=== PATIENT | male | born 1940 | race Two or more races ===

== ENCOUNTER 2022-03-26 18:58 | Inpatient (IN) | payer MEDICARE, MEDICAID, SELFPAY ==
--- NOTE | 2022-03-26 | ECG_ITS ---
Test Reason : chest pain Blood Pressure : / mmHG Vent. Rate : 063 BPM Atrial Rate : 063 BPM P-R Int : 210 ms QRS Dur : 074 ms QT Int : 408 ms P-R-T Axes : 057 -07 082 degrees QTc Int : 417 ms Sinus rhythm with 1st degree A-V block Low voltage QRS Cannot rule out Anterior infarct , age undetermined Abnormal ECG When compared with ECG of 02-NOV-2018 06:51, Minimal criteria for Anterior infarct are now Present Nonspecific T wave abnormality, worse in Lateral leads Referred By: Generic ED Physician Electronically Signed By:JOSEPH KILGORE MD
--- NOTE | ~2022-03-26 | XR_ITS ---
EXAMINATION: PORTABLE CHEST 1 VIEW CLINICAL INFORMATION: acute chest pain . COMPARISON: 11/01/2018. TECHNIQUE: Portable frontal view of the chest was obtained. FINDINGS: The lungs are hypoexpanded with basilar markings more likely due to atelectasis. Early infiltrate, especially at the left base would be difficult to exclude. Mild central vascular prominence may be related to the degree of hypoexpansion. No overt edema or pneumothorax. Cardiac and mediastinal silhouettes are within normal limits for technique. No acute bony abnormality seen. Cervical spine hardware partially visualized. Degenerative changes in the visualized right shoulder XR/XR chest 1V IMPRESSION: Hypoexpanded with basilar markings more likely due to atelectasis in this setting. Early infiltrate, especially at the left base would be difficult to exclude.
--- NOTE | ~2022-03-26 | CT_ITS ---
EXAMINATION: CT CHEST WITHOUT CONTRAST CLINICAL INFORMATION: Shortness of breath. COMPARISON: None TECHNIQUE: Multidetector volumetric CT imaging of the chest was done. Axial MIP volume rendering provided. Sagittal and coronal reformatted images were obtained. This CT examination was performed using dose optimization techniques as appropriate, variously including the following: *Automated exposure control *Adjustment of mA and/or kV according to patient size (this includes techniques or standardized protocols for targeted exams where dose is matched to indication/reason for exam; i.e. extremities or head) *Use of iterative reconstruction technique DLP: 322 mGy-cm FINDINGS: LUNGS: There is bronchial wall thickening the perihilar lung without significant bronchiectasis. Mild diffuse subpleural reticular changes, greater in the right and left lungs. All lobes involved. No focal consolidation. No acute airspace disease. MEDIASTINUM: No mediastinal mass or significant lymphadenopathy. Heart size normal. No aneurysm of the thoracic aorta. Small volume of calcifications of thoracic aorta. CORONARY ARTERY CALCIFICATION: Vascular stenting coronary artery. PLEURA: Trace dependent right pleural effusion. AXILLA: No lymphadenopathy. UPPER ABDOMEN: Bilateral renal cysts. No follow-up imaging is recommended for simple renal cyst.. Diverticulosis of the transverse colon. No evidence of acute change of bowel. The visualized liver, spleen and adrenal glands are normal. Pancreas partially visualized is atrophic. OSSEOUS STRUCTURES: Multilevel degenerative spondylosis of the spine. CT/CT chest wo IV con IMPRESSION: 1. Diffuse bronchial wall thickening. This may be inflammatory or infectious in etiology. Mild diffuse subpleural reticular changes of lungs. No acute focal airspace disease. 2. Trace dependent right pleural effusion. Fleischner guidelines were followed.
[2022-03-26 19:09] VITALS: BP 152/88; PULSE 61; O2SAT 97; BMI 27.3
[2022-03-26 19:58] LABS: Basophils Percent Auto 0.3 % (0-2); Eosinophils Absolute Auto 0.2 X10*3/uL (0.0-0.4); Eosinophils Percent Auto 2.7 % (0-4); Hematocrit 40.8 % (42.0-52.0); Hemoglobin 13.2 g/dl (14.0-18.0); Imm Gran Abs Auto 0.01 X10*3/uL (0.00-0.03); Imm Gran Pct Auto 0.2 % (0.0-0.4); Lymphocytes Absolute Auto 1.9 X10*3/uL (1.2-4.9); Lymphocytes Percent Auto 28.7 % (20-40); MANUAL DIFF FLAG NO; Mean Corpuscular HGB Conc 32.4 g/dl (31.0-36.0); Mean Corpuscular Hemoglobin 29.3 pg (27.0-33.0); Mean Corpuscular Volume 90.5 fL (80.0-98.0); Monocytes Absolute Auto 0.4 X10*3/uL (0.1-1.2); Monocytes Percent Auto 5.6 % (2-11); Neutrophils Absolute Auto 4.2 x10*3/uL (2.0-8.3); Neutrophils Percent Auto 62.5 % (45-73); Platelet Count 143 X10*3/uL (160-400); Red Blood Count 4.51 X10*6/uL (4.60-5.80); Red Cell Distribution Width 13.5 % (11.0-16.0); White Blood Count 6.7 X10*3/uL (4.8-10.8)
[2022-03-26 20:13] LABS: COVID-19 Test Negative (Negative); IDNOW Serial# 16C4AD1C
[2022-03-26 20:15] VITALS: BP 117/60; PULSE 57; RESP 17; TEMP 36.9; O2SAT 99
[2022-03-26 20:17] LABS: Alanine Aminotransferase 32 U/L (0-40); Albumin Level 3.6 g/dL (3.5-5.0); Alkaline Phosphatase 91 U/L (39-117); Anion Gap 11 (12-20); Aspartate Amino Transferase 24 U/L (5-37); Bilirubin Total 0.8 mg/dL (0.0-1.0); Blood Urea Nitrogen 26 mg/dL (9-16); Calcium 8.3 mg/dL (8.4-10.2); Carbon Dioxide 24 mmol/L (22-29); Chloride 111 mmol/L (96-108); Creatinine Clr Calc Pharmacy 29.8; Estimated Glomerular Filt Rate 33; Glucose Random 187 mg/dL (60-115); Potassium 4.6 mmol/L (3.3-5.1); Sodium 141 mmol/L (135-145)
[2022-03-26 20:24] LABS: Troponin-I High Sensitivity 48.6 ng/L (<3.5-35.0)
[2022-03-26 21:17] VITALS: PULSE 59
--- NOTE | 2022-03-26 21:22 | PC.NURSE ---
Patient arrived to be evaluated for left chest, left arm, and mid back pain. Patient describes pain as sharp, lasted 15 min and resolved. EKG performed, Labs drawn. 20 g IV line established in R AC. Dr. Fried at bedside to evaluate pt.
--- NOTE | 2022-03-26 21:25 | ED.CHESTPAIN ---
HPI - Chest Pain General Chief Complaint: Chest Pain Stated Complaint: sob, chest pain Time Seen by Provider: 03/26/22 21:10 Source: patient Mode of arrival: EMS Limitations: no limitations History of Present Illness HPI narrative: 81-year-old male presents with chest pain. He has a history of coronary artery disease with stent placed 2 years ago, diabetes. Chest pain started today prior to arrival. It was left-sided radiating to the left arm and left neck. Patient does have some chronic right neck pain but this pain was different. Describes the pain as sharp. The pain was moderate to severe. It was not associated with exertion. He did have nausea and shortness of breath. The pain lasted approximately 15 minutes and has dissipated since then. Patient is compliant with his medications. He is currently on Brilinta and aspirin on a regular basis. EMS was contacted. On route, patient had 324 mg aspirin. No additional treatment was noted. Related Data Allergies Allergy/AdvReac Type Severity Reaction Status Date / Time No Known Allergies Allergy Unverified 11/01/19 16:04 [No Known Allergies*] Review of Systems Review of Systems: CONSTITUTIONAL: Denies weight loss, fever and chills. HEENT: Denies changes in vision and hearing. RESPIRATORY: Positive SOB no cough. CV: Denies palpitations positive CP. GI: Denies abdominal pain, positive nausea, no vomiting and diarrhea. : Denies dysuria and urinary frequency. MSK: Denies myalgia and joint pain. SKIN: Denies rash and pruritus. NEUROLOGICAL: Denies headache and syncope. PSYCHIATRIC: Denies recent changes in mood. Denies anxiety and depression. All other ROS are negative unless in HPI PMFSH Social History Social History Alcohol intake: former Smoked in Last 30 Days: No Use of substances other than those prescribed or required for medical reasons: No Advance Directives: No Advance Directives Information Provided: No Physical Exam Vital Signs: Vital Signs: Last Vital Signs Temp 98.4 F 03/26/22 20:15 Pulse 57 03/26/22 20:15 Resp 17 03/26/22 20:15 BP 117/60 03/26/22 20:15 Pulse Ox 99 03/26/22 20:15 O2 Del Method 03/26/22 20:15 BMI result Body Mass Index 27.3 GEN: Well developed, no acute distress, alert, oriented HEENT: Normocephalic, atraumatic, normal external ears, nose appears normal, no oropharyngeal edema or exudates Eyes: Normal to appearance Neck: Supple, no lymphadenopathy Respiratory: Talks in complete sentences, no respiratory distress, clear to auscultation bilaterally Cardiovascular: Regular rate and rhythm, no murmurs rubs or gallops Abdomen: Soft, nontender, nondistended, no guarding, no rebound Back: No CVA tenderness Extremities: No clubbing cyanosis or edema Neurologic: No focal neurologic deficits, cranial nerves 2-12 intact, strength is 5/5 bilaterally, gait normal Skin: No rash Course Course Course Narrative: 81-year-old male with coronary artery disease and diabetes presents with chest pain. Chest pain has resolved. Has a very good story including left-sided chest pain radiating to left arm and neck cyst with nausea and shortness of breath. Patient is currently pain-free. Patient will have full workup including cardiac enzymes, chest x-ray, EKG. Given patient's history, he will likely need admission. Reevaluation(s) Reevaluation #1: The workup is complete. Patient will be admitted to the hospital for chest pain given his history of coronary artery disease. Discussed the plan with the patient. Time: 21:28 Consultations Consultation #1: Hospitalist for admission Time: 21:34 Medical Decision Making Medical Decision Making [facility] Narrative: 81-year-old male with coronary artery disease and diabetes presents chest pain. The story is very good. He does have a stent placed and is compliant with his medications. Prior treatment included aspirin 324 mg for is also on Brilinta. Examination was unremarkable. Multiple differential diagnoses were considered however the highest on the LEs is cardiac chest pain. Differential Diagnosis Differential Diagnoses: The differential diagnosis associated with the presentation includes (Atypical chest pain, musculoskeletal chest pain, chest wall pain, myocardial infarction, pericarditis, myocarditis, anxiety, stress, reflux, pneumonia, pulmonary embolus, dissection) Acute chest pain, coronary artery disease, chronic kidney disease Admission/Observation Consideration of admission/observation: Escalation of care including admission/observation considered Consult Healthcare Provider Management of the patient was discussed with: Hospitalist Lab Data [facility] Lab Attestation statement: I reviewed the patient's lab results. 03/26/22 19:53 03/26/22 19:53 Labs: Lab Results 03/26/22 03/26/22 03/26/22 Range/Units 19:52 19:53 19:53 WBC 6.7 (4.8-10.8) X10*3/uL RBC 4.51 L (4.60-5.80) X10*6/uL Hgb 13.2 L (14.0-18.0) g/dl Hct 40.8 L (42.0-52.0) % MCV 90.5 (80.0-98.0) fL MCH 29.3 (27.0-33.0) pg MCHC 32.4 (31.0-36.0) g/dl RDW 13.5 (11.0-16.0) % Plt Count 143 L (160-400) X10*3/uL MPV 10.0 (9.4-12.4) fL Immature Gran % (Auto) 0.2 (0.0-0.4) % Neut % (Auto) 62.5 (45-73) % Lymph % (Auto) 28.7 (20-40) % [place] % (Auto) 5.6 (2-11) % Eos % (Auto) 2.7 (0-4) % Baso % (Auto) 0.3 (0-2) % Lymph # (Auto) 1.9 (1.2-4.9) X10*3/uL [place] # (Auto) 0.4 (0.1-1.2) X10*3/uL Eos # (Auto) 0.2 (0.0-0.4) X10*3/uL Baso # (Auto) 0.0 (0.0-0.2) X10*3/uL Abs Immat Gran (auto) 0.01 (0.00-0.03) X10*3/uL Absolute Neuts (auto) 4.2 (2.0-8.3) x10*3/uL Absolute Nucleated RBC 0.000 (0.0-0.012) X10*3/uL Nucleated RBC % (auto) 0.0 (0.0-0.2) /100WBC Sodium 141 (135-145) mmol/L Potassium 4.6 (3.3-5.1) mmol/L Chloride 111 H (96-108) mmol/L Carbon Dioxide 24 (22-29) mmol/L Anion Gap 11 L (12-20) BUN 26 H (9-16) mg/dL Creatinine 1.93 H (0.5-1.4) mg/dL Estim Creat Clear Calc 29.8 Estimated GFR 33 Random Glucose 187 H (60-115) mg/dL Calcium 8.3 L (8.4-10.2) mg/dL Total Bilirubin 0.8 (0.0-1.0) mg/dL AST 24 (5-37) U/L ALT 32 (0-40) U/L Alkaline Phosphatase 91 (39-117) U/L Troponin I High Sens (<3.5-35.0) ng/L Total Protein 6.0 L (6.5-8.0) g/dL Albumin 3.6 (3.5-5.0) g/dL COVID-19 ([facility]) Negative (Negative) COVID-19 Clin Com See Note 03/26/22 Range/Units 19:53 WBC (4.8-10.8) X10*3/uL RBC (4.60-5.80) X10*6/uL Hgb (14.0-18.0) g/dl Hct (42.0-52.0) % MCV (80.0-98.0) fL MCH (27.0-33.0) pg MCHC (31.0-36.0) g/dl RDW (11.0-16.0) % Plt Count (160-400) X10*3/uL MPV (9.4-12.4) fL Immature Gran % (Auto) (0.0-0.4) % Neut % (Auto) (45-73) % Lymph % (Auto) (20-40) % [place] % (Auto) (2-11) % Eos % (Auto) (0-4) % Baso % (Auto) (0-2) % Lymph # (Auto) (1.2-4.9) X10*3/uL [place] # (Auto) (0.1-1.2) X10*3/uL Eos # (Auto) (0.0-0.4) X10*3/uL Baso # (Auto) (0.0-0.2) X10*3/uL Abs Immat Gran (auto) (0.00-0.03) X10*3/uL Absolute Neuts (auto) (2.0-8.3) x10*3/uL Absolute Nucleated RBC (0.0-0.012) X10*3/uL Nucleated RBC % (auto) (0.0-0.2) /100WBC Sodium (135-145) mmol/L Potassium (3.3-5.1) mmol/L Chloride (96-108) mmol/L Carbon Dioxide (22-29) mmol/L Anion Gap (12-20) BUN (9-16) mg/dL Creatinine (0.5-1.4) mg/dL Estim Creat Clear Calc Estimated GFR Random Glucose (60-115) mg/dL Calcium (8.4-10.2) mg/dL Total Bilirubin (0.0-1.0) mg/dL AST (5-37) U/L ALT (0-40) U/L Alkaline Phosphatase (39-117) U/L Troponin I High Sens 48.6 H (<3.5-35.0) ng/L Total Protein (6.5-8.0) g/dL Albumin (3.5-5.0) g/dL COVID-19 ([facility]) (Negative) COVID-19 Clin Com Independent Interpretation I performed an independent interpretation of an: EKG (Normal size heart rate 63, first-degree AV block, diffuse nonspecific T-wave flattening, no acute ST elevations or depressions) and Plain X-Ray (No acute cardiopulmonary disease) External Record Review No outside records available Tests considered The following testing was considered but not selected: CT chest Prescription Management I considered prescription management with: Pain Medication and Other (Anticoagulation) Chronic Conditions Patient?s care impacted by: Diabetes and Hypertension Discharge Plan Discharge Clinical Impression: Chest pain, Coronary artery disease, CKD (chronic kidney disease) Patient Disposition: Admitted As Inpatient
--- NOTE | 2022-03-26 21:38 | ED_ITS ---
HPI - Chest Pain General Chief Complaint: Chest Pain Stated Complaint: sob, chest pain Time Seen by Provider: 03/26/22 21:10 Source: patient Mode of arrival: EMS Limitations: no limitations Related Data Allergies Allergy/AdvReac Type Severity Reaction Status Date / Time No Known Allergies Allergy Unverified 11/01/19 16:04 [No Known Allergies*] PENDING SALE TO [facility] Social History Social History Alcohol intake: former Smoked in Last 30 Days: No Use of substances other than those prescribed or required for medical reasons: No Advance Directives: No Advance Directives Information Provided: No Physical Exam Vital Signs: Vital Signs: Last Vital Signs Temp 98.4 F 03/26/22 20:15 Pulse 57 03/26/22 20:15 Resp 17 03/26/22 20:15 BP 117/60 03/26/22 20:15 Pulse Ox 99 03/26/22 20:15 O2 Del Method 03/26/22 20:15 BMI result Body Mass Index 27.3 Medical Decision Making Lab Data 03/26/22 19:53 03/26/22 19:53 Labs: Lab Results 03/26/22 03/26/22 03/26/22 Range/Units 19:52 19:53 19:53 WBC 6.7 (4.8-10.8) X10*3/uL RBC 4.51 L (4.60-5.80) X10*6/uL Hgb 13.2 L (14.0-18.0) g/dl Hct 40.8 L (42.0-52.0) % MCV 90.5 (80.0-98.0) fL MCH 29.3 (27.0-33.0) pg MCHC 32.4 (31.0-36.0) g/dl RDW 13.5 (11.0-16.0) % Plt Count 143 L (160-400) X10*3/uL MPV 10.0 (9.4-12.4) fL Immature Gran % (Auto) 0.2 (0.0-0.4) % Neut % (Auto) 62.5 (45-73) % Lymph % (Auto) 28.7 (20-40) % [place] % (Auto) 5.6 (2-11) % Eos % (Auto) 2.7 (0-4) % Baso % (Auto) 0.3 (0-2) % Lymph # (Auto) 1.9 (1.2-4.9) X10*3/uL [place] # (Auto) 0.4 (0.1-1.2) X10*3/uL Eos # (Auto) 0.2 (0.0-0.4) X10*3/uL Baso # (Auto) 0.0 (0.0-0.2) X10*3/uL Abs Immat Gran (auto) 0.01 (0.00-0.03) X10*3/uL Absolute Neuts (auto) 4.2 (2.0-8.3) x10*3/uL Absolute Nucleated RBC 0.000 (0.0-0.012) X10*3/uL Nucleated RBC % (auto) 0.0 (0.0-0.2) /100WBC Sodium 141 (135-145) mmol/L Potassium 4.6 (3.3-5.1) mmol/L Chloride 111 H (96-108) mmol/L Carbon Dioxide 24 (22-29) mmol/L Anion Gap 11 L (12-20) BUN 26 H (9-16) mg/dL Creatinine 1.93 H (0.5-1.4) mg/dL Estim Creat Clear Calc 29.8 Estimated GFR 33 Random Glucose 187 H (60-115) mg/dL Calcium 8.3 L (8.4-10.2) mg/dL Total Bilirubin 0.8 (0.0-1.0) mg/dL AST 24 (5-37) U/L ALT 32 (0-40) U/L Alkaline Phosphatase 91 (39-117) U/L Troponin I High Sens (<3.5-35.0) ng/L Total Protein 6.0 L (6.5-8.0) g/dL Albumin 3.6 (3.5-5.0) g/dL COVID-19 ([facility]) Negative (Negative) COVID-19 Clin Com See Note 03/26/22 Range/Units 19:53 WBC (4.8-10.8) X10*3/uL RBC (4.60-5.80) X10*6/uL Hgb (14.0-18.0) g/dl Hct (42.0-52.0) % MCV (80.0-98.0) fL MCH (27.0-33.0) pg MCHC (31.0-36.0) g/dl RDW (11.0-16.0) % Plt Count (160-400) X10*3/uL MPV (9.4-12.4) fL Immature Gran % (Auto) (0.0-0.4) % Neut % (Auto) (45-73) % Lymph % (Auto) (20-40) % [place] % (Auto) (2-11) % Eos % (Auto) (0-4) % Baso % (Auto) (0-2) % Lymph # (Auto) (1.2-4.9) X10*3/uL [place] # (Auto) (0.1-1.2) X10*3/uL Eos # (Auto) (0.0-0.4) X10*3/uL Baso # (Auto) (0.0-0.2) X10*3/uL Abs Immat Gran (auto) (0.00-0.03) X10*3/uL Absolute Neuts (auto) (2.0-8.3) x10*3/uL Absolute Nucleated RBC (0.0-0.012) X10*3/uL Nucleated RBC % (auto) (0.0-0.2) /100WBC Sodium (135-145) mmol/L Potassium (3.3-5.1) mmol/L Chloride (96-108) mmol/L Carbon Dioxide (22-29) mmol/L Anion Gap (12-20) BUN (9-16) mg/dL Creatinine (0.5-1.4) mg/dL Estim Creat Clear Calc Estimated GFR Random Glucose (60-115) mg/dL Calcium (8.4-10.2) mg/dL Total Bilirubin (0.0-1.0) mg/dL AST (5-37) U/L ALT (0-40) U/L Alkaline Phosphatase (39-117) U/L Troponin I High Sens 48.6 H (<3.5-35.0) ng/L Total Protein (6.5-8.0) g/dL Albumin (3.5-5.0) g/dL COVID-19 ([facility]) (Negative) COVID-19 Clin Com Discharge Plan Discharge Clinical Impression: Chest pain, Coronary artery disease, CKD (chronic kidney disease) Patient Disposition: Admitted As Inpatient
--- NOTE | 2022-03-26 22:10 | PHA.MEDREC ---
Pharmacy Consult ? Medication Reconciliation Pharmacy has completed the medication reconciliation.
[2022-03-26] MEDS: Insulin Glargine,Hum.rec.anlog 100 UNIT/ML 10 ML VIAL 10 UNIT SUBCUT (22:13)
[2022-03-26 23:00] LABS: B Type Natriuretic Peptide 569 pg/mL (<100)
--- NOTE | 2022-03-26 23:32 | PM.IMHP ---
History of Present Illness Date of Service: 03/26/22 Chief Complaint: chest pain 81 yo M with hx of CAD, CKD, diabetes, CHF, hyperlipidemia, BPH, presents the hospital with complaints of left-sided chest pain patient reports the pain is sharp stabbing, radiating to his left arm, started early in the day, no relieving or exacerbating factors. Pain is intermittent, worse with exertion. Patient is also complaining of shortness of breath, that started 3 days ago, lower extremity edema. Orthopnea and PND. Reports compliance with his torsemide. Denies any fever no chills, no cough, no palpitations, no urinary symptoms and numbness tingling or weakness. On arrival to the ED hemodynamically stable no significant abnormal vitals Labs are significant for WBC count of 6.7, hemoglobin of 13.2, hematocrit 40.8, creatinine of 9 3 which is around his baseline, troponin of 48 increased to 55.3 BNP of 569 Urine negative, COVID-[address] shows diffuse bronchial wall thickening, this could be inflammatory or infectious. Trace dependent right pleural effusion. EKG shows sinus rhythm with first-degree AV block with no significant ST T-wave changes suggestive of ACS Review of Systems Review of Systems: Yes all other systems are reviewed and are negative [facility] Medical History CHF (congestive heart failure) Diabetes History of CAD (coronary artery disease) Surgical History No pertinent past surgical history Social History Household Members: Family Housing: Apartment Do you presently have visiting nurse or other home services: Yes Alcohol intake: former Patient Tobacco Use Status: Former Tobacco user Smoked in Last 30 Days: No Use of substances other than those prescribed or required for medical reasons: No Have you been hit, kicked, punched, or otherwise hurt by someone within the past year? If so, by whom?: No Do you feel safe in your current relationship?: No Current Relationship Is there a partner from a previous relationship who is making you feel unsafe now?: No Are you made to feel afraid or neglected: No Advance Directives: No Advance Directives Information Provided: No Do you have thoughts of harming others: None Do you have a plan to hurt others: No Plan Nutrition Risks: Difficulty swallowing Meds Allergies Allergy/AdvReac Type Severity Reaction Status Date / Time No Known Allergies Allergy Unverified 11/01/19 16:04 [No Known Allergies*] Active Medications: Current Medications Pharmacy Consult (Consult Rx Perform Med Rec) 1 each MISCELLANE ONCE PRN PRN Reason: Consult order Home Medications Medication Instructions Recorded Confirmed Last Taken Type acetaminophen 650 mg 650 mg PO BID PRN Pain 03/26/22 03/26/22 Unknown History tablet,extended release aspirin 81 mg tablet,delayed 81 mg PO DAILY 03/26/22 03/26/22 03/26/22 History release atorvastatin 80 mg tablet 1 tab PO BEDTIME 03/26/22 03/26/22 03/25/22 History fluticasone propionate 50 1 spray intranasal BID 03/26/22 03/26/22 03/26/22 History mcg/actuation nasal spray,suspension gabapentin 100 mg capsule 1 cap PO BID 03/26/22 03/26/22 03/26/22 History insulin glargine 100 unit/mL (3 16 unit subcut BEDTIME 03/26/22 03/26/22 03/25/22 History mL) subcutaneous pen (Lantus Solostar U-100 Insulin) loratadine 10 mg tablet 10 mg PO DAILY 03/26/22 03/26/22 03/26/22 History metoprolol tartrate 25 mg tablet 0.5 tab PO BID 03/26/22 03/26/22 03/26/22 History omeprazole 20 mg capsule,delayed 1 cap PO DAILY 03/26/22 03/26/22 03/26/22 History release sacubitril 24 mg-valsartan 26 mg 1 tab PO BID 03/26/22 03/26/22 03/26/22 History tablet (Entresto) tamsulosin 0.4 mg capsule 1 cap PO DAILY 03/26/22 03/26/22 03/26/22 History ticagrelor 60 mg tablet (Brilinta) 1 tab PO BID 03/26/22 03/26/22 03/26/22 History torsemide 10 mg tablet 1 tab PO DAILY 03/26/22 03/26/22 03/26/22 History Physical Exam Vital Signs and Narrative: Vital Signs: Last Vital Signs Temp 98.4 F 03/26/22 20:15 Pulse 57 03/26/22 20:15 Resp 17 03/26/22 20:15 BP 117/60 03/26/22 20:15 Pulse Ox 99 03/26/22 20:15 O2 Del Method 03/26/22 20:15 BMI result Body Mass Index 27.3 Const: General: cooperative and no acute distress Orientation/consciousness: patient oriented x3 Eyes: General: appearance normal, both eyes and all related structures Resp: Effort & Inspection: normal respiratory effort Auscultation: clear to auscultation bilaterally Cardio: Rate: regular rate Rhythm: regular rhythm GI: Palpation (GI): Soft to palpation Auscultation: normal bowel sounds Skin: General skin exam: no rashes or lesions noted Neuro: General: patient oriented x3 Cognition (Neuro): normal cognition Extrem: Other: Trace pedal edema General: Yes normal to inspection Results Labs 03/26/22 19:53 03/26/22 19:53 Labs: Laboratory Results - last 24 hr 03/26/22 03/26/22 03/26/22 19:52 19:53 19:53 MCV 90.5 MCH 29.3 MCHC 32.4 RDW 13.5 Plt Count 143 L MPV 10.0 Immature Gran % (Auto) 0.2 Neut % (Auto) 62.5 Lymph % (Auto) 28.7 [place] % (Auto) 5.6 Eos % (Auto) 2.7 Baso % (Auto) 0.3 Lymph # (Auto) 1.9 [place] # (Auto) 0.4 Eos # (Auto) 0.2 Baso # (Auto) 0.0 Abs Immat Gran (auto) 0.01 Absolute Neuts (auto) 4.2 Absolute Nucleated RBC 0.000 Nucleated RBC % (auto) 0.0 Anion Gap 11 L Estim Creat Clear Calc 29.8 Estimated GFR 33 Random Glucose 187 H Calcium 8.3 L Total Bilirubin 0.8 AST 24 ALT 32 Alkaline Phosphatase 91 Troponin I High Sens B-Natriuretic Peptide Total Protein 6.0 L Albumin 3.6 COVID-19 ([facility]) Negative COVID-19 Clin Com See Note 03/26/22 03/26/22 19:53 22:23 MCV MCH MCHC RDW Plt Count MPV Immature Gran % (Auto) Neut % (Auto) Lymph % (Auto) [place] % (Auto) Eos % (Auto) Baso % (Auto) Lymph # (Auto) [place] # (Auto) Eos # (Auto) Baso # (Auto) Abs Immat Gran (auto) Absolute Neuts (auto) Absolute Nucleated RBC Nucleated RBC % (auto) Anion Gap Estim Creat Clear Calc Estimated GFR Random Glucose Calcium Total Bilirubin AST ALT Alkaline Phosphatase Troponin I High Sens 48.6 H B-Natriuretic Peptide 569 H Total Protein Albumin COVID-19 ([facility]) COVID-19 Clin Com Imaging Radiologist's Impressions: Impressions Chest X-Ray 03/26/22 21:21 IMPRESSION: Hypoexpanded with basilar markings more likely due to atelectasis in this setting. Early infiltrate, especially at the left base would be difficult to exclude. Assessment and Plan (1) Chest pain: Status: Acute (2) Acute exacerbation of CHF (congestive heart failure): Status: Acute Plan 81-year-old male with past medical history of CAD, CHF with reduced ejection fraction as well as diabetes presents to the hospital with complaints of chest pain # chest pain - although typical, given his history of CAD patient will be admitted for telemetry - slightly elevated troponin with no delta - EKG reviewed shows nonspecific ST T wave changes not suggestive of ACS - will consult Cardiology - echocardiogram ordered # acute CHF exacerbation - has trace pleural effusion on chest x-ray, elevated BNP, as well as acute complaints of dyspnea, orthopnea and PND - patient's blood pressure is soft - he has no acute respiratory distress - will order Lasix pending cardiology evaluation, if BP permits - echo - low-sodium diet, strict I&O, daily weight - was given 1 dose of midodrine to help with blood pressure - will hold Entresto in the setting of low BP # diabetes - continue home insulin - will add low-dose sliding scale insulin - diabetic diet # history of CAD - continue Brilinta, aspirin statin, metoprolol DVT prophylaxis: Lovenox Given patient's history of coronary artery disease as well as complex cardiac history and need for further evaluation by Cardiology for the above-mentioned reasons the patient required minimum 2 nights inpatient hospital stay for further management and monitoring Time Spent With Patient Time: Total time managing care of this patient today ____ minutes. Quality Stroke Does the patient have a stroke diagnosis?: No VTE Prior VTE?: No VTE Risk Level:: Medical - moderate - high VTE Device Contraindication: Treatment Not Indicated VTE Drug Contraindication: N/A - Med Ordered
[2022-03-26] MEDS: Enoxaparin Sodium 40 MG/0.4 ML SYRINGE SUBCUT (23:40)
[2022-03-26] MEDS: 0.9 % Sodium Chloride Flush 3 ML SYRINGE IVFLUSH (23:40)
[2022-03-27] VITALS (7 sets, daily range): BP systolic 91–124; BP diastolic 48–63; PULSE 53–58; RESP 16–23; TEMP 36.1–36.8; O2SAT 96–100; BMI 32.3; BMI 31.3
[2022-03-27 00:14] LABS: Troponin-I High Sensitivity 55.3 ng/L (<3.5-35.0)
--- NOTE | 2022-03-27 00:29 | PC.NURSE ---
BP 95/48, P 53, RR 15, O2 Sat 97% RA. Dr. Sanchez notified of patient running soft BP, no new orders at this time.
[2022-03-27 00:32] LABS: Appearance Urine Clear; Color Urine Yellow; Glucose Urine UA 500 mg/dL (Negative); Leukocyte Esterase Urine Negative (Negative); Nitrite Urine Negative (Negative); PH 5.5 (5.0-9.0); UMIC TRIGGER UACC YES; Urine Blood Negative (Negative); Urine Ketones Negative (Negative); Urine Protein 30 (1+) mg/dL (Neg-Trace)
[2022-03-27 00:41] LABS: Bacteria Urine None Seen (None Seen); RBC Urine 0-2 /HPF (0-2); Squamous Epithelial Cell Urine 0-2 /HPF (0-2); WBC Urine 0-5 /HPF (0-5)
--- NOTE | 2022-03-27 01:01 | ECG_ITS ---
Test Reason : REPEAT Blood Pressure : / mmHG Vent. Rate : 052 BPM Atrial Rate : 052 BPM P-R Int : 198 ms QRS Dur : 066 ms QT Int : 436 ms P-R-T Axes : 051 -15 -12 degrees QTc Int : 405 ms Sinus bradycardia Low voltage QRS Septal infarct (cited on or before 26-MAR-2022) Abnormal ECG When compared with ECG of 26-MAR-2022 19:13, No significant change was found Referred By: Leandra Sanchez Electronically Signed By:JOSEPH KILGORE MD
--- NOTE | 2022-03-27 01:10 | PC.NURSE ---
Patient reports pressure like pain in left chest pain rating 6/10 on 0-10 pain scale. Patient denies SOB, non-diaphoretic. EKG obtained and sent to Dr. Sanchez via [employer] message.
[2022-03-27] MEDS: Midodrine HCl 5 MG TABLET PO (01:35)
[2022-03-27 01:57] LABS: Troponin-I High Sensitivity 43.4 ng/L (<3.5-35.0)
--- NOTE | 2022-03-27 03:19 | PC.NURSE ---
Nurse to nurse report given to Gene [facility] [place], patient to be transported to [facility] room 467 by e d tech.
[2022-03-27 07:11] LABS: Alanine Aminotransferase 23 U/L (0-40); Albumin Level 3.2 g/dL (3.5-5.0); Alkaline Phosphatase 75 U/L (39-117); Anion Gap 11 (12-20); Aspartate Amino Transferase 18 U/L (5-37); Bilirubin Total 0.7 mg/dL (0.0-1.0); Blood Urea Nitrogen 27 mg/dL (9-16); Calcium 8.3 mg/dL (8.4-10.2); Carbon Dioxide 23 mmol/L (22-29); Chloride 112 mmol/L (96-108); Creatinine Clr Calc Pharmacy 31.2; Estimated Glomerular Filt Rate 35; Glucose Random 117 mg/dL (60-115); Potassium 4.7 mmol/L (3.3-5.1); Sodium 141 mmol/L (135-145); Total Protein 5.2 g/dL (6.5-8.0)
[2022-03-27] MEDS: Metoprolol Tartrate 12.5 MG HALFTAB PO (07:38)
[2022-03-27] MEDS: Loratadine 10 MG TABLET PO (07:38)
[2022-03-27] MEDS: Gabapentin 100 MG CAPSULE PO ×2 (07:38→22:08)
[2022-03-27] MEDS: Omeprazole 20 MG CAPSULE.DR PO (07:38)
[2022-03-27] MEDS: Furosemide 40 MG/4 ML VIAL IVPUSH (07:38)
[2022-03-27] MEDS: 0.9 % Sodium Chloride Flush 3 ML SYRINGE IVFLUSH ×3 (07:38→22:09)
[2022-03-27] MEDS: Aspirin Enteric Coated 81 MG TABLET.DR PO (07:38)
[2022-03-27 07:47] LABS: Glucose, Whole Blood 110 mg/dL (60-115)
[2022-03-27] MEDS: Acetaminophen 325 MG TABLET 650 MG PO (07:47)
[2022-03-27] MEDS: Fluticasone Propionate Nasal 16 GM SPRAY 1 SPRAY NOSTRIL-B (08:35)
[2022-03-27 12:12] LABS: Glucose, Whole Blood 142 mg/dL (60-115)
--- NOTE | 2022-03-27 14:03 | HO.PM.IMPN ---
Subjective Subjective Date of Service: 03/28/22 Interval History: possible chf execerbation Review of Systems dry cough chest tightness seems improved says his dry weight is around 192 lbs Physical Exam Vital Signs: Vital Signs: Last Vital Signs Temp 98.2 F 03/27/22 12:00 Pulse 55 03/27/22 12:00 Resp 20 03/27/22 12:00 BP 102/58 L 03/27/22 12:00 Pulse Ox 97 03/27/22 12:00 O2 Del Method 03/27/22 12:00 BMI result Body Mass Index 31.3 Appearance: Alert.? Oriented X3.? not in distress.? cvs: rrr, [id number] . res: clear to auscultation ,no rhonchii or wheezing abd: no rebound or guarding ,nt, bs present. ext pulses present , no cyanosis ,no edema . neuro: axo3 , nonfocal. Objective Data Active Medications Acetaminophen (Acetaminophen 325 Mg Tablet) 650 mg PO Q6H PRN PRN Reason: Pain, Mild (Pain Scale 1-3) Last Admin: 03/27/22 07:47 Dose: 650 mg Documented By: ANY Aspirin (Aspirin Enteric Coated 81 Mg Tablet.Dr) 81 mg PO DAILY [facility] Last Admin: 03/27/22 07:38 Dose: 81 mg Documented By: ANY Atorvastatin Calcium (Atorvastatin Calcium 80 Mg Tablet) 80 mg PO BEDTIME [facility] Dextrose (Dextrose 50 % 25 Gm/50 Ml Syringe) 25 gm IVPUSH Q15M PRN; Protocol PRN Reason: per Hypoglycemia Standing Ord. Docusate Sodium (Docusate Sodium 100 Mg Capsule) 100 mg PO DAILY PRN PRN Reason: Constipation Enoxaparin Sodium (Enoxaparin Sodium 40 Mg/0.4 Ml Syringe) 40 mg SUBCUT Q24H [facility] Last Admin: 03/26/22 23:40 Dose: 40 mg Documented By: AUGUSTO Fluticasone Propionate (Fluticasone Propionate Nasal 16 Gm Banks) 1 spray NOSTRIL-B BID [facility] Last Admin: 03/27/22 08:35 Dose: 1 spray Documented By: ANY Furosemide (Furosemide 40 Mg/4 Ml Vial) 40 mg IVPUSH DAILY [facility]; Protocol Last Admin: 03/27/22 07:38 Dose: 40 mg Documented By: ANY Gabapentin (Gabapentin 100 Mg Capsule) 100 mg PO BID [facility] Last Admin: 03/27/22 07:38 Dose: 100 mg Documented By: ANY Glucose (Glucose Gel 15 Gm Gel..Gram.) 15 gm PO Q15M PRN; Protocol PRN Reason: per Hypoglycemia Standing Ord. Insulin Glargine (Insulin Glargine,Hum.Rec.Anlog 100 Unit/Ml 10 Ml Vial) 16 unit SUBCUT BEDTIME [facility] Insulin Human Lispro (Insulin Lispro 100 Unit/Ml 3 Ml Vial) 0 unit SUBCUT QIDACHS [facility]; Protocol Last Admin: 03/27/22 12:20 Dose: Not Given Documented By: RAHAT Non-Admin Reason: No Insulin Coverage Loratadine (Loratadine 10 Mg Tablet) 10 mg PO DAILY [facility] Last Admin: 03/27/22 07:38 Dose: 10 mg Documented By: ANY Metoprolol Tartrate (Metoprolol Tartrate 12.5 Mg Halftab) 12.5 mg PO BID [facility]; Protocol Last Admin: 03/27/22 07:38 Dose: 12.5 mg Documented By: ANY Non-Formulary Medication (Ticagrelor [Brilinta]) 1 tab PO BID [facility] Omeprazole (Omeprazole 20 Mg Misael.) 20 mg PO DAILY@0630 [facility] Last Admin: 03/27/22 07:38 Dose: 20 mg Documented By: ANY Ondansetron HCl (Ondansetron Hcl 4 Mg/2 Ml Vial) 4 mg IVPUSH Q8H PRN PRN Reason: Nausea and Vomiting Pharmacy Consult (Consult Rx Perform Med Rec) 1 each MISCELLANE ONCE PRN PRN Reason: Consult order Sodium Chloride (0.9 % Sodium Chloride Flush 3 Ml Syringe) 3 ml IVFLUSH QSHIFT [facility] Last Admin: 03/27/22 07:38 Dose: 3 ml Documented By: ANY Labs 03/26/22 19:53 03/27/22 05:59 Labs: Laboratory Results - last 24 hr 03/26/22 03/26/22 03/26/22 19:52 19:53 19:53 MCV 90.5 MCH 29.3 MCHC 32.4 RDW 13.5 Plt Count 143 L MPV 10.0 Immature Gran % (Auto) 0.2 Neut % (Auto) 62.5 Lymph % (Auto) 28.7 [place] % (Auto) 5.6 Eos % (Auto) 2.7 Baso % (Auto) 0.3 Lymph # (Auto) 1.9 [place] # (Auto) 0.4 Eos # (Auto) 0.2 Baso # (Auto) 0.0 Abs Immat Gran (auto) 0.01 Absolute Neuts (auto) 4.2 Absolute Nucleated RBC 0.000 Nucleated RBC % (auto) 0.0 Anion Gap 11 L Estim Creat Clear Calc 29.8 Estimated GFR 33 POC Glucose Random Glucose 187 H Calcium 8.3 L Total Bilirubin 0.8 AST 24 ALT 32 Alkaline Phosphatase 91 Troponin I High Sens B-Natriuretic Peptide Total Protein 6.0 L Albumin 3.6 Urine Color Urine Appearance Urine pH Ur Specific [place] Urine Protein Urine Glucose (UA) Urine Ketones Urine Blood Urine Nitrite Ur Leukocyte Esterase Urine RBC Urine WBC Ur Squamous Epith Cells Urine Bacteria Hyaline Casts COVID-19 ([facility]) Negative COVID-[place] See Note 03/26/22 03/26/22 03/26/22 19:53 22:23 22:23 MCV MCH MCHC RDW Plt Count MPV Immature Gran % (Auto) Neut % (Auto) Lymph % (Auto) [place] % (Auto) Eos % (Auto) Baso % (Auto) Lymph # (Auto) [place] # (Auto) Eos # (Auto) Baso # (Auto) Abs Immat Gran (auto) Absolute Neuts (auto) Absolute Nucleated RBC Nucleated RBC % (auto) Anion Gap Estim Creat Clear Calc Estimated GFR POC Glucose Random Glucose Calcium Total Bilirubin AST ALT Alkaline Phosphatase Troponin I High Sens 48.6 H 55.3 H B-Natriuretic Peptide 569 H Total Protein Albumin Urine Color Urine Appearance Urine pH Ur Specific [place] Urine Protein Urine Glucose (UA) Urine Ketones Urine Blood Urine Nitrite Ur Leukocyte Esterase Urine RBC Urine WBC Ur Squamous Epith Cells Urine Bacteria Hyaline Casts COVID-19 ([facility]) COVID-[place] 03/27/22 03/27/22 03/27/22 00:24 01:31 05:59 MCV MCH MCHC RDW Plt Count MPV Immature Gran % (Auto) Neut % (Auto) Lymph % (Auto) [place] % (Auto) Eos % (Auto) Baso % (Auto) Lymph # (Auto) [place] # (Auto) Eos # (Auto) Baso # (Auto) Abs Immat Gran (auto) Absolute Neuts (auto) Absolute Nucleated RBC Nucleated RBC % (auto) Anion Gap 11 L Estim Creat Clear Calc 31.2 Estimated GFR 35 POC Glucose Random Glucose 117 H Calcium 8.3 L Total Bilirubin 0.7 AST 18 ALT 23 Alkaline Phosphatase 75 Troponin I High Sens 43.4 H B-Natriuretic Peptide Total Protein 5.2 L Albumin 3.2 L Urine Color Yellow Urine Appearance Clear Urine pH 5.5 Ur Specific [place] 1.020 Urine Protein 30 (1+) H Urine Glucose (UA) 500 H Urine Ketones Negative Urine Blood Negative Urine Nitrite Negative Ur Leukocyte Esterase Negative Urine RBC 0-2 Urine WBC 0-5 Ur Squamous Epith Cells 0-2 Urine Bacteria None Seen Hyaline Casts 3-5 COVID-19 ([facility]) COVID-19 Clin Com 03/27/22 03/27/22 07:31 11:57 MCV MCH MCHC RDW Plt Count MPV Immature Gran % (Auto) Neut % (Auto) Lymph % (Auto) [place] % (Auto) Eos % (Auto) Baso % (Auto) Lymph # (Auto) [place] # (Auto) Eos # (Auto) Baso # (Auto) Abs Immat Gran (auto) Absolute Neuts (auto) Absolute Nucleated RBC Nucleated RBC % (auto) Anion Gap Estim Creat Clear Calc Estimated GFR POC Glucose 110 142 H Random Glucose Calcium Total Bilirubin AST ALT Alkaline Phosphatase Troponin I High Sens B-Natriuretic Peptide Total Protein Albumin Urine Color Urine Appearance Urine pH Ur Specific [place] Urine Protein Urine Glucose (UA) Urine Ketones Urine Blood Urine Nitrite Ur Leukocyte Esterase Urine RBC Urine WBC Ur Squamous Epith Cells Urine Bacteria Hyaline Casts COVID-19 ([facility]) COVID-19 Clin Com Assessment and Plan (1) Acute exacerbation of CHF (congestive heart failure): Status: Acute (2) Chest pain: Status: Acute (3) Coronary artery disease: Status: Acute (4) CKD (chronic kidney disease): Status: Acute (5) Overweight: Status: Acute Plan Hospital day-1 81-year-old male with past medical history of CAD, CHF with reduced ejection fraction as well as diabetes presents to the hospital with complaints of chest pain 1.chest pain in setting of chf. has history of CAD slightly elevated troponin with no delta, EKG reviewed shows nonspecific ST T wave changes not suggestive of ACS added echocardiogram for evaluation of LV function Continue aspirin, ticagrelor, statin, metoprolol. cardio eval noted -chest pain resolved ,Could be ischemic heart failure related to myocardial ischemia-we will evaluate with echo as above, continue current management. 2.acute CHF exacerbation -etiology unclear ,needs Echo. has trace pleural effusion on chest x-ray, elevated BNP, as well as acute complaints of dyspnea, orthopnea and PND added procalcitonin 0.03 has sob with exersion ? unclear dry weight ( last weight in system since 2019 -that time it was 192 lbs) current weight is also seems same 192 lbs [strict I&O] -so far not available , daily weight, bnp monitering( BNP this admission was 569-no previous values available) Plan: bmp and bnp low-sodium diet, dialy weights ,continue iv Lasix ,hold Entresto in the setting of boderline flactauting Blood pressure. 3. diabetes: flactauting hold lantus adjusted low-dose sliding scale insulin -avoid coverage below fs 200mg/dl - diabetic diet 4. history of CAD - continue Brilinta, aspirin statin, metoprolol 5.ckd3: stable. moniter renal function. 6.overweight: advised to loose weight. DVT prophylaxis:? Lovenox inpatient need : chf on iv lasix -i/o moniter renal function and electrolytes, also needs cardiac evaluation and workup. Time Spent With Patient Time: Total time managing care of this patient today ____ minutes. Quality Stroke Does the patient have a stroke diagnosis?: No VTE Prior VTE?: No VTE Risk Level:: Medical - moderate - high VTE Device Contraindication: Treatment Not Indicated VTE Drug Contraindication: N/A - Med Ordered
[2022-03-27 14:53] LABS: Procalcitonin 0.03 ng/mL
--- NOTE | 2022-03-27 15:21 | PM.CNCAR ---
History of Present Illness History of Present Illness Date of Service: 03/27/22 Requesting physician: Betsy Alejandre Consult reason: chest pain and congestive heart failure Chief complaint: CHF exacerbation Narrative: I was consulted to see Jorge in cardiology consultation today for progressive symptoms of shortness of breath and findings consistent with congestive heart failure. Despite able to speak in which patient is a poor historian. Patient has prior history of CAD says he had stent put in at [facility] 2 years ago, records not available, hypertension, CKD, diabetes, hyperlipidemia. Patient said he came to the hospital because of progressively increasing shortness of breath of recent onset with increasing leg swelling. He also complains of not able to breathe when he lays down. He has been taking all his medication. Also complains of intermittent chest pressure or tightness not clear whether this is exertional in nature. He is not able to define if weather denies any symptoms of fever or chills or cough productive of phlegm. No diffuse body aches. Denies any symptoms of palpitations, lightheadedness, syncope. On presentation was noted to have elevated BNP in the 560 range with flat troponins. EKG did not show any significant abnormality. He has been admitted for management of his CHF. Since yesterday said he feels slightly better. Intake and output chart suggest positive balance. Review of Systems Constitutional: Constitutional: Reports no additional constitutional complaints Cardiovascular: Cardiovascular: Denies Abdominal Distension, Reports chest pain, Denies rapid heart rate, Reports leg edema, Denies lightheadedness, Denies Loss of Consciousness, Denies palpitations, Reports dyspnea on exertion and Reports orthopnea Respiratory: Respiratory: Reports no additional respiratory complaints and Reports dyspnea on exertion Gastrointestinal: Gastrointestinal: Reports no additional gastrointestinal complaints Genitourinary: Genitourinary: Reports no additional male genitourinary complaints Musculoskeletal: Musculoskeletal: Reports no additional musculoskeletal complaints Integumentary/Breasts: Skin/Breast: Reports system reviewed and no additional complaints, except as docu Endocrine: Endocrine: Denies palpitations Hematologic/Lymphatic: Hematologic/Lymphatic: Reports no additional hematologic/lymphatic complaints Allergic/Immunologic: Allergic/Immunologic: Reports no additional allergic/immunologic complaints [facility] Past Medical History Medical History CHF (congestive heart failure) Diabetes History of CAD (coronary artery disease) Surgical History Surgical History No pertinent past surgical history Social History Social History Household Members: Family Housing: Apartment Do you presently have visiting nurse or other home services: Yes Alcohol intake: former Patient Tobacco Use Status: Former Tobacco user Smoked in Last 30 Days: No Use of substances other than those prescribed or required for medical reasons: No Currently Displaying Signs/Symptoms of Drug Intoxication Withdrawal: No Have you been hit, kicked, punched, or otherwise hurt by someone within the past year? If so, by whom?: No Do you feel safe in your current relationship?: No Current Relationship Is there a partner from a previous relationship who is making you feel unsafe now?: No Are you made to feel afraid or neglected: No Advance Directives: No Advance Directives Information Provided: No Do you have thoughts of harming others: None Do you have a plan to hurt others: No Plan Nutrition Risks: Difficulty swallowing Meds Allergies Allergy/AdvReac Type Severity Reaction Status Date / Time No Known Allergies Allergy Unverified 11/01/19 16:04 [No Known Allergies*] Active Medications: Current Medications Acetaminophen (Acetaminophen 325 Mg Tablet) 650 mg PO Q6H PRN PRN Reason: Pain, Mild (Pain Scale 1-3) Last Admin: 03/27/22 07:47 Dose: 650 mg Aspirin (Aspirin Enteric Coated 81 Mg Tablet.) 81 mg PO DAILY [facility] Last Admin: 03/27/22 07:38 Dose: 81 mg Atorvastatin Calcium (Atorvastatin Calcium 80 Mg Tablet) 80 mg PO BEDTIME [facility] Dextrose (Dextrose 50 % 25 Gm/50 Ml Syringe) 25 gm IVPUSH Q15M PRN; Protocol PRN Reason: per Hypoglycemia Standing Ord. Docusate Sodium (Docusate Sodium 100 Mg Capsule) 100 mg PO DAILY PRN PRN Reason: Constipation Enoxaparin Sodium (Enoxaparin Sodium 40 Mg/0.4 Ml Syringe) 40 mg SUBCUT Q24H [facility] Last Admin: 03/26/22 23:40 Dose: 40 mg Fluticasone Propionate (Fluticasone Propionate Nasal 16 Gm [place]) 1 spray NOSTRIL-B BID [facility] Last Admin: 03/27/22 08:35 Dose: 1 spray Furosemide (Furosemide 40 Mg/4 Ml Vial) 40 mg IVPUSH DAILY [facility]; Protocol Last Admin: 03/27/22 07:38 Dose: 40 mg Gabapentin (Gabapentin 100 Mg Capsule) 100 mg PO BID [facility] Last Admin: 03/27/22 07:38 Dose: 100 mg Glucose (Glucose Gel 15 Gm Gel..Gram.) 15 gm PO Q15M PRN; Protocol PRN Reason: per Hypoglycemia Standing Ord. Insulin Glargine (Insulin Glargine,Hum.Rec.Anlog 100 Unit/Ml 10 Ml Vial) 16 unit SUBCUT BEDTIME [facility] Insulin Human Lispro (Insulin Lispro 100 Unit/Ml 3 Ml Vial) 0 unit SUBCUT QIDACHS [facility]; Protocol Last Admin: 03/27/22 12:20 Dose: Not Given Loratadine (Loratadine 10 Mg Tablet) 10 mg PO DAILY [facility] Last Admin: 03/27/22 07:38 Dose: 10 mg Metoprolol Tartrate (Metoprolol Tartrate 12.5 Mg Halftab) 12.5 mg PO BID [facility]; Protocol Last Admin: 03/27/22 07:38 Dose: 12.5 mg Pt Own (Ticagrelor [ Brilinta] 60 Mg Tablet) 1 tab PO BID [facility] Omeprazole (Omeprazole 20 Mg Capsule.Dr) 20 mg PO DAILY@0630 [facility] Last Admin: 03/27/22 07:38 Dose: 20 mg Ondansetron HCl (Ondansetron Hcl 4 Mg/2 Ml Vial) 4 mg IVPUSH Q8H PRN PRN Reason: Nausea and Vomiting Pharmacy Consult (Consult Rx Perform Med Rec) 1 each MISCELLANE ONCE PRN PRN Reason: Consult order Sodium Chloride (0.9 % Sodium Chloride Flush 3 Ml Syringe) 3 ml IVFLUSH QSHIFT [facility] Last Admin: 03/27/22 07:38 Dose: 3 ml Home Medications Medication Instructions Recorded Confirmed Last Taken Type acetaminophen 650 mg 650 mg PO BID PRN Pain 03/26/22 03/26/22 Unknown History tablet,extended release aspirin 81 mg tablet,delayed 81 mg PO DAILY 03/26/22 03/26/22 03/26/22 History release atorvastatin 80 mg tablet 1 tab PO BEDTIME 03/26/22 03/26/22 03/25/22 History fluticasone propionate 50 1 spray intranasal BID 03/26/22 03/26/22 03/26/22 History mcg/actuation nasal spray,suspension gabapentin 100 mg capsule 1 cap PO BID 03/26/22 03/26/22 03/26/22 History insulin glargine 100 unit/mL (3 16 unit subcut BEDTIME 03/26/22 03/26/22 03/25/22 History mL) subcutaneous pen (Lantus Solostar U-100 Insulin) loratadine 10 mg tablet 10 mg PO DAILY 03/26/22 03/26/22 03/26/22 History metoprolol tartrate 25 mg tablet 0.5 tab PO BID 03/26/22 03/26/22 03/26/22 History omeprazole 20 mg capsule,delayed 1 cap PO DAILY 03/26/22 03/26/22 03/26/22 History release sacubitril 24 mg-valsartan 26 mg 1 tab PO BID 03/26/22 03/26/22 03/26/22 History tablet (Entresto) tamsulosin 0.4 mg capsule 1 cap PO DAILY 03/26/22 03/26/22 03/26/22 History ticagrelor 60 mg tablet (Brilinta) 1 tab PO BID 03/26/22 03/26/22 03/26/22 History torsemide 10 mg tablet 1 tab PO DAILY 03/26/22 03/26/22 03/26/22 History Physical Exam Vital Signs: Vital Signs: Last Vital Signs Temp 98.2 F 03/27/22 12:00 Pulse 55 03/27/22 12:00 Resp 20 03/27/22 12:00 BP 102/58 L 03/27/22 12:00 Pulse Ox 97 03/27/22 12:00 O2 Del Method 03/27/22 12:00 BMI result Body Mass Index 31.3 Const: General: cooperative, comfortable, no acute distress, alert and awake Nutritional Appearance: obese Orientation/consciousness: patient oriented x3 HEENT: Head: Yes normocephalic and Yes atraumatic Neck: Neck: Yes trachea midline, Yes supple and Yes no JVD Chest: Chest palpation & inspection: normal inspection of the chest Resp: Effort & Inspection: normal respiratory effort Auscultation: clear to auscultation bilaterally and diminished lung sounds Cardio: Jugular venous distension: no JVD Palpation: normal PMI Rate: regular rate Rhythm: regular rhythm Heart sounds: S1 normal heart sound present, S2 normal heart sound present, no click, no gallops, no murmurs and no rubs GI: Auscultation: normal bowel sounds Skin: General skin exam: no rashes or lesions noted Neuro: General: patient oriented x3 and no focal motor deficits Extrem: General: No clubbing, No cyanosis and Yes edema Objective Labs and Meds 03/26/22 19:53 03/27/22 05:59 Lab results: Laboratory Results - last 24 hr 03/26/22 03/26/22 03/26/22 19:52 19:53 19:53 WBC 6.7 RBC 4.51 L Hgb 13.2 L Hct 40.8 L MCV 90.5 MCH 29.3 MCHC 32.4 RDW 13.5 Plt Count 143 L MPV 10.0 Immature Gran % (Auto) 0.2 Neut % (Auto) 62.5 Lymph % (Auto) 28.7 [place] % (Auto) 5.6 Eos % (Auto) 2.7 Baso % (Auto) 0.3 Lymph # (Auto) 1.9 [place] # (Auto) 0.4 Eos # (Auto) 0.2 Baso # (Auto) 0.0 Abs Immat Gran (auto) 0.01 Absolute Neuts (auto) 4.2 Absolute Nucleated RBC 0.000 Nucleated RBC % (auto) 0.0 Sodium 141 Potassium 4.6 Chloride 111 H Carbon Dioxide 24 Anion Gap 11 L BUN 26 H Creatinine 1.93 H Estim Creat Clear Calc 29.8 Estimated GFR 33 POC Glucose Random Glucose 187 H Calcium 8.3 L Total Bilirubin 0.8 AST 24 ALT 32 Alkaline Phosphatase 91 Troponin I High Sens B-Natriuretic Peptide Total Protein 6.0 L Albumin 3.6 Procalcitonin Urine Color Urine Appearance Urine pH Ur Specific [place] Urine Protein Urine Glucose (UA) Urine Ketones Urine Blood Urine Nitrite Ur Leukocyte Esterase Urine RBC Urine WBC Ur Squamous Epith Cells Urine Bacteria Hyaline Casts COVID-19 ([facility]) Negative COVID-19 Clin Com See Note 03/26/22 03/26/22 03/26/22 19:53 22:23 22:23 WBC RBC Hgb Hct MCV MCH MCHC RDW Plt Count MPV Immature Gran % (Auto) Neut % (Auto) Lymph % (Auto) [place] % (Auto) Eos % (Auto) Baso % (Auto) Lymph # (Auto) [place] # (Auto) Eos # (Auto) Baso # (Auto) Abs Immat Gran (auto) Absolute Neuts (auto) Absolute Nucleated RBC Nucleated RBC % (auto) Sodium Potassium Chloride Carbon Dioxide Anion Gap BUN Creatinine Estim Creat Clear Calc Estimated GFR POC Glucose Random Glucose Calcium Total Bilirubin AST ALT Alkaline Phosphatase Troponin I High Sens 48.6 H 55.3 H B-Natriuretic Peptide 569 H Total Protein Albumin Procalcitonin Urine Color Urine Appearance Urine pH Ur Specific [place] Urine Protein Urine Glucose (UA) Urine Ketones Urine Blood Urine Nitrite Ur Leukocyte Esterase Urine RBC Urine WBC Ur Squamous Epith Cells Urine Bacteria Hyaline Casts COVID-19 ([facility]) COVID-19 PowerPot 03/27/22 03/27/22 03/27/22 00:24 01:31 05:59 WBC RBC Hgb Hct MCV MCH MCHC RDW Plt Count MPV Immature Gran % (Auto) Neut % (Auto) Lymph % (Auto) [place] % (Auto) Eos % (Auto) Baso % (Auto) Lymph # (Auto) [place] # (Auto) Eos # (Auto) Baso # (Auto) Abs Immat Gran (auto) Absolute Neuts (auto) Absolute Nucleated RBC Nucleated RBC % (auto) Sodium 141 Potassium 4.7 Chloride 112 H Carbon Dioxide 23 Anion Gap 11 L BUN 27 H Creatinine 1.84 H Estim Creat Clear Calc 31.2 Estimated GFR 35 POC Glucose Random Glucose 117 H Calcium 8.3 L Total Bilirubin 0.7 AST 18 ALT 23 Alkaline Phosphatase 75 Troponin I High Sens 43.4 H B-Natriuretic Peptide Total Protein 5.2 L Albumin 3.2 L Procalcitonin 0.03 Urine Color Yellow Urine Appearance Clear Urine pH 5.5 Ur Specific [place] 1.020 Urine Protein 30 (1+) H Urine Glucose (UA) 500 H Urine Ketones Negative Urine Blood Negative Urine Nitrite Negative Ur Leukocyte Esterase Negative Urine RBC 0-2 Urine WBC 0-5 Ur Squamous Epith Cells 0-2 Urine Bacteria None Seen Hyaline Casts 3-5 COVID-19 ([facility]) COVID-19 PowerPot 03/27/22 03/27/22 07:31 11:57 WBC RBC Hgb Hct MCV MCH MCHC RDW Plt Count MPV Immature Gran % (Auto) Neut % (Auto) Lymph % (Auto) [place] % (Auto) Eos % (Auto) Baso % (Auto) Lymph # (Auto) [place] # (Auto) Eos # (Auto) Baso # (Auto) Abs Immat Gran (auto) Absolute Neuts (auto) Absolute Nucleated RBC Nucleated RBC % (auto) Sodium Potassium Chloride Carbon Dioxide Anion Gap BUN Creatinine Estim Creat Clear Calc Estimated GFR POC Glucose 110 142 H Random Glucose Calcium Total Bilirubin AST ALT Alkaline Phosphatase Troponin I High Sens B-Natriuretic Peptide Total Protein Albumin Procalcitonin Urine Color Urine Appearance Urine pH Ur Specific [place] Urine Protein Urine Glucose (UA) Urine Ketones Urine Blood Urine Nitrite Ur Leukocyte Esterase Urine RBC Urine WBC Ur Squamous Epith Cells Urine Bacteria Hyaline Casts COVID-19 ([facility]) COVID-19 Clin Com EKG shows sinus bradycardia, low-voltage QRS with septal QS pattern with nonspecific ST T wave changes Imaging Radiologist's impression: Impressions Chest X-Ray 03/26/22 21:21 IMPRESSION: Hypoexpanded with basilar markings more likely due to atelectasis in this setting. Early infiltrate, especially at the left base would be difficult to exclude. Chest CT 03/27/22 00:03 IMPRESSION: 1. Diffuse bronchial wall thickening. This may be inflammatory or infectious in etiology. Mild diffuse subpleural reticular changes of lungs. No acute focal airspace disease. 2. Trace dependent right pleural effusion. Fleischner guidelines were followed. Assessment and Plan (1) Acute exacerbation of CHF (congestive heart failure): Status: Acute Patient present with symptoms suggestive of heart failure. Clinically does appear to be significantly fluid overloaded. Will continue IV diuresis with Lasix 40 mg IV push. Strict intake and output chart needs to be pursued. Continue to monitor renal function as well as BNP. Could be ischemic heart failure related to myocardial ischemia. Will obtain echocardiogram on Tuesday to assess LV systolic and diastolic function to assess for regional wall motion abnormality of significantly abnormal may require cardiac catheterization. If not will require further inpatient myocardial perfusion study to evaluate for myocardial ischemia. For now continue dual antiplatelet therapy. Will need to obtain his old cardiac cath report on Tuesday. If he is stent is greater than 2 years and he has no significant requirement for coronary intervention will probably switch him to low-dose aspirin therapy. Continue metoprolol therapy for anti ischemic therapy. Would hold off on any other therapy due to lower blood pressure. Continue high-intensity statin therapy. No need for IV anticoagulation at this point time. Will continue to follow with you Time Spent With Patient Time: Total time managing care of this patient today ____ minutes. Procedures Date of Service Date of Service: 03/27/22
[2022-03-27 16:03] LABS: Glucose, Whole Blood 110 mg/dL (60-115)
[2022-03-27 21:33] LABS: Glucose, Whole Blood 128 mg/dL (60-115)
[2022-03-27] MEDS: Enoxaparin Sodium 40 MG/0.4 ML SYRINGE SUBCUT (22:07)
[2022-03-27] MEDS: Insulin Glargine,Hum.rec.anlog 100 UNIT/ML 10 ML VIAL 16 UNIT SUBCUT (22:08)
[2022-03-27] MEDS: Atorvastatin Calcium 80 MG TABLET PO (22:08)
[2022-03-28] VITALS (8 sets, daily range): BP systolic 93–134; BP diastolic 51–72; PULSE 57–66; RESP 16–20; TEMP 36.2–37.2; O2SAT 94–99
[2022-03-28] MEDS: Omeprazole 20 MG CAPSULE.DR PO (05:37)
[2022-03-28 07:49] LABS: Glucose, Whole Blood 80 mg/dL (60-115)
[2022-03-28] MEDS: Aspirin Enteric Coated 81 MG TABLET.DR PO (08:10)
[2022-03-28] MEDS: Metoprolol Tartrate 12.5 MG HALFTAB PO (08:10)
[2022-03-28] MEDS: Gabapentin 100 MG CAPSULE PO ×2 (08:10→22:07)
[2022-03-28] MEDS: Furosemide 40 MG/4 ML VIAL IVPUSH (08:11)
[2022-03-28] MEDS: 0.9 % Sodium Chloride Flush 3 ML SYRINGE IVFLUSH ×2 (08:11→22:16)
[2022-03-28] MEDS: Loratadine 10 MG TABLET PO (08:11)
--- NOTE | 2022-03-28 10:40 | HO.PM.IMPN ---
Subjective Subjective Date of Service: 03/28/22 Interval History: possible chf? execerbation Review of Systems dry cough chest tightness seems improved Physical Exam Vital Signs: Vital Signs: Last Vital Signs Temp 97.3 F 03/28/22 07:16 Pulse 65 03/28/22 07:16 Resp 20 03/28/22 07:16 BP 120/56 L 03/28/22 07:16 Pulse Ox 96 03/28/22 07:16 O2 Del Method 03/28/22 07:16 BMI result Body Mass Index 30.0 Appearance: Alert.? Oriented X3.? not in distress.? cvs: rrr, [id number] . res: clear to auscultation ,no rhonchii or wheezing abd: no rebound or guarding ,nt, bs present. ext pulses present , no cyanosis ,no edema . neuro: axo3 , nonfocal. Objective Data Active Medications Acetaminophen (Acetaminophen 325 Mg Tablet) 650 mg PO Q6H PRN PRN Reason: Pain, Mild (Pain Scale 1-3) Last Admin: 03/27/22 07:47 Dose: 650 mg Documented By: ANY Aspirin (Aspirin Enteric Coated 81 Mg Tablet.) 81 mg PO DAILY [facility] Last Admin: 03/28/22 08:10 Dose: 81 mg Documented By: RAHAT Atorvastatin Calcium (Atorvastatin Calcium 80 Mg Tablet) 80 mg PO BEDTIME [facility] Last Admin: 03/27/22 22:08 Dose: 80 mg Documented By: REAL Dextrose (Dextrose 50 % 25 Gm/50 Ml Syringe) 25 gm IVPUSH Q15M PRN; Protocol PRN Reason: per Hypoglycemia Standing Ord. Docusate Sodium (Docusate Sodium 100 Mg Capsule) 100 mg PO DAILY PRN PRN Reason: Constipation Enoxaparin Sodium (Enoxaparin Sodium 40 Mg/0.4 Ml Syringe) 40 mg SUBCUT Q24H [facility] Last Admin: 03/27/22 22:07 Dose: 40 mg Documented By: REAL Fluticasone Propionate (Fluticasone Propionate Nasal 16 Gm [place]) 1 spray NOSTRIL-B BID [facility] Last Admin: 03/27/22 22:13 Dose: Not Given Documented By: REAL Non-Admin Reason: Patient Refused Furosemide (Furosemide 40 Mg/4 Ml Vial) 40 mg IVPUSH DAILY [facility]; Protocol Last Admin: 03/28/22 08:11 Dose: 40 mg Documented By: RAHAT Gabapentin (Gabapentin 100 Mg Capsule) 100 mg PO BID [facility] Last Admin: 03/28/22 08:10 Dose: 100 mg Documented By: RAHAT Glucose (Glucose Gel 15 Gm Gel..Gram.) 15 gm PO Q15M PRN; Protocol PRN Reason: per Hypoglycemia Standing Ord. Insulin Glargine (Insulin Glargine,Hum.Rec.Anlog 100 Unit/Ml 10 Ml Vial) 8 unit SUBCUT BEDTIME [facility] Insulin Human Lispro (Insulin Lispro 100 Unit/Ml 3 Ml Vial) 0 unit SUBCUT QIDACHS [facility]; Protocol Last Admin: 03/28/22 08:04 Dose: Not Given Documented By: RAHAT Non-Admin Reason: No Insulin Coverage Loratadine (Loratadine 10 Mg Tablet) 10 mg PO DAILY [facility] Last Admin: 03/28/22 08:11 Dose: 10 mg Documented By: RAHAT Metoprolol Tartrate (Metoprolol Tartrate 12.5 Mg Halftab) 12.5 mg PO BID [facility]; Protocol Last Admin: 03/28/22 08:10 Dose: 12.5 mg Documented By: RAHAT Pt Own (Ticagrelor [ Brilinta] 60 Mg Tablet) 1 tab PO BID [facility] Last Admin: 03/27/22 22:07 Dose: 1 tab Documented By: REAL Omeprazole (Omeprazole 20 Mg Capsule.) 20 mg PO DAILY@0630 [facility] Last Admin: 03/28/22 05:37 Dose: 20 mg Documented By: REAL Ondansetron HCl (Ondansetron Hcl 4 Mg/2 Ml Vial) 4 mg IVPUSH Q8H PRN PRN Reason: Nausea and Vomiting Pharmacy Consult (Consult Rx Perform Med Rec) 1 each MISCELLANE ONCE PRN PRN Reason: Consult order Sodium Chloride (0.9 % Sodium Chloride Flush 3 Ml Syringe) 3 ml IVFLUSH QSHIFT [facility] Last Admin: 03/28/22 08:11 Dose: 3 ml Documented By: RAHAT Labs 03/26/22 19:53 03/27/22 05:59 Labs: Laboratory Results - last 24 hr 03/27/22 03/27/22 03/27/22 05:59 11:57 15:58 POC Glucose 142 H 110 Procalcitonin 0.03 03/27/22 03/28/22 21:28 07:31 POC Glucose 128 H 80 Procalcitonin Assessment and Plan (1) Overweight: Status: Acute (2) Acute exacerbation of CHF (congestive heart failure): Status: Acute (3) Chest pain: Status: Acute (4) Coronary artery disease: Status: Acute (5) CKD (chronic kidney disease): Status: Acute Plan Hospital day-1 81-year-old male with past medical history of CAD, CHF with reduced ejection fraction as well as diabetes presents to the hospital with complaints of chest pain ?1.chest pain in setting of chf. ?has? history of CAD ?slightly elevated troponin with no delta, EKG reviewed shows nonspecific ST T wave changes not suggestive of ACS ?added? echocardiogram for evaluation of LV function Continue aspirin, ticagrelor, statin, metoprolol. ?cardio eval noted -chest pain resolved ,Could be ischemic heart failure related to myocardial ischemia-we will evaluate with echo as above, continue current management. 2.acute CHF exacerbation -etiology unclear ,needs Echo. ?has trace pleural effusion on chest x-ray, elevated BNP, as well as acute complaints of dyspnea, orthopnea and PND added procalcitonin 0.03 has sob with exersion ? unclear dry weight ( last weight in system since 2019 -that time it was 192 lbs) current weight is also seems same 192 lbs [strict I&O] -so far balanace is +385 ml( unclear if true because patient claims to urinating a lot) , daily weight, bnp monitering( BNP this admission was 569-no previous values available) Plan: bmp and bnp low-sodium diet, dialy weights ,continue iv Lasix ,hold Entresto in the setting of boderline flactauting Blood pressure. d/w staff to moniter strict i/o. 3. diabetes: flactauting hold lantus adjusted? low-dose sliding scale insulin -avoid coverage below fs 200mg/dl - diabetic diet 4. history of CAD - continue Brilinta, aspirin statin, metoprolol 5.ckd3: stable. moniter renal function. 6.overweight: advised to loose weight. DVT prophylaxis:? Lovenox inpatient? need : chf? on iv lasix -i/o moniter renal function and electrolytes, also needs cardiac evaluation and workup. Time Spent With Patient Time: Total time managing care of this patient today ____ minutes. Quality Stroke Does the patient have a stroke diagnosis?: No VTE Prior VTE?: No VTE Risk Level:: Medical - moderate - high VTE Device Contraindication: Treatment Not Indicated VTE Drug Contraindication: N/A - Med Ordered
[2022-03-28 11:14] LABS: Anion Gap 14 (12-20); Blood Urea Nitrogen 29 mg/dL (9-16); Calcium 8.7 mg/dL (8.4-10.2); Carbon Dioxide 22 mmol/L (22-29); Chloride 108 mmol/L (96-108); Creatinine Clr Calc Pharmacy 29.9; Estimated Glomerular Filt Rate 32; Glucose Random 177 mg/dL (60-115); Potassium 4.4 mmol/L (3.3-5.1); Sodium 140 mmol/L (135-145)
[2022-03-28 11:16] LABS: Glucose, Whole Blood 167 mg/dL (60-115)
[2022-03-28 11:23] LABS: B Type Natriuretic Peptide 447 pg/mL (<100)
[2022-03-28] MEDS: Fluticasone Propionate Nasal 16 GM SPRAY 1 SPRAY NOSTRIL-B (11:31)
--- NOTE | 2022-03-28 13:06 | P.PNCA_ITS ---
Subjective Subjective Date of Service: 03/28/22 Principal diagnosis: CHF, chest discomfort Interval history: patient says he still short of breath but better but also complained shortness of breath when he is laying down. No recurrent chest tightness. Overall urine output is tepid, not sure if this is being completely well monitored Review of Systems Constitutional: Reports no additional constitutional complaints Cardiovascular: Reports chest pain at rest, Reports dyspnea and Reports orthopnea Respiratory: Reports no additional respiratory complaints and Reports dyspnea Genitourinary: Reports no additional male genitourinary complaints Musculoskeletal: Reports no additional musculoskeletal complaints Reports system reviewed and no additional complaints, except as documented Psychiatric: Reports no additional psychiatric complaints Physical Exam Vital Signs: Last Vital Signs Temp 98.2 F 03/28/22 12:00 Pulse 59 03/28/22 12:00 Resp 20 03/28/22 12:00 BP 116/65 03/28/22 12:00 Pulse Ox 99 03/28/22 12:00 O2 Del Method 03/28/22 12:00 BMI result Body Mass Index 30.0 Const General: cooperative, comfortable, no acute distress, alert and awake Nutritional Appearance: obese Orientation/consciousness: patient oriented x3 Neck Neck: Yes trachea midline, Yes supple and Yes no JVD Chest Chest palpation & inspection: normal inspection of the chest Resp Effort & Inspection: normal respiratory effort Auscultation: clear to auscultation bilaterally Cardio Jugular venous distension: no JVD Palpation: normal PMI Rate: regular rate Rhythm: regular rhythm Heart sounds: S1 normal heart sound present, S2 normal heart sound present, no click, no gallops, no murmurs and no rubs GI Auscultation: normal bowel sounds Skin General skin exam: no rashes or lesions noted Neuro General: patient oriented x3 and no focal motor deficits Extrem General: No clubbing, No cyanosis and Yes edema Objective Labs and Meds 03/26/22 19:53 03/28/22 10:40 Lab results: Laboratory Results - last 24 hr 03/27/22 03/27/22 03/27/22 05:59 15:58 21:28 Sodium Potassium Chloride Carbon Dioxide Anion Gap BUN Creatinine Estim Creat Clear Calc Estimated GFR POC Glucose 110 128 H Random Glucose Calcium B-Natriuretic Peptide Procalcitonin 0.03 03/28/22 03/28/22 03/28/22 07:31 10:40 10:40 Sodium 140 Potassium 4.4 Chloride 108 Carbon Dioxide 22 Anion Gap 14 BUN 29 H Creatinine 2.00 H Estim Creat Clear Calc 29.9 Estimated GFR 32 POC Glucose 80 Random Glucose 177 H Calcium 8.7 B-Natriuretic Peptide 447 H Procalcitonin 03/28/22 11:02 Sodium Potassium Chloride Carbon Dioxide Anion Gap BUN Creatinine Estim Creat Clear Calc Estimated GFR POC Glucose 167 H Random Glucose Calcium B-Natriuretic Peptide Procalcitonin Progress Note: A&P Assessment and plan (1) Acute exacerbation of CHF (congestive heart failure): Status: Acute Assessment and Plan: patient admitted with worsening shortness of breath and some chest tightness with borderline troponins, still continues to be short of breath but clinically does not appear to be in significant heart failure at this point time. Will continue diuresis. Start vasodilators therapy with nitrates to help with coronary vaso dilatation as well as preload reduction. Continue other therapy. Will need an echocardiogram. Echocardiogram shows significant LV systolic dysfunction and or significant regional wall motion abnormality will need cardiac catheterization. If not will pursue ischemic workup as an inpatient as there is still high likelihood of ischemic heart failure. (2) Coronary artery disease: Status: Acute Assessment and Plan: CAD with prior stenting. Needs prior cardiac catheterization from [facility]. Continue dual antiplatelet therapy for now. Nitrate therapy as above. Continue high-intensity statin therapy and metoprolol therapy for now. As mentioned above will may need ischemic workup either by cardiac catheterization would like to hold of due to his renal insufficiency unless he has high risk features. Will continue to follow with you Time Spent With Patient Time: Total time managing care of this patient today ____ minutes. Progress Note: Quality Stroke Does the patient have a stroke diagnosis?: No Procedures Date of Service Date of Service: 03/28/22
[2022-03-28 16:00] LABS: Glucose, Whole Blood 104 mg/dL (60-115)
--- NOTE | 2022-03-28 16:41 | MHC.CM.PN ---
PT REPORTS HE LIVES WITH HIS DAUGHTER BECAUSE HE CANNOT BE ALONE HE REPORTS DEPENDING ON HOW HE IS FEELING, HE SOMETIMES NEEDS HELP WITH [facility] PT USES A CPAP AND CANE (PRN) PT HAS NO HOME SERVICES HE IS WORKING ON GETTING A PCP SO HE CAN GET A [employer] PT REPORTS HE IS COVID RADHAX SAYS HIS GRAND DAUGHTER IS HIS HCP, COPY REQ IMM DELIVERED CURRENT DC PLAN IS HOME FAMILY TO TRANSPORT
[2022-03-28 21:29] LABS: Glucose, Whole Blood 124 mg/dL (60-115)
[2022-03-28] MEDS: Insulin Glargine,Hum.rec.anlog 100 UNIT/ML 10 ML VIAL 8 UNIT SUBCUT (22:07)
[2022-03-28] MEDS: Atorvastatin Calcium 80 MG TABLET PO (22:07)
[2022-03-28] MEDS: Enoxaparin Sodium 40 MG/0.4 ML SYRINGE SUBCUT (22:08)
--- NOTE | 2022-03-29 | ECG_ITS ---
Test Reason : cp Blood Pressure : / mmHG Vent. Rate : 061 BPM Atrial Rate : 061 BPM P-R Int : 214 ms QRS Dur : 082 ms QT Int : 430 ms P-R-T Axes : 039 -02 -25 degrees QTc Int : 432 ms Sinus rhythm with 1st degree A-V block Nonspecific T wave abnormality Abnormal ECG When compared with ECG of 27-MAR-2022 01:06, Criteria for Septal infarct are no longer Present Nonspecific T wave abnormality, improved in Lateral leads Referred By: Betsy Alejandre Electronically Signed By:Edgar Mccarthy
[2022-03-29 03:59] VITALS: BP 109/60; PULSE 60; RESP 16; TEMP 36.4; O2SAT 97
[2022-03-29] MEDS: Omeprazole 20 MG CAPSULE.DR PO (05:46)
--- NOTE | 2022-03-29 07:00 | CA_ITS ---
Transthoracic Echocardiogram Patient (Last, First, Middle): Jorge Winston, Gender: Male Date of : 1940 Age: 81 Procedure Date: 03/29/2022 Procedure Type: Transthoracic Echocardiogram Location: [facility] [place] Height: 170.18 cm Weight: 86.64 kg BSA: 1.98 m2 Heart Rate: 61 bpm BP: 108 / 60 mmHg Dado Operator: SB Referring MD: Leandra Sanchez MD Student Outreach Coordinator: Surinder Moody MD Symptoms: CHF, elevated trop Study Quality: Adequate w contast ECG Rhythm: Sinus Conclusions: - 1. Moderately reduced LV systolic function with regional wall motion abnormality consistent with ischemic cardiomyopathy a with LVEF of 35-40% with wall motion abnormality in LAD territory with grade 3 diastolic dysfunction 2. Normal cardiac valvular Doppler 3. No gross pericardial effusion 4. RV systolic pressure could not be calculated on this study Findings Procedure Information Contrast agent, definity, is being given per protocol without apparent complications. Left Ventricle Normal left ventricular cavity size. There is normal left ventricular wall thickness. The left ventricular systolic function is moderately decreased. The visually estimated ejection fraction is between 35-40%. Spectral Doppler is indicative of a restrictive filling pattern. E/E prime ratio is >15, consistent with elevated filling pressures. Evidence suggests grade III (severe) diastolic dysfunction. Wall Motion Rest Echo Findings The mid anterior segment is hypokinetic. The anteroseptal wall, the apex, and apical anterior segments are akinetic. All other scored wall segments showed normal motion. Right Ventricle Normal right ventricular cavity size and systolic function. Atria The left atrium is normal in size. There is no evidence of interatrial shunt. The right atrium is normal in size. Aortic Valve There is mild thickening of the aortic valve. There is no aortic valve stenosis. There is no aortic valve regurgitation. Mitral Valve There is mild anterior and posterior mitral leaflet thickening. There is trace mitral valve regurgitation. There is no mitral valve stenosis. Pulmonic Valve The pulmonic valve was not well visualized. Tricuspid Valve The tricuspid valve was not well visualized. Tricuspid regurgitation envelope is inadequate for calculation of right ventricular systolic pressure. Great Vessels All visible segments of the aorta are normal in size. The pulmonary artery was not well visualized. Venous The inferior vena cava was not well visualized. Pericardium/Pleural There is no evidence of pericardial effusion. Prior Study Comparison No prior study available for comparison. Measurements 2D Linear Measurements IVSd: 0.92 0.6-0.9/0.6-1.0 cm LVIDd: 5.05 3.9-5.3/4.2-5.9 cm LVIDd Index: 2.55 2.4-3.2/2.2-3.1 cm/m2 LVIDs: 4.10 2.0-3.6 cm LVPWd: 1.06 0.7-1.1 cm LA Diam: 3.80 2.7-3.8/3.0-4.0 cm LAIDs Index: 1.92 1.5-2.3 cm/m2 LV Mass: 227.39 67-162/88-224 g LV Mass Index: 114.84 43-95/49-115 g/m2 LVOT Diam: 2.30 3.0+(-)1.3 cm 2D Systolic Function EF 4C: 48.00 >55% EF 2C: 32.20 >55% Mitral Valve MV Pk E: 0.92 MV PK A: 0.61 MV Decel Time: 122.00 E/A: 1.50 E'Lateral: 3.57 E'Medial: 3.99 E/E' Med: 23.10 E/E' Lat: 25.80 PHT: 36.00 MVA PHT: 6.11 Decel [place]: 7.54 Aortic Valve AoV Pk Oscar: 0.86 AoV Pk Grad: 3.00 LVOT LVOT Pk Ocsar: 0.77 LVOT Mn Oscar: 0.49 LVOT VTI: 0.15 LVOT Pk Grad: 2.00 LVOT Mn Grad: 1.00 LVOT Diam: 2.30 LVOT Area: 4.15 Diastolic Function MV Pk E: 0.92 MV Pk A: 0.61 E/A: 1.50 E'Medial: 3.99 E/E' Med: 23.10 E' Laterial: 3.57 E/E' Lat: 25.80 Right Ventricle TVS' Oscar: 7.70 Great Vessels Aorta Sinus of Valsalva: 4.00 2.0-3.5 cm Ao Asc: 3.40 2.1-3.4 cm Pulmonary Valve PV Pk Oscar: 0.62 Peak PV Grad: 2.00 Updated in Other Vendor System with Status of Final Surinder Moody MD electronically signed on 03/30/2022 1:45:18 PM with status of Final
[2022-03-29 08:00] VITALS: BP 127/77; PULSE 61; RESP 20; TEMP 36.6; O2SAT 98
[2022-03-29 08:02] LABS: Glucose, Whole Blood 107 mg/dL (60-115)
--- NOTE | 2022-03-29 08:31 | MHC.CM.PN ---
CM met with Patient at bedside and addressed IMM with him, providing him with the original and placing a copy on the chart. Per Patient, he came to the hospital from [facility] but will not be returning there at time of dc. Patient's new address will be [facility] in [place], a 2 family home, where he hopes to live with his Granddaughter, who is trying to become his [employer] TURBOGENERATOR OPERATOR. Home/with new TURBOGENERATOR OPERATOR is Patient's goal and CM has initiated and will follow for dc planning. Patient has an appointment on June 11 with his new PCP(he cannot recall the name of his new MD). Patient uses a walker to assist with mobility and he has received Covid vax x4.
[2022-03-29] MEDS: Loratadine 10 MG TABLET PO (09:26)
[2022-03-29] MEDS: Metoprolol Tartrate 12.5 MG HALFTAB PO (09:26)
[2022-03-29] MEDS: Gabapentin 100 MG CAPSULE PO ×2 (09:26→20:49)
[2022-03-29] MEDS: Nitroglycerin 2 % Oint 1 GM Packet 0.5 INCH TRANSDERMA ×2 (09:26→20:49)
[2022-03-29] MEDS: Furosemide 40 MG/4 ML VIAL IVPUSH (09:26)
[2022-03-29] MEDS: Aspirin Enteric Coated 81 MG TABLET.DR PO (09:26)
[2022-03-29] MEDS: Fluticasone Propionate Nasal 16 GM SPRAY 1 SPRAY NOSTRIL-B ×2 (09:29→20:51)
--- NOTE | 2022-03-29 10:51 | MHC.CM.PN ---
Per vROUNDS discussion, Patient is on IV Lasix and not yet medically cleared for dc. Home with new BAKER [employer]READ is the goal and CM will continue to follow.
[2022-03-29 11:19] LABS: Glucose, Whole Blood 134 mg/dL (60-115)
--- NOTE | 2022-03-29 11:29 | P.PNCA_ITS ---
Subjective Subjective Date of Service: 03/29/22 Principal diagnosis: CHF, chest discomfort Interval history: Seen and examined at bedside. He has atypical chest pain. Previously had cardiac catheterization in 2019 when he presented with anterior wall AK and had LAD PCI with a 4 mm x 15 mm Xience drug-eluting stent. He had moderate left circumflex artery stenosis which was 40 50% at that time. He said he did not have chest discomfort at that time and chest pains happening now are new. Physical Exam Vital Signs: Last Vital Signs Temp 97.9 F 03/29/22 08:00 Pulse 61 03/29/22 08:00 Resp 20 03/29/22 08:00 BP 127/77 03/29/22 08:00 Pulse Ox 98 03/29/22 08:00 O2 Del Method 03/29/22 08:00 BMI result Body Mass Index 30.0 GENERAL APPEARANCE: in no acute distress, pleasant. NECK: no carotid bruit, no jugular venous distention. Positive hepatic jugular reflux. SKIN: no suspicious lesions, warm and dry. HEART: no murmurs, regular rate and rhythm. LUNGS: clear to auscultation bilaterally. Left-sided chest wall tenderness. ABDOMEN: soft, nontender. EXTREMITIES: no edema. PERIPHERAL PULSES: equal. NEUROLOGIC: No gross deficits, AAO X 3 Objective Labs and Meds 03/26/22 19:53 03/28/22 10:40 Lab results: Laboratory Results - last 24 hr 03/28/22 03/28/22 03/29/22 15:52 21:24 07:39 POC Glucose 104 124 H 107 03/29/22 11:12 POC Glucose 134 H Progress Note: A&P Assessment and plan (1) Acute exacerbation of CHF (congestive heart failure): Status: Acute (2) Chest pain: Status: Acute Plan 81-year-old gentleman with history of diastolic heart failure and previous coronary disease with anterior wall AK in 2019 and LAD PCI presenting with shortness of breath and atypical chest pains. Clinically felt to be in congestive heart failure. He is on IV diuretics currently. I think he can stay on IV diuretics today and potentially can be changed to home dose of torsemide tomorrow. In terms of his atypical chest pains, he previously did not have chest discom fort when he presented with acute coronary syndrome. He is complaining of atypical chest pain, left-sided neck pain and arm pain. His high sensitivity troponin levels of 48, 55 and 43. He does not have any dynamic EKG changes. We will do echocardiogram to assess for any wall motion abnormalities. If echo is normal then I think we should pursue stress testing as next step. He has chronic kidney disease and is creatinine is 2 and I think ischemia guided strategy should be undertaken. Thank you for allowing me to participate in the care of your patient. Please feel free to contact me if you have any questions. Time Spent With Patient Time: Total time managing care of this patient today ____ minutes. Progress Note: Quality Stroke Does the patient have a stroke diagnosis?: No Procedures Date of Service Date of Service: 03/29/22
[2022-03-29 11:57] VITALS: BP 102/63; PULSE 67; RESP 16; TEMP 36.5; O2SAT 97
--- NOTE | 2022-03-29 12:34 | P.PNIM_ITS ---
Subjective Subjective Date of Service: 03/29/22 Interval History: possible chf? execerbation Review of Systems dry cough chest tightness seems improved Physical Exam Vital Signs: Vital Signs: Last Vital Signs Temp 97.7 F 03/29/22 11:57 Pulse 67 03/29/22 11:57 Resp 16 03/29/22 11:57 BP 102/63 03/29/22 11:57 Pulse Ox 97 03/29/22 11:57 O2 Del Method 03/29/22 11:57 BMI result Body Mass Index 30.0 Appearance: Alert.? Oriented X3.? not in distress.? cvs: rrr, [id number] . res: clear to auscultation ,no rhonchii or wheezing abd: no rebound or guarding ,nt, bs present. ext pulses present , no cyanosis ,no edema . neuro: axo3 , nonfocal. Objective Data Active Medications Acetaminophen (Acetaminophen 325 Mg Tablet) 650 mg PO Q6H PRN PRN Reason: Pain, Mild (Pain Scale 1-3) Last Admin: 03/27/22 07:47 Dose: 650 mg Documented By: ANY Aspirin (Aspirin Enteric Coated 81 Mg Tablet.) 81 mg PO DAILY [facility] Last Admin: 03/29/22 09:26 Dose: 81 mg Documented By: FRANCISCA Atorvastatin Calcium (Atorvastatin Calcium 80 Mg Tablet) 80 mg PO BEDTIME [facility] Last Admin: 03/28/22 22:07 Dose: 80 mg Documented By: REAL Dextrose (Dextrose 50 % 25 Gm/50 Ml Syringe) 25 gm IVPUSH Q15M PRN; Protocol PRN Reason: per Hypoglycemia Standing Ord. Docusate Sodium (Docusate Sodium 100 Mg Capsule) 100 mg PO DAILY PRN PRN Reason: Constipation Enoxaparin Sodium (Enoxaparin Sodium 40 Mg/0.4 Ml Syringe) 40 mg SUBCUT Q24H [facility] Last Admin: 03/28/22 22:08 Dose: 40 mg Documented By: REAL Fluticasone Propionate (Fluticasone Propionate Nasal 16 Gm Lambert) 1 spray NOSTRIL-B BID [facility] Last Admin: 03/29/22 09:29 Dose: 1 spray Documented By: FRANCISCA Furosemide (Furosemide 40 Mg/4 Ml Vial) 40 mg IVPUSH DAILY [facility]; Protocol Last Admin: 03/29/22 09:26 Dose: 40 mg Documented By: FRANCISCA Gabapentin (Gabapentin 100 Mg Capsule) 100 mg PO BID [facility] Last Admin: 03/29/22 09:26 Dose: 100 mg Documented By: FRANCISCA Glucose (Glucose Gel 15 Gm Gel..Gram.) 15 gm PO Q15M PRN; Protocol PRN Reason: per Hypoglycemia Standing Ord. Insulin Glargine (Insulin Glargine,Hum.Rec.Anlog 100 Unit/Ml 10 Ml Vial) 8 unit SUBCUT BEDTIME [facility] Last Admin: 03/28/22 22:07 Dose: 8 unit Documented By: REAL Insulin Human Lispro (Insulin Lispro 100 Unit/Ml 3 Ml Vial) 0 unit SUBCUT QIDACHS [facility]; Protocol Last Admin: 03/29/22 11:20 Dose: Not Given Documented By: FRANCISCA Non-Admin Reason: poc oor Loratadine (Loratadine 10 Mg Tablet) 10 mg PO DAILY [facility] Last Admin: 03/29/22 09:26 Dose: 10 mg Documented By: FRANCISCA Metoprolol Tartrate (Metoprolol Tartrate 12.5 Mg Halftab) 12.5 mg PO BID [facility]; Protocol Last Admin: 03/29/22 09:26 Dose: 12.5 mg Documented By: FRANCISCA Nitroglycerin (Nitroglycerin 2 % Oint 1 Gm Packet) 0.5 inch TRANSDERMA RQ6H WHILE AWAKE [facility] Last Admin: 03/29/22 09:26 Dose: 0.5 inch Documented By: FRNACISCA Pt Own (Ticagrelor [ Brilinta] 60 Mg Tablet) 1 tab PO BID [facility] Last Admin: 03/29/22 09:28 Dose: 1 tab Documented By: FRANCISCA Omeprazole (Omeprazole 20 Mg Capsule.) 20 mg PO DAILY@0630 [facility] Last Admin: 03/29/22 05:46 Dose: 20 mg Documented By: REAL Ondansetron HCl (Ondansetron Hcl 4 Mg/2 Ml Vial) 4 mg IVPUSH Q8H PRN PRN Reason: Nausea and Vomiting Pharmacy Consult (Consult Rx Perform Med Rec) 1 each MISCELLANE ONCE PRN PRN Reason: Consult order Sodium Chloride (0.9 % Sodium Chloride Flush 3 Ml Syringe) 3 ml IVFLUSH QSHIFT [facility] Last Admin: 03/29/22 07:32 Dose: Not Given Documented By: FRANCISCA Non-Admin Reason: See Note Labs 03/26/22 19:53 03/28/22 10:40 Labs: Laboratory Results - last 24 hr 03/28/22 03/28/22 03/29/22 15:52 21:24 07:39 POC Glucose 104 124 H 107 03/29/22 11:12 POC Glucose 134 H Assessment and Plan (1) Overweight: Status: Acute (2) Acute exacerbation of CHF (congestive heart failure): Status: Acute (3) Chest pain: Status: Acute (4) Coronary artery disease: Status: Acute (5) CKD (chronic kidney disease): Status: Acute Plan Hospital day-1 81-year-old male with past medical history of CAD, CHF with reduced ejection fraction as well as diabetes presents to the hospital with complaints of chest pain ?1.chest pain in setting of chf. ?has? history of CAD ?slightly elevated troponin with no delta, EKG reviewed shows nonspecific ST T wave changes not suggestive of ACS ?added? echocardiogram for evaluation of LV function Continue aspirin, ticagrelor, statin, metoprolol. ?cardio eval noted -chest pain resolved ,Could be ischemic heart failure related to myocardial ischemia-we will evaluate with echo as above, continue current management. 2.acute CHF exacerbation -etiology unclear ,needs Echo. ?has trace pleural effusion on chest x-ray, elevated BNP, as well as acute complaints of dyspnea, orthopnea and PND added procalcitonin 0.03 has sob with exersion ? unclear dry weight ( last weight in system since 2019 -that time it was 192 lbs) current weight is also seems same 192 lbs [strict I&O] -sofar neg balanace 1 liter , daily weight, bnp monitering( BNP this admission was 569-no previous values available) Plan: bmp and bnp: cr around 2 , bnp treding down (569-to 447) low-sodium diet, dialy weights ,continue iv Lasix ,hold Entresto in the setting of boderline flactauting Blood pressure. d/w staff to moniter strict i/o. 3. diabetes: [id number] hold lantus adjusted? low-dose sliding scale insulin -avoid coverage below fs 200mg/dl - diabetic diet 4. history of CAD - continue Brilinta, aspirin statin, metoprolol 5.ckd3: stable. moniter renal function. 6.overweight: advised to loose weight. DVT prophylaxis:? Lovenox inpatient? need : chf? on iv lasix -i/o moniter renal function and electrolytes, also needs cardiac evaluation and workup. Time Spent With Patient Time: Total time managing care of this patient today ____ minutes. Quality Stroke Does the patient have a stroke diagnosis?: No VTE Prior VTE?: No VTE Risk Level:: Medical - moderate - high VTE Device Contraindication: Treatment Not Indicated VTE Drug Contraindication: N/A - Med Ordered
[2022-03-29 14:34] VITALS: BP 120/57; PULSE 61; RESP 17; TEMP 36.8; O2SAT 94
[2022-03-29 15:35] LABS: Glucose, Whole Blood 214 mg/dL (60-115)
[2022-03-29] MEDS: Insulin Lispro 100 UNIT/ML 3 ML VIAL SUBCUT (16:19)
[2022-03-29] MEDS: Acetaminophen 325 MG TABLET 650 MG PO (16:22)
[2022-03-29 17:33] LABS: Troponin-I High Sensitivity 43.4 ng/L (<3.5-35.0)
[2022-03-29 19:10] VITALS: BP 105/63; PULSE 58; RESP 16; TEMP 36.6; O2SAT 99
[2022-03-29 20:29] LABS: Glucose, Whole Blood 143 mg/dL (60-115)
[2022-03-29] MEDS: Atorvastatin Calcium 80 MG TABLET PO (20:49)
[2022-03-29] MEDS: 0.9 % Sodium Chloride Flush 3 ML SYRINGE IVFLUSH (20:51)
[2022-03-29] MEDS: Insulin Glargine,Hum.rec.anlog 100 UNIT/ML 10 ML VIAL 8 UNIT SUBCUT (20:51)
[2022-03-29] MEDS: Enoxaparin Sodium 40 MG/0.4 ML SYRINGE SUBCUT (23:23)
[2022-03-30] VITALS (7 sets, daily range): BP systolic 107–127; BP diastolic 60–72; PULSE 54–69; RESP 14–20; TEMP 36–36.8; O2SAT 94–99; BMI 29.7
[2022-03-30] MEDS: Omeprazole 20 MG CAPSULE.DR PO (05:14)
[2022-03-30 07:33] LABS: Glucose, Whole Blood 113 mg/dL (60-115)
--- NOTE | 2022-03-30 08:10 | HO.PM.IMPN ---
Subjective Subjective Date of Service: 03/30/22 Interval History: chf Review of Systems still has sob with excersion chest pain atypical improving than yesterday Physical Exam Vital Signs: Vital Signs: Last Vital Signs Temp 98.3 F 03/30/22 07:49 Pulse 58 03/30/22 07:49 Resp 14 03/30/22 07:49 BP 127/70 03/30/22 07:49 Pulse Ox 94 03/30/22 07:49 O2 Del Method 03/30/22 07:49 BMI result Body Mass Index 29.7 Appearance: Alert.? Oriented X3.? not in distress.? cvs: rrr, [id number] . res: clear to auscultation ,no rhonchii or wheezing abd: no rebound or guarding ,nt, bs present. ext pulses present , no cyanosis ,no edema . neuro: axo3 , nonfocal. Objective Data Active Medications Acetaminophen (Acetaminophen 325 Mg Tablet) 650 mg PO Q6H PRN PRN Reason: Pain, Mild (Pain Scale 1-3) Last Admin: 03/29/22 16:22 Dose: 650 mg Documented By: FRANCISCA Aspirin (Aspirin Enteric Coated 81 Mg Tablet.) 81 mg PO DAILY [facility] Last Admin: 03/29/22 09:26 Dose: 81 mg Documented By: FRANCISCA Atorvastatin Calcium (Atorvastatin Calcium 80 Mg Tablet) 80 mg PO BEDTIME [facility] Last Admin: 03/29/22 20:49 Dose: 80 mg Documented By: LIA Dextrose (Dextrose 50 % 25 Gm/50 Ml Syringe) 25 gm IVPUSH Q15M PRN; Protocol PRN Reason: per Hypoglycemia Standing Ord. Docusate Sodium (Docusate Sodium 100 Mg Capsule) 100 mg PO DAILY PRN PRN Reason: Constipation Enoxaparin Sodium (Enoxaparin Sodium 40 Mg/0.4 Ml Syringe) 40 mg SUBCUT Q24H [facility] Last Admin: 03/29/22 23:23 Dose: 40 mg Documented By: ISABEL Fluticasone Propionate (Fluticasone Propionate Nasal 16 Gm [place]) 1 spray NOSTRIL-B BID [facility] Last Admin: 03/29/22 20:51 Dose: 1 spray Documented By: LIA Furosemide (Furosemide 40 Mg/4 Ml Vial) 40 mg IVPUSH DAILY [facility]; Protocol Last Admin: 03/29/22 09:26 Dose: 40 mg Documented By: FRANCISCA Gabapentin (Gabapentin 100 Mg Capsule) 100 mg PO BID [facility] Last Admin: 03/29/22 20:49 Dose: 100 mg Documented By: LIA Glucose (Glucose Gel 15 Gm Gel..Gram.) 15 gm PO Q15M PRN; Protocol PRN Reason: per Hypoglycemia Standing Ord. Insulin Glargine (Insulin Glargine,Hum.Rec.Anlog 100 Unit/Ml 10 Ml Vial) 8 unit SUBCUT BEDTIME [facility] Last Admin: 03/29/22 20:51 Dose: 8 unit Documented By: LIA Insulin Human Lispro (Insulin Lispro 100 Unit/Ml 3 Ml Vial) 0 unit SUBCUT QIDACHS [facility]; Protocol Last Admin: 03/30/22 07:35 Dose: Not Given Documented By: ZAK Non-Admin Reason: No Insulin Coverage Loratadine (Loratadine 10 Mg Tablet) 10 mg PO DAILY [facility] Last Admin: 03/29/22 09:26 Dose: 10 mg Documented By: FRANCISCA Metoprolol Tartrate (Metoprolol Tartrate 12.5 Mg Halftab) 12.5 mg PO BID [facility]; Protocol Last Admin: 03/29/22 20:41 Dose: Not Given Documented By: LIA Non-Admin Reason: Decreased Heart Rate Nitroglycerin (Nitroglycerin 2 % Oint 1 Gm Packet) 0.5 inch TRANSDERMA RQ6H WHILE AWAKE [facility] Last Admin: 03/29/22 20:49 Dose: 0.5 inch Documented By: LIA Pt Own (Ticagrelor [ Brilinta] 60 Mg Tablet) 1 tab PO BID [facility] Last Admin: 03/29/22 20:50 Dose: 1 tab Documented By: LIA Omeprazole (Omeprazole 20 Mg Capsule.) 20 mg PO DAILY@0630 [facility] Last Admin: 03/30/22 05:14 Dose: 20 mg Documented By: ISABEL Ondansetron HCl (Ondansetron Hcl 4 Mg/2 Ml Vial) 4 mg IVPUSH Q8H PRN PRN Reason: Nausea and Vomiting Pharmacy Consult (Consult Rx Perform Med Rec) 1 each MISCELLANE ONCE PRN PRN Reason: Consult order Sodium Chloride (0.9 % Sodium Chloride Flush 3 Ml Syringe) 3 ml IVFLUSH QSHIFT [facility] Last Admin: 03/29/22 20:51 Dose: 3 ml Documented By: LIA Labs 03/26/22 19:53 03/28/22 10:40 Labs: Laboratory Results - last 24 hr 03/29/22 03/29/22 03/29/22 11:12 15:26 16:45 POC Glucose 134 H 214 H Troponin I High Sens 43.4 H 03/29/22 03/30/22 20:25 07:16 POC Glucose 143 H 113 Troponin I High Sens Assessment and Plan (1) Overweight: Status: Acute (2) Acute exacerbation of CHF (congestive heart failure): Status: Acute (3) Chest pain: Status: Acute (4) Coronary artery disease: Status: Acute (5) CKD (chronic kidney disease): Status: Acute Plan Hospital day-3 81-year-old male with past medical history of CAD, CHF with reduced ejection fraction as well as diabetes presents to the hospital with complaints of chest pain ?1.chest pain in setting of chf. ?has? history of CAD ?slightly elevated troponin with no delta, EKG reviewed shows nonspecific ST T wave changes not suggestive of ACS ?added? echocardiogram for evaluation of LV function Continue aspirin, ticagrelor, statin, metoprolol. ?cardio eval noted -chest pain resolved ,Could be ischemic heart failure related to myocardial ischemia-we will evaluate with echo as above, continue current management. 2.acute CHF exacerbation -etiology unclear ,needs Echo. ?has trace pleural effusion on chest x-ray, elevated BNP, as well as acute complaints of dyspnea, orthopnea and PND added procalcitonin 0.03 has sob with exersion ? unclear dry weight ( last weight in system since 2019 -that time it was 192 lbs) current weight is also seems same 192 lbs [strict I&O] -shagufta sommer 2liter , daily weight, bnp monitering( BNP this admission was 569-no previous values available) Plan: bmp and bnp: cr around 2 , bnp treding down ([phone]) low-sodium diet, dialy weights ,continue iv Lasix ,hold for today Entresto in the setting of boderline flactauting Blood pressure,try to add back if blood pressure allow and renal function allows. d/w staff to moniter strict i/o. we may consider switching po diurtics 3. diabetes: [id number] hold lantus adjusted? low-dose sliding scale insulin -avoid coverage below fs 200mg/dl - diabetic diet 4. history of CAD - continue Brilinta, aspirin statin, metoprolol 5.ckd3: stable. moniter renal function. 6.overweight: advised to loose weight. DVT prophylaxis:? Lovenox inpatient? need : chf? on iv lasix -i/o moniter renal function and electrolytes, also needs cardiac evaluation and workup. Time Spent With Patient Time: Total time managing care of this patient today ____ minutes. Quality Stroke Does the patient have a stroke diagnosis?: No VTE Prior VTE?: No VTE Risk Level:: Medical - moderate - high VTE Device Contraindication: Treatment Not Indicated VTE Drug Contraindication: N/A - Med Ordered
[2022-03-30 08:59] LABS: Anion Gap 14 (12-20); Blood Urea Nitrogen 35 mg/dL (9-16); Calcium 8.8 mg/dL (8.4-10.2); Carbon Dioxide 22 mmol/L (22-29); Chloride 105 mmol/L (96-108); Creatinine Clr Calc Pharmacy 28.9; Estimated Glomerular Filt Rate 31; Glucose Random 174 mg/dL (60-115); Potassium 4.3 mmol/L (3.3-5.1); Sodium 137 mmol/L (135-145)
[2022-03-30 09:01] LABS: B Type Natriuretic Peptide 207 pg/mL (<100)
[2022-03-30] MEDS: 0.9 % Sodium Chloride Flush 3 ML SYRINGE IVFLUSH ×2 (09:12→17:01)
[2022-03-30] MEDS: Nitroglycerin 2 % Oint 1 GM Packet 0.5 INCH TRANSDERMA ×3 (09:13→22:40)
[2022-03-30] MEDS: Gabapentin 100 MG CAPSULE PO ×2 (09:17→22:43)
[2022-03-30] MEDS: Loratadine 10 MG TABLET PO (09:17)
[2022-03-30] MEDS: Aspirin Enteric Coated 81 MG TABLET.DR PO (09:17)
[2022-03-30] MEDS: Fluticasone Propionate Nasal 16 GM SPRAY 1 SPRAY NOSTRIL-B ×2 (09:19→22:43)
[2022-03-30] MEDS: Furosemide 40 MG/4 ML VIAL IVPUSH (09:19)
--- NOTE | 2022-03-30 11:37 | PM.PNCARD ---
Subjective Subjective Date of Service: 03/30/22 Principal diagnosis: CHF, chest discomfort Interval history: Seen at 1015. Today he reports that left chest, shoulder and arm are still sore. He has definite reproducilbe discomfort to palpation of the chest and shoulder. Facial grimaces with raising left arm up. No other types of chest pains reported. Breathing unlabored. He does report fatigue when getting up to the bathroom. No palpitatons, dizziness or unsteadiness. No leg edema. Tele showing SR, 60-70s. Review of Systems Review of Systems as above Yes all other systems are reviewed and are negative Physical Exam Vital Signs: Last Vital Signs Temp 98.3 F 03/30/22 07:49 Pulse 58 03/30/22 07:49 Resp 14 03/30/22 07:49 BP 127/70 03/30/22 07:49 Pulse Ox 94 03/30/22 07:49 O2 Del Method 03/30/22 07:49 BMI result Body Mass Index 29.7 Const General: cooperative, healthy appearing, comfortable and no acute distress Orientation/consciousness: patient oriented x3 Neck Neck: Yes normal visual inspection Carotids: normal carotid upstroke Chest Chest palpation & inspection: normal inspection of the chest Resp Effort & Inspection: normal respiratory effort Auscultation: clear to auscultation bilaterally, no rales, no rhonchi and no wheezes Cardio Jugular venous distension: no JVD Rate: regular rate Rhythm: regular rhythm Heart sounds: S1 normal heart sound present, S2 normal heart sound present, no gallops, no murmurs and no rubs GI Inspection: Yes normal to inspection Neuro General: patient oriented x3 Extrem General: Yes normal to inspection and No no pedal edema Psych Appearance: grossly normal Mental Status: mental status grossly normal Speech and movement: Normal speech and movement present Objective Labs and Meds 03/26/22 19:53 03/30/22 08:30 Lab results: Laboratory Results - last 24 hr 03/29/22 03/29/22 03/29/22 15:26 16:45 20:25 Sodium Potassium Chloride Carbon Dioxide Anion Gap BUN Creatinine Estim Creat Clear Calc Estimated GFR POC Glucose 214 H 143 H Random Glucose Calcium Troponin I High Sens 43.4 H B-Natriuretic Peptide 03/30/22 03/30/22 03/30/22 07:16 08:30 08:30 Sodium 137 Potassium 4.3 Chloride 105 Carbon Dioxide 22 Anion Gap 14 BUN 35 H Creatinine 2.06 H Estim Creat Clear Calc 28.9 Estimated GFR 31 POC Glucose 113 Random Glucose 174 H Calcium 8.8 Troponin I High Sens B-Natriuretic Peptide 207 H Progress Note: A&P Assessment and plan (1) Acute exacerbation of CHF (congestive heart failure): Status: Acute Assessment and Plan: Admit with sob. Treated for CHF exacerbation. Echo completed, result pending. Diuresed with IV Lasix. Fluid balance neg 1.8 liters. BNP initially 569 and down to 207 today. He reports fatigue with activity. Breathing comfortable and leg edema resolved. Cr 2.06, which is near his baseline. Can transition back to po Torsemide. Plan restart of home Entresto. Continue Metoprolol. Awaiting Echo reading. (2) Chest pain: Status: Acute Assessment and Plan: Reports of continual left chest, shoulder and arm discomfort. His symptom is worse with palpitation of chest and around shoulder and with raising left arm. This is atypical CP and not likely to be cardiac related. Most likely musculoskeletal. Troponins mildly elevated but flat. EKGs not ischemic. Echo pending - will assess for any new WMA. Further tx plan to be determined based on result. (3) Coronary artery disease: Status: Acute Assessment and Plan: Known hx of CAD with anterior OR 2018 and ALICIA placed in LAD. Has multiple cardiac risk factors including HTN, HLD, DM, CKD. Continue aspirin, brilinta, Metoprolol, Atorvastatin. (4) CKD (chronic kidney disease): Status: Acute Time Spent With Patient Time: Total time managing care of this patient today __22__ minutes. Progress Note: Quality Stroke Does the patient have a stroke diagnosis?: No Procedures Date of Service Date of Service: 03/30/22
[2022-03-30 11:40] LABS: Glucose, Whole Blood 157 mg/dL (60-115)
[2022-03-30] MEDS: Acetaminophen 325 MG TABLET 650 MG PO (15:43)
[2022-03-30 16:40] LABS: Glucose, Whole Blood 275 mg/dL (60-115)
[2022-03-30] MEDS: Insulin Lispro 100 UNIT/ML 3 ML VIAL SUBCUT (17:01)
[2022-03-30 20:45] LABS: Glucose, Whole Blood 104 mg/dL (60-115)
[2022-03-30] MEDS: Enoxaparin Sodium 40 MG/0.4 ML SYRINGE SUBCUT (22:41)
[2022-03-30] MEDS: Atorvastatin Calcium 80 MG TABLET PO (22:42)
[2022-03-30] MEDS: Metoprolol Tartrate 12.5 MG HALFTAB PO (22:42)
[2022-03-30] MEDS: Insulin Glargine,Hum.rec.anlog 100 UNIT/ML 10 ML VIAL 8 UNIT SUBCUT (22:43)
[2022-03-31] VITALS: BP 137/80; PULSE 64; RESP 16; TEMP 36.7; O2SAT 97
[2022-03-31] MEDS: 0.9 % Sodium Chloride Flush 3 ML SYRINGE IVFLUSH ×2 (00:48→08:16)
[2022-03-31 04:00] VITALS: BP 92/53; PULSE 61; RESP 15; TEMP 36.7; O2SAT 98
[2022-03-31 06:00] VITALS: BMI 30.2
[2022-03-31] MEDS: Acetaminophen 325 MG TABLET 650 MG PO (06:45)
[2022-03-31] MEDS: Omeprazole 20 MG CAPSULE.DR PO (06:48)
[2022-03-31 08:00] VITALS: BP 112/64; PULSE 65; RESP 14; TEMP 36.6; O2SAT 96
[2022-03-31 08:11] LABS: Anion Gap 14 (12-20); Blood Urea Nitrogen 42 mg/dL (9-16); Calcium 8.7 mg/dL (8.4-10.2); Carbon Dioxide 23 mmol/L (22-29); Chloride 105 mmol/L (96-108); Creatinine Clr Calc Pharmacy 27.4; Estimated Glomerular Filt Rate 29; Glucose Random 169 mg/dL (60-115); Potassium 4.4 mmol/L (3.3-5.1); Sodium 138 mmol/L (135-145)
[2022-03-31] MEDS: Nitroglycerin 2 % Oint 1 GM Packet 0.5 INCH TRANSDERMA (08:16)
[2022-03-31] MEDS: Gabapentin 100 MG CAPSULE PO (08:17)
[2022-03-31] MEDS: Aspirin Enteric Coated 81 MG TABLET.DR PO (08:17)
[2022-03-31] MEDS: Tamsulosin HCL 0.4 MG CAPSULE PO (08:17)
[2022-03-31] MEDS: Metoprolol Tartrate 12.5 MG HALFTAB PO (08:17)
[2022-03-31] MEDS: Loratadine 10 MG TABLET PO (08:17)
[2022-03-31] MEDS: Fluticasone Propionate Nasal 16 GM SPRAY 1 SPRAY NOSTRIL-B (08:18)
[2022-03-31] MEDS: Torsemide 20 MG TABLET 10 MG PO (08:18)
--- NOTE | 2022-03-31 10:18 | P.DS_ITS ---
DS: Providers Provider Date of Service: 03/31/22 Date of admission: 03/26/22 23:25 Date of discharge: 03/31/22 Primary care physician: None Physician Consults: 03/27/22 06:19 Consult to Cardiology Routine Consulting Provider: Surinder Moody Reason for consultation: CP w hx of ACS, CHF? Has provider been notified: No Attending physician on discharge: Betsy Alejandre DS: Diagnosis Discharge Diagnosis (1) Overweight: Status: Acute (2) Acute exacerbation of CHF (congestive heart failure): Status: Acute (3) Chest pain: Status: Acute (4) Coronary artery disease: Status: Acute (5) CKD (chronic kidney disease): Status: Acute DS: Summary Hospital Course Hospital Course: 81 yo M with hx of CAD, CKD, diabetes, CHF, hyperlipidemia, BPH, presents the hospital with complaints of left-sided chest pain patient reports the pain is sharp stabbing, radiating to his left arm, started early in the day, no relieving or exacerbating factors.? Pain is intermittent, worse with exertion.? Patient is also complaining of shortness of breath, that started 3 days ago, lower extremity edema.? Orthopnea and PND.? Reports compliance with his torsemide. Denies any fever no chills, no cough, no palpitations, no urinary symptoms and numbness tingling or weakness.? On arrival to the ED hemodynamically stable no significant abnormal vitals Labs are significant for WBC count of 6.7, hemoglobin of 13.2, hematocrit 40.8, creatinine of 9 3 which is around his baseline, troponin of 48 increased to 55.3 BNP of 569 Urine negative, COVID-[address] shows diffuse bronchial wall thickening, this could be inflammatory or infectious.? Trace dependent right pleural effusion. EKG shows sinus rhythm with first-degree AV block with no significant ST T-wave changes suggestive of ACS. hospital course: Patient was admitted for chest pain and chf excerebation : Patient was treated with IV Lasix, diuresed well shortness of breath seems to be improving significantly, i/o 2 liter neg , bnp trending down , sob improved . Patient has atypical chest tightness: Troponin flat, echo was done seems abnormal please see imaging section thought to be ch cardiomyopathy. Seen by Cardiology: Recommended to continue patient is already on aspirin, ticagrelor, statin, beta-francisco. Cardiology may arrange their own appointment outpatient. Ckd 3: cr slightly up from baseline , switched to his of a home torsemide dose. Monitor BMP closely. Consider outpatient nephrology evaluation as per PCP. dm fs are flactutaing : adjusted home lantus. plan: Continue torsemide, monitor BMP and bnp outpatient. CHF education given, monitor weight at home-if weight can 2lb or more-consider calling PCP. CKD3:moniter renal function and electerolytes outpatient dm: adjusted lantus to 8units , monitor fingersticks and further management outpatient as per PCP Above management discussed with the patient detail and he understand the plan, time spent 50 minutes Time Spent with Patient Time attestation: Total time managing care of this patient today ____ minutes. Discharge coordination time: Greater than 30 minutes Quality: Safe Use of Opioids Does Pt have an Active Cancer Diagnosis on the Problem List?: No Quality: Stroke Does the patient have a stroke diagnosis?: No Physical Exam Vital Signs: Vital Signs: Last Vital Signs Temp 97.9 F 03/31/22 08:00 Pulse 65 03/31/22 08:00 Resp 14 03/31/22 08:00 BP 112/64 03/31/22 08:00 Pulse Ox 96 03/31/22 08:00 O2 Del Method 03/31/22 08:00 BMI result Body Mass Index 30.2 Appearance: Alert.? Oriented X3.? not in distress.? cvs: rrr, [id number] . res: clear to auscultation ,no rhonchii or wheezing abd: no rebound or guarding ,nt, bs present. ext pulses present , no cyanosis ,no edema . neuro: axo3 , nonfocal. DS: Data Data Completed and Pending Labs on day of discharge: Laboratory Results - last 24 hr 03/30/22 03/30/22 03/30/22 11:18 16:35 20:42 Sodium Potassium Chloride Carbon Dioxide Anion Gap BUN Creatinine Estim Creat Clear Calc Estimated GFR POC Glucose 157 H 275 H 104 Random Glucose Calcium 03/31/22 06:53 Sodium 138 Potassium 4.4 Chloride 105 Carbon Dioxide 23 Anion Gap 14 BUN 42 H Creatinine 2.17 H Estim Creat Clear Calc 27.4 Estimated GFR 29 POC Glucose Random Glucose 169 H Calcium 8.7 Imaging Chest x-ray: Radiologist's impression: ITS Impressions Chest X-Ray 03/26/22 21:21 IMPRESSION: Hypoexpanded with basilar markings more likely due to atelectasis in this setting. Early infiltrate, especially at the left base would be difficult to exclude. Chest CT 03/27/22 00:03 IMPRESSION: 1. Diffuse bronchial wall thickening. This may be inflammatory or infectious in etiology. Mild diffuse subpleural reticular changes of lungs. No acute focal airspace disease. 2. Trace dependent right pleural effusion. Fleischner guidelines were followed. ECho: Conclusions: - 1. Moderately reduced LV systolic function with regional wall? motion abnormality consistent with ischemic cardiomyopathy a with LVEF of 35-40% with wall motion abnormality in LAD territory with grade 3 diastolic dysfunction? 2. Normal cardiac valvular Doppler ? 3. No gross pericardial effusion ? 4. RV systolic pressure could not be calculated on this study? ? Findings Procedure Information Contrast agent, definity, is being given per protocol without apparent complications. Left Ventricle Normal left ventricular cavity size.? There is normal left ventricular wall thickness.? The left ventricular systolic function is moderately decreased. The visually estimated ejection fraction is between 35-40%.? Spectral Doppler is indicative of a restrictive filling pattern.? E/E prime ratio is >15, consistent with elevated filling pressures.? Evidence suggests grade III (severe) diastolic dysfunction. Wall Motion Rest Echo Findings The mid anterior segment is hypokinetic. The anteroseptal wall, the apex, and apical anterior segments are akinetic. All other scored wall segments showed normal motion. Right Ventricle Normal right ventricular cavity size and systolic function. Atria The left atrium is normal in size.? There is no evidence of interatrial shunt.? The right atrium is normal in size. Aortic Valve There is mild thickening of the aortic valve.? There is no aortic valve stenosis.? There is no aortic valve regurgitation. Mitral Valve There is mild anterior and posterior mitral leaflet thickening. There is trace mitral valve regurgitation.? There is no mitral valve stenosis. Pulmonic Valve The pulmonic valve was not well visualized. Tricuspid Valve The tricuspid valve was not well visualized.? Tricuspid regurgitation envelope is inadequate for calculation of right ventricular systolic pressure. Great Vessels All visible segments of the aorta are normal in size.? The pulmonary artery was not well visualized. Venous The inferior vena cava was not well visualized. Pericardium/Pleural There is no evidence of pericardial effusion. Prior Study Comparison No prior study available for comparison. ?? Discharge Plan Discharge Anticipated Discharge Date/Time: 03/31/22 10:15 Patient Disposition: Home, Self-Care Discharge Diagnosis: chest pain ,chf excerebation and cardiomyopathy Referrals: Physician,None [Primary Care Provider] - 1 Week Discharge Medications: New metoprolol succinate 25 mg Tablet Extended Release 24 Hr 25 mg PO DAILY Qty: 30 0RF Protocol: Hold for SBP/HR < HOLD for SBP < : 90 HOLD for HR < : 60 Continued atorvastatin 80 mg tablet 1 tab PO BEDTIME torsemide 10 mg tablet 1 tab PO DAILY aspirin 81 mg Tablet,Delayed Release (Dr/Ec) 81 mg PO DAILY acetaminophen 650 mg tablet extended release 650 mg PO BID PRN (Reason: Pain) tamsulosin 0.4 mg capsule 1 cap PO DAILY omeprazole 20 mg capsule,delayed release(DR/EC) 1 cap PO DAILY gabapentin 100 mg capsule 1 cap PO BID fluticasone propionate 50 mcg/actuation spray,suspension 1 spray intranasal BID loratadine 10 mg Tablet 10 mg PO DAILY Entresto 24-26 mg tablet 1 tab PO BID Brilinta 60 mg tablet 1 tab PO BID Changed insulin glargine [Lantus Solostar U-100 Insulin] 100 unit/mL (3 mL) insulin pen 8 unit subcut BEDTIME Qty: 15 0RF Discontinued metoprolol tartrate 25 mg tablet 0.5 tab PO BID Discharge Orders: Discharge Order (Routine); Ordered 03/31/22 Ordered By: Betsy Alejandre Diet: Advance to usual diet Activity on Discharge: As tolerated Stand Alone Forms: Patient Portal Discharge page Care Plan Goals: Patient was admitted for atypical chest pain and heart failure: Patient was treated with IV Lasix, diuresed well shortness of breath seems to be improving significantly. Patient still has intermittent chest tightness: Troponin flat, echo was done seems abnormal please see imaging section which thought to ch chnages .chf education given. Cardiology may arrange their own appointment. Continue current heart medication including torsemide, monitor BMP and bnp outpatient. CHF education given, monitor weight at home-if weight can 2lb or more-consider calling PCP. CKD3:moniter renal function and electerolytes outpatient dm: adjusted lantus to 8units , monitor fingersticks and further management o utpatient as per PCP Health Concerns: As above. Plan of Treatment: As above. Assessment: As above.
--- NOTE | 2022-03-31 10:26 | MHC.CM.PN ---
Patient has been medically cleared for dc to home today, self care. Last IMM was addressed on 03/29/2022.
[2022-03-31 11:18] LABS: Glucose, Whole Blood 187 mg/dL (60-115)
[2022-03-31 12:05] LABS: Glucose, Whole Blood 199 mg/dL (60-115)
--- NOTE | 2022-03-31 12:15 | PM.PNCARD ---
Subjective Subjective Date of Service: 03/31/22 Principal diagnosis: CHF, chest discomfort Interval history: Seen and examined at bedside. Echo has shown EF 35-40%. Old echo received from [facility] which showed similar EF one year ago. it appears his EF did not improve quickly after the anterior wall SD. Physical Exam Vital Signs: Last Vital Signs Temp 97.9 F 03/31/22 08:00 Pulse 65 03/31/22 08:00 Resp 14 03/31/22 08:00 BP 112/64 03/31/22 08:00 Pulse Ox 96 03/31/22 08:00 O2 Del Method 03/31/22 08:00 BMI result Body Mass Index 30.2 GENERAL APPEARANCE: in no acute distress, pleasant. NECK: no carotid bruit, no jugular venous distention. SKIN: no suspicious lesions, warm and dry. HEART: no murmurs, regular rate and rhythm. LUNGS: clear to auscultation bilaterally. Left-sided chest wall tenderness. ABDOMEN: soft, nontender. EXTREMITIES: no edema. PERIPHERAL PULSES: equal. NEUROLOGIC: No gross deficits, AAO X 3 Objective Labs and Meds 03/26/22 19:53 03/31/22 06:53 Lab results: Laboratory Results - last 24 hr 03/30/22 03/30/22 03/31/22 16:35 20:42 06:53 Sodium 138 Potassium 4.4 Chloride 105 Carbon Dioxide 23 Anion Gap 14 BUN 42 H Creatinine 2.17 H Estim Creat Clear Calc 27.4 Estimated GFR 29 POC Glucose 275 H 104 Random Glucose 169 H Calcium 8.7 03/31/22 03/31/22 08:04 11:43 Sodium Potassium Chloride Carbon Dioxide Anion Gap BUN Creatinine Estim Creat Clear Calc Estimated GFR POC Glucose 187 H 199 H Random Glucose Calcium Progress Note: A&P Assessment and plan (1) Acute exacerbation of CHF (congestive heart failure): Status: Acute (2) Chest pain: Status: Acute Plan Pleasant 81-year-old gentleman with ischemic cardiomyopathy with ejection fraction 35-40% with previous anterior wall SD in 2019 when he had prox LAD PCI with drug-eluting stent. His echocardiogram from 2019 to showed very similar ejection fraction. It appears he did not have good recovery after PCI. He has been on Entresto and metoprolol as outpatient. His creatinine has been elevated compared to baseline. I think metoprolol tartrate should be changed to Toprol-XL 25 mg once a day. If his creatinine stays stable then Entresto should be resumed. Alternatively he can have repeat blood workup done through his primary care physician and can be restarted on Entresto as outpatient. He should resume his home dose of Brilinta. His presentation mostly for congestive heart failure. 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 Thank you for allowing me to participate in the care of your patient. Please feel free to contact me if you have any questions. Time Spent With Patient Time: Total time managing care of this patient today ____ minutes. Progress Note: Quality Stroke Does the patient have a stroke diagnosis?: No Procedures Date of Service Date of Service: 03/31/22
[2022-03-31] MEDS: Metoprolol Succinate ER 25 MG TAB.ER.24H PO (12:27)
== END 2022-03-31 13:37 | disposition home or self-care (01) | DRG 291 ==
LOC: HO.ED 21:33 → HO.EDOVER 23:47 → HO.IMC 03-27 02:52
PROVIDERS: Admitting Provider Internal Medicine; Emergency Provider Emergency Medicine; Visit Provider Internal Medicine
DX: I13.0 Hypertensive heart and chronic kidney disease with heart failure and stage 1 through stage 4 chronic kidney disease, or unspecified chronic kidney disease (principal); I50.21 Acute systolic (congestive) heart failure; N18.30 Chronic kidney disease, stage 3 unspecified; E11.22 Type 2 diabetes mellitus with diabetic chronic kidney disease; E78.5 Hyperlipidemia, unspecified; E66.3 Overweight; I42.9 Cardiomyopathy, unspecified; N40.0 Benign prostatic hyperplasia without lower urinary tract symptoms; I25.10 Atherosclerotic heart disease of native coronary artery without angina pectoris; Z95.5 Presence of coronary angioplasty implant and graft; I25.2 Old myocardial infarction; Z71.3 Dietary counseling and surveillance; Z68.30 Body mass index [BMI] 30.0-30.9, adult; Z20.822 Contact with and (suspected) exposure to COVID-19; Z79.4 Long term (current) use of insulin; Z79.899 Other long term (current) drug therapy
CPT/HCPCS: 36415; 71045; 71250; 80048; 80053; 81001; 82947; 83880; 84145; 84484; 85025; 87635; 93005; 93306; 94660; 99285; J1650; J1940; Q9957

== ENCOUNTER 2022-04-09 08:47 | Outpatient (REF) | payer MEDICARE, MEDICAID, SELFPAY ==
[2022-04-09 10:48] LABS: B Type Natriuretic Peptide < 10 pg/mL (<100)
[2022-04-09 10:57] LABS: Anion Gap 14 (12-20); Blood Urea Nitrogen 38 mg/dL (9-16); Calcium 9.3 mg/dL (8.4-10.2); Carbon Dioxide 25 mmol/L (22-29); Chloride 105 mmol/L (96-108); Estimated Glomerular Filt Rate 27; Glucose Random 272 mg/dL (60-115); Potassium 4.4 mmol/L (3.3-5.1); Sodium 140 mmol/L (135-145)
== END 2022-04-09 08:48 | disposition home or self-care (01) ==
LOC: HO.LAB 08:47
PROVIDERS: PCP Internal Medicine; Visit Provider Internal Medicine Cardiovascular Disease
DX: I50.20 Unspecified systolic (congestive) heart failure (principal); I25.10 Atherosclerotic heart disease of native coronary artery without angina pectoris; Z79.899 Other long term (current) drug therapy
CPT/HCPCS: 36415; 80048; 83880; 99212

== ENCOUNTER → 2022-04-23 08:20 | Outpatient (REF) | payer MEDICARE, MEDICAID, SELFPAY ==
--- NOTE | ~2022-04-23 | NM_ITS ---
Myocardial perfusion study Indication: Heart failure to evaluate for myocardial ischemia Technique: The patient was brought in for a Lexiscan perfusion study on 04/23/2022. Patient performed low-level exercise and was injected 0.4 mg of Lexiscan intravenously. Within a minute of injection, 30 mCi of sestamibi was given intravenously. Images were obtained using the SPECT gamma camera interlaced with the gating device. Images were obtained in supine position. Resting perfusion study was performed on 04/26/2022. Patient was administered 30 mCi of sestamibi intravenously at rest. Images were then obtained in supine position. Images obtained with and without CT attenuation. Total DLP 101 mGy-cm. Images were processed with the software and compared side to side in short axis, horizontal long axis and vertical long axis views. Findings: The stress perfusion study showed non attenuated images show moderately large area of absent uptake in the distal anterior, apex as well as moderate to severely reduced uptake in the basal and mid anterior as well as the septal wall of the LV is also absent uptake in the inferoapical wall of the LV myocardium. Attenuated corrected images show similar finding.. The gated study shows reduced LV systolic function with calculated LVEF of 41%. LV cavity is mildly to moderately size. The gated study shows reduced absent wall thickening and contraction of anterior, septal and apical segments. Resting study shows mild improvement in the chest and area of mid anterolateral wall of the LV myocardium. Gating at rest reveals anterior and apical wall motion with ejection fraction at 26%. The findings are consistent with mostly transmural infarct of large segment of apical segment. Moderate to large area of nontransmural infarct of the anterior septum wall of the LAD territory with minimal milly-infarct ischemia of the anterolateral portion. NM/NM helder perf SPECT rest & str Impression: 1. Myocardial perfusion imaging study shows LAD territory infarct with milly-infarct ischemia in inferolateral wall 2. Gated LVEF is 41% with stress and 26% with rest 3. Transient ischemic dilatation not present but LV cavity is dilated EKG is nondiagnostic for ischemia
--- NOTE | 2022-04-23 08:22 | CA_ITS ---
Acquisition Time: 2022-04-23 08:56:06 Total Exercise Time: 00:02:00 Test Indications: HF, CAD Medications: SEE H Protocol: LEXISCAN Max HR: 086 BPM 62% of Pred: 138 BPM Max BP: 124/058 mmHG Max Work Load: 1.0 METS Pharmacological stress test with Lexiscan injection, while sitting and kicking his legs, without anginal symptoms, without arrythmia, with normotensive response to injection, with nondiagnostic EKG for ischemia. In recovery he was treated with Aminophylline 75mg IVP to reverse Lexiscan. Nuclear images pending. Test reviewed with Dr Torres. Referred By: Surinder Moody Overread By: SKYLAR SINGH
== END ==
LOC: HO.CARD 08:20
PROVIDERS: PCP Internal Medicine; Visit Provider Internal Medicine Cardiovascular Disease
DX: I50.20 Unspecified systolic (congestive) heart failure (principal)
CPT/HCPCS: 78452; 93017; A9500; J0280; J2785

== ENCOUNTER → 2022-04-29 12:57 | Outpatient (BNVA) | payer OTHER, MEDICAID, SELFPAY | PROVIDERS: PCP Internal Medicine; Visit Provider Internal Medicine Cardiovascular Disease | DX: I25.10 Atherosclerotic heart disease of native coronary artery without angina pectoris (principal); I50.20 Unspecified systolic (congestive) heart failure; Z79.82 Long term (current) use of aspirin; Z79.899 Other long term (current) drug therapy | CPT/HCPCS: 99212 ==

== ENCOUNTER 2022-05-02 01:18 | Emergency (ER) | payer OTHER, MEDICAID, SELFPAY ==
--- NOTE | ~2022-05-02 | CT_ITS ---
EXAMINATION: CT ABDOMEN AND PELVIS WITHOUT CONTRAST CLINICAL INFORMATION: Upper abdominal pain. History of pancreatitis. COMPARISON: None available. TECHNIQUE: Multidetector volumetric imaging was performed from the superior aspect of the liver through the pubic symphysis. Sagittal and coronal reformatted images were obtained on the technologist's workstation. This CT examination was performed using dose optimization techniques as appropriate, variously including the following: *Automated exposure control *Adjustment of mA and/or kV according to patient size (this includes techniques or standardized protocols for targeted exams where dose is matched to indication/reason for exam; i.e. extremities or head) *Use of iterative reconstruction technique DLP: 592 mGy-cm FINDINGS: LUNG BASES: No consolidation. Subpleural reticulation with bronchiectasis. Coronary artery calcification. LIVER, GALLBLADDER, AND BILIARY TREE: The liver is normal in size, shape, and attenuation. No focal hepatic lesion or biliary ductal dilatation is present. The gallbladder is not seen. PANCREAS: Diffuse atrophy with no focal abnormality. SPLEEN: Unremarkable. ADRENAL GLANDS: Unremarkable. KIDNEYS AND URETERS: The kidneys are normal in size, shape, and attenuation. No hydronephrosis, hydroureter, or calculi seen. No perinephric stranding. Simple bilateral renal cysts. No specific follow-up recommended. BLADDER: Unremarkable. GASTROINTESTINAL TRACT: Distended stomach without wall thickening. Mildly prominent small bowel in the left abdomen. No wall thickening. No adjacent inflammation. The distal small bowel is decompressed. Diverticulosis throughout the colon. No diverticulitis. Normal appendix. No free air or free fluid. ABDOMINAL WALL: No significant hernia is appreciated. LYMPH NODES: Normal. VASCULAR: Normal caliber aorta with moderate atherosclerotic calcification. PELVIC VISCERA: The prostate and seminal vesicles are unremarkable. OSSEOUS STRUCTURES: No acute or suspicious osseous abnormality. Moderate degenerative change throughout the spine. Moderate degenerative changes of the hips. CT/CT abdomen pelvis wo IV con IMPRESSION: 1. No acute findings in the abdomen or pelvis. No inflammatory changes. 2. Mildly prominent small bowel in the left abdomen with decompressed distal small bowel. This could be associated with enteritis. Partial obstruction also possible. 3. Atrophic pancreas. No peripancreatic inflammatory change. Fleischner guidelines were followed.
[2022-05-02 01:24] VITALS: BP 128/71; BP 130/68; PULSE 73; PULSE 79; RESP 12; TEMP 36.6; O2SAT 98; O2SAT 99; BMI 28.5
--- NOTE | 2022-05-02 01:28 | ED.ABDPAIN ---
HPI - Abdominal Pain General Chief Complaint: Abdominal Pain Stated Complaint: Epigastric Pain Time Seen by Provider: 05/02/22 01:27 Source: patient Mode of arrival: EMS Limitations: no limitations History of Present Illness HPI narrative: Patients have CKD, CAD, CHF, pancreatitis status post cholecystectomy comes here for epigastric pain since afternoon today after eating sardine earlier. Patient feels pain is in upper abdomen radiating to the back feels abdominal bloated with nausea with dry heaves no diarrhea no fever no chills no chest pain no shortness of breath no melena Related Data Home Medications Medication Instructions Recorded Confirmed acetaminophen 650 mg 650 mg PO BID PRN Pain 03/26/22 04/29/22 tablet,extended release aspirin 81 mg tablet,delayed 81 mg PO DAILY 03/26/22 04/29/22 release fluticasone propionate 50 1 spray intranasal BID 03/26/22 04/29/22 mcg/actuation nasal spray,suspension loratadine 10 mg tablet 10 mg PO DAILY 03/26/22 04/29/22 omeprazole 20 mg capsule,delayed 1 cap PO DAILY 03/26/22 04/29/22 release tamsulosin 0.4 mg capsule 1 cap PO DAILY 03/26/22 04/29/22 atorvastatin 80 mg tablet 80 mg PO BEDTIME 04/09/22 04/29/22 gabapentin 100 mg capsule 100 mg PO BID 04/09/22 04/29/22 glucose 4 gram chewable tablet 4 g PO ONCE PRN 04/09/22 04/29/22 (Dex4 Glucose) torsemide 10 mg tablet 10 mg PO DAILY 04/09/22 04/29/22 Previous Rx's Medication Instructions Recorded insulin glargine 100 unit/mL (3 8 unit (0.08 mL) subcut BEDTIME 03/31/22 mL) subcutaneous pen (Lantus #15 mL Solostar U-100 Insulin) metoprolol succinate 50 mg 50 mg PO DAILY #30 tabs 04/29/22 tablet,extended release 24 hr (Toprol XL) sacubitril 49 mg-valsartan 51 mg 1 tab PO BID #60 tabs 04/29/22 tablet (Entresto) dicyclomine 20 mg tablet 20 mg PO QID PRN abdominal pain 05/02/22 #20 tabs ondansetron 4 mg disintegrating 4 mg PO Q6-8H PRN nausea and 05/02/22 tablet vomiting #7 tabs Allergies Allergy/AdvReac Type Severity Reaction Status Date / Time No Known Allergies Allergy Verified 04/09/22 08:55 [No Known Allergies*] Review of Systems Review of Systems Constitutional : No Weight loss, No Fever, No Chills ENT/Mouth : No sore throat, No Rhinorrhea Eyes: No Eye Pain, No Swelling Cardiovascular : No Chest Pain, no palpitations Respiratory : No Cough, No Sputum, no shortness of breath Gastrointestinal : ++ Nausea, No Vomiting, No Diarrhea,++ abdominal Pain, no black stools Genitourinary : No Dysuria, No Urinary Frequency Musculoskeletal : No joint pain, No Myalgias, No Joint Swelling Skin : No Skin Lesions, No rash Neuro : No Weakness, No Numbness, No Dizziness, No Headache Psych : No Anxiety/Panic, No Depression Heme/Lymph: No Bruising, No Lymphadenopathy Endocrine : No Polyuria, No Polydipsia All other systems reviewed and are negative Yes all other systems are reviewed and are negative [facility] Past Medical History Medical History Acute exacerbation of CHF (congestive heart failure) CHF (congestive heart failure) Diabetes History of CAD (coronary artery disease) Surgical History No pertinent past surgical history Social History Social History Household Members: Family Housing: Apartment Do you presently have visiting nurse or other home services: Yes Alcohol intake: former Patient Tobacco Use Status: Former Tobacco user Advance Directives: No service: No Current occupational status: retired Physical Exam ED Vital Signs: Vital Signs - 24 hr 05/02/22 01:24 05/02/22 03:17 Temperature 97.9 F 97.9 F Pulse Rate 73 78 Respiratory Rate 12 12 Blood Pressure 128/71 110/60 Pulse Oximetry 98 97 Oxygen Delivery Method Room Air Room Air BMI result Body Mass Index 28.5 Const Other: Appearance: Alert. Oriented X3. No acute distress. Eyes: PERRLA, No Nystagmus ENT: Pharynx normal. Oral Mucosa moist Neck: Normal inspection. Neck supple. CVS: Normal heart rate and rhythm. Pulses normal. Respiratory: No respiratory distress. Equal air entry bilateral, no wheezing/rales/rhonchi Abdomen: Soft, tenderness in epigastric area with slight guarding no rebound tenderness Bowel sounds are present, no mass palpable, no CVA tenderness Skin: Skin warm and dry. Normal skin color. Normal skin turgor. Extremities: No lower extremity edema. No calf tenderness Neuro: Oriented X 3. No motor deficit. Medical Decision Making Medical Decision Making [facility] Narrative: Patient with upper abdominal pain with nausea and dry heaves normal CT scan abdomen no WBC count likely gastroenteritis/food poisoning patient feeling much better at time of discharge discharge patient Differential Diagnosis Pancreatitis/gastroenteritis/gastritis Lab Data [facility] Lab Attestation statement: I reviewed the patient's lab results. 05/02/22 02:00 05/02/22 02:00 Labs: Lab Results 05/02/22 05/02/22 05/02/22 Range/Units 02:00 02:00 02:00 WBC 9.1 (4.8-10.8) X10*3/uL RBC 4.91 (4.60-5.80) X10*6/uL Hgb 14.4 (14.0-18.0) g/dl Hct 42.7 (42.0-52.0) % MCV 87.0 (80.0-98.0) fL MCH 29.3 (27.0-33.0) pg MCHC 33.7 (31.0-36.0) g/dl RDW 12.9 (11.0-16.0) % Plt Count 180 D (160-400) X10*3/uL MPV 9.8 (9.4-12.4) fL Immature Gran % (Auto) 0.3 (0.0-0.4) % Neut % (Auto) 71.6 (45-73) % Lymph % (Auto) 21.9 (20-40) % Bryan % (Auto) 4.8 (2-11) % Eos % (Auto) 1.1 (0-4) % Baso % (Auto) 0.3 (0-2) % Lymph # (Auto) 2.0 (1.2-4.9) X10*3/uL Bryan # (Auto) 0.4 (0.1-1.2) X10*3/uL Eos # (Auto) 0.1 (0.0-0.4) X10*3/uL Baso # (Auto) 0.0 (0.0-0.2) X10*3/uL Abs Immat Gran (auto) 0.03 (0.00-0.03) X10*3/uL Absolute Neuts (auto) 6.5 (2.0-8.3) x10*3/uL Absolute Nucleated RBC 0.000 (0.0-0.012) X10*3/uL Nucleated RBC % (auto) 0.0 (0.0-0.2) /100WBC Sodium 139 (135-145) mmol/L Potassium 5.4 H D (3.3-5.1) mmol/L Chloride 105 (96-108) mmol/L Carbon Dioxide 22 (22-29) mmol/L Anion Gap 17 (12-20) BUN 26 H (9-16) mg/dL Creatinine 2.53 H (0.5-1.4) mg/dL Estim Creat Clear Calc 23.9 Estimated GFR 25 Random Glucose 214 H (60-115) mg/dL Calcium 9.6 (8.4-10.2) mg/dL Total Bilirubin 1.2 H (0.0-1.0) mg/dL AST 21 (5-37) U/L ALT 20 (0-40) U/L Alkaline Phosphatase 120 H (39-117) U/L Troponin I High Sens 51.2 H (<3.5-35.0) ng/L Total Protein 6.7 (6.5-8.0) g/dL Albumin 3.9 (3.5-5.0) g/dL Lipase 6 L (8-78) U/L COVID-19 ([facility]) (Negative) COVID-19 Clin Com 05/02/22 Range/Units 02:00 WBC (4.8-10.8) X10*3/uL RBC (4.60-5.80) X10*6/uL Hgb (14.0-18.0) g/dl Hct (42.0-52.0) % MCV (80.0-98.0) fL MCH (27.0-33.0) pg MCHC (31.0-36.0) g/dl RDW (11.0-16.0) % Plt Count (160-400) X10*3/uL MPV (9.4-12.4) fL Immature Gran % (Auto) (0.0-0.4) % Neut % (Auto) (45-73) % Lymph % (Auto) (20-40) % Bryan % (Auto) (2-11) % Eos % (Auto) (0-4) % Baso % (Auto) (0-2) % Lymph # (Auto) (1.2-4.9) X10*3/uL Bryan # (Auto) (0.1-1.2) X10*3/uL Eos # (Auto) (0.0-0.4) X10*3/uL Baso # (Auto) (0.0-0.2) X10*3/uL Abs Immat Gran (auto) (0.00-0.03) X10*3/uL Absolute Neuts (auto) (2.0-8.3) x10*3/uL Absolute Nucleated RBC (0.0-0.012) X10*3/uL Nucleated RBC % (auto) (0.0-0.2) /100WBC Sodium (135-145) mmol/L Potassium (3.3-5.1) mmol/L Chloride (96-108) mmol/L Carbon Dioxide (22-29) mmol/L Anion Gap (12-20) BUN (9-16) mg/dL Creatinine (0.5-1.4) mg/dL Estim Creat Clear Calc Estimated GFR Random Glucose (60-115) mg/dL Calcium (8.4-10.2) mg/dL Total Bilirubin (0.0-1.0) mg/dL AST (5-37) U/L ALT (0-40) U/L Alkaline Phosphatase (39-117) U/L Troponin I High Sens (<3.5-35.0) ng/L Total Protein (6.5-8.0) g/dL Albumin (3.5-5.0) g/dL Lipase (8-78) U/L COVID-19 ([facility]) Negative (Negative) COVID-19 Clin Com See Note Medications Administered Discontinued Medications Generic Name Dose Route Start Last Admin Trade Name Freq PRN Reason Stop Dose Admin Famotidine 20 mg 05/02/22 02:40 05/02/22 02:52 Famotidine/Pf 20 Mg/2 Ml Vial IVPUSH 05/02/22 02:41 20 mg ONCE ONE Administration Sodium Chloride 1,000 mls @ 999 mls/hr 05/02/22 01:46 05/02/22 03:45 Ns IV 05/02/22 02:46 Infused .Q1H1M ONE Infusion Morphine Sulfate 4 mg 05/02/22 02:44 05/02/22 02:51 Morphine Sulfate 4 Mg/Ml Cartridge IVPUSH 05/02/22 02:45 4 mg ONCE ONE Administration Protocol Ondansetron HCl 4 mg 05/02/22 02:44 05/02/22 02:51 Ondansetron Hcl 4 Mg/2 Ml Vial IVPUSH 05/02/22 02:45 4 mg ONCE ONE Administration Discharge Plan Discharge Clinical Impression: Gastroenteritis Patient Disposition: Home, Self-Care Instructions: Gastroenteritis (ED) Additional Instructions: Drink plenty of fluids Medicine for nausea as prescribed Follow with PCP as needed Prescriptions: New dicyclomine 20 mg tablet 20 mg PO QID PRN (Reason: abdominal pain) Qty: 20 0RF ondansetron 4 mg tablet,disintegrating 4 mg PO Q6-8H PRN (Reason: nausea and vomiting) Qty: 7 0RF No Action aspirin 81 mg Tablet,Delayed Release (Dr/Ec) 81 mg PO DAILY acetaminophen 650 mg tablet extended release 650 mg PO BID PRN (Reason: Pain) tamsulosin 0.4 mg capsule 1 cap PO DAILY omeprazole 20 mg capsule,delayed release(DR/EC) 1 cap PO DAILY fluticasone propionate 50 mcg/actuation spray,suspension 1 spray intranasal BID loratadine 10 mg Tablet 10 mg PO DAILY insulin glargine [Lantus Solostar U-100 Insulin] 100 unit/mL (3 mL) insulin pen 8 unit subcut BEDTIME Qty: 15 0RF atorvastatin 80 mg tablet 80 mg PO BEDTIME gabapentin 100 mg capsule 100 mg PO BID glucose [Dex4 Glucose] 4 gram tablet,chewable 4 g PO ONCE PRN Rx Instructions: until symptoms of low blood sugar are controlled torsemide 10 mg tablet 10 mg PO DAILY metoprolol succinate [Toprol XL] 50 mg tablet extended release 24 hr 50 mg PO DAILY Qty: 30 5RF Entresto 49-51 mg tablet 1 tab PO BID Qty: 60 3RF Interventions: ED Discharge Assessment Last Done: 05/02/22 03:46 Discharge Date/Time: 05/02/22 03:46
--- NOTE | 2022-05-02 01:30 | ECG_ITS ---
Test Reason : CHEST PAIN Blood Pressure : / mmHG Vent. Rate : 074 BPM Atrial Rate : 074 BPM P-R Int : 170 ms QRS Dur : 070 ms QT Int : 390 ms P-R-T Axes : 033 -21 047 degrees QTc Int : 432 ms Normal sinus rhythm Low voltage QRS Borderline ECG When compared with ECG of 29-MAR-2022 16:39, CT interval has decreased Nonspecific T wave abnormality, improved in Inferior leads Nonspecific T wave abnormality, worse in Lateral leads Referred By: Kemal Ortez Electronically Signed By:Edgar Mccarthy
[2022-05-02 02:04] LABS: MANUAL DIFF FLAG NO
[2022-05-02 02:06] LABS: Basophils Percent Auto 0.3 % (0-2); Eosinophils Absolute Auto 0.1 X10*3/uL (0.0-0.4); Eosinophils Percent Auto 1.1 % (0-4); Hematocrit 42.7 % (42.0-52.0); Hemoglobin 14.4 g/dl (14.0-18.0); Imm Gran Abs Auto 0.03 X10*3/uL (0.00-0.03); Imm Gran Pct Auto 0.3 % (0.0-0.4); Lymphocytes Percent Auto 21.9 % (20-40); Mean Corpuscular HGB Conc 33.7 g/dl (31.0-36.0); Mean Corpuscular Hemoglobin 29.3 pg (27.0-33.0); Mean Platelet Volume 9.8 fL (9.4-12.4); Monocytes Absolute Auto 0.4 X10*3/uL (0.1-1.2); Monocytes Percent Auto 4.8 % (2-11); Neutrophils Absolute Auto 6.5 x10*3/uL (2.0-8.3); Neutrophils Percent Auto 71.6 % (45-73); Platelet Count 180 X10*3/uL (160-400); Red Blood Count 4.91 X10*6/uL (4.60-5.80); Red Cell Distribution Width 12.9 % (11.0-16.0); White Blood Count 9.1 X10*3/uL (4.8-10.8)
[2022-05-02 02:17] LABS: COVID-19 Test Negative (Negative); IDNOW Serial# BCCEAD1C
[2022-05-02 02:27] LABS: Troponin-I High Sensitivity 51.2 ng/L (<3.5-35.0)
[2022-05-02 02:31] LABS: Alanine Aminotransferase 20 U/L (0-40); Albumin Level 3.9 g/dL (3.5-5.0); Alkaline Phosphatase 120 U/L (39-117); Anion Gap 17 (12-20); Aspartate Amino Transferase 21 U/L (5-37); Bilirubin Total 1.2 mg/dL (0.0-1.0); Blood Urea Nitrogen 26 mg/dL (9-16); Calcium 9.6 mg/dL (8.4-10.2); Carbon Dioxide 22 mmol/L (22-29); Chloride 105 mmol/L (96-108); Creatinine Clr Calc Pharmacy 23.9; Estimated Glomerular Filt Rate 25; Glucose Random 214 mg/dL (60-115); Lipase 6 U/L (8-78); Potassium 5.4 mmol/L (3.3-5.1); Sodium 139 mmol/L (135-145); Total Protein 6.7 g/dL (6.5-8.0)
[2022-05-02] MEDS: 0.9 % Sodium Chloride 1,000 ML 999 ML IV (02:42)
[2022-05-02] MEDS: Morphine Sulfate 4 MG/ML CARTRIDGE IVPUSH (02:51)
[2022-05-02] MEDS: ondansetron HCL 4 MG/2 ML VIAL IVPUSH (02:51)
[2022-05-02] MEDS: Famotidine/PF 20 MG/2 ML VIAL IVPUSH (02:52)
[2022-05-02 03:17] VITALS: BP 110/60; PULSE 78; RESP 12; TEMP 36.6; O2SAT 97
--- NOTE | 2022-05-02 03:45 | PC.NURSE ---
IV line removed with no complications. Pt tolerated well. Discharge instructions reviewed with pt. Pt verbalizes understanding.
== END 2022-05-02 03:46 | disposition home or self-care (01) ==
PROVIDERS: Emergency Provider Internal Medicine
DX: K52.9 Noninfective gastroenteritis and colitis, unspecified (principal); R07.89 Other chest pain; I25.10 Atherosclerotic heart disease of native coronary artery without angina pectoris; R10.13 Epigastric pain; Z20.822 Contact with and (suspected) exposure to COVID-19; Z20.828 Contact with and (suspected) exposure to other viral communicable diseases; Z79.899 Other long term (current) drug therapy
CPT/HCPCS: 74176; 80053; 83690; 84484; 85025; 87635; 93005; 96361; 96374; 96375; 99284; J2270; J2405

== ENCOUNTER 2022-05-20 11:48 | Outpatient (REF) | payer OTHER, SELFPAY ==
[2022-05-20 12:08] LABS: MANUAL DIFF FLAG NO
[2022-05-20 12:23] LABS: Basophils Percent Auto 0.2 % (0-2); Eosinophils Absolute Auto 0.2 X10*3/uL (0.0-0.4); Eosinophils Percent Auto 2.2 % (0-4); Hematocrit 39.7 % (42.0-52.0); Hemoglobin 12.7 g/dl (14.0-18.0); Imm Gran Abs Auto 0.02 X10*3/uL (0.00-0.03); Imm Gran Pct Auto 0.2 % (0.0-0.4); Lymphocytes Absolute Auto 2.4 X10*3/uL (1.2-4.9); Lymphocytes Percent Auto 29.6 % (20-40); Mean Corpuscular Hemoglobin 29.1 pg (27.0-33.0); Mean Corpuscular Volume 91.1 fL (80.0-98.0); Mean Platelet Volume 10.2 fL (9.4-12.4); Monocytes Absolute Auto 0.5 X10*3/uL (0.1-1.2); Monocytes Percent Auto 6.4 % (2-11); Neutrophils Percent Auto 61.4 % (45-73); Platelet Count 185 X10*3/uL (160-400); Red Blood Count 4.36 X10*6/uL (4.60-5.80); Red Cell Distribution Width 13.9 % (11.0-16.0); White Blood Count 8.1 X10*3/uL (4.8-10.8)
[2022-05-20 12:58] LABS: Alanine Aminotransferase 15 U/L (0-40); Albumin Level 3.8 g/dL (3.5-5.0); Alkaline Phosphatase 98 U/L (39-117); Anion Gap 13 (12-20); Aspartate Amino Transferase 20 U/L (5-37); Bilirubin Total 0.5 mg/dL (0.0-1.0); Blood Urea Nitrogen 46 mg/dL (9-16); Carbon Dioxide 22 mmol/L (22-29); Chloride 111 mmol/L (96-108); Cholesterol 147 mg/dL; Estimated Glomerular Filt Rate 30; Glucose Random 99 mg/dL (60-115); HDL Cholesterol 40 mg/dL; LDL Cholesterol Calculated 91 mg/dl; Potassium 5.2 mmol/L (3.3-5.1); Sodium 141 mmol/L (135-145); Total Protein 6.5 g/dL (6.5-8.0); Triglycerides 84 mg/dL
[2022-05-20 13:09] LABS: Estimated Average Glucose 203 mg/dL; Hemoglobin A1c % 8.7 %
[2022-05-20 13:16] LABS: Prostate Specific Antigen Scr 0.43 ng/mL (<0.05-4.0); Thyroid Stimulating Hormone 2.38 uIU/mL (0.32-4.0)
[2022-05-20 13:56] LABS: Creatinine Urine 29.61 mg/dL; Microalbum/Creatinine Ratio Ur 37.1 ug/mg cr
== END 2022-05-20 11:49 | disposition home or self-care (01) ==
LOC: HO.LAB 11:48
PROVIDERS: PCP Internal Medicine; Visit Provider Internal Medicine
DX: E11.22 Type 2 diabetes mellitus with diabetic chronic kidney disease (principal); N18.9 Chronic kidney disease, unspecified; E78.00 Pure hypercholesterolemia, unspecified; I50.42 Chronic combined systolic (congestive) and diastolic (congestive) heart failure; N40.0 Benign prostatic hyperplasia without lower urinary tract symptoms; Z12.5 Encounter for screening for malignant neoplasm of prostate
CPT/HCPCS: 36415; 80053; 80061; 82043; 83036; 84153; 84443; 85025

== ENCOUNTER → 2022-07-13 13:44 | Outpatient (BNVA) | payer OTHER, SELFPAY | PROVIDERS: PCP Internal Medicine; Referring Provider Internal Medicine; Visit Provider Internal Medicine Cardiovascular Disease | DX: I50.20 Unspecified systolic (congestive) heart failure (principal); I25.10 Atherosclerotic heart disease of native coronary artery without angina pectoris; Z79.82 Long term (current) use of aspirin; Z79.899 Other long term (current) drug therapy | CPT/HCPCS: 99212 ==

== ENCOUNTER 2022-08-20 10:26 | Outpatient (REF) | payer OTHER, SELFPAY | END 2022-08-20 10:27 | disposition home or self-care (01) | LOC: HO.LAB 10:26 | PROVIDERS: PCP Internal Medicine; Visit Provider Internal Medicine | DX: E11.65 Type 2 diabetes mellitus with hyperglycemia (principal); E78.00 Pure hypercholesterolemia, unspecified; I50.42 Chronic combined systolic (congestive) and diastolic (congestive) heart failure; M54.50 Low back pain, unspecified; E11.22 Type 2 diabetes mellitus with diabetic chronic kidney disease; N18.9 Chronic kidney disease, unspecified; T82.855D Stenosis of coronary artery stent, subsequent encounter; X58.XXXD Exposure to other specified factors, subsequent encounter | CPT/HCPCS: 36415; 83036; 85025 ==

== ENCOUNTER 2022-10-12 13:06 | Outpatient (AMB) | payer OTHER, SELFPAY ==
[2022-10-12 13:08] VITALS: BP 120/74; PULSE 68; BMI 29.0
--- NOTE | 2022-10-12 13:08 | A.OFFVIS_ITS ---
Intake Vital Signs 10/12/22 13:08 Height 5 ft 7 in Weight 185 lb 3.013 oz BMI 29.0 BP 120/74 Blood Pressure Location Lt brachial Position Sitting Pulse 68 Intake Visit Reasons: 3 mth f/up Intake Note: 3 month follow-up hearts feeling good missed [place] [facility] [place] [place] Required: No Allergies No Known Allergies [No Known Allergies*] Allergy (Verified 04/09/22 08:55) Medication List - Last Reconciled 10/12/22 by Surinder Moody MD acetaminophen ER 650 mg PO BID PRN aspirin 81 mg PO DAILY atorvastatin 80 mg PO BEDTIME dicyclomine 20 mg PO QID PRN fluticasone propionate 50 mcg/actuation 1 spray intranasal BID gabapentin 100 mg PO BID glucose (Dex4 Glucose) 4 grams PO ONCE PRN insulin glargine (Lantus Solostar U-100 Insulin) 8 units (0.08 mL) subcut BEDTIME loratadine 10 mg PO DAILY metoprolol succinate ER (Toprol XL) 50 mg PO DAILY omeprazole 20 mg PO DAILY ondansetron 4 mg PO Q6-8H PRN sacubitril-valsartan 49-51 mg (Entresto) 1 tab PO BID tamsulosin 1 cap PO DAILY torsemide 10 mg PO DAILY HPI HPI Comments History of Present Illness Details Jorge comes for follow-up. He denies any new cardiac symptoms. Currently taking all his medications. Denies any worsening heart failure symptoms. Denies any orthopnea, PND, leg edema, abdominal distension, weight gain. Weight has remained stable. Denies any palpitations, lightheadedness, syncope. Patient denies any exertional chest pain. [facility] Medical History Acute exacerbation of CHF (congestive heart failure) CHF (congestive heart failure) Diabetes History of CAD (coronary artery disease) Surgical History No pertinent past surgical history Social History Household Members: Family Housing: Apartment Do you presently have visiting nurse or other home services: Yes Alcohol intake: former Patient Tobacco Use Status: Former Tobacco user service: No Current occupational status: retired Review of Systems Const Denies chills, Denies fatigue, Denies fever(s), Denies frequent falls, Denies weakness, Denies weight gain and Denies weight loss ENT Denies dizziness Card Denies chest pain, Denies leg edema, Denies lightheadedness, Denies palpitations, Denies dyspnea, Denies dyspnea on exertion, Denies orthopnea and Denies other (loss of consciousness) Resp Denies cough, Denies dyspnea and Denies dyspnea on exertion GI Denies hematochezia and Denies change in stool character Musc Denies abnormal gait, Denies muscle weakness, Denies numbness, Denies radiating pain into limb and Denies tingling Neuro Denies abnormal gait, Denies dizziness, Denies frequent falls, Denies numbness, Denies tingling and Denies weakness Endo Denies fatigue and Denies palpitations Physical Exam Vital Signs: Last Vital Signs Pulse 68 10/12/22 13:08 BP 120/74 10/12/22 13:08 BMI result Body Mass Index 29.0 Const General: cooperative, comfortable, alert and awake Nutritional Appearance: well nourished and overweight Orientation/consciousness: patient oriented x3 Limitations: ambulation with walker Neck Neck: Yes trachea midline, Yes supple and Yes no JVD Resp Effort & Inspection: normal respiratory effort Auscultation: clear to auscultation bilaterally Cardio Jugular venous distension: no JVD Rate: regular rate Rhythm: regular rhythm Heart sounds: S1 normal heart sound present, S2 normal heart sound present, no click, no gallops, no murmurs and no rubs GI Auscultation: normal bowel sounds Skin General skin exam: no rashes or lesions noted Neuro General: patient oriented x3 and no focal motor deficits Extrem General: Yes no clubbing, cyanosis or edema Assessment & Plan Assessment & Plan (1) Heart failure with reduced ejection fraction: Code(s): I50.20 - Unspecified systolic (congestive) heart failure Plan: Heart failure with reduced ejection fraction this elderly gentleman with prior history of near-syncope with severe LV systolic dysfunction. Clinically euvolemic and well compensated. Continue current neurohormonal modulation with Entresto as well as metoprolol therapy. Continue low-dose torsemide therapy. Daily weight monitoring avoidance salt loading was discussed. Will refer him to EPS for single-chamber ICD placement for primary prevention. (2) Coronary artery disease: Code(s): I25.10 - Atherosclerotic heart disease of platinum coronary artery without angina pectoris Plan: CAD status post anterior infarct with prior stenting. No recent symptoms of angina. Continue aggressive medical therapy. Lifelong aspirin therapy is advised. Continue high-intensity statin therapy with target goal LDL closer to 60 mg/dL. Blood pressure is currently well optimized. Aggressive diabetes management goal hemoglobin A1c less than 7%. Will follow up in the clinic in 6 months time, sooner p.r.n.. Thank you for allowing me to partake in his care Coding Level of Care Code Est Pt Level 4 (30057) Diagnoses Heart failure with reduced ejection fraction I50.20 Coronary artery disease I25.10
== END 2022-10-12 13:28 | disposition home or self-care (01) ==
PROVIDERS: PCP Internal Medicine; Referring Provider Internal Medicine; Visit Provider Internal Medicine Cardiovascular Disease
DX: I50.20 Unspecified systolic (congestive) heart failure (principal); I25.10 Atherosclerotic heart disease of native coronary artery without angina pectoris
CPT/HCPCS: 99214

== ENCOUNTER → 2022-10-12 13:06 | Outpatient (BNVA) | payer OTHER, SELFPAY | PROVIDERS: PCP Internal Medicine; Referring Provider Internal Medicine; Visit Provider Internal Medicine Cardiovascular Disease | DX: I50.20 Unspecified systolic (congestive) heart failure (principal); I25.10 Atherosclerotic heart disease of native coronary artery without angina pectoris; Z79.82 Long term (current) use of aspirin; Z79.899 Other long term (current) drug therapy | CPT/HCPCS: 99212 ==

== ENCOUNTER 2022-11-15 11:01 | Outpatient (REF) | payer OTHER, SELFPAY ==
[2022-11-15 11:31] LABS: MANUAL DIFF FLAG NO
[2022-11-15 12:03] LABS: Basophils Percent Auto 0.2 % (0-2); Eosinophils Absolute Auto 0.1 X10*3/uL (0.0-0.4); Eosinophils Percent Auto 1.4 % (0-4); Hematocrit 45.6 % (42.0-52.0); Hemoglobin 14.9 g/dl (14.0-18.0); Imm Gran Abs Auto 0.02 X10*3/uL (0.00-0.03); Imm Gran Pct Auto 0.2 % (0.0-0.4); Lymphocytes Percent Auto 33.2 % (20-40); Mean Corpuscular HGB Conc 32.7 g/dl (31.0-36.0); Mean Corpuscular Hemoglobin 28.6 pg (27.0-33.0); Mean Corpuscular Volume 87.5 fL (80.0-98.0); Mean Platelet Volume 10.7 fL (9.4-12.4); Monocytes Absolute Auto 0.4 X10*3/uL (0.1-1.2); Monocytes Percent Auto 4.3 % (2-11); Neutrophils Absolute Auto 5.5 x10*3/uL (2.0-8.3); Neutrophils Percent Auto 60.7 % (45-73); Platelet Count 172 X10*3/uL (160-400); Red Blood Count 5.21 X10*6/uL (4.60-5.80); Red Cell Distribution Width 14.2 % (11.0-16.0)
[2022-11-15 12:07] LABS: INTERNATIONAL NORM RATIO 0.9 (0.9-1.1); Prothrombin Time 11.2 SEC (11.1-13.3)
[2022-11-15 12:51] LABS: Anion Gap 18 (12-20); Blood Urea Nitrogen 63 mg/dL (9-16); Calcium 9.6 mg/dL (8.4-10.2); Carbon Dioxide 19 mmol/L (22-29); Chloride 104 mmol/L (96-108); Estimated Glomerular Filt Rate 21; Glucose Random 337 mg/dL (60-115); Potassium 4.6 mmol/L (3.3-5.1); Sodium 136 mmol/L (135-145)
== END 2022-11-15 11:02 | disposition home or self-care (01) ==
LOC: HO.LAB 11:01
PROVIDERS: PCP Internal Medicine; Visit Provider Internal Medicine Cardiovascular Disease
DX: I50.9 Heart failure, unspecified (principal)
CPT/HCPCS: 36415; 80048; 85025; 85610

== ENCOUNTER 2022-12-01 09:10 | Day surgery (SDC) | payer OTHER, SELFPAY ==
[2022-11-29 14:55] VITALS: BMI 29.0
--- NOTE | 2022-11-30 09:48 | HO.ANESPROP2 ---
Documented by User: Morena De Jesus NP 11/30/22 09:55 HPI - Anesthesia Eval Consult details Narrative: 82yo M for ICD Insertion PMFSH Active Problems Active Problems: All Active Problems (Updated 05/03/22 @ 00:00 by Lusi Frederick) Heart failure with reduced ejection fraction (Acute) Overweight (Acute) Chest pain (Acute) Coronary artery disease (Acute) CKD (chronic kidney disease) (Acute) Past Medical History Medical History Diabetes History of CAD (coronary artery disease) CHF (congestive heart failure) Acute exacerbation of CHF (congestive heart failure) CKD (chronic kidney disease) Surgical History Surgical History (Updated 12/01/22 @ 10:37 by Danuta Ward RN) History of heart artery stent Social History Social History Household Members: Family Housing: Apartment Do you presently have visiting nurse or other home services: Yes Alcohol intake: former Patient Tobacco Use Status: Former Tobacco user Smoked in Last 30 Days: No Use of substances other than those prescribed or required for medical reasons: No Are you DNR?: No Advance Directives: No Advance Directives Information Provided: Yes service: No Current occupational status: retired Meds Allergies Allergy/AdvReac Type Severity Reaction Status Date / Time No Known Allergies Allergy Verified 12/01/22 10:36 [No Known Allergies*] Home Medications Medication Instructions Recorded Confirmed Last Taken Type acetaminophen 650 mg 650 mg PO BID PRN Pain 03/26/22 12/01/22 11/30/22 History tablet,extended release aspirin 81 mg tablet,delayed 81 mg PO DAILY 03/26/22 12/01/22 11/30/22 07:30 History release fluticasone propionate 50 1 spray intranasal BID 03/26/22 12/01/22 11/30/22 History mcg/actuation nasal spray,suspension loratadine 10 mg tablet 10 mg PO DAILY 03/26/22 12/01/22 11/30/22 07:30 History tamsulosin 0.4 mg capsule 1 cap PO DAILY 03/26/22 12/01/22 11/30/22 07:30 History atorvastatin 80 mg tablet 80 mg PO BEDTIME 04/09/22 12/01/22 11/30/22 07:30 History gabapentin 100 mg capsule 100 mg PO BID 04/09/22 12/01/22 11/30/22 07:30 History glucose 4 gram chewable tablet 4 g PO ONCE PRN 04/09/22 10/12/22 Unknown History (Dex4 Glucose) torsemide 10 mg tablet 10 mg PO DAILY 04/09/22 12/01/22 11/30/22 07:30 History omeprazole 20 mg capsule,delayed 20 mg PO DAILY 07/13/22 12/01/22 11/30/22 07:30 History release Exam Exam Date and Time: November 30, 2022 0948 Height,Weight and Vital Signs: Height 5 ft 7 in Weight 83.915 kg Narrative Narrative: EKG 2022 Vent. Rate : 074 BPM Atrial Rate : 074 BPM P-R Int : 170 ms QRS Dur : 070 ms QT Int : 390 ms P-R-T Axes : 033 -21 047 degrees QTc Int : 432 ms Normal sinus rhythm Low voltage QRS Borderline ECG When compared with ECG of 29-MAR-2022 16:39, NC interval has decreased Nonspecific T wave abnormality, improved in Inferior leads Nonspecific T wave abnormality, worse in Lateral leads NM helder perf SPECT rest & str 2022 Impression: 1. Myocardial perfusion imaging study shows LAD territory infarct with milly-infarct ischemia in inferolateral wall 2. Gated LVEF is 41% with stress and 26% with rest 3. Transient ischemic dilatation not present but LV cavity is dilated EKG is nondiagnostic for ischemia ECHO 2022 Conclusions: - 1. Moderately reduced LV systolic function with regional wall motion abnormality consistent with ischemic cardiomyopathy a with LVEF of 35-40% with wall motion abnormality in LAD territory with grade 3 diastolic dysfunction 2. Normal cardiac valvular Doppler 3. No gross pericardial effusion 4. RV systolic pressure could not be calculated on this study Assessment and Plan Assessment Anesthesia Assessment: Chart Reviewed Documented by User: Samra Grijalva MD 12/01/22 10:58 COUNT INCLUDES THE [facility] Past Medical History Medical History Diabetes History of CAD (coronary artery disease) CHF (congestive heart failure) Acute exacerbation of CHF (congestive heart failure) CKD (chronic kidney disease) Family History Family history of problems with anesthesia: No Surgical History Surgical History (Updated 12/01/22 @ 10:37 by Danuta Ward RN) History of heart artery stent History of Problems with Anesthesia: No Social History Social History Household Members: Family Housing: Apartment Do you presently have visiting nurse or other home services: Yes Alcohol intake: former Patient Tobacco Use Status: Former Tobacco user Smoked in Last 30 Days: No Use of substances other than those prescribed or required for medical reasons: No Are you DNR?: No Advance Directives: No Advance Directives Information Provided: Yes service: No Current occupational status: retired [employer] Allergies Allergy/AdvReac Type Severity Reaction Status Date / Time No Known Allergies Allergy Verified 12/01/22 10:36 [No Known Allergies*] Home Medications Medication Instructions Recorded Confirmed Last Taken Type acetaminophen 650 mg 650 mg PO BID PRN Pain 03/26/22 12/01/22 11/30/22 History tablet,extended release aspirin 81 mg tablet,delayed 81 mg PO DAILY 03/26/22 12/01/22 11/30/22 07:30 History release fluticasone propionate 50 1 spray intranasal BID 03/26/22 12/01/22 11/30/22 History mcg/actuation nasal spray,suspension loratadine 10 mg tablet 10 mg PO DAILY 03/26/22 12/01/22 11/30/22 07:30 History tamsulosin 0.4 mg capsule 1 cap PO DAILY 03/26/22 12/01/22 11/30/22 07:30 History atorvastatin 80 mg tablet 80 mg PO BEDTIME 04/09/22 12/01/22 11/30/22 07:30 History gabapentin 100 mg capsule 100 mg PO BID 04/09/22 12/01/22 11/30/22 07:30 History glucose 4 gram chewable tablet 4 g PO ONCE PRN 04/09/22 10/12/22 Unknown History (Dex4 Glucose) torsemide 10 mg tablet 10 mg PO DAILY 04/09/22 12/01/22 11/30/22 07:30 History omeprazole 20 mg capsule,delayed 20 mg PO DAILY 07/13/22 12/01/22 11/30/22 07:30 History release Exam Airway Mallampati Class: III TM Dist: >3cm Neck ROM: Limited Heart: rrr Lungs: cta Assessment and Plan Assessment Anesthesia Assessment: Anesthesia Plan Discussed Final Anesthetic Review Family History of Problems with Anesthesia: No History of Problems with Anesthesia: No NPO: Yes ASA Class: III Final Preanesthetic Review: No Changes in Pt Med Stat, Meds/Allgs Chart Reviewed, Consent Obtained/Reviewed and Anes Risks/Benef Reviewed Patient Risk: Intermediate Procedure Risk: Intermediate Anesthetic Plan Anesthetic Plan: MAC: Disposition: Standard PACU
[2022-12-01] VITALS (12 sets, daily range): BP systolic 101–132; BP diastolic 54–85; PULSE 52–67; RESP 16–20; TEMP 35.8–36.1; O2SAT 98–99; BMI 28.8
--- NOTE | ~2022-12-01 | FL_ITS ---
EXAMINATION: XR FLUOROSCOPY WITH IMAGES CLINICAL INFORMATION: ICD insertion. COMPARISON: None available. TECHNIQUE: Fluoroscopy Supervised By: Dr. Herminio Reed. Fluoroscopy Time: 286.0 seconds. Cumulative Dose: 109.25 mGy. DAP: Not available. Images: 3. FINDINGS: Fluoroscopy guidance for ICD placement. Images demonstrate left subclavian insertion of an ICD with tip projecting over the ventricular apex. FL/FL guidance in OR IMPRESSION: Fluoroscopy guidance for ICD placement.
[2022-12-01] MEDS: Lactated Ringers 1,000 ML 50 ML IVCONT (09:45)
[2022-12-01 10:03] LABS: Glucose, Whole Blood 194 mg/dL (60-115)
--- NOTE | 2022-12-01 13:12 | ECG_ITS ---
Test Reason : pre op Blood Pressure : / mmHG Vent. Rate : 052 BPM Atrial Rate : 052 BPM P-R Int : 216 ms QRS Dur : 076 ms QT Int : 458 ms P-R-T Axes : 044 -21 025 degrees QTc Int : 425 ms Sinus bradycardia with 1st degree A-V block Low voltage QRS Borderline ECG When compared with ECG of 02-MAY-2022 01:36, VT interval has increased Nonspecific T wave abnormality no longer evident in Lateral leads Referred By: Herminio Reed Electronically Signed By:CEASAR CONDON MD
--- NOTE | 2022-12-01 13:21 | P.OP_ITS ---
Operative Note Operative Note Date of Service: 12/01/22 Narrative: NAME OF PROCEDURE: ? 1.???Single chamber ICD 2.???Left upper extremity venogram INDICATION FOR PROCEDURE:??Systolic heart failure on GDMT. NYHA II ? SEDATION:??Monitored Anaesthesia Control Description of Procedure:?Patient was identified brought to the electrophysiology laboratory in a postabsorptive state.??The left pectoral region was prepped and draped in usual sterile fashion. Incision was made over the left pectoral region and pectoral subcutaneous pocket was made. Left upper extremity venogram was performed ? Afterwards left axillary venous access was obtained using needle and fluoroscopic guidance, a 9-Thai sheath was placed.??Right ventricular lead was advanced and placed in right ventricular septum just above apex with good sensing and pacing thresholds.??The sheath was split and the lead was then anchored to the pectoral fascia with silk suture.?? ? The subcutaneous pocket was made and the wound was irrigated with antibiotic solution.??The??leads were then connected to a generator and placed in the pocket.??The wound was closed with 3 layers of absorbable sutures.?? Patient tolerated procedure well.??There were no complications. ? IMPLANTED HARDWARE:?? 1.? ??Pulse generator:??Psychology Assistant [employer] , model name is [employer] VR MRI DF4, model number is [id number], serial number is [id number]. 2.? ??Right ventricular lead:??Psychology Assistant Medtronic model name is 6935M, 62 cm, serial number is [id number]? Programmed Parameters:? VVI 40 bpm? ? IMPRESSION:?? Successful implantation of single chamber ICD ? PLAN: ? 1.?Routine postprocedure monitoring. 2.?CXR today? 3.?Post operative Abx? 4. ???EKG today? 5. ???Interrogation of device
[2022-12-01] MEDS: Acetaminophen 325 MG TABLET 650 MG PO (14:20)
[2022-12-01] MEDS: ceFAZolin Sodium/Dextrose,Iso 2 GM/50 ML PIGGYBACK IV (15:22)
== END 2022-12-01 16:04 | disposition home or self-care (01) ==
PROVIDERS: PCP Internal Medicine; Visit Provider Internal Medicine Cardiovascular Disease
PROC: (CPT 33249; principal; 2022-12-01 11:00)
DX: I50.23 Acute on chronic systolic (congestive) heart failure (principal); I25.10 Atherosclerotic heart disease of native coronary artery without angina pectoris; Z95.5 Presence of coronary angioplasty implant and graft; E11.22 Type 2 diabetes mellitus with diabetic chronic kidney disease; N18.9 Chronic kidney disease, unspecified; I25.2 Old myocardial infarction; Z79.4 Long term (current) use of insulin; Z79.51 Long term (current) use of inhaled steroids; Z79.82 Long term (current) use of aspirin; Z79.899 Other long term (current) drug therapy
CPT/HCPCS: 33249; 82947; 93005; C1777; C1882; C1892; J0690; J3010; J3370; Q9967

== ENCOUNTER 2022-12-20 13:33 | Outpatient (REF) | payer OTHER, SELFPAY ==
[2022-12-20 15:03] LABS: Estimated Average Glucose 194 mg/dL; Hemoglobin A1c % 8.4 % (<6.0)
[2022-12-20 15:26] LABS: Alanine Aminotransferase 27 U/L (0-40); Albumin Level 4.2 g/dL (3.5-5.0); Alkaline Phosphatase 92 U/L (39-117); Anion Gap 15 (12-20); Aspartate Amino Transferase 26 U/L (5-37); Bilirubin Total 0.6 mg/dL (0.0-1.0); Blood Urea Nitrogen 52 mg/dL (9-16); Calcium 9.8 mg/dL (8.4-10.2); Carbon Dioxide 26 mmol/L (22-29); Chloride 102 mmol/L (96-108); Estimated Glomerular Filt Rate 21; Glucose Random 250 mg/dL (60-115); Potassium 4.3 mmol/L (3.3-5.1); Sodium 139 mmol/L (135-145); Total Protein 7.6 g/dL (6.5-8.0)
== END 2022-12-20 13:34 | disposition home or self-care (01) ==
LOC: HO.LAB 13:33
PROVIDERS: PCP Internal Medicine; Visit Provider Internal Medicine
DX: E11.65 Type 2 diabetes mellitus with hyperglycemia (principal)
CPT/HCPCS: 36415; 80053; 83036

== ENCOUNTER → 2023-01-03 23:59 | Outpatient (BNV) | payer OTHER, SELFPAY ==
--- NOTE | 2023-01-03 13:39 | A.OFFVIS_ITS ---
Intake Intake Visit Reasons: Remote ICD Check- Medtronic Allergies No Known Allergies [No Known Allergies*] Allergy (Verified 12/01/22 10:36) [facility] Medical History (Updated 01/03/23 @ 13:40 by Surinder Moody MD) Diabetes History of CAD (coronary artery disease) CHF (congestive heart failure) Acute exacerbation of CHF (congestive heart failure) CKD (chronic kidney disease) Surgical History (Updated 12/01/22 @ 10:37 by Danuta Ward RN) History of heart artery stent Social History Household Members: Family Housing: Apartment Do you presently have visiting nurse or other home services: Yes Alcohol intake: former Patient Tobacco Use Status: Former Tobacco user service: No Current occupational status: retired Office Procedures Cardiac Device Check Cardiac Device Check Details: Remote ICD report generated 01/11/2023. ICD function is adequate [id number] Cardiac Interrogation, implant defibrillator w/interim Procedure code (CPT) selection complete Assessment & Plan Assessment & Plan (1) ICD (implantable cardioverter-defibrillator) in place: Code(s): Z95.810 - Presence of automatic (implantable) cardiac defibrillator Plan No change in plan Coding Level of Care Code Procedure Only Diagnoses ICD (implantable cardioverter-defibrillator) in place Z95.810 CPT Codes Cardiac Device Check - Cardiac Device 13: [id number] Cardiac Interrogation, implant defibrillator w/interim ([id number])
== END ==
PROVIDERS: PCP Internal Medicine; Visit Provider Internal Medicine Cardiovascular Disease
DX: I50.20 Unspecified systolic (congestive) heart failure (principal); Z95.810 Presence of automatic (implantable) cardiac defibrillator
CPT/HCPCS: 93295

== ENCOUNTER → 2023-01-03 23:59 | Outpatient (BNV) | payer OTHER, SELFPAY ==
--- NOTE | 2023-01-03 13:41 | MHC.OFFVIS ---
Intake Intake Visit Reasons: Remote HF Monitoring- Medtronic Allergies No Known Allergies [No Known Allergies*] Allergy (Verified 12/01/22 10:36) [facility] Medical History (Updated 01/03/23 @ 13:40 by Surinder Moody MD) Diabetes History of CAD (coronary artery disease) CHF (congestive heart failure) Acute exacerbation of CHF (congestive heart failure) CKD (chronic kidney disease) Surgical History (Updated 12/01/22 @ 10:37 by Danuta Ward RN) History of heart artery stent Social History Household Members: Family Housing: Apartment Do you presently have visiting nurse or other home services: Yes Alcohol intake: former Patient Tobacco Use Status: Former Tobacco user service: No Current occupational status: retired Office Procedures Cardiac Device Check Cardiac Device Check Details: Remote heart failure report generated 01/11/2023. Heart failure parameters are stable [id number] Cardiac Interrogation, subcut cardiac rhythm monitor Procedure code (CPT) selection complete Assessment & Plan Assessment & Plan (1) Heart failure with reduced ejection fraction: Code(s): I50.20 - Unspecified systolic (congestive) heart failure Plan: No change in treatment Coding Level of Care Code Procedure Only Diagnoses Heart failure with reduced ejection fraction I50.20 CPT Codes Cardiac Device Check - Cardiac Device 16: [id number] Cardiac Interrogation, subcut cardiac rhythm monitor ([id number])
== END ==
PROVIDERS: PCP Internal Medicine; Visit Provider Internal Medicine Cardiovascular Disease
DX: I50.20 Unspecified systolic (congestive) heart failure (principal); Z95.810 Presence of automatic (implantable) cardiac defibrillator
CPT/HCPCS: 93297

== ENCOUNTER 2023-01-13 14:10 | Outpatient (AMB) | payer OTHER, SELFPAY ==
--- NOTE | 2023-01-13 14:20 | MHC.OFFVIS ---
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 Allergies No Known Allergies [No Known Allergies*] Allergy (Verified 01/13/23 15:00) Medication List - Last Reconciled 01/13/23 by Surinder Moody MD acetaminophen ER 650 mg PO BID PRN aspirin 81 mg PO DAILY atorvastatin 80 mg PO BEDTIME dicyclomine 20 mg PO QID PRN fluticasone propionate 50 mcg/actuation 1 spray intranasal BID gabapentin 100 mg PO BID glucose (Dex4 Glucose) 4 grams PO ONCE PRN insulin glargine (Lantus Solostar U-100 Insulin) 8 units (0.08 mL) subcut BEDTIME loratadine 10 mg PO DAILY metoprolol succinate ER (Toprol XL) 50 mg PO DAILY omeprazole 20 mg PO DAILY ondansetron 4 mg PO Q6-8H PRN sacubitril-valsartan 49-51 mg (Entresto) 1 tab PO BID tamsulosin 1 cap PO DAILY ticagrelor (Brilinta) 60 mg PO BID torsemide 10 mg PO DAILY HPI HPI Comments History of Present Illness Details Jorge comes for regular office visit after single-chamber Medtronic ICD placement about 6 weeks ago. Patient says since the placement ICD is been feeling worse. He has been having worsening symptoms of shortness of breath especially at nighttime when he is laying flat has not able to use CPAP as he cannot breathe. He has to wake up and he has been sleeping poorly only about 3-4 hours a day. Noted bilateral leg swelling and also swelling of his hands. He also complains of abdominal distension. He is having bandlike discomfort in the upper abdomen. No exertional chest pain. No lightheadedness, syncope. He still taking dual antiplatelet therapy for unclear reasons. He has been taking all his medications. He said his weight is been going up but he has not taken extra torsemide. Noted the patient's creatinine has been gradually rising. [facility] Medical History Diabetes History of CAD (coronary artery disease) CHF (congestive heart failure) Acute exacerbation of CHF (congestive heart failure) CKD (chronic kidney disease) Surgical History History of heart artery stent Social History Household Members: Family Housing: Apartment Do you presently have visiting nurse or other home services: Yes Alcohol intake: former Patient Tobacco Use Status: Former Tobacco user service: No Current occupational status: retired Review of Systems Const Denies chills, Denies fatigue, Denies fever(s), Denies frequent falls, Denies weakness, Denies weight gain and Denies weight loss ENT Denies dizziness Card Denies chest pain, Denies leg edema, Denies lightheadedness, Denies palpitations, Denies dyspnea, Denies dyspnea on exertion, Denies orthopnea and Denies other (loss of consciousness) Resp Denies cough, Denies dyspnea and Denies dyspnea on exertion GI Denies hematochezia and Denies change in stool character Musc Denies abnormal gait, Denies muscle weakness, Denies numbness, Denies radiating pain into limb and Denies tingling Neuro Denies abnormal gait, Denies dizziness, Denies frequent falls, Denies numbness, Denies tingling and Denies weakness Endo Denies fatigue and Denies palpitations Physical Exam Vital Signs: Last Vital Signs Pulse 63 01/13/23 14:24 BP 120/80 01/13/23 14:24 BMI result Body Mass Index 29.7 Const General: cooperative, comfortable, alert, awake and in distress mild and respiratory Nutritional Appearance: overweight Orientation/consciousness: patient oriented x3 Neck Neck: Yes trachea midline, Yes supple and Yes JVD Resp Effort & Inspection: normal respiratory effort Auscultation: no rales, no wheezes and diminished lung sounds Cardio Jugular venous distension: JVD Rate: regular rate Rhythm: regular rhythm Heart sounds: S1 normal heart sound present, S2 normal heart sound present, no click, no gallops, no murmurs and Other heart sounds present (S4 present) GI Inspection: Yes distended Auscultation: normal bowel sounds Skin General skin exam: no rashes or lesions noted Neuro General: patient oriented x3 and no focal motor deficits Extrem General: No clubbing, No cyanosis and Yes edema Office Procedures Cardiac Device Check Cardiac Device Check Details: Single-chamber Medtronic ICD in place. Programmed in VVI at 40 beats per minute. Pacing and shock lead impedance is stable. Battery life is excellent. No arrhythmias detected. Ventricular sensing is adequate [id number] Cardiac Device Check, single lead implantable defibrillator Procedure code (CPT) selection complete Assessment & Plan Assessment & Plan (1) Decompensated heart failure: Code(s): I50.9 - Heart failure, unspecified Plan Patient seems to be in decompensated congestive heart failure with signs of fluid overload at this point time. Rising creatinine most likely due to poor stroke volume as well as renal venous congestion. Discussed with ED physician and will refer him to ED for further evaluation treatment and will require IV diuresis hospitalization for the same. Discussed with patient about management of heart failure again and education regarding taking additional diuretics as need be. Currently is not having any ischemic symptoms. Continue Entresto and metoprolol therapy for now. Avoid Jardiance and Aldactone therapy given his renal dysfunction. Will consult once patient is admitted. Will follow-up after discharge in few weeks time Coding Level of Care Code Est Pt Level 4 (24285) Diagnoses Decompensated heart failure I50.9 CPT Codes Cardiac Device Check - Cardiac Device 4: [id number] Cardiac Device Check, single lead implantable defibrillator ([id number])
[2023-01-13 14:24] VITALS: BP 120/80; PULSE 63; BMI 29.7
== END 2023-01-13 14:52 | disposition home or self-care (01) ==
PROVIDERS: PCP Internal Medicine; Visit Provider Internal Medicine Cardiovascular Disease
DX: R94.31 Abnormal electrocardiogram [ECG] [EKG] (principal)
CPT/HCPCS: 93010; 93282; 99214

== ENCOUNTER → 2023-01-13 14:10 | Outpatient (BNVA) | payer OTHER, SELFPAY | PROVIDERS: PCP Internal Medicine; Visit Provider Internal Medicine Cardiovascular Disease | DX: Z45.02 Encounter for adjustment and management of automatic implantable cardiac defibrillator (principal); I50.9 Heart failure, unspecified | CPT/HCPCS: 99212 ==

== ENCOUNTER 2023-01-13 14:59 | Inpatient (IN) | payer OTHER, SELFPAY ==
--- NOTE | ~2023-01-13 | XR_ITS ---
EXAMINATION: XR CHEST CLINICAL INFORMATION: Dyspnea. Recent ICD placement COMPARISON: None available. TECHNIQUE: 2 views of the chest were obtained. FINDINGS: The lungs are well-expanded and clear. Heart size is borderline enlarged. The pulmonary vascularity is normal. There is a new pacer electrode with its tip in the right ventricle. No gross bony abnormality seen. XR/XR chest 2V IMPRESSION: 1. New pacer electrode with its tip in the right ventricle. 2. Borderline cardiomegaly.
--- NOTE | ~2023-01-13 | XR_ITS ---
EXAMINATION: XR SHOULDER, LEFT CLINICAL INFORMATION: Pain COMPARISON: None available. TECHNIQUE: Two portable views of the left shoulder. FINDINGS: Somewhat nonstandard projections. No definite acute fracture or subluxation. There are proliferative changes associated with the AC joint. There is a power generator with cardiac leads partially included. There is evidence of cervical instrumentation. There is a somewhat linear density projecting in the soft tissues of the neck on the left XR/XR shoulder LT min 2V IMPRESSION: Somewhat limited exam. No definite acute fracture or subluxation
--- NOTE | ~2023-01-13 | CT_ITS ---
EXAMINATION: CT SOFT TISSUE NECK WITHOUT CONTRAST CLINICAL INFORMATION: Left shoulder pain. History of cervical instrumentation. COMPARISON: None available. TECHNIQUE: Helical imaging was performed in the axial plane with generation of coronal and sagittal reformatted images. This CT examination was performed using dose optimization techniques as appropriate, variously including the following: *Automated exposure control *Adjustment of mA and/or kV according to patient size (this includes techniques or standardized protocols for targeted exams where dose is matched to indication/reason for exam; i.e. extremities or head) *Use of iterative reconstruction technique DLP: 697 mGy-cm FINDINGS: Visualized intraparenchymal brain parenchyma is normal. There is normal symmetrical optic globes, optic nerve and bony orbits. The paranasal sinuses are well-aerated and clear. The mastoid sinuses are clear. Bilateral parotid, submandibular glands and thyroid lobes are symmetric and normal. Nasopharyngeal, nasal cavity and oropharyngeal airway is patent. There is mild narrowing of pharyngeal airway but no obstructive etiology seen. 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 In the oropharynx. No mass effect is soft tissue density seen in the oral cavity. There are dental amalgam related artifact in the oral cavity limiting evaluation. The parapharyngeal space is normal. There are disc prosthesis C3-C4, C4-C5, C5-C6 and C6-C7 disc levels with ventral plate and screws for stabilization. The prevertebral soft tissues are normal. There is no airway compromise. The craniovertebral junction and the C1-C2 alignment is normal. No gross bony abnormality seen. Minimal scarring seen in right lung apex.. Solitary pacer electrode is seen traversing the left jugular vein with the hardware overlying the left upper chest. Mild degenerative arthritic spurring with loss of joint space seen in left glenohumeral and AC joint CT/CT soft tissue neck wo IV con IMPRESSION: 1. Mild narrowing of pharyngeal airway but no obstructive etiology seen. 2. 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 3. Disc prosthesis at C3-C4 through C6-C7 disc level for fusion with ventral plates and screws for stabilization. 4. Mild degenerative changes left shoulder
--- NOTE | 2023-01-13 15:01 | ED_ITS ---
HPI - General Adult General Chief complaint: Dyspnea Stated complaint: sob, on pacemaker Time Seen by Provider: 01/13/23 15:27 History of Present Illness HPI narrative: 82 yo male with PMH of CAD, CHF, CKD, DM, Medtronic ICD placed 6 wks ago ED 35% who is on 10mg torsemide daily reports compliance with medications but notes since placement increased weight gain though doesn't know how much, LO, orthopnea and cannot tolerate his CPAP at night. He is only sleeping 4 hours a night. He was referred to the ED by Dr. Moody please see his note from today. He was sent for volume overload and diuresis. He has a trend up in Cr likely cardiorenal. He is swollen up to his abdomen he states. Was 83.4 kg on 12/01 today he is 91.8kg = 18.4 lbs complaint: volume overload Onset (ago): month(s) (1) Location: abdomen, genitals and lower extremity Radiation: non-radiation Severity: moderate Quality: aching Relieving factors: rest Exacerbating factors: movement and other (laying flat) Associated symptoms: loss of appetite, shortness of breath and other (orthopnea, OL) Treatments prior to arrival: none Related Data Home Medications Medication Instructions Recorded Confirmed acetaminophen 650 mg 650 mg PO BID PRN Pain 03/26/22 01/13/23 tablet,extended release aspirin 81 mg tablet,delayed 81 mg PO DAILY 03/26/22 01/13/23 release fluticasone propionate 50 1 spray intranasal BID 03/26/22 01/13/23 mcg/actuation nasal spray,suspension loratadine 10 mg tablet 10 mg PO DAILY 03/26/22 01/13/23 tamsulosin 0.4 mg capsule 1 cap PO DAILY 03/26/22 01/13/23 atorvastatin 80 mg tablet 80 mg PO BEDTIME 04/09/22 01/13/23 gabapentin 100 mg capsule 100 mg PO TID 04/09/22 01/13/23 glucose 4 gram chewable tablet 4 g PO ONCE PRN LOW GLUCOSE 04/09/22 01/13/23 (Dex4 Glucose) torsemide 10 mg tablet 10 mg PO DAILY 04/09/22 01/13/23 omeprazole 20 mg capsule,delayed 20 mg PO DAILY 07/13/22 01/13/23 release insulin aspart U-100 100 unit/mL 0 sliding scale dose subcut TID 01/13/23 01/13/23 (3 mL) subcutaneous pen (Novolog FlexPen U-100 Insulin aspart) insulin glargine 100 unit/mL (3 20 unit subcut BEDTIME 01/13/23 01/13/23 mL) subcutaneous pen (Lantus Solostar U-100 Insulin) ticagrelor 60 mg tablet (Brilinta) 60 mg PO BID 01/13/23 01/13/23 Previous Rx's Medication Instructions Recorded metoprolol succinate 50 mg 50 mg PO DAILY #30 tabs 04/29/22 tablet,extended release 24 hr (Toprol XL) sacubitril 49 mg-valsartan 51 mg 1 tab PO BID #60 tabs 08/05/22 tablet (Entresto) Allergies Allergy/AdvReac Type Severity Reaction Status Date / Time No Known Allergies Allergy Verified 01/13/23 15:00 [No Known Allergies*] Review of Systems 2 Review of Systems: Constitutional : No Fever, No Chills ENT/Mouth : No sore throat, No Rhinorrhea, No Swallowing Difficulty Eyes: No Eye Pain, No Swelling, No Redness Cardiovascular : No Chest Pain, positive SOB, pos Orthopnea, positive Edema Respiratory : No Cough, No Sputum, No Wheezing, positive dyspnea Gastrointestinal : No Nausea, No Vomiting, No Diarrhea, No abdominal Pain, No Hematochezia, No Melena Genitourinary : No Dysuria, No Urinary Frequency, No Hematuria Musculoskeletal : No joint pain, No Myalgias Skin : No Skin Lesions, No rash Neuro : No Weakness, No Numbness, No Dizziness, No Headache Psych : No Anxiety/Panic, No Depression Heme/Lymph: No Bruising, No Lymphadenopathy Endocrine : No Polyuria, No Polydipsia All other systems reviewed and are negative [facility] Past Medical History Attestation statement: The following information was validated with the patient. Source: old records reviewed Medical History Diabetes History of CAD (coronary artery disease) CHF (congestive heart failure) Acute exacerbation of CHF (congestive heart failure) CKD (chronic kidney disease) Surgical History History of heart artery stent Social History Social History Household Members: Family Housing: Apartment Do you presently have visiting nurse or other home services: Yes Alcohol intake: former Patient Tobacco Use Status: Former Tobacco user Smoked in Last 30 Days: No Use of substances other than those prescribed or required for medical reasons: No Advance Directives: No Advance Directives Information Provided: No service: No Current occupational status: retired Physical Exam ED Vital Signs: Vital Signs - 24 hr 01/13/23 15:03 01/13/23 16:20 01/13/23 16:21 Temperature 97.9 F 98.2 F Pulse Rate 68 60 Respiratory Rate 18 16 16 Blood Pressure 136/63 115/63 Pulse Oximetry 97 97 Oxygen Delivery Method Room Air Room Air BMI result Body Mass Index 30.8 Appearance: Alert. Oriented X3. No acute distress. Eyes: Pupils equal, round and reactive to light. ENT: Pharynx normal. Neck: Normal inspection. Neck supple. CVS: Normal heart rate and rhythm. Pulses normal. Respiratory: No respiratory distress. Breath sounds rales at bases. Abdomen: Soft and no ttp but he feels bloated Skin: Skin warm and dry. Normal skin color. Normal skin turgor. Extremities: 2-3+ pitting lower extremity edema up to thighs and abdomen. No calf ttp Neuro: Oriented X 3. No motor deficit. No sensory deficit. Course Course Course Narrative: This is a rapid medical exam: Additional HPI, ROS, PE not included below will be deferred to primary provider. Patient is an 82-year-old male with history of CAD, CHF, CKD, DM, ICD placed 6 wks ago presenting to the emergency department from Dr. Moody's office for shortness of breath. States has been feeling worse since ICD was implanted. Reports orthopnea, unable to use CPAP due to this. Bilateral leg swelling and cramping to upper abdomen. Plan: EKG, CXR, labs Reevaluation(s) Reevaluation #1: good response to IV lasix bolus will start on gtt and admit Medications Administered Generic Name Dose Route Start Last Admin Trade Name Freq PRN Reason Stop Dose Admin Furosemide 200 mg/ Sodium 100 mls @ 2.5 mls/hr 01/13/23 17:00 01/13/23 18:14 Chloride IVCONT 5 mg/hr .Q24H ZAHEER 2.5 mls/hr Administration 5 MG/HR Discontinued Medications Generic Name Dose Route Start Last Admin Trade Name Salvatore PRN Reason Stop Dose Admin Furosemide 40 mg 01/13/23 15:47 01/13/23 16:15 Furosemide 40 Mg/4 Ml Vial IVPUSH 01/13/23 15:48 40 mg STAT STA Administration Protocol Medical Decision Making Medical Decision Making [facility] Narrative: 82 yo male with PMH of CAD, CHF, CKD, DM, Medtronic ICD placed 6 wks ago ED 35% here with c/o volume overload worsening x 1 month with almost 20lb weight gain at this time he has volume overload and JVD - was referred and sent in by Dr. Moody will start on IV lasix and likely drip. Admit obtain labs, CXR and EKG Differential Diagnosis Differential Diagnoses: The differential diagnosis associated with the presentation includes CHF Admission/Observation Consideration of admission/observation: Escalation of care including admission/observation considered admit for diuresis Consult Healthcare Provider Management of the patient was discussed with: Hospitalist (will admit) Lab Data [facility] Lab Attestation statement: I reviewed the patient's lab results. 01/13/23 16:13 01/13/23 16:13 Labs: Lab Results 01/13/23 Range/Units 16:13 WBC 6.8 (4.8-10.8) X10*3/uL RBC 4.51 L (4.60-5.80) X10*6/uL Hgb 12.9 L (14.0-18.0) g/dl Hct 40.9 L (42.0-52.0) % MCV 90.7 (80.0-98.0) fL MCH 28.6 (27.0-33.0) pg MCHC 31.5 (31.0-36.0) g/dl RDW 15.3 (11.0-16.0) % Plt Count 163 (160-400) X10*3/uL MPV 10.2 (9.4-12.4) fL Immature Gran % (Auto) 0.3 (0.0-0.4) % Neut % (Auto) 67.2 (45-73) % Lymph % (Auto) 23.6 (20-40) % [place] % (Auto) 7.0 (2-11) % Eos % (Auto) 1.8 (0-4) % Baso % (Auto) 0.1 (0-2) % Lymph # (Auto) 1.6 (1.2-4.9) X10*3/uL [place] # (Auto) 0.5 (0.1-1.2) X10*3/uL Eos # (Auto) 0.1 (0.0-0.4) X10*3/uL Baso # (Auto) 0.0 (0.0-0.2) X10*3/uL Abs Immat Gran (auto) 0.02 (0.00-0.03) X10*3/uL Absolute Neuts (auto) 4.6 (2.0-8.3) x10*3/uL Absolute Nucleated RBC 0.000 (0.0-0.012) X10*3/uL Nucleated RBC % (auto) 0.0 (0.0-0.2) /100WBC PT 12.4 (11.1-13.3) SEC INR 1.0 (0.9-1.1) Sodium 142 (135-145) mmol/L Potassium 5.2 H D (3.3-5.1) mmol/L Chloride 113 H (96-108) mmol/L Carbon Dioxide 23 (22-29) mmol/L Anion Gap 11 L (12-20) BUN 31 H (9-16) mg/dL Creatinine 1.87 H (0.5-1.4) mg/dL Estim Creat Clear Calc 32.9 Estimated GFR 35 Random Glucose 74 (60-115) mg/dL Calcium 9.2 D (8.4-10.2) mg/dL Total Bilirubin 0.5 (0.0-1.0) mg/dL AST 21 (5-37) U/L ALT 16 (0-40) U/L Alkaline Phosphatase 88 (39-117) U/L Troponin I High Sens 62.2 H (<3.5-35.0) ng/L B-Natriuretic Peptide 974 H (<100) pg/mL Total Protein 7.0 (6.5-8.0) g/dL Albumin 3.7 (3.5-5.0) g/dL Independent Interpretation I performed an independent interpretation of an: EKG and Plain X-Ray (edema noted) Interpretation: Rate: 68 Rhythm: NSR Mcdonald: left Normal P waves. Normal KYLE. decreased voltage QRS complex. ST T wave : flat diffuse t waves, no CLYDE qTC: normal prior studies: no sig change from priors The study has been interpreted contemporaneously by me. . Radiology Impression Discussion of test interpretation with radiology: I have reviewed the radiologist's reading. Independent Historian Clinical information obtained from an independent historian. History obtained from or confirmed by: Other (spoke to Dr. Moody) External Record Review External record reviewed: Office record Discharge Plan Discharge Clinical Impression: Acute on chronic clinical systolic heart failure Patient Disposition: Admitted As Inpatient
[2023-01-13 15:03] VITALS: BP 136/63; PULSE 68; RESP 18; TEMP 36.6; O2SAT 97; BMI 30.8
--- NOTE | 2023-01-13 15:05 | ECG_ITS ---
Test Reason : WEAKNESS Blood Pressure : / mmHG Vent. Rate : 068 BPM Atrial Rate : 068 BPM P-R Int : 184 ms QRS Dur : 072 ms QT Int : 398 ms P-R-T Axes : 036 -11 079 degrees QTc Int : 423 ms Normal sinus rhythm Septal infarct , age undetermined Abnormal ECG When compared with ECG of 01-DEC-2022 14:07, FL interval has decreased Referred By: Rhiannon Miranda Electronically Signed By:JOSEPH KILGORE MD
[2023-01-13] MEDS: Furosemide 40 MG/4 ML VIAL IVPUSH (16:15)
[2023-01-13 16:16] LABS: MANUAL DIFF FLAG NO
[2023-01-13 16:20] VITALS: BP 115/63; PULSE 60; RESP 16; TEMP 36.8; O2SAT 97
[2023-01-13 16:21] VITALS: RESP 16
[2023-01-13 16:21] LABS: Basophils Percent Auto 0.1 % (0-2); Eosinophils Absolute Auto 0.1 X10*3/uL (0.0-0.4); Eosinophils Percent Auto 1.8 % (0-4); Hematocrit 40.9 % (42.0-52.0); Hemoglobin 12.9 g/dl (14.0-18.0); Imm Gran Abs Auto 0.02 X10*3/uL (0.00-0.03); Imm Gran Pct Auto 0.3 % (0.0-0.4); Lymphocytes Absolute Auto 1.6 X10*3/uL (1.2-4.9); Lymphocytes Percent Auto 23.6 % (20-40); Mean Corpuscular HGB Conc 31.5 g/dl (31.0-36.0); Mean Corpuscular Hemoglobin 28.6 pg (27.0-33.0); Mean Corpuscular Volume 90.7 fL (80.0-98.0); Mean Platelet Volume 10.2 fL (9.4-12.4); Monocytes Absolute Auto 0.5 X10*3/uL (0.1-1.2); Neutrophils Absolute Auto 4.6 x10*3/uL (2.0-8.3); Neutrophils Percent Auto 67.2 % (45-73); Platelet Count 163 X10*3/uL (160-400); Red Blood Count 4.51 X10*6/uL (4.60-5.80); Red Cell Distribution Width 15.3 % (11.0-16.0); White Blood Count 6.8 X10*3/uL (4.8-10.8)
--- NOTE | 2023-01-13 16:23 | PC.NURSE ---
patient a&ox3, iv inserted, labs drawn, ekg previously performed, property assessment monitor applied, vss, pt lungs diminished throughout, 3+ LE pitting edema, pt medicated per order, call soliman within reach, will continue to monitor
[2023-01-13 16:25] LABS: Prothrombin Time 12.4 SEC (11.1-13.3)
[2023-01-13 16:37] LABS: Alanine Aminotransferase 16 U/L (0-40); Albumin Level 3.7 g/dL (3.5-5.0); Alkaline Phosphatase 88 U/L (39-117); Anion Gap 11 (12-20); Aspartate Amino Transferase 21 U/L (5-37); Bilirubin Total 0.5 mg/dL (0.0-1.0); Blood Urea Nitrogen 31 mg/dL (9-16); Calcium 9.2 mg/dL (8.4-10.2); Carbon Dioxide 23 mmol/L (22-29); Chloride 113 mmol/L (96-108); Creatinine Clr Calc Pharmacy 32.9; Estimated Glomerular Filt Rate 35; Glucose Random 74 mg/dL (60-115); Potassium 5.2 mmol/L (3.3-5.1); Sodium 142 mmol/L (135-145)
[2023-01-13 16:41] LABS: B Type Natriuretic Peptide 974 pg/mL (<100)
[2023-01-13 16:44] LABS: Troponin-I High Sensitivity 62.2 ng/L (<3.5-35.0)
--- NOTE | 2023-01-13 17:16 | PC.NURSE ---
pharmacy called for lasix drip
[2023-01-13 17:56] LABS: Appearance Urine Clear; Color Urine Yellow; Glucose Urine UA 250 mg/dL (Negative); Leukocyte Esterase Urine Negative (Negative); Nitrite Urine Negative (Negative); PH 6.5 (5.0-9.0); Specific Gravity - Urine <= 1.005 (1.005-1.025); Urine Blood Negative (Negative); Urine Ketones Negative (Negative); Urine Protein Negative (Neg-Trace)
--- NOTE | 2023-01-13 18:06 | PHA.MEDREC ---
Pharmacy Consult ? Medication Reconciliation Pharmacy has completed the medication reconciliation. uSED PHARMACY CLAIMS
[2023-01-13] MEDS: Furosemide 200 MG in 0.9 % Sodium Chloride 80 ML IVCONT (18:14)
[2023-01-13 18:17] VITALS: BP 130/78; PULSE 64; RESP 20; TEMP 36.7; O2SAT 98
--- NOTE | 2023-01-13 18:19 | PC.NURSE ---
patient a&ox3, cardiac rehabilitation program director intact nsr 60s, IV lasix started per order, vss, hospitalist at bedside, will continue to monitor
--- NOTE | 2023-01-13 18:46 | PM.IMHP ---
History of Present Illness Date of Service: 01/13/23 Attending physician on admission: Betsy Alejandre Chief Complaint: sob and leg edema 81 yo M with hx of CAD, CKD, diabetes, CHF, hyperlipidemia, BPH, presents the hospital with ongoing progressive shortness of breath from few weeks months-he went to his cardiology appointment and was sent for admission because of CHF exacerbation: As per the patient patient is having difficulty breathing with walking up to the bathroom, hasOrthopnea and PND. Patient says she is compliant with his medications, noting significant salt or fried food. He knows he gained weight but he does not know how much. From chart review it seems like at least gained 4-5 kg weight. He complain of complaining of shortness of breath, progressive for few weeks, lower extremity edema. Reports compliance with his torsemide. Denies any fever no chills, no cough, no palpitations, no urinary symptoms and numbness tingling or weakness. Denies any new complaint of chest pain or abdominal pain or fever or chills or nausea or vomiting Denies any weakness or numbness. Lab imaging EKG reviewed: EKG seems similar to before, troponin x1 seems similar to before also. Mild hyperkalemia, C creatinine is around 1.87 XR/XR chest 2V IMPRESSION: 1. New pacer electrode with its tip in the right ventricle. 2. Borderline cardiomegaly. Review of Systems Review of Systems: As above. See [facility] Medical History Diabetes History of CAD (coronary artery disease) CHF (congestive heart failure) Acute exacerbation of CHF (congestive heart failure) CKD (chronic kidney disease) Surgical History History of heart artery stent Social History Household Members: Family Housing: Apartment Do you presently have visiting nurse or other home services: Yes Alcohol intake: former Patient Tobacco Use Status: Former Tobacco user Smoked in Last 30 Days: No Use of substances other than those prescribed or required for medical reasons: No Currently Displaying Signs/Symptoms of Drug Intoxication Withdrawal: No Have you been hit, kicked, punched, or otherwise hurt by someone within the past year? If so, by whom?: No Do you feel safe in your current relationship?: No Current Relationship Is there a partner from a previous relationship who is making you feel unsafe now?: No Are you made to feel afraid or neglected: No Advance Directives: No Advance Directives Information Provided: No Do you have thoughts of harming others: None Do you have a plan to hurt others: No Plan Recently lost weight without trying: Unsure How much weight loss: Unsure Eating poorly because of decreased appetite: No Nutrition screen score: 4 Nutrition Risks: No Nutritional Risk service: No Current occupational status: retired [employer] Allergies Allergy/AdvReac Type Severity Reaction Status Date / Time No Known Allergies Allergy Verified 01/13/23 15:00 [No Known Allergies*] Active Medications: Current Medications Dextrose (Dextrose 50 % 25 Gm/50 Ml Syringe) 25 gm IVPUSH Q15M PRN; Protocol PRN Reason: per Hypoglycemia Standing Ord. Glucose (Glucose Gel 15 Gm Gel..Gram.) 15 gm PO Q15M PRN; Protocol PRN Reason: per Hypoglycemia Standing Ord. Furosemide 200 mg/ Sodium (Chloride) 100 mls @ 2.5 mls/hr IVCONT .Q24H [facility] Last Admin: 01/13/23 18:14 Dose: 5 mg/hr, 2.5 mls/hr Insulin Human Lispro (Insulin Lispro 100 Unit/Ml 3 Ml Vial) [facility]; Protocol Sodium Chloride (0.9 % Sodium Chloride Flush 3 Ml Syringe) 3 [facility] Home Medications Medication Instructions Recorded Confirmed Last Taken Type acetaminophen 650 mg 650 mg PO BID PRN Pain 03/26/22 01/13/23 11/30/22 History tablet,extended release aspirin 81 mg tablet,delayed 81 mg PO DAILY 03/26/22 01/13/23 11/30/22 07:30 History release fluticasone propionate 50 1 spray intranasal BID 03/26/22 01/13/23 11/30/22 History mcg/actuation nasal spray,suspension loratadine 10 mg tablet 10 mg PO DAILY 03/26/22 01/13/23 11/30/22 07:30 History tamsulosin 0.4 mg capsule 1 cap PO DAILY 03/26/22 01/13/23 11/30/22 07:30 History atorvastatin 80 mg tablet 80 mg PO BEDTIME 04/09/22 01/13/23 11/30/22 07:30 History gabapentin 100 mg capsule 100 mg PO TID 04/09/22 01/13/23 11/30/22 07:30 History glucose 4 gram chewable tablet 4 g PO ONCE PRN LOW GLUCOSE 04/09/22 01/13/23 Unknown History (Dex4 Glucose) torsemide 10 mg tablet 10 mg PO DAILY 04/09/22 01/13/23 11/30/22 07:30 History omeprazole 20 mg capsule,delayed 20 mg PO DAILY 07/13/22 01/13/23 11/30/22 07:30 History release insulin aspart U-100 100 unit/mL 0 sliding scale dose subcut TID 01/13/23 01/13/23 Unknown History (3 mL) subcutaneous pen (Novolog FlexPen U-100 Insulin aspart) insulin glargine 100 unit/mL (3 20 unit subcut BEDTIME 01/13/23 01/13/23 Unknown History mL) subcutaneous pen (Lantus Solostar U-100 Insulin) ticagrelor 60 mg tablet (Brilinta) 60 mg PO BID 01/13/23 01/13/23 Unknown History Physical Exam Vital Signs and Narrative: Vital Signs: Last Vital Signs Temp 98.1 F 01/13/23 18:17 Pulse 64 01/13/23 18:17 Resp 20 01/13/23 18:17 BP 130/78 01/13/23 18:17 Pulse Ox 98 01/13/23 18:17 O2 Del Method Room Air 01/13/23 18:17 BMI result Body Mass Index 30.8 Appearance: Alert.? Oriented X3.?sob Eyes: Pupils equal, round and reactive to light.? Sclera nonicteric.? ENT: Pharynx normal.? Moist mucous membranes. cvs: rrr, [id number] , no murmur res: faisal entry fair ,has few rales abd: no rebound or guarding ,nt, bs present. ext pulses present , no cyanosis , 3+ edema . neuro: axo3 , nonfocal. Results Labs 01/13/23 16:13 01/14/23 06:25 Labs: Laboratory Results - last 24 hr 01/13/23 01/13/23 16:13 17:44 MCV 90.7 MCH 28.6 MCHC 31.5 RDW 15.3 Plt Count 163 MPV 10.2 Immature Gran % (Auto) 0.3 Neut % (Auto) 67.2 Lymph % (Auto) 23.6 [place] % (Auto) 7.0 Eos % (Auto) 1.8 Baso % (Auto) 0.1 Lymph # (Auto) 1.6 [place] # (Auto) 0.5 Eos # (Auto) 0.1 Baso # (Auto) 0.0 Abs Immat Gran (auto) 0.02 Absolute Neuts (auto) 4.6 Absolute Nucleated RBC 0.000 Nucleated RBC % (auto) 0.0 PT 12.4 INR 1.0 Anion Gap 11 L Estim Creat Clear Calc 32.9 Estimated GFR 35 Random Glucose 74 Calcium 9.2 D Total Bilirubin 0.5 AST 21 ALT 16 Alkaline Phosphatase 88 B-Natriuretic Peptide 974 H Total Protein 7.0 Albumin 3.7 Urine Color Yellow Urine Appearance Clear Urine pH 6.5 Ur Specific [place] <= 1.005 Urine Protein Negative Urine Glucose (UA) 250 H Urine Ketones Negative Urine Blood Negative Urine Nitrite Negative Ur Leukocyte Esterase Negative Imaging Radiologist's Impressions: Impressions Chest X-Ray 01/13/23 15:42 IMPRESSION: 1. New pacer electrode with its tip in the right ventricle. 2. Borderline cardiomegaly. Assessment and Plan (1) Acute on chronic clinical systolic heart failure: Status: Acute Plan acute CHF exacerbation -etiology unclear-likely systolic CHF. ? elevated BNP, as well as acute complaints of dyspnea, orthopnea and PND Troponin seems chronically elevated, troponin 1st troponin is 62-68 adcxr seems fine has sob with exersion strict I&O,daily weight Has low EF and ICd. D Plan: Patient started on Lasix drip, continue Entresto and metoprolol once medical reconciliation done. Cardiology evaluation. diabetes: fs with low-dose sliding scale insulin -avoid coverage below fs 200mg/dl hold lantus - diabetic diet history of CAD continue Brilinta, aspirin statin, metoprolol ckd3: stable. moniter renal function. overweight: advised to loose weight. DVT prophylaxis:? Lovenox inpatient? need for next 48-72 hours for: CHF exacerbation? on iv lasix -i/o moniter renal function and electrolytes, also needs cardiac evaluation and workup Quality Stroke Does the patient have a stroke diagnosis?: No VTE Prior VTE?: No VTE Risk Level:: Medical - moderate - high VTE Device Contraindication: N/A - Device Ordered VTE Drug Contraindication: N/A - Med Ordered
[2023-01-13 20:05] LABS: Troponin-I High Sensitivity 68.9 ng/L (<3.5-35.0)
[2023-01-13 20:14] VITALS: BMI 30.2
[2023-01-13 20:25] VITALS: BP 134/70; PULSE 64; RESP 18; TEMP 36.2; O2SAT 97
[2023-01-13 20:59] LABS: Glucose, Whole Blood 145 mg/dL (60-115)
[2023-01-13] MEDS: Enoxaparin Sodium 40 MG/0.4 ML SYRINGE SUBCUT (21:34)
[2023-01-13] MEDS: Sacubitril/Valsartan 49/51 1 TAB TABLET PO (21:34)
[2023-01-13] MEDS: Ticagrelor 90 MG TABLET PO (21:34)
[2023-01-13] MEDS: Atorvastatin Calcium 80 MG TABLET PO (21:34)
[2023-01-13 23:31] VITALS: BP 107/67; PULSE 60; RESP 18; TEMP 37; O2SAT 96
[2023-01-14] MEDS: 0.9 % Sodium Chloride Flush 3 ML SYRINGE IVFLUSH ×2 (00:38→09:48)
[2023-01-14 03:59] VITALS: BP 126/75; PULSE 61; RESP 18; TEMP 36.4; O2SAT 97
[2023-01-14 07:29] LABS: Anion Gap 14 (12-20); Blood Urea Nitrogen 33 mg/dL (9-16); Calcium 9.3 mg/dL (8.4-10.2); Carbon Dioxide 24 mmol/L (22-29); Chloride 110 mmol/L (96-108); Creatinine Clr Calc Pharmacy 34.8; Estimated Glomerular Filt Rate 37; Glucose Random 69 mg/dL (60-115); Sodium 144 mmol/L (135-145)
[2023-01-14 07:35] VITALS: BP 120/69; PULSE 64; RESP 18; TEMP 36.6; O2SAT 98
[2023-01-14 08:01] LABS: Glucose, Whole Blood 74 mg/dL (60-115)
[2023-01-14] MEDS: Metoprolol Succinate ER 50 MG TAB.ER.24H PO (09:48)
[2023-01-14] MEDS: Tamsulosin HCL 0.4 MG CAPSULE PO (09:48)
[2023-01-14] MEDS: Aspirin Enteric Coated 81 MG TABLET.DR PO (09:48)
[2023-01-14] MEDS: Ticagrelor 90 MG TABLET PO ×2 (09:48→20:48)
[2023-01-14] MEDS: Sacubitril/Valsartan 49/51 1 TAB TABLET PO ×2 (09:48→20:48)
[2023-01-14] MEDS: Loratadine 10 MG TABLET PO (09:48)
[2023-01-14 10:00] LABS: Glucose, Whole Blood 170 mg/dL (60-115)
--- NOTE | 2023-01-14 10:56 | PM.CNCAR ---
History of Present Illness History of Present Illness Date of Service: 01/14/23 Requesting physician: Betsy Alejandre Consult reason: congestive heart failure Chief complaint: CHF EXECERBATION Narrative: I was consulted to see Jorge in cardiology consultation today for decompensated congestive heart failure. Patient was seen by me in the office yesterday and had progressive symptoms of heart failure was referred to emergency room. Since then he has been started on IV Lasix drip and has diuresed about 3.5 L overnight and says he feels better with improved swelling in his hands and leg swelling, but continues to be short of breath and has some belly distension. Creatinine is improved. Patient denies any chest pain. No palpitations. Blood pressure is stable. Review of Systems Constitutional: Constitutional: Reports no additional constitutional complaints Cardiovascular: Cardiovascular: Reports Abdominal Distension, Denies chest pain, Reports leg edema, Denies lightheadedness, Denies Loss of Consciousness, Denies palpitations, Reports dyspnea and Reports orthopnea Respiratory: Respiratory: Reports no additional respiratory complaints and Reports dyspnea Genitourinary: Genitourinary: Reports no additional male genitourinary complaints Neurologic: Reports system reviewed and no additional complaints, except as documented Psychiatric: Psychiatric: Reports no additional psychiatric complaints Endocrine: Endocrine: Reports no additional endocrine complaints and Denies palpitations PMFSH Past Medical History Medical History Diabetes History of CAD (coronary artery disease) CHF (congestive heart failure) Acute exacerbation of CHF (congestive heart failure) CKD (chronic kidney disease) Surgical History Surgical History History of heart artery stent Social History Social History Household Members: Family Housing: Apartment Do you presently have visiting nurse or other home services: Yes Alcohol intake: former Patient Tobacco Use Status: Former Tobacco user Smoked in Last 30 Days: No Use of substances other than those prescribed or required for medical reasons: No Currently Displaying Signs/Symptoms of Drug Intoxication Withdrawal: No Have you been hit, kicked, punched, or otherwise hurt by someone within the past year? If so, by whom?: No Do you feel safe in your current relationship?: No Current Relationship Is there a partner from a previous relationship who is making you feel unsafe now?: No Are you made to feel afraid or neglected: No Advance Directives: No Advance Directives Information Provided: No Do you have thoughts of harming others: None Do you have a plan to hurt others: No Plan Recently lost weight without trying: Unsure How much weight loss: Unsure Eating poorly because of decreased appetite: No Nutrition screen score: 4 Nutrition Risks: No Nutritional Risk service: No Current occupational status: retired Meds Allergies Allergy/AdvReac Type Severity Reaction Status Date / Time No Known Allergies Allergy Verified 01/13/23 15:00 [No Known Allergies*] Active Medications: Current Medications Acetaminophen (Acetaminophen 325 Mg Tablet) 650 mg PO BID PRN PRN Reason: Pain Aspirin (Aspirin Enteric Coated 81 Mg Tablet.Dr) 81 mg PO DAILY [facility] Last Admin: 01/14/23 09:48 Dose: 81 mg Atorvastatin Calcium (Atorvastatin Calcium 80 Mg Tablet) 80 mg PO BEDTIME [facility] Last Admin: 01/13/23 21:34 Dose: 80 mg Dextrose (Dextrose 50 % 25 Gm/50 Ml Syringe) 25 gm IVPUSH Q15M PRN; Protocol PRN Reason: per Hypoglycemia Standing Ord. Enoxaparin Sodium (Enoxaparin Sodium 40 Mg/0.4 Ml Syringe) 40 mg SUBCUT Q24H [facility] Last Admin: 01/13/23 21:34 Dose: 40 mg Fluticasone Propionate (Fluticasone Propionate Nasal 16 Gm [place]) 1 spray NOSTRIL-B BID [facility] Last Admin: 01/14/23 10:31 Dose: Not Given Glucose (Glucose Gel 15 Gm Gel..Gram.) 15 gm PO Q15M PRN; Protocol PRN Reason: per Hypoglycemia Standing Ord. Furosemide 200 mg/ Sodium (Chloride) 100 mls @ 2.5 mls/hr IVCONT .Q24H [facility] Last Admin: 01/13/23 18:14 Dose: 5 mg/hr, 2.5 mls/hr Insulin Human Lispro (Insulin Lispro 100 Unit/Ml 3 Ml Vial) 0 unit SUBCUT QIDACHS [facility]; Protocol Last Admin: 01/14/23 08:26 Dose: Not Given Loratadine (Loratadine 10 Mg Tablet) 10 mg PO DAILY [facility] Last Admin: 01/14/23 09:48 Dose: 10 mg Metoprolol Succinate (Metoprolol Succinate Er 50 Mg Tab.Er.24h) 50 mg PO DAILY [facility]; Protocol Last Admin: 01/14/23 09:48 Dose: 50 mg Sacubitril/Valsartan (Sacubitril/Valsartan 49/51 1 Tab Tablet) 1 tab PO BID [facility]; Protocol Last Admin: 01/14/23 09:48 Dose: 1 tab Sodium Chloride (0.9 % Sodium Chloride Flush 3 Ml Syringe) 3 ml IVFLUSH QSHIFT [facility] Last Admin: 01/14/23 09:48 Dose: 3 ml Tamsulosin HCl (Tamsulosin Hcl 0.4 Mg Capsule) 0.4 mg PO DAILY [facility] Last Admin: 01/14/23 09:48 Dose: 0.4 mg Ticagrelor (Ticagrelor 90 Mg Tablet) 90 mg PO BID [facility] Last Admin: 01/14/23 09:48 Dose: 90 mg Home Medications Medication Instructions Recorded Confirmed Last Taken Type acetaminophen 650 mg 650 mg PO BID PRN Pain 03/26/22 01/13/23 11/30/22 History tablet,extended release aspirin 81 mg tablet,delayed 81 mg PO DAILY 03/26/22 01/13/23 11/30/22 07:30 History release fluticasone propionate 50 1 spray intranasal BID 03/26/22 01/13/23 11/30/22 History mcg/actuation nasal spray,suspension loratadine 10 mg tablet 10 mg PO DAILY 03/26/22 01/13/23 11/30/22 07:30 History tamsulosin 0.4 mg capsule 1 cap PO DAILY 03/26/22 01/13/23 11/30/22 07:30 History atorvastatin 80 mg tablet 80 mg PO BEDTIME 04/09/22 01/13/23 11/30/22 07:30 History gabapentin 100 mg capsule 100 mg PO TID 04/09/22 01/13/23 11/30/22 07:30 History glucose 4 gram chewable tablet 4 g PO ONCE PRN LOW GLUCOSE 04/09/22 01/13/23 Unknown History (Dex4 Glucose) torsemide 10 mg tablet 10 mg PO DAILY 04/09/22 01/13/23 11/30/22 07:30 History omeprazole 20 mg capsule,delayed 20 mg PO DAILY 07/13/22 01/13/23 11/30/22 07:30 History release insulin aspart U-100 100 unit/mL 0 sliding scale dose subcut TID 01/13/23 01/13/23 Unknown History (3 mL) subcutaneous pen (Novolog FlexPen U-100 Insulin aspart) insulin glargine 100 unit/mL (3 20 unit subcut BEDTIME 01/13/23 01/13/23 Unknown History mL) subcutaneous pen (Lantus Solostar U-100 Insulin) ticagrelor 60 mg tablet (Brilinta) 60 mg PO BID 01/13/23 01/13/23 Unknown History Physical Exam Vital Signs: Vital Signs: Last Vital Signs Temp 97.9 F 01/14/23 07:35 Pulse 64 01/14/23 07:35 Resp 18 01/14/23 07:35 BP 120/69 01/14/23 07:35 Pulse Ox 98 01/14/23 07:35 O2 Del Method Nasal Cannula 01/14/23 07:35 O2 Flow Rate 1 01/14/23 03:59 BMI result Body Mass Index 30.2 Const: General: cooperative, comfortable, no acute distress, alert and awake Nutritional Appearance: overweight Orientation/consciousness: patient oriented x3 Limitations: no limitations HEENT: Head: Yes normocephalic and Yes atraumatic Neck: Neck: Yes trachea midline, Yes supple and Yes JVD Resp: Effort & Inspection: normal respiratory effort Auscultation: no rales and diminished lung sounds Cardio: Jugular venous distension: JVD Palpation: abnormal PMI displaced PMI Rate: regular rate Rhythm: regular rhythm Heart sounds: S1 normal heart sound present, S2 normal heart sound present, no click, no gallops and no murmurs GI: Inspection: Yes distended Auscultation: normal bowel sounds Skin: General skin exam: no rashes or lesions noted Neuro: General: patient oriented x3 and no focal motor deficits Extrem: General: No clubbing, No cyanosis and Yes edema Objective Labs and Meds 01/13/23 16:13 01/14/23 06:25 Lab results: Laboratory Results - last 24 hr 01/13/23 01/13/23 01/13/23 16:13 17:44 19:38 WBC 6.8 RBC 4.51 L Hgb 12.9 L Hct 40.9 L MCV 90.7 MCH 28.6 MCHC 31.5 RDW 15.3 Plt Count 163 MPV 10.2 Immature Gran % (Auto) 0.3 Neut % (Auto) 67.2 Lymph % (Auto) 23.6 [place] % (Auto) 7.0 Eos % (Auto) 1.8 Baso % (Auto) 0.1 Lymph # (Auto) 1.6 [place] # (Auto) 0.5 Eos # (Auto) 0.1 Baso # (Auto) 0.0 Abs Immat Gran (auto) 0.02 Absolute Neuts (auto) 4.6 Absolute Nucleated RBC 0.000 Nucleated RBC % (auto) 0.0 PT 12.4 INR 1.0 Sodium 142 Potassium 5.2 H D Chloride 113 H Carbon Dioxide 23 Anion Gap 11 L BUN 31 H Creatinine 1.87 H Estim Creat Clear Calc 32.9 Estimated GFR 35 POC Glucose Random Glucose 74 Calcium 9.2 D Total Bilirubin 0.5 AST 21 ALT 16 Alkaline Phosphatase 88 Troponin I High Sens 62.2 H 68.9 H B-Natriuretic Peptide 974 H Total Protein 7.0 Albumin 3.7 Urine Color Yellow Urine Appearance Clear Urine pH 6.5 Ur Specific [place] <= 1.005 Urine Protein Negative Urine Glucose (UA) 250 H Urine Ketones Negative Urine Blood Negative Urine Nitrite Negative Ur Leukocyte Esterase Negative 01/13/23 01/14/23 01/14/23 20:53 06:25 07:57 WBC RBC Hgb Hct MCV MCH MCHC RDW Plt Count MPV Immature Gran % (Auto) Neut % (Auto) Lymph % (Auto) [place] % (Auto) Eos % (Auto) Baso % (Auto) Lymph # (Auto) [place] # (Auto) Eos # (Auto) Baso # (Auto) Abs Immat Gran (auto) Absolute Neuts (auto) Absolute Nucleated RBC Nucleated RBC % (auto) PT INR Sodium 144 Potassium 4.0 D Chloride 110 H Carbon Dioxide 24 Anion Gap 14 BUN 33 H Creatinine 1.75 H Estim Creat Clear Calc 34.8 Estimated GFR 37 POC Glucose 145 H 74 Random Glucose 69 Calcium 9.3 Total Bilirubin AST ALT Alkaline Phosphatase Troponin I High Sens B-Natriuretic Peptide Total Protein Albumin Urine Color Urine Appearance Urine pH Ur Specific [place] Urine Protein Urine Glucose (UA) Urine Ketones Urine Blood Urine Nitrite Ur Leukocyte Esterase 01/14/23 09:57 WBC RBC Hgb Hct MCV MCH MCHC RDW Plt Count MPV Immature Gran % (Auto) Neut % (Auto) Lymph % (Auto) [place] % (Auto) Eos % (Auto) Baso % (Auto) Lymph # (Auto) [place] # (Auto) Eos # (Auto) Baso # (Auto) Abs Immat Gran (auto) Absolute Neuts (auto) Absolute Nucleated RBC Nucleated RBC % (auto) PT INR Sodium Potassium Chloride Carbon Dioxide Anion Gap BUN Creatinine Estim Creat Clear Calc Estimated GFR POC Glucose 170 H Random Glucose Calcium Total Bilirubin AST ALT Alkaline Phosphatase Troponin I High Sens B-Natriuretic Peptide Total Protein Albumin Urine Color Urine Appearance Urine pH Ur Specific [place] Urine Protein Urine Glucose (UA) Urine Ketones Urine Blood Urine Nitrite Ur Leukocyte Esterase Imaging Radiologist's impression: Impressions Chest X-Ray 01/13/23 15:42 IMPRESSION: 1. New pacer electrode with its tip in the right ventricle. 2. Borderline cardiomegaly. Assessment and Plan (1) Acute on chronic clinical systolic heart failure: Status: Acute Acute decompensated congestive heart failure due to lack of understanding of his heart failure management. He has done well with diuresis with improving renal parameters and function as well. Continue IV diuresis with Lasix drip. Continue metoprolol and Entresto therapy. Strict intake and output chart needs to be pursued. There is no evidence of active myocardial ischemia and his Brilinta can be discontinued. Continue aspirin high-intensity statin therapy. Repeat blood work tomorrow. Anticipated discharge in 24-48 hours. Should consider outpatient [facility] placement for management of his heart failure syndrome and to reduce hospitalization. Will follow with you Procedures Date of Service Date of Service: 01/14/23
[2023-01-14 11:26] VITALS: BP 134/67; PULSE 83; RESP 18; TEMP 37; O2SAT 97
--- NOTE | 2023-01-14 12:05 | MHC.CLN ---
NUTRITION ADDED 2 GRAM SODIUM TO DIET ORDER DUE TO DX CHF. DIET=DIABETIC 1800 KCAL, 2 GRAM SODIUM.
[2023-01-14 12:18] LABS: Glucose, Whole Blood 162 mg/dL (60-115)
--- NOTE | 2023-01-14 12:56 | MHC.CM.PN ---
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 PT VERIFIES PCP ON FILE CORRECT AND REPORTS HE IS FULLY VACCINATED FOR COVID 19. CM CONTACTED [facility] AT NUMBER ON FILE AT 12:52PM AND [facility] HAS EMAILED CM A COPY OF POA AND HCP, COPY [facility]PLOADED TO [facility] AND PLACED IN CHART.
[2023-01-14 15:28] VITALS: BP 106/61; PULSE 69; RESP 18; TEMP 36.2; O2SAT 96
[2023-01-14 16:42] LABS: Glucose, Whole Blood 156 mg/dL (60-115)
[2023-01-14 18:15] LABS: B Type Natriuretic Peptide 700 pg/mL (<100)
[2023-01-14] MEDS: Enoxaparin Sodium 40 MG/0.4 ML SYRINGE SUBCUT (18:26)
[2023-01-14] MEDS: Furosemide 200 MG in 0.9 % Sodium Chloride 80 ML IVCONT (18:26)
[2023-01-14 20:00] VITALS: BP 120/74; PULSE 65; RESP 18; TEMP 36.7; O2SAT 93
[2023-01-14] MEDS: Atorvastatin Calcium 80 MG TABLET PO (20:48)
[2023-01-14] MEDS: Insulin Lispro 100 UNIT/ML 3 ML VIAL SUBCUT (20:48)
[2023-01-14 21:42] LABS: Glucose, Whole Blood 202 mg/dL (60-115)
[2023-01-14 23:46] VITALS: BP 106/59; PULSE 63; RESP 18; TEMP 36.6; O2SAT 95
[2023-01-15 03:20] VITALS: BP 102/53; PULSE 69; RESP 18; TEMP 36.3; O2SAT 94
[2023-01-15 07:42] LABS: Glucose, Whole Blood 115 mg/dL (60-115)
[2023-01-15 07:49] VITALS: BP 114/61; PULSE 75; RESP 16; TEMP 36.3; O2SAT 96
[2023-01-15 09:03] LABS: Anion Gap 17 (12-20); Blood Urea Nitrogen 41 mg/dL (9-16); Calcium 9.9 mg/dL (8.4-10.2); Carbon Dioxide 27 mmol/L (22-29); Chloride 101 mmol/L (96-108); Creatinine Clr Calc Pharmacy 24.6; Estimated Glomerular Filt Rate 25; Glucose Random 156 mg/dL (60-115); Sodium 141 mmol/L (135-145)
[2023-01-15 09:09] LABS: B Type Natriuretic Peptide 310 pg/mL (<100)
[2023-01-15] MEDS: Loratadine 10 MG TABLET PO (09:27)
[2023-01-15] MEDS: Sacubitril/Valsartan 49/51 1 TAB TABLET PO ×2 (09:28→21:06)
[2023-01-15] MEDS: Tamsulosin HCL 0.4 MG CAPSULE PO (09:28)
[2023-01-15] MEDS: Ticagrelor 90 MG TABLET PO ×2 (09:28→21:06)
[2023-01-15] MEDS: Aspirin Enteric Coated 81 MG TABLET.DR PO (09:28)
[2023-01-15] MEDS: 0.9 % Sodium Chloride Flush 3 ML SYRINGE IVFLUSH ×3 (09:28→21:06)
[2023-01-15] MEDS: Metoprolol Succinate ER 50 MG TAB.ER.24H PO (09:28)
--- NOTE | 2023-01-15 10:08 | P.PNIM_ITS ---
Subjective Subjective Date of Service: 01/14/23 Interval History: sob Review of Systems leg edema improving had some sob last night i/o 3 liter neg Physical Exam 2 Vital Signs: Vital Signs: Last Vital Signs vitals from 01/14/23 reviewed. BMI result Body Mass Index 30.2 Appearance: Alert.? Oriented X3.? cvs: rrr, [id number] , no murmur res: faisal entry fair ,no rales abd: no rebound or guarding ,nt, bs present. ext pulses present , no cyanosis , minimum edema . neuro: axo3 , nonfocal. Objective Data Active Medications Acetaminophen (Acetaminophen 325 Mg Tablet) 650 mg PO BID PRN PRN Reason: Pain Aspirin (Aspirin Enteric Coated 81 Mg Tablet.) 81 mg PO DAILY [facility] Last Admin: 01/15/23 09:28 Dose: 81 mg Documented By: DAHLIA Atorvastatin Calcium (Atorvastatin Calcium 80 Mg Tablet) 80 mg PO BEDTIME [facility] Last Admin: 01/14/23 20:48 Dose: 80 mg Documented By: ARIAN Dextrose (Dextrose 50 % 25 Gm/50 Ml Syringe) 25 gm IVPUSH Q15M PRN; Protocol PRN Reason: per Hypoglycemia Standing Ord. Enoxaparin Sodium (Enoxaparin Sodium 40 Mg/0.4 Ml Syringe) 40 mg SUBCUT Q24H [facility] Last Admin: 01/14/23 18:26 Dose: 40 mg Documented By: DAHLIA Fluticasone Propionate (Fluticasone Propionate Nasal 16 Gm [place]) 1 spray NOSTRIL-B BID [facility] Last Admin: 01/15/23 09:32 Dose: Not Given Documented By: DAHLIA Non-Admin Reason: Med Not Available Glucose (Glucose Gel 15 Gm Gel..Gram.) 15 gm PO Q15M PRN; Protocol PRN Reason: per Hypoglycemia Standing Ord. Insulin Human Lispro (Insulin Lispro 100 Unit/Ml 3 Ml Vial) 0 unit SUBCUT QIDACHS [facility]; Protocol Last Admin: 01/15/23 08:06 Dose: Not Given Documented By: DAHLIA Non-Admin Reason: No Insulin Coverage Loratadine (Loratadine 10 Mg Tablet) 10 mg PO DAILY [facility] Last Admin: 01/15/23 09:27 Dose: 10 mg Documented By: DAHLIA Metoprolol Succinate (Metoprolol Succinate Er 50 Mg Tab.Er.24h) 50 mg PO DAILY [facility]; Protocol Last Admin: 01/15/23 09:28 Dose: 50 mg Documented By: DAHLIA Sacubitril/Valsartan (Sacubitril/Valsartan 49/51 1 Tab Tablet) 1 tab PO BID [facility]; Protocol Last Admin: 01/15/23 09:28 Dose: 1 tab Documented By: DAHLIA Sodium Chloride (0.9 % Sodium Chloride Flush 3 Ml Syringe) 3 ml IVFLUSH QSHIFT [facility] Last Admin: 01/15/23 09:28 Dose: 3 ml Documented By: DAHLIA Tamsulosin HCl (Tamsulosin Hcl 0.4 Mg Capsule) 0.4 mg PO DAILY [facility] Last Admin: 01/15/23 09:28 Dose: 0.4 mg Documented By: DAHLIA Ticagrelor (Ticagrelor 90 Mg Tablet) 90 mg PO BID [facility] Last Admin: 01/15/23 09:28 Dose: 90 mg Documented By: DAHLIA Labs 01/13/23 16:13 01/15/23 08:33 Labs: Laboratory Results - last 24 hr 01/14/23 01/14/23 01/14/23 12:14 16:36 16:58 Anion Gap Estim Creat Clear Calc Estimated GFR POC Glucose 162 H 156 H Random Glucose Calcium B-Natriuretic Peptide 700 H 01/14/23 01/15/23 01/15/23 20:24 07:35 08:33 Anion Gap 17 Estim Creat Clear Calc 24.6 Estimated GFR 25 POC Glucose 202 H 115 Random Glucose 156 H Calcium 9.9 D B-Natriuretic Peptide 310 H Assessment and Plan (1) Acute on chronic clinical systolic heart failure: Status: Acute (2) Decompensated heart failure: Status: Acute Plan acute CHF exacerbation -etiology unclear-likely systolic CHF. ? elevated BNP, as well as acute complaints of dyspnea, orthopnea and PND Troponin seems chronically elevated, troponin 1st troponin is 62-68 adcxr seems fine has sob with exersion strict I&O around 3 liter neg,daily weight Has low EF and ICd. D Plan: on Lasix drip, continue Entresto and metoprolol once medical reconciliation done. Cardiology evaluation. diabetes: fs with low-dose sliding scale insulin -avoid coverage below fs 200mg/dl hold lantus,diabetic diet history of CAD continue Brilinta, aspirin statin, metoprolol ckd3: stable. moniter renal function. overweight: advised to loose weight. DVT prophylaxis:? Lovenox inpatient? need for next 48-72 hours for: CHF exacerbation? on iv lasix -i/o moniter renal function and electrolytes, also needs cardiac evaluation and workup Quality Stroke Does the patient have a stroke diagnosis?: No VTE Prior VTE?: No VTE Risk Level:: Medical - moderate - high VTE Device Contraindication: N/A - Device Ordered VTE Drug Contraindication: N/A - Med Ordered
--- NOTE | 2023-01-15 10:15 | P.PNIM_ITS ---
Subjective Subjective Date of Service: 01/16/23 Interval History: chf excerebation Review of Systems sob seems improving has some sob last night edema improving Physical Exam 2 Vital Signs: Vital Signs: Last Vital Signs Temp 97.3 F 01/15/23 07:49 Pulse 75 01/15/23 07:49 Resp 16 01/15/23 07:49 BP 114/61 01/15/23 07:49 Pulse Ox 96 01/15/23 07:49 O2 Del Method Room Air 01/15/23 07:49 O2 Flow Rate 1 01/14/23 03:59 BMI result Body Mass Index 30.2 Appearance: Alert.? Oriented X3.? cvs: rrr, [id number] , no murmur res: faisal entry fair ,no rales abd: no rebound or guarding ,nt, bs present. ext pulses present , no cyanosis , trace edema . neuro: axo3 , nonfocal. Objective Data Active Medications Acetaminophen (Acetaminophen 325 Mg Tablet) 650 mg PO BID PRN PRN Reason: Pain Aspirin (Aspirin Enteric Coated 81 Mg Tablet.) 81 mg PO DAILY [facility] Last Admin: 01/15/23 09:28 Dose: 81 mg Documented By: DAHLIA Atorvastatin Calcium (Atorvastatin Calcium 80 Mg Tablet) 80 mg PO BEDTIME [facility] Last Admin: 01/14/23 20:48 Dose: 80 mg Documented By: ARIAN Dextrose (Dextrose 50 % 25 Gm/50 Ml Syringe) 25 gm IVPUSH Q15M PRN; Protocol PRN Reason: per Hypoglycemia Standing Ord. Enoxaparin Sodium (Enoxaparin Sodium 40 Mg/0.4 Ml Syringe) 40 mg SUBCUT Q24H [facility] Last Admin: 01/14/23 18:26 Dose: 40 mg Documented By: DAHLIA Fluticasone Propionate (Fluticasone Propionate Nasal 16 Gm [place]) 1 spray NOSTRIL-B BID [facility] Last Admin: 01/15/23 09:32 Dose: Not Given Documented By: DAHLIA Non-Admin Reason: Med Not Available Glucose (Glucose Gel 15 Gm Gel..Gram.) 15 gm PO Q15M PRN; Protocol PRN Reason: per Hypoglycemia Standing Ord. Insulin Human Lispro (Insulin Lispro 100 Unit/Ml 3 Ml Vial) 0 unit SUBCUT QIDACHS [facility]; Protocol Last Admin: 01/15/23 08:06 Dose: Not Given Documented By: DAHLIA Non-Admin Reason: No Insulin Coverage Loratadine (Loratadine 10 Mg Tablet) 10 mg PO DAILY [facility] Last Admin: 01/15/23 09:27 Dose: 10 mg Documented By: DAHLIA Metoprolol Succinate (Metoprolol Succinate Er 50 Mg Tab.Er.24h) 50 mg PO DAILY [facility]; Protocol Last Admin: 01/15/23 09:28 Dose: 50 mg Documented By: DAHLIA Sacubitril/Valsartan (Sacubitril/Valsartan 49/51 1 Tab Tablet) 1 tab PO BID [facility]; Protocol Last Admin: 01/15/23 09:28 Dose: 1 tab Documented By: DAHLIA Sodium Chloride (0.9 % Sodium Chloride Flush 3 Ml Syringe) 3 ml IVFLUSH QSHIFT [facility] Last Admin: 01/15/23 09:28 Dose: 3 ml Documented By: DAHLIA Tamsulosin HCl (Tamsulosin Hcl 0.4 Mg Capsule) 0.4 mg PO DAILY [facility] Last Admin: 01/15/23 09:28 Dose: 0.4 mg Documented By: DAHLIA Ticagrelor (Ticagrelor 90 Mg Tablet) 90 mg PO BID [facility] Last Admin: 01/15/23 09:28 Dose: 90 mg Documented By: DAHLIA Labs 01/13/23 16:13 01/16/23 08:10 Labs: Laboratory Results - last 24 hr 01/14/23 01/14/23 01/14/23 12:14 16:36 16:58 Anion Gap Estim Creat Clear Calc Estimated GFR POC Glucose 162 H 156 H Random Glucose Calcium B-Natriuretic Peptide 700 H 01/14/23 01/15/23 01/15/23 20:24 07:35 08:33 Anion Gap 17 Estim Creat Clear Calc 24.6 Estimated GFR 25 POC Glucose 202 H 115 Random Glucose 156 H Calcium 9.9 D B-Natriuretic Peptide 310 H Assessment and Plan (1) Acute on chronic clinical systolic heart failure: Status: Acute (2) Decompensated heart failure: Status: Acute Plan acute CHF exacerbation -etiology unclear-likely systolic CHF. ? elevated BNP, as well as acute complaints of dyspnea, orthopnea and PND Troponin seems chronically elevated, troponin 1st troponin is 62-68 adcxr seems fine has sob with exersion strict I&O around 7 liter neg,daily weight Has low EF and ICd. D Plan: stop Lasix drip -patient 7 liter neg ,moniter off diuretics today, continue Entresto and metoprolol once medical reconciliation done.added po torcemide 10 mg po bid. Cardiology evaluation. diabetes: fs with low-dose sliding scale insulin -avoid coverage below fs 200mg/dl hold lantus,diabetic diet history of CAD continue Brilinta, aspirin statin, metoprolol ckd3:cr somewhatup from baseline due to overdiuresis hold lasixdrip moniter renal function. overweight: advised to loose weight. DVT prophylaxis:? Lovenox inpatient? need for next 48-72 hours for: CHF exacerbation? on iv lasix -i/o moniter renal function and electrolytes, also needs cardiac evaluation and workup Quality Stroke Does the patient have a stroke diagnosis?: No VTE Prior VTE?: No VTE Risk Level:: Medical - moderate - high VTE Device Contraindication: N/A - Device Ordered VTE Drug Contraindication: N/A - Med Ordered
--- NOTE | 2023-01-15 11:28 | ECG_ITS ---
Test Reason : chest pain Blood Pressure : / mmHG Vent. Rate : 067 BPM Atrial Rate : 080 BPM P-R Int : 180 ms QRS Dur : 074 ms QT Int : 388 ms P-R-T Axes : 040 -19 132 degrees QTc Int : 409 ms Sinus rhythm with occasional Premature ventricular complexes Septal infarct (cited on or before 13-JAN-2023) Abnormal ECG When compared with ECG of 13-JAN-2023 15:16, Premature ventricular complexes are now Present Referred By: Betsy Alejandre Electronically Signed By:JOSEPH KILGORE MD
--- NOTE | 2023-01-15 11:49 | PM.PNCARD ---
Subjective Subjective Date of Service: 01/15/23 Principal diagnosis: CHF Interval history: Patient says last night he still had trouble breathing when he was laying down. He did not have his CPAP. However is overall diuresed about 8 L. Leg edema is improved. BNP is down trended to 300. His creatinine is going up. Review of Systems Constitutional: Reports no additional constitutional complaints Cardiovascular: Denies chest pain, Denies leg edema and Reports orthopnea Respiratory: Reports no additional respiratory complaints Genitourinary: Reports no additional male genitourinary complaints Physical Exam Vital Signs: Last Vital Signs Temp 97.3 F 01/15/23 07:49 Pulse 75 01/15/23 07:49 Resp 16 01/15/23 07:49 BP 114/61 01/15/23 07:49 Pulse Ox 96 01/15/23 07:49 O2 Del Method Room Air 01/15/23 07:49 O2 Flow Rate 1 01/14/23 03:59 BMI result Body Mass Index 30.2 Const General: cooperative, comfortable, no acute distress, alert and awake Nutritional Appearance: overweight Orientation/consciousness: patient oriented x3 Neck Neck: Yes trachea midline, Yes supple and Yes no JVD Resp Effort & Inspection: normal respiratory effort Auscultation: clear to auscultation bilaterally Cardio Jugular venous distension: no JVD Rate: regular rate Rhythm: regular rhythm Heart sounds: S1 normal heart sound present, S2 normal heart sound present, no click, no gallops and no murmurs Skin General skin exam: no rashes or lesions noted Neuro General: patient oriented x3 Extrem General: Yes no clubbing, cyanosis or edema Objective Labs and Meds 01/13/23 16:13 01/15/23 08:33 Lab results: Laboratory Results - last 24 hr 01/14/23 01/14/23 01/14/23 12:14 16:36 16:58 Sodium Potassium Chloride Carbon Dioxide Anion Gap BUN Creatinine Estim Creat Clear Calc Estimated GFR POC Glucose 162 H 156 H Random Glucose Calcium B-Natriuretic Peptide 700 H 01/14/23 01/15/23 01/15/23 20:24 07:35 08:33 Sodium 141 Potassium 4.0 Chloride 101 Carbon Dioxide 27 Anion Gap 17 BUN 41 H Creatinine 2.48 H Estim Creat Clear Calc 24.6 Estimated GFR 25 POC Glucose 202 H 115 Random Glucose 156 H Calcium 9.9 D B-Natriuretic Peptide 310 H Progress Note: A&P Assessment and plan (1) Acute on chronic clinical systolic heart failure: Status: Acute Assessment and Plan: Acute systolic heart failure which seems to not improved and his fluid status looks extremely well with no JVD and no leg edema. Although continues to have symptoms of orthopnea. This is surprising. His BNP is down trended. Creatinine is going up. At this point time I think he may be slightly over diuresed. Would stop his Lasix drip and switched to torsemide 10 mg b.i.d.. Continue other neurohormonal modulation. Keep him in hospital 1 more day. Ambulate. Give him CPAP therapy at nighttime which she usually uses at home. Check lab work tomorrow. If stable possibly discharge home. He definitely will benefit from CardioMEMS device. Will follow up as outpatient Time Spent With Patient Time: Total time managing care of this patient today ____ minutes. Progress Note: Quality Stroke Does the patient have a stroke diagnosis?: No Procedures Date of Service Date of Service: 01/15/23
[2023-01-15 12:00] VITALS: BP 100/60; PULSE 84; RESP 16; TEMP 36.7; O2SAT 97
[2023-01-15 12:00] LABS: Glucose, Whole Blood 221 mg/dL (60-115)
[2023-01-15] MEDS: Torsemide 20 MG TABLET 10 MG PO ×2 (12:48→21:06)
[2023-01-15] MEDS: Insulin Lispro 100 UNIT/ML 3 ML VIAL SUBCUT (12:49)
[2023-01-15 15:37] VITALS: BP 94/59; PULSE 75; RESP 18; TEMP 36.3; O2SAT 93
[2023-01-15 16:15] LABS: Glucose, Whole Blood 147 mg/dL (60-115)
[2023-01-15] MEDS: ondansetron HCL 4 MG/2 ML VIAL IVPUSH (16:19)
[2023-01-15 19:39] VITALS: BP 105/56; PULSE 65; RESP 18; TEMP 36.9; O2SAT 93
[2023-01-15 20:57] LABS: Glucose, Whole Blood 200 mg/dL (60-115)
[2023-01-15] MEDS: Fluticasone Propionate Nasal 16 GM SPRAY 1 SPRAY NOSTRIL-B (21:06)
[2023-01-15] MEDS: Atorvastatin Calcium 80 MG TABLET PO (21:06)
[2023-01-16] VITALS (8 sets, daily range): BP systolic 94–116; BP diastolic 50–63; PULSE 66–88; RESP 18–20; TEMP 36.2–37.3; O2SAT 92–96; BMI 27.4
--- NOTE | 2023-01-16 | ECG_ITS ---
Test Reason : Chest pain Blood Pressure : / mmHG Vent. Rate : 061 BPM Atrial Rate : 061 BPM P-R Int : 194 ms QRS Dur : 072 ms QT Int : 404 ms P-R-T Axes : 040 -14 083 degrees QTc Int : 406 ms Normal sinus rhythm Premature ventricular complexes Septal infarct (cited on or before 13-JAN-2023) Abnormal ECG When compared with ECG of 15-JAN-2023 11:24, No significant changes seen Referred By: Betsy Alejandre Electronically Signed By:IFRAH GONZALES
--- NOTE | 2023-01-16 | ECG_ITS ---
Test Reason : cp Blood Pressure : / mmHG Vent. Rate : 075 BPM Atrial Rate : 075 BPM P-R Int : 194 ms QRS Dur : 074 ms QT Int : 400 ms P-R-T Axes : 030 -22 097 degrees QTc Int : 446 ms Normal sinus rhythm Septal infarct , age undetermined Abnormal ECG When compared with ECG of 16-JAN-2023 08:51, Premature ventricular complexes not seen Referred By: Betsy Alejandre Electronically Signed By:IFRAH GONZALES
--- NOTE | 2023-01-16 | ECG_ITS ---
Test Reason : chest pain Blood Pressure : / mmHG Vent. Rate : 064 BPM Atrial Rate : 083 BPM P-R Int : 180 ms QRS Dur : 076 ms QT Int : 400 ms P-R-T Axes : 039 -14 117 degrees QTc Int : 412 ms Normal sinus rhythm Premature ventricular complexes cannot exclude septal infarct Nonspecific T wave abnormality Abnormal ECG No significant changes when compared with the previous EKG of 15 jan 2023 Referred By: Betsy Alejandre Electronically Signed By:IFRAH GONZALES
[2023-01-16] MEDS: Acetaminophen 325 MG TABLET 650 MG PO (05:11)
[2023-01-16 07:34] LABS: Glucose, Whole Blood 169 mg/dL (60-115)
[2023-01-16 08:38] LABS: Anion Gap 16 (12-20); Blood Urea Nitrogen 49 mg/dL (9-16); Calcium 9.7 mg/dL (8.4-10.2); Carbon Dioxide 26 mmol/L (22-29); Chloride 101 mmol/L (96-108); Creatinine Clr Calc Pharmacy 20.6; Estimated Glomerular Filt Rate 20; Glucose Random 159 mg/dL (60-115); Potassium 4.1 mmol/L (3.3-5.1); Sodium 139 mmol/L (135-145)
[2023-01-16 08:44] LABS: B Type Natriuretic Peptide 192 pg/mL (<100)
[2023-01-16] MEDS: Sacubitril/Valsartan 49/51 1 TAB TABLET PO (09:27)
[2023-01-16] MEDS: Fluticasone Propionate Nasal 16 GM SPRAY 1 SPRAY NOSTRIL-B ×2 (09:27→19:53)
[2023-01-16] MEDS: Metoprolol Succinate ER 50 MG TAB.ER.24H PO (09:28)
[2023-01-16] MEDS: Aspirin Enteric Coated 81 MG TABLET.DR PO (09:28)
[2023-01-16] MEDS: Ticagrelor 90 MG TABLET PO ×2 (09:28→19:53)
[2023-01-16] MEDS: Tamsulosin HCL 0.4 MG CAPSULE PO (09:28)
[2023-01-16] MEDS: Torsemide 20 MG TABLET 10 MG PO (09:28)
[2023-01-16] MEDS: Loratadine 10 MG TABLET PO (09:29)
[2023-01-16] MEDS: 0.9 % Sodium Chloride Flush 3 ML SYRINGE IVFLUSH ×2 (09:29→19:53)
[2023-01-16] MEDS: Enoxaparin Sodium 30 MG/0.3 ML SYRINGE SUBCUT (09:29)
[2023-01-16 09:38] LABS: Troponin-I High Sensitivity 109.1 ng/L (<3.5-35.0)
[2023-01-16 10:18] LABS: INTERNATIONAL NORM RATIO 1.1 (0.9-1.1)
[2023-01-16 10:21] LABS: PTT Heparin Drip 30.9 SEC (53-77.9)
[2023-01-16] MEDS: Nitroglycerin 0.4 MG TAB.SUBL SUBLINGUAL (10:55)
[2023-01-16] MEDS: Morphine Sulfate 2 MG/ML CARTRIDGE 0.5 MG IVPUSH (10:56)
[2023-01-16] MEDS: Heparin Sodium,Porcine/1/2NS 25,000 UNIT/250 ML IV.SOLN 9.82 UNIT IVCONT (10:58)
[2023-01-16] MEDS: 0.9 % Sodium Chloride 1,000 ML 250 ML IVCONT (11:05)
--- NOTE | 2023-01-16 11:11 | PM.PNCARD ---
Subjective Subjective Date of Service: 01/16/23 Principal diagnosis: CHF, ACS Interval history: Patient developed acute chest discomfort this morning radiating left arm. 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 He did receive sublingual nitroglycerin and his chest pressure is improved although he still has left arm discomfort. His troponin is elevated up to 100. EKG did not show any acute changes. Patient does not have any significant shortness of breath. His creatinine is further rising. Review of Systems Cardiovascular: Reports chest pain at rest, Denies leg edema, Denies lightheadedness, Denies Loss of Consciousness and Denies dyspnea Respiratory: Reports no additional respiratory complaints and Denies dyspnea Musculoskeletal: Reports no additional musculoskeletal complaints Reports system reviewed and no additional complaints, except as documented Psychiatric: Reports no additional psychiatric complaints Endocrine: Reports no additional endocrine complaints Physical Exam Vital Signs: Last Vital Signs Temp 97.1 F 01/16/23 08:00 Pulse 70 01/16/23 08:00 Resp 18 01/16/23 08:00 BP 112/60 01/16/23 10:55 Pulse Ox 96 01/16/23 08:00 O2 Del Method Room Air 01/16/23 08:00 O2 Flow Rate 1 01/14/23 03:59 BMI result Body Mass Index 27.4 Const General: cooperative, comfortable, no acute distress, alert and awake Nutritional Appearance: overweight Orientation/consciousness: patient oriented x3 Neck Neck: Yes trachea midline, Yes supple and Yes no JVD Resp Effort & Inspection: normal respiratory effort Auscultation: clear to auscultation bilaterally Cardio Palpation: abnormal PMI displaced PMI Rate: regular rate Rhythm: regular rhythm Heart sounds: S1 normal heart sound present, S2 normal heart sound present, no click and no gallops GI Auscultation: normal bowel sounds Neuro General: patient oriented x3 and no focal motor deficits Extrem General: Yes no clubbing, cyanosis or edema Objective Labs and Meds 01/13/23 16:13 01/16/23 08:10 Lab results: Laboratory Results - last 24 hr 01/15/23 01/15/23 01/15/23 11:44 16:09 20:53 PT INR aPTT Heparin Protocol Sodium Potassium Chloride Carbon Dioxide Anion Gap BUN Creatinine Estim Creat Clear Calc Estimated GFR POC Glucose 221 H 147 H 200 H Random Glucose Calcium Troponin I High Sens B-Natriuretic Peptide 01/16/23 01/16/23 01/16/23 07:30 08:10 10:06 PT 13.0 INR 1.1 aPTT Heparin Protocol 30.9 L Sodium 139 Potassium 4.1 Chloride 101 Carbon Dioxide 26 Anion Gap 16 BUN 49 H Creatinine 2.95 H Estim Creat Clear Calc 20.6 Estimated GFR 20 POC Glucose 169 H Random Glucose 159 H Calcium 9.7 Troponin I High Sens 109.1 H* D B-Natriuretic Peptide 192 H Progress Note: A&P Assessment and plan (1) Acute coronary syndrome: Status: Acute Assessment and Plan: Patient developed chest pressure this morning with elevated troponins although you EKG does not show any significant changes. Currently still on dual antiplatelet therapy and continue the same. Start IV heparin. Continue to trend troponins. Limited echocardiogram tomorrow. Continue high-intensity statin therapy. Continue metoprolol therapy. Can use p.r.n. sublingual nitroglycerin and start nitropaste off inch. Continue monitor blood pressure closely. If kidney function improves tomorrow with IV fluids may consider invasive cardiac catheterization on Tuesday. Also further decision made on the troponin trend as well as a limited echocardiogram. (2) Acute on chronic clinical systolic heart failure: Status: Acute Assessment and Plan: Patient admitted with acute congestive heart failure diuresed about 8 L with development of rising creatinine since yesterday. Creatinine is further elevated at this point in time and would hold off on oral diuretics. Switch to some IV fluids today. Continue monitor closely for development of heart failure syndrome. Continue metoprolol therapy. Would hold his Entresto therapy today till his kidney functions improved. Will follow with him Time Spent With Patient Time: Total time managing care of this patient today ____ minutes. Progress Note: Quality Stroke Does the patient have a stroke diagnosis?: No Procedures Date of Service Date of Service: 01/16/23
[2023-01-16] MEDS: Heparin Sodium,Porcine/1/2NS 25,000 UNIT/250 ML IV.SOLN 11.45 UNIT IVCONT (11:18)
[2023-01-16] MEDS: Insulin Lispro 100 UNIT/ML 3 ML VIAL SUBCUT ×2 (12:01→20:34)
[2023-01-16 12:03] LABS: Glucose, Whole Blood 226 mg/dL (60-115)
[2023-01-16] MEDS: ondansetron HCL 4 MG/2 ML VIAL IVPUSH (12:12)
--- NOTE | 2023-01-16 13:36 | P.PNIM_ITS ---
Subjective Subjective Date of Service: 01/16/23 Interval History: chest pain Review of Systems has chest pain on /off and also left shoulder pain sob seems to be improved Physical Exam 2 Vital Signs: Vital Signs: Last Vital Signs Temp 98.7 F 01/16/23 11:26 Pulse 73 01/16/23 11:26 Resp 18 01/16/23 11:26 BP 98/59 L 01/16/23 11:26 Pulse Ox 94 01/16/23 11:26 O2 Del Method Room Air 01/16/23 11:26 O2 Flow Rate 1 01/14/23 03:59 BMI result Body Mass Index 27.4 Appearance: Alert.? Oriented X3.? cvs: rrr, [id number] . res: faisal enrty fair ,no rales or wheezing abd: no rebound or guarding ,nt, bs present. ext pulses present , no cyanosis , neuro: axo3 , nonfocal. Objective Data Active Medications Acetaminophen (Acetaminophen 325 Mg Tablet) 650 mg PO BID PRN PRN Reason: Pain Last Admin: 01/16/23 05:11 Dose: 650 mg Documented By: ARIAN Aspirin (Aspirin Enteric Coated 81 Mg Tablet.) 81 mg PO DAILY [facility] Last Admin: 01/16/23 09:28 Dose: 81 mg Documented By: DAHLIA Atorvastatin Calcium (Atorvastatin Calcium 80 Mg Tablet) 80 mg PO BEDTIME [facility] Last Admin: 01/15/23 21:06 Dose: 80 mg Documented By: ARIAN Dextrose (Dextrose 50 % 25 Gm/50 Ml Syringe) 25 gm IVPUSH Q15M PRN; Protocol PRN Reason: per Hypoglycemia Standing Ord. Fluticasone Propionate (Fluticasone Propionate Nasal 16 Gm Calera) 1 spray NOSTRIL-B BID [facility] Last Admin: 01/16/23 09:27 Dose: 1 spray Documented By: DAHLIA Glucose (Glucose Gel 15 Gm Gel..Gram.) 15 gm PO Q15M PRN; Protocol PRN Reason: per Hypoglycemia Standing Ord. Heparin Sodium (Porcine) (Heparin Sodium,Porcine 5,000 Unit/Ml Vial) 3,300 unit 40 unit/kg (3300 unit) IVPUSH PROTOCOL BOLUS PRN; Protocol PRN Reason: 40 unit/kg - Heparin Protocol Heparin Sodium (Porcine) (Heparin Sodium,Porcine 5,000 Unit/Ml Vial) 6,500 unit 80 unit/kg (6500 unit) IVPUSH PROTOCOL BOLUS PRN; Protocol PRN Reason: 80 unit/kg - Heparin Protocol Sodium Chloride (Ns) 1,000 mls @ 250 mls/hr IVCONT .Q4H [facility] Stop: 01/16/23 13:59 Last Infusion: 01/16/23 12:21 Dose: Infused Documented By: DAHLIA Heparin Sodium/Sodium Chloride (Heparin Sodium,Porcine/1/2ns) 25,000 unit in 250 mls @ 0 mls/hr IVCONT .Q0M [facility]; Protocol Last Admin: 01/16/23 11:18 Dose: 14 units/kg/hr, 11.45 mls/hr Documented By: DAHLIA Co-signed By: MARTHA Insulin Human Lispro (Insulin Lispro 100 Unit/Ml 3 Ml Vial) 0 unit SUBCUT QIDACHS [facility]; Protocol Last Admin: 01/16/23 12:01 Dose: 4 unit Documented By: DAHLIA Loratadine (Loratadine 10 Mg Tablet) 10 mg PO DAILY [facility] Last Admin: 01/16/23 09:29 Dose: 10 mg Documented By: DAHLIA Metoprolol Succinate (Metoprolol Succinate Er 50 Mg Tab.Er.24h) 50 mg PO DAILY [facility]; Protocol Last Admin: 01/16/23 09:28 Dose: 50 mg Documented By: DAHLIA Morphine Sulfate (Morphine Sulfate 2 Mg/Ml Cartridge) 1 mg IVPUSH ONCE ONE; Protocol Stop: 01/16/23 13:33 Nitroglycerin (Nitroglycerin 0.4 Mg Tab.Subl) 0.4 mg SUBLINGUAL Q5MX3 PRN PRN Reason: Chest Pain Ondansetron HCl (Ondansetron Hcl 4 Mg/2 Ml Vial) 4 mg IVPUSH Q8H PRN PRN Reason: Nausea Last Admin: 01/16/23 12:12 Dose: 4 mg Documented By: ADHLIA Sacubitril/Valsartan (Sacubitril/Valsartan 49/51 1 Tab Tablet) 1 tab PO BID [facility]; Protocol Last Admin: 01/16/23 09:27 Dose: 1 tab Documented By: DAHLIA Sodium Chloride (0.9 % Sodium Chloride Flush 3 Ml Syringe) 3 ml IVFLUSH QSHIFT [facility] Last Admin: 01/16/23 09:29 Dose: 3 ml Documented By: DAHLIA Tamsulosin HCl (Tamsulosin Hcl 0.4 Mg Capsule) 0.4 mg PO DAILY [facility] Last Admin: 01/16/23 09:28 Dose: 0.4 mg Documented By: DAHLIA Ticagrelor (Ticagrelor 90 Mg Tablet) 90 mg PO BID [facility] Last Admin: 01/16/23 09:28 Dose: 90 mg Documented By: DAHLIA Labs 01/16/23 13:42 01/16/23 08:10 Labs: Laboratory Results - last 24 hr 01/15/23 01/15/23 01/16/23 16:09 20:53 07:30 PT INR aPTT Heparin Protocol Anion Gap Estim Creat Clear Calc Estimated GFR POC Glucose 147 H 200 H 169 H Random Glucose Calcium B-Natriuretic Peptide 01/16/23 01/16/23 01/16/23 08:10 10:06 11:40 PT 13.0 INR 1.1 aPTT Heparin Protocol 30.9 L Anion Gap 16 Estim Creat Clear Calc 20.6 Estimated GFR 20 POC Glucose 226 H Random Glucose 159 H Calcium 9.7 B-Natriuretic Peptide 192 H Assessment and Plan (1) Acute coronary syndrome: Status: Acute (2) Acute on chronic clinical systolic heart failure: Status: Acute Plan acute CHF exacerbation -etiology unclear-likely systolic CHF. elevated BNP, as well as acute complaints of dyspnea, orthopnea and PND cxr seems fine has sob with exersion strict I&O around 7 liter neg,daily weight Has low EF and ICd. D Plan: stop Lasix drip -patient 7-8 liter neg ,moniter off diuretics today, continue Entresto and metoprolol once medical reconciliation done.hold torcemide -due to boderline bp/cr going up. diabetes: fs with low-dose sliding scale insulin -avoid coverage below fs 200mg/dl hold lantus,diabetic diet Nstemi/ history of CAD has intermittent chest pain ekg-seems similar trops elevated to 109 -next ordered repeat ekg- seems similar this afternoon. shoulder xray fine -but has hx of cervical instrumentation-added neck ct. continue Brilinta, aspirin statin, nitro patch,added ns 250 mlx 2 due to boderline bp ( hold bp meds/diuretics). added flexil ,prednisone 40 mg x1 dose-in case arthitis pain. ckd3:cr somewhatup from baseline due to overdiuresis cr baseline around 2, now slowly trending up to 2.9 hold lasixdrip moniter renal function. overweight: advised to loose weight. DVT prophylaxis:? Lovenox inpatient? need : CHF exacerbation? on iv lasix -i/o moniter renal function and electrolytes, now nstemi-need iv heparin and pt/ptt protocol, which can not be done outpatiently. Quality Stroke Does the patient have a stroke diagnosis?: No VTE Prior VTE?: No VTE Risk Level:: Medical - moderate - high VTE Device Contraindication: N/A - Device Ordered VTE Drug Contraindication: N/A - Med Ordered
[2023-01-16 13:48] LABS: Hemoglobin 15.1 g/dl (14.0-18.0); Mean Corpuscular HGB Conc 32.1 g/dl (31.0-36.0); Mean Corpuscular Hemoglobin 28.4 pg (27.0-33.0); Mean Corpuscular Volume 88.5 fL (80.0-98.0); Platelet Count 167 X10*3/uL (160-400); Red Blood Count 5.31 X10*6/uL (4.60-5.80); Red Cell Distribution Width 14.9 % (11.0-16.0); White Blood Count 10.2 X10*3/uL (4.8-10.8)
[2023-01-16 14:08] LABS: Troponin-I High Sensitivity 85.7 ng/L (<3.5-35.0)
[2023-01-16] MEDS: Morphine Sulfate 2 MG/ML CARTRIDGE 1 MG IVPUSH (14:10)
[2023-01-16] MEDS: Nitroglycerin 2 % Oint 1 GM Packet 0.5 INCH TRANSDERMA ×2 (14:10→19:53)
[2023-01-16] MEDS: Lidocaine 4 % Patch ADH..PATCH 1 PATCH TRANSDERMA (14:11)
[2023-01-16] MEDS: predniSONE 20 MG TABLET 40 MG PO (15:55)
[2023-01-16] MEDS: Cyclobenzaprine HCl 5 MG TABLET PO (15:55)
[2023-01-16 16:05] LABS: Glucose, Whole Blood 174 mg/dL (60-115)
[2023-01-16 17:33] LABS: PTT Heparin Drip 88.6 SEC (53-77.9)
[2023-01-16] MEDS: Atorvastatin Calcium 80 MG TABLET PO (19:53)
[2023-01-16 20:08] LABS: Glucose, Whole Blood 283 mg/dL (60-115)
[2023-01-17] VITALS (9 sets, daily range): BP systolic 93–121; BP diastolic 58–72; PULSE 57–85; RESP 16–20; TEMP 36.3–37; O2SAT 92–97
[2023-01-17 01:06] LABS: PTT Heparin Drip 85.1 SEC (53-77.9)
[2023-01-17 04:01] LABS: Glucose, Whole Blood 272 mg/dL (60-115)
--- NOTE | 2023-01-17 07:00 | CA_ITS ---
Transthoracic Echocardiogram Patient (Last, First, Middle): Jorge Winston, Gender: Male Date of : 1940 Age: 82 Procedure Date: 01/17/2023 Procedure Type: Transthoracic Echocardiogram Location: [facility] [place] Height: 172.72 cm Weight: 81.65 kg BSA: 1.95 m2 Heart Rate: bpm BP: 121 / 72 mmHg [employer] Concierge: SB Referring MD: Betsy Alejandre MD Symptoms: chest pain ,elvated troponins Study Quality: Adequate with contrast ECG Rhythm: Sinus Conclusions: - The left ventricular systolic function is severely decreased. The visually estimated ejection fraction is between 25-30%. - LAD territory wall motion abnormality. - No obvious valvular pathology seen on this study. Findings Left Ventricle Normal left ventricular cavity size. There is normal left ventricular wall thickness. The left ventricular systolic function is severely decreased. The visually estimated ejection fraction is between 25-30%. There is evidence of regional wall motion abnormalities. Evidence suggests grade I (mild) diastolic dysfunction. Wall Motion Rest Echo Findings The basal anteroseptal segment is hypokinetic. The apex, apical septum, mid inferoseptal, and mid anteroseptal segments are akinetic. Right Ventricle The right ventricle was not well visualized. Atria Both atria are normal in size. Aortic Valve There is a normal trileaflet aortic valve. There is no aortic valve stenosis. There is no aortic valve regurgitation. Mitral Valve The mitral valve appears normal. There is no mitral valve regurgitation. There is no mitral valve stenosis. Pulmonic Valve The pulmonic valve is likely normal. Tricuspid Valve Normal tricuspid valve structure. There is trace tricuspid valve regurgitation. Tricuspid regurgitation envelope is inadequate for calculation of right ventricular systolic pressure. Great Vessels The asc aorta is normal in size. Venous The inferior vena cava was not well visualized. The inferior vena cava is mildly dilated and collapses greater than 50% with inspiration. Pericardium/Pleural There is no evidence of pericardial effusion. Prior Study Comparison No significant change compared to prior study dated: 03/29/2022. Stated LVEF is different; but upon review of images, no significant change. Recommendations, Care & Conclusions No obvious valvular pathology seen on this study. Measurements 2D Linear Measurements IVSd: 0.99 0.6-0.9/0.6-1.0 cm LVIDd: 5.43 3.9-5.3/4.2-5.9 cm LVIDd Index: 2.78 2.4-3.2/2.2-3.1 cm/m2 LVIDs: 3.71 2.0-3.6 cm LVPWd: 0.94 0.7-1.1 cm LA Diam: 3.40 2.7-3.8/3.0-4.0 cm LAIDs Index: 1.74 1.5-2.3 cm/m2 LV Mass: 248.30 67-162/88-224 g LV Mass Index: 127.33 43-95/49-115 g/m2 LVOT Diam: 2.20 3.0+(-)1.3 cm 2D Systolic Function EF 4C: 56.10 >55% EF 2C: 32.40 >55% EF BiP: 46.20 >55% Mitral Valve MV Pk E: 0.66 MV PK A: 0.83 MV Decel Time: 197.00 E/A: 0.80 E'Lateral: 4.19 E'Medial: 3.71 E/E' Med: 17.70 E/E' Lat: 15.70 PHT: 58.00 MVA PHT: 3.79 Decel [place]: 3.33 Aortic Valve AoV Pk Oscar: 0.99 AoV Pk Grad: 4.00 LVOT LVOT Pk Oscar: 0.80 LVOT Mn Oscar: 0.52 LVOT VTI: 0.15 LVOT Pk Grad: 3.00 LVOT Mn Grad: 1.00 LVOT Diam: 2.20 LVOT Area: 3.80 Diastolic Function MV Pk E: 0.66 MV Pk A: 0.83 E/A: 0.80 E'Medial: 3.71 E/E' Med: 17.70 E' Laterial: 4.19 E/E' Lat: 15.70 Great Vessels Aorta Sinus of Valsalva: 4.20 2.0-3.5 cm Ao Asc: 3.30 2.1-3.4 cm Pulmonary Veins Pulm Vein S/D 2.00 Pulmonary Valve PV Pk Oscar: 0.72 Peak PV Grad: 2.00 Updated in Other Vendor System with Status of Final Cristobal Torres MD electronically signed on 01/17/2023 10:57:35 AM with status of Final
[2023-01-17 07:59] LABS: Glucose, Whole Blood 233 mg/dL (60-115)
[2023-01-17 08:23] LABS: Hematocrit 47.1 % (42.0-52.0); Hemoglobin 15.5 g/dl (14.0-18.0); Mean Corpuscular HGB Conc 32.9 g/dl (31.0-36.0); Mean Corpuscular Hemoglobin 29.2 pg (27.0-33.0); Mean Corpuscular Volume 88.9 fL (80.0-98.0); Mean Platelet Volume 10.9 fL (9.4-12.4); Platelet Count 166 X10*3/uL (160-400); Red Cell Distribution Width 14.8 % (11.0-16.0); White Blood Count 11.7 X10*3/uL (4.8-10.8)
[2023-01-17 08:31] LABS: INTERNATIONAL NORM RATIO 1.1 (0.9-1.1); Prothrombin Time 12.9 SEC (11.1-13.3)
[2023-01-17 08:34] LABS: PTT Heparin Drip 72.9 SEC (53-77.9)
[2023-01-17] MEDS: Insulin Lispro 100 UNIT/ML 3 ML VIAL SUBCUT ×5 (08:41→20:36)
[2023-01-17] MEDS: Nitroglycerin 2 % Oint 1 GM Packet 0.5 INCH TRANSDERMA ×3 (08:41→22:40)
[2023-01-17 08:42] LABS: Anion Gap 16 (12-20); Blood Urea Nitrogen 60 mg/dL (9-16); Calcium 9.7 mg/dL (8.4-10.2); Carbon Dioxide 27 mmol/L (22-29); Chloride 100 mmol/L (96-108); Creatinine Clr Calc Pharmacy 16.9; Estimated Glomerular Filt Rate 19; Glucose Random 289 mg/dL (60-115); Potassium 4.4 mmol/L (3.3-5.1); Sodium 139 mmol/L (135-145)
[2023-01-17] MEDS: Metoprolol Tartrate 12.5 MG HALFTAB PO ×2 (08:42→22:40)
[2023-01-17] MEDS: Lidocaine 4 % Patch ADH..PATCH 1 PATCH TRANSDERMA (08:42)
[2023-01-17] MEDS: Tamsulosin HCL 0.4 MG CAPSULE PO (08:42)
[2023-01-17] MEDS: Loratadine 10 MG TABLET PO (08:42)
[2023-01-17] MEDS: Ticagrelor 90 MG TABLET PO ×2 (08:42→20:46)
[2023-01-17] MEDS: Aspirin Enteric Coated 81 MG TABLET.DR PO (08:42)
[2023-01-17] MEDS: 0.9 % Sodium Chloride Flush 3 ML SYRINGE IVFLUSH ×2 (08:43→20:38)
[2023-01-17 08:47] LABS: B Type Natriuretic Peptide 282 pg/mL (<100)
[2023-01-17] MEDS: Fluticasone Propionate Nasal 16 GM SPRAY 1 SPRAY NOSTRIL-B ×2 (08:50→20:46)
--- NOTE | 2023-01-17 10:19 | PM.PNCARD ---
Subjective Subjective Date of Service: 01/17/23 Principal diagnosis: CHF, ACS Interval history: Patient apparently had some chest pain episode yesterday but then resolved completely. Now he is feeling better. Review of Systems Review of Systems Yes all other systems are reviewed and are negative Constitutional: Reports as per HPI and Reports no additional constitutional complaints Eyes: Reports as per HPI and Denies no additional eye complaints Denies system reviewed and no additional complaints, except as documented and Reports as per HPI Cardiovascular: Reports as per HPI, Reports no additional cardiovascular complaints, Denies acrocyanosis, Denies cool extremities, Denies chest pain, Denies leg edema, Denies lightheadedness, Denies palpitations and Denies dyspnea Respiratory: Reports as per HPI, Denies no additional respiratory complaints and Denies dyspnea Gastrointestinal: Reports as per HPI and Denies no additional gastrointestinal complaints Genitourinary: Reports no additional male genitourinary complaints and Reports as per HPI Musculoskeletal: Reports no additional musculoskeletal complaints and Reports as per HPI Skin/Breast: Reports system reviewed and no additional complaints, except as docu Reports system reviewed and no additional complaints, except as documented and Reports as per HPI Psychiatric: Reports no additional psychiatric complaints and Reports as per HPI Endocrine: Reports no additional endocrine complaints, Reports as per HPI and Denies palpitations Hematologic/Lymphatic: Reports no additional hematologic/lymphatic complaints and Reports as per HPI Allergic/Immunologic: Reports no additional allergic/immunologic complaints and Reports as per HPI Physical Exam Vital Signs: Last Vital Signs Temp 97.4 F 01/17/23 07:58 Pulse 63 01/17/23 07:58 Resp 19 01/17/23 07:58 BP 116/63 01/17/23 07:58 Pulse Ox 97 01/17/23 07:58 O2 Del Method Room Air 01/17/23 07:58 O2 Flow Rate 1 01/14/23 03:59 BMI result Body Mass Index 27.4 Const General: comfortable and no acute distress Orientation/consciousness: patient oriented x3 HEENT Other: Unremarkable Head: Yes normal to inspection Neck Neck: Yes normal visual inspection Chest Chest palpation & inspection: normal inspection of the chest Resp Auscultation: clear to auscultation bilaterally Cardio Palpation: normal PMI Heart sounds: S1 normal heart sound present, S2 normal heart sound present, no gallops, no murmurs and no rubs GI Palpation (GI): Soft to palpation Back/Spine/Pelvis Other: unremarkable Skin General skin exam: no rashes or lesions noted Neuro General: patient oriented x3 Extrem General: Yes normal to inspection Psych Mental Status: mental status grossly normal Objective Labs and Meds 01/17/23 07:48 01/17/23 07:48 Lab results: Laboratory Results - last 24 hr 01/16/23 01/16/23 01/16/23 10:06 11:40 13:42 WBC 10.2 RBC 5.31 Hgb 15.1 Hct 47.0 MCV 88.5 MCH 28.4 MCHC 32.1 RDW 14.9 Plt Count 167 MPV 10.0 Absolute Nucleated RBC 0.000 Nucleated RBC % (auto) 0.0 PT 13.0 INR 1.1 aPTT Heparin Protocol 30.9 L Sodium Potassium Chloride Carbon Dioxide Anion Gap BUN Creatinine Estim Creat Clear Calc Estimated GFR POC Glucose 226 H Random Glucose Calcium Troponin I High Sens 85.7 H B-Natriuretic Peptide 01/16/23 01/16/23 01/16/23 15:59 17:04 20:04 WBC RBC Hgb Hct MCV MCH MCHC RDW Plt Count MPV Absolute Nucleated RBC Nucleated RBC % (auto) PT INR aPTT Heparin Protocol 88.6 H D Sodium Potassium Chloride Carbon Dioxide Anion Gap BUN Creatinine Estim Creat Clear Calc Estimated GFR POC Glucose 174 H 283 H Random Glucose Calcium Troponin I High Sens B-Natriuretic Peptide 01/17/23 01/17/23 01/17/23 00:52 03:57 07:48 WBC 11.7 H RBC 5.30 Hgb 15.5 Hct 47.1 MCV 88.9 MCH 29.2 MCHC 32.9 RDW 14.8 Plt Count 166 MPV 10.9 Absolute Nucleated RBC 0.000 Nucleated RBC % (auto) 0.0 PT 12.9 INR 1.1 aPTT Heparin Protocol 85.1 H 72.9 Sodium 139 Potassium 4.4 Chloride 100 Carbon Dioxide 27 Anion Gap 16 BUN 60 H Creatinine 3.20 H Estim Creat Clear Calc 16.9 Estimated GFR 19 POC Glucose 272 H Random Glucose 289 H Calcium 9.7 Troponin I High Sens B-Natriuretic Peptide 282 H 01/17/23 07:53 WBC RBC Hgb Hct MCV MCH MCHC RDW Plt Count MPV Absolute Nucleated RBC Nucleated RBC % (auto) PT INR aPTT Heparin Protocol Sodium Potassium Chloride Carbon Dioxide Anion Gap BUN Creatinine Estim Creat Clear Calc Estimated GFR POC Glucose 233 H Random Glucose Calcium Troponin I High Sens B-Natriuretic Peptide Imaging Radiologist's impression: Impressions Shoulder X-Ray 01/16/23 11:37 IMPRESSION: Somewhat limited exam. No definite acute fracture or subluxation Soft Tissue Neck CT 01/16/23 15:27 IMPRESSION: 1. Mild narrowing of pharyngeal airway but no obstructive etiology seen. 2. 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 3. Disc prosthesis at C3-C4 through C6-C7 disc level for fusion with ventral plates and screws for stabilization. 4. Mild degenerative changes left shoulder Progress Note: A&P Assessment and plan (1) Acute on chronic clinical systolic heart failure: Status: Acute (2) ICD (implantable cardioverter-defibrillator) in place: Status: Acute (3) Coronary artery disease: Status: Acute (4) NSTEMI (non-ST elevated myocardial infarction): Status: Acute (5) JADEN (acute kidney injury): Status: Acute Plan Echocardiogram from March of this year shows LVEF of 35-40% with LAD wall motion abnormality. Grade 3 diastolic dysfunction. Myocardial perfusion imaging study from April of this year shows LAD territory infarct with milly-infarct ischemia in the inferolateral wall. Currently treated for acute CHF but there is a concern for over-diuresis. His kidney function is also quite abnormal. Slight troponin leak. Suspect more of a demand related type 2 event rather than type 1 event. Considering the high creatinine, there is significantly increased risk of contrast induced nephropathy with catheterization. He is currently chest pain-free. Can keep on IV heparin drip, nitroglycerin, beta-blockers, dual antiplatelet therapy. Will continue to monitor. Will review echocardiogram. Consider Nephrology consult. Discussed with Dr. Alejandre. Time Spent With Patient Time: Total time managing care of this patient today ____ minutes. Progress Note: Quality Stroke Does the patient have a stroke diagnosis?: No Procedures Date of Service Date of Service: 01/17/23
[2023-01-17 10:55] LABS: Glucose, Whole Blood 369 mg/dL (60-115)
--- NOTE | 2023-01-17 11:11 | MHC.CM.PN ---
EMR reviewed and per MD rounds, pt is not medically cleared for D/C today due to treatment and monitoring of CHF exacerbation and NSTEMI. CM will continue to follow.
[2023-01-17] MEDS: Heparin Sodium,Porcine/1/2NS 25,000 UNIT/250 ML IV.SOLN 8.18 UNIT IVCONT (11:44)
--- NOTE | 2023-01-17 14:34 | P.CONNP_ITS ---
History of Present Illness Reason for Consult Consult date: 01/17/23 Reason for consult: JADEN Chief Complaint Chief complaint: CHF EXECERBATION History of Present Illness Narrative: 81 yo M with hx of CAD, CKD, diabetes, CHF, hyperlipidemia, BPH, presents the hospital with ongoing progressive shortness of breath from few weeks months-he went to his cardiology appointment and was sent for admission because of CHF exacerbation: As per the patient patient is having difficulty breathing with walking up to the bathroom, had Orthopnea and PND. Patient says she is compliant with his medications, noting significant salt or fried food. He has history of chronic disease with a baseline creatinine of around 2.0 mg/dL. 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 During this admission he was diuresed and creatinine is bumped up to 3.4. Cardiology is considering coronary angiogram Review of Systems Constitutional: Denies fever(s) and Denies weight loss Cardiovascular: Denies chest pain Respiratory: Denies cough and Denies hemoptysis Gastrointestinal: Denies abdominal pain, Denies diarrhea and Denies nausea Musculoskeletal: Denies back pain Denies focal weakness PMFSH Past Medical History Medical History Diabetes History of CAD (coronary artery disease) CHF (congestive heart failure) Acute exacerbation of CHF (congestive heart failure) CKD (chronic kidney disease) Surgical History Surgical History History of heart artery stent Social History Social History Household Members: Family Housing: Apartment Do you presently have visiting nurse or other home services: Yes Alcohol intake: former Patient Tobacco Use Status: Former Tobacco user Smoked in Last 30 Days: No Use of substances other than those prescribed or required for medical reasons: No Currently Displaying Signs/Symptoms of Drug Intoxication Withdrawal: No Have you been hit, kicked, punched, or otherwise hurt by someone within the past year? If so, by whom?: No Do you feel safe in your current relationship?: No Current Relationship Is there a partner from a previous relationship who is making you feel unsafe now?: No Are you made to feel afraid or neglected: No Advance Directives: No Advance Directives Information Provided: No Do you have thoughts of harming others: None Do you have a plan to hurt others: No Plan Recently lost weight without trying: Unsure How much weight loss: Unsure Eating poorly because of decreased appetite: No Nutrition screen score: 4 Nutrition Risks: No Nutritional Risk service: No Current occupational status: retired Meds Allergies Allergy/AdvReac Type Severity Reaction Status Date / Time No Known Allergies Allergy Verified 01/13/23 15:00 [No Known Allergies*] Active Medications: Current Medications Acetaminophen (Acetaminophen 325 Mg Tablet) 650 mg PO BID PRN PRN Reason: Pain Last Admin: 01/16/23 05:11 Dose: 650 mg Aspirin (Aspirin Enteric Coated 81 Mg Tablet.Dr) 81 mg PO DAILY [facility] Last Admin: 01/17/23 08:42 Dose: 81 mg Atorvastatin Calcium (Atorvastatin Calcium 80 Mg Tablet) 80 mg PO BEDTIME [facility] Last Admin: 01/16/23 19:53 Dose: 80 mg Cyclobenzaprine HCl (Cyclobenzaprine Hcl 5 Mg Tablet) 5 mg PO TID PRN PRN Reason: Pain, Mild (Pain Scale 1-3) Last Admin: 01/16/23 15:55 Dose: 5 mg Dextrose (Dextrose 50 % 25 Gm/50 Ml Syringe) 25 gm IVPUSH Q15M PRN; Protocol PRN Reason: per Hypoglycemia Standing Ord. Fluticasone Propionate (Fluticasone Propionate Nasal 16 Gm [place]) 1 spray NOSTRIL-B BID [facility] Last Admin: 01/17/23 08:50 Dose: 1 spray Glucose (Glucose Gel 15 Gm Gel..Gram.) 15 gm PO Q15M PRN; Protocol PRN Reason: per Hypoglycemia Standing Ord. Heparin Sodium (Porcine) (Heparin Sodium,Porcine 5,000 Unit/Ml Vial) 3,300 unit 40 unit/kg (3300 unit) IVPUSH PROTOCOL BOLUS PRN; Protocol PRN Reason: 40 unit/kg - Heparin Protocol Heparin Sodium (Porcine) (Heparin Sodium,Porcine 5,000 Unit/Ml Vial) 6,500 unit 80 unit/kg (6500 unit) IVPUSH PROTOCOL BOLUS PRN; Protocol PRN Reason: 80 unit/kg - Heparin Protocol Heparin Sodium/Sodium Chloride (Heparin Sodium,Porcine/1/2ns) 25,000 unit in 250 mls @ 0 mls/hr IVCONT .Q0M [facility]; Protocol Last Admin: 01/17/23 11:44 Dose: 10 units/kg/hr, 8.18 mls/hr Insulin Human Lispro (Insulin Lispro 100 Unit/Ml 3 Ml Vial) 0 unit SUBCUT QIDACHS [facility]; Protocol Last Admin: 01/17/23 11:43 Dose: 10 unit Lidocaine (Lidocaine 4 % Patch Adh..Patch) 1 patch TRANSDERMA DAILY [facility]; Protocol Last Admin: 01/17/23 08:42 Dose: 1 patch Loratadine (Loratadine 10 Mg Tablet) 10 mg PO DAILY [facility] Last Admin: 01/17/23 08:42 Dose: 10 mg Metoprolol Succinate (Metoprolol Succinate Er 50 Mg Tab.Er.24h) 50 mg PO DAILY [facility]; Protocol Last Admin: 01/16/23 09:28 Dose: 50 mg Metoprolol Tartrate (Metoprolol Tartrate 12.5 Mg Halftab) 12.5 mg PO BID [facility]; Protocol Last Admin: 01/17/23 08:42 Dose: 12.5 mg Nitroglycerin (Nitroglycerin 2 % Oint 1 Gm Packet) 0.5 inch TRANSDERMA RQ6H WHILE AWAKE [facility] Last Admin: 01/17/23 08:41 Dose: 0.5 inch Ondansetron HCl (Ondansetron Hcl 4 Mg/2 Ml Vial) 4 mg IVPUSH Q8H PRN PRN Reason: Nausea Last Admin: 01/16/23 12:12 Dose: 4 mg Sodium Chloride (0.9 % Sodium Chloride Flush 3 Ml Syringe) 3 ml IVFLUSH QSHIFT [facility] Last Admin: 01/17/23 08:43 Dose: 3 ml Tamsulosin HCl (Tamsulosin Hcl 0.4 Mg Capsule) 0.4 mg PO DAILY [facility] Last Admin: 01/17/23 08:42 Dose: 0.4 mg Ticagrelor (Ticagrelor 90 Mg Tablet) 90 mg PO BID [facility] Last Admin: 01/17/23 08:42 Dose: 90 mg Home Medications Medication Instructions Recorded Confirmed Last Taken Type acetaminophen 650 mg 650 mg PO BID PRN Pain 03/26/22 01/13/23 11/30/22 History tablet,extended release aspirin 81 mg tablet,delayed 81 mg PO DAILY 03/26/22 01/13/23 11/30/22 07:30 History release fluticasone propionate 50 1 spray intranasal BID 03/26/22 01/13/2311/30/23 History mcg/actuation nasal spray,suspension loratadine 10 mg tablet 10 mg PO DAILY 03/26/22 01/13/23 11/30/22 07:30 History tamsulosin 0.4 mg capsule 1 cap PO DAILY 03/26/22 01/13/23 11/30/22 07:30 History atorvastatin 80 mg tablet 80 mg PO BEDTIME 04/09/22 01/13/23 11/30/22 07:30 History gabapentin 100 mg capsule 100 mg PO TID 04/09/22 01/13/23 11/30/22 07:30 History glucose 4 gram chewable tablet 4 g PO ONCE PRN LOW GLUCOSE 04/09/22 01/13/23 Unknown History (Dex4 Glucose) torsemide 10 mg tablet 10 mg PO DAILY 04/09/22 01/13/23 11/30/22 07:30 History omeprazole 20 mg capsule,delayed 20 mg PO DAILY 07/13/22 01/13/23 11/30/22 07:30 History release insulin aspart U-100 100 unit/mL 0 sliding scale dose subcut TID 01/13/23 01/13/23 Unknown History (3 mL) subcutaneous pen (Novolog FlexPen U-100 Insulin aspart) insulin glargine 100 unit/mL (3 20 unit subcut BEDTIME 01/13/23 01/13/23 Unknown History mL) subcutaneous pen (Lantus Solostar U-100 Insulin) ticagrelor 60 mg tablet (Brilinta) 60 mg PO BID 01/13/23 01/13/23 Unknown History Physical Exam Vital Signs: Last Vital Signs Temp 98.0 F 01/17/23 11:18 Pulse 66 01/17/23 11:18 Resp 20 01/17/23 11:18 BP 110/64 01/17/23 11:18 Pulse Ox 95 01/17/23 11:18 O2 Del Method Room Air 01/17/23 11:18 O2 Flow Rate 1 01/14/23 03:59 BMI result Body Mass Index 27.4 Const General: comfortable; No acute distress Orientation/consciousness: patient oriented x3 Eyes General: appearance normal, both eyes and all related structures Visual Xie: normal visual xie by confrontation Neck Neck: Yes supple and Yes no JVD Resp Effort & Inspection: normal respiratory effort and respiratory effort not decreased Auscultation: rhonchi Cardio Palpation: no palpable S3 and no palpable S4 Heart sounds: no rubs GI Inspection: Yes normal to inspection Palpation (GI): Soft to palpation Percussion: Yes normal to percussion Auscultation: normal bowel sounds General: Yes no CVA tenderness Back/Spine/Pelvis Back: no CVA tenderness Skin General skin exam: no petechiae and no purpura Neuro General: patient oriented x3 and no focal motor deficits Extrem General: No clubbing and No edema Results Lab Results 01/17/23 07:48 01/17/23 07:48 Lab results: Chemistry 01/15/23 01/16/23 01/17/23 08:33 08:10 07:48 Sodium 141 139 139 Potassium 4.0 4.1 4.4 Carbon Dioxide 27 26 27 BUN 41 H 49 H 60 H Creatinine 2.48 H 2.95 H 3.20 H Calcium 9.9 D 9.7 9.7 Hematology 01/16/23 01/17/23 13:42 07:48 WBC 10.2 11.7 H Hgb 15.1 15.5 Plt Count 167 166 Assessment and Plan (1) JADEN (acute kidney injury): Status: Acute (2) Acute on chronic clinical systolic heart failure: Status: Acute (3) CKD (chronic kidney disease) stage 3, GFR 30-59 ml/min: Qualifiers: Chronic kidney disease stage 3 subtype: stage 3b (GFR 30-44) Qualified Code(s): N18.32 - Chronic kidney disease, stage 3b Status: Acute Plan Elderly man with a history of congestive heart failure has stage IIIB chronic disease with a baseline creatinine of around 2.0 mg/dL. He was admitted with shortness of breath and has been diuresed well. Currently has sustained acute kidney injury due to hypoperfusion in the setting of over- diuresis. Urine studies have been pretty bland without any significant hematuria or proteinuria. CT scan done for about 6 months ago showed normal kidneys without any obstruction. I would recommend to hold diuretics for the next day or so and reassess renal function. Keep on low-sodium diet. He is at high risk for contrast nephropathy given the new episode of JADEN. Once renal function returns to baseline we will re-evaluate and optimize for coronary angiogram. She will follow along with the team Procedures Date of Service Date of Service: 01/17/23
[2023-01-17 14:57] LABS: PTT Heparin Drip 51.7 SEC (53-77.9)
[2023-01-17] MEDS: Heparin Sodium,Porcine 5,000 UNIT/ML VIAL 3300 UNIT IVPUSH (15:04)
--- NOTE | 2023-01-17 16:36 | HO.PM.IMPN ---
Subjective Subjective Date of Service: 01/17/23 Interval History: chest pain Review of Systems chets pain improving denies any sob arm pain and rom also improivng Physical Exam Vital Signs: Vital Signs: Last Vital Signs Temp 98.6 F 01/17/23 15:22 Pulse 148 H 01/17/23 15:22 Resp 16 01/17/23 15:22 BP 107/61 01/17/23 15:22 Pulse Ox 95 01/17/23 15:22 O2 Del Method Room Air 01/17/23 15:22 O2 Flow Rate 1 01/14/23 03:59 BMI result Body Mass Index 27.4 Appearance: Alert.? Oriented X3.? cvs: rrr, [id number] . res: faisal enrty fair ,no rales or wheezing abd: no rebound or guarding ,nt, bs present. ext pulses present , no cyanosis , neuro: axo3 , nonfocal. Objective Data Active Medications Acetaminophen (Acetaminophen 325 Mg Tablet) 650 mg PO BID PRN PRN Reason: Pain Last Admin: 01/16/23 05:11 Dose: 650 mg Documented By: ARIAN Aspirin (Aspirin Enteric Coated 81 Mg Tablet.) 81 mg PO DAILY [facility] Last Admin: 01/17/23 08:42 Dose: 81 mg Documented By: DAHLIA Atorvastatin Calcium (Atorvastatin Calcium 80 Mg Tablet) 80 mg PO BEDTIME [facility] Last Admin: 01/16/23 19:53 Dose: 80 mg Documented By: GENNA Cyclobenzaprine HCl (Cyclobenzaprine Hcl 5 Mg Tablet) 5 mg PO TID PRN PRN Reason: Pain, Mild (Pain Scale 1-3) Last Admin: 01/16/23 15:55 Dose: 5 mg Documented By: DAHLIA Dextrose (Dextrose 50 % 25 Gm/50 Ml Syringe) 25 gm IVPUSH Q15M PRN; Protocol PRN Reason: per Hypoglycemia Standing Ord. Fluticasone Propionate (Fluticasone Propionate Nasal 16 Gm [place]) 1 spray NOSTRIL-B BID [facility] Last Admin: 01/17/23 08:50 Dose: 1 spray Documented By: DAHLIA Glucose (Glucose Gel 15 Gm Gel..Gram.) 15 gm PO Q15M PRN; Protocol PRN Reason: per Hypoglycemia Standing Ord. Heparin Sodium (Porcine) (Heparin Sodium,Porcine 5,000 Unit/Ml Vial) 3,300 unit 40 unit/kg (3300 unit) IVPUSH PROTOCOL BOLUS PRN; Protocol PRN Reason: 40 unit/kg - Heparin Protocol Last Admin: 01/17/23 15:04 Dose: 3,300 unit Documented By: DAHLIA Heparin Sodium (Porcine) (Heparin Sodium,Porcine 5,000 Unit/Ml Vial) 6,500 unit 80 unit/kg (6500 unit) IVPUSH PROTOCOL BOLUS PRN; Protocol PRN Reason: 80 unit/kg - Heparin Protocol Heparin Sodium/Sodium Chloride (Heparin Sodium,Porcine/1/2ns) 25,000 unit in 250 mls @ 0 mls/hr IVCONT .Q0M [facility]; Protocol Last Titration: 01/17/23 15:03 Dose: 12 units/kg/hr, 9.82 mls/hr Documented By: DAHLIA Co-signed By: ABHI Insulin Human Lispro (Insulin Lispro 100 Unit/Ml 3 Ml Vial) 0 unit SUBCUT QIDACHS [facility]; Protocol Last Admin: 01/17/23 11:43 Dose: 10 unit Documented By: DAHLIA Lidocaine (Lidocaine 4 % Patch Adh..Patch) 1 patch TRANSDERMA DAILY [facility]; Protocol Last Admin: 01/17/23 08:42 Dose: 1 patch Documented By: DAHLIA Loratadine (Loratadine 10 Mg Tablet) 10 mg PO DAILY [facility] Last Admin: 01/17/23 08:42 Dose: 10 mg Documented By: DAHLIA Metoprolol Succinate (Metoprolol Succinate Er 50 Mg Tab.Er.24h) 50 mg PO DAILY [facility]; Protocol Last Admin: 01/16/23 09:28 Dose: 50 mg Documented By: DAHLIA Metoprolol Tartrate (Metoprolol Tartrate 12.5 Mg Halftab) 12.5 mg PO BID [facility]; Protocol Last Admin: 01/17/23 08:42 Dose: 12.5 mg Documented By: DAHLIA Nitroglycerin (Nitroglycerin 2 % Oint 1 Gm Packet) 0.5 inch TRANSDERMA RQ6H WHILE AWAKE [facility] Last Admin: 01/17/23 15:06 Dose: 0.5 inch Documented By: DAHLIA Ondansetron HCl (Ondansetron Hcl 4 Mg/2 Ml Vial) 4 mg IVPUSH Q8H PRN PRN Reason: Nausea Last Admin: 01/16/23 12:12 Dose: 4 mg Documented By: DAHLIA Sodium Chloride (0.9 % Sodium Chloride Flush 3 Ml Syringe) 3 ml IVFLUSH QSHIFT [facility] Last Admin: 01/17/23 08:43 Dose: 3 ml Documented By: DAHLIA Tamsulosin HCl (Tamsulosin Hcl 0.4 Mg Capsule) 0.4 mg PO DAILY [facility] Last Admin: 01/17/23 08:42 Dose: 0.4 mg Documented By: DAHLIA Ticagrelor (Ticagrelor 90 Mg Tablet) 90 mg PO BID [facility] Last Admin: 01/17/23 08:42 Dose: 90 mg Documented By: DAHLIA Labs 01/17/23 07:48 01/17/23 07:48 Labs: Laboratory Results - last 24 hr 01/16/23 01/16/23 01/17/23 17:04 20:04 00:52 MCV MCH MCHC RDW Plt Count MPV Absolute Nucleated RBC Nucleated RBC % (auto) PT INR aPTT Heparin Protocol 88.6 H D 85.1 H Anion Gap Estim Creat Clear Calc Estimated GFR POC Glucose 283 H Random Glucose Calcium B-Natriuretic Peptide 01/17/23 01/17/23 01/17/23 03:57 07:48 07:53 MCV 88.9 MCH 29.2 MCHC 32.9 RDW 14.8 Plt Count 166 MPV 10.9 Absolute Nucleated RBC 0.000 Nucleated RBC % (auto) 0.0 PT 12.9 INR 1.1 aPTT Heparin Protocol 72.9 Anion Gap 16 Estim Creat Clear Calc 16.9 Estimated GFR 19 POC Glucose 272 H 233 H Random Glucose 289 H Calcium 9.7 B-Natriuretic Peptide 282 H 01/17/23 01/17/23 10:52 14:38 MCV MCH MCHC RDW Plt Count MPV Absolute Nucleated RBC Nucleated RBC % (auto) PT INR aPTT Heparin Protocol 51.7 L D Anion Gap Estim Creat Clear Calc Estimated GFR POC Glucose 369 H* Random Glucose Calcium B-Natriuretic Peptide Assessment and Plan (1) CKD (chronic kidney disease) stage 3, GFR 30-59 ml/min: Status: Acute (2) JADEN (acute kidney injury): Status: Acute (3) NSTEMI (non-ST elevated myocardial infarction): Status: Acute Plan acute CHF exacerbation -etiology unclear-likely systolic CHF. elevated BNP, as well as acute complaints of dyspnea, orthopnea and PND cxr seems fine has sob with exersion strict I&O around 7 liter neg,daily weight Has low EF and ICd. D Plan: stop Lasix drip -patient 7 liter neg ,moniter off diuretics today, hold Entresto ,hold torcemide -due to boderline bp/cr going up.added low dose metropolol. diabetes: fs with low-dose sliding scale insulin -avoid coverage below fs 200mg/dl hold lantus,diabetic diet Nstemi/ history of CAD has intermittent chest pain ekg-seems similar trops elevated to 109 -next ordered repeat ekg- seems similar this afternoon. shoulder xray fine -but has hx of cervical instrumentation-added neck ct. continue Brilinta, aspirin statin, nitro patch,added ns 250 mlx 2 due to boderline bp ( hold bp meds/diuretics). added flexil ,prednisone 40 mg x1 dose-in case arthitis pain. ckd3:cr somewhatup from baseline due to overdiuresis cr baseline around 2, now slowly trending up to 3.2 hold lasix moniter renal function. renal eval added . left shoulder Athritis: neck ct noted-no neck pain, shoulder pain also improving Urine pain medication overweight: advised to loose weight. DVT prophylaxis:? Lovenox inpatient? need : CHF exacerbation? on iv lasix -i/o moniter renal function and electrolytes, now nstemi-need iv heparin and pt/ptt protocol, which can not be done outpatiently. Quality Stroke Does the patient have a stroke diagnosis?: No VTE Prior VTE?: No VTE Risk Level:: Medical - moderate - high VTE Device Contraindication: N/A - Device Ordered VTE Drug Contraindication: N/A - Med Ordered
[2023-01-17 16:37] LABS: Glucose, Whole Blood 261 mg/dL (60-115)
--- NOTE | 2023-01-17 20:32 | PC.NURSE ---
Assumed care of pt 19:15. Pt BP soft 93/67. Pt asymptomatic, denies chest pain, palpitations. Covering Dr. Memo Tamayo written orders to hold scheduled nitro paste and po metoprolol and recheck in an hour or two to reassess. Will continue to monitor.
[2023-01-17] MEDS: ondansetron HCL 4 MG/2 ML VIAL IVPUSH (20:36)
[2023-01-17] MEDS: oxyCODONE HCl Immed Release 5 MG TABLET PO (20:46)
[2023-01-17] MEDS: Atorvastatin Calcium 80 MG TABLET PO (20:46)
[2023-01-17] MEDS: Acetaminophen 325 MG TABLET 650 MG PO (20:46)
[2023-01-17 20:50] LABS: Glucose, Whole Blood 257 mg/dL (60-115)
[2023-01-17 21:28] LABS: PTT Heparin Drip 85.8 SEC (53-77.9)
--- NOTE | 2023-01-17 22:38 | PC.NURSE ---
Dr. Tamayo notified of 2129 BP and vitals reassess; written order to give scheduled nitro paste and po metoprolol.
[2023-01-18] VITALS (8 sets, daily range): BP systolic 90–111; BP diastolic 50–59; PULSE 62–86; RESP 18–20; TEMP 36.1–37.1; O2SAT 97–100
[2023-01-18 04:11] LABS: PTT Heparin Drip 53.7 SEC (53-77.9)
[2023-01-18 08:04] LABS: Glucose, Whole Blood 253 mg/dL (60-115)
[2023-01-18] MEDS: Aspirin Enteric Coated 81 MG TABLET.DR PO (08:25)
[2023-01-18] MEDS: Tamsulosin HCL 0.4 MG CAPSULE PO (08:25)
[2023-01-18] MEDS: Metoprolol Tartrate 12.5 MG HALFTAB PO ×2 (08:26→21:20)
[2023-01-18] MEDS: Nitroglycerin 2 % Oint 1 GM Packet 0.5 INCH TRANSDERMA (08:26)
[2023-01-18] MEDS: Loratadine 10 MG TABLET PO (08:26)
[2023-01-18] MEDS: Ticagrelor 90 MG TABLET PO ×2 (08:26→21:18)
[2023-01-18] MEDS: Lidocaine 4 % Patch ADH..PATCH 1 PATCH TRANSDERMA (08:27)
[2023-01-18] MEDS: Insulin Lispro 100 UNIT/ML 3 ML VIAL SUBCUT ×4 (08:27→21:18)
[2023-01-18] MEDS: Fluticasone Propionate Nasal 16 GM SPRAY 1 SPRAY NOSTRIL-B ×2 (08:29→21:23)
--- NOTE | 2023-01-18 10:08 | PM.PNCARD ---
Subjective Subjective Date of Service: 01/18/23 Principal diagnosis: CHF, ACS Interval history: He states he is doing okay. He apparently got 1 second duration chest pains, but nothing prolonged. Does not sound anginal in nature. Review of Systems Review of Systems Yes all other systems are reviewed and are negative Constitutional: Reports as per HPI and Reports no additional constitutional complaints Eyes: Reports as per HPI and Denies no additional eye complaints Denies system reviewed and no additional complaints, except as documented and Reports as per HPI Cardiovascular: Reports as per HPI, Reports no additional cardiovascular complaints, Denies acrocyanosis, Denies cool extremities, Denies chest pain, Denies leg edema, Denies lightheadedness, Denies palpitations and Denies dyspnea Respiratory: Reports as per HPI, Denies no additional respiratory complaints and Denies dyspnea Gastrointestinal: Reports as per HPI and Denies no additional gastrointestinal complaints Genitourinary: Reports no additional male genitourinary complaints and Reports as per HPI Musculoskeletal: Reports no additional musculoskeletal complaints and Reports as per HPI Skin/Breast: Reports system reviewed and no additional complaints, except as docu Reports system reviewed and no additional complaints, except as documented and Reports as per HPI Psychiatric: Reports no additional psychiatric complaints and Reports as per HPI Endocrine: Reports no additional endocrine complaints, Reports as per HPI and Denies palpitations Hematologic/Lymphatic: Reports no additional hematologic/lymphatic complaints and Reports as per HPI Allergic/Immunologic: Reports no additional allergic/immunologic complaints and Reports as per HPI Physical Exam Vital Signs: Last Vital Signs Temp 97 F 01/18/23 07:11 Pulse 86 01/18/23 07:11 Resp 18 01/18/23 07:11 BP 103/59 L 01/18/23 07:11 Pulse Ox 98 01/18/23 07:11 O2 Del Method Room Air 01/18/23 07:11 O2 Flow Rate 1 01/14/23 03:59 BMI result Body Mass Index 27.4 Const General: comfortable and no acute distress Orientation/consciousness: patient oriented x3 HEENT Other: Unremarkable Head: Yes normal to inspection Neck Neck: Yes normal visual inspection Chest Chest palpation & inspection: normal inspection of the chest Resp Auscultation: clear to auscultation bilaterally Cardio Palpation: normal PMI Heart sounds: S1 normal heart sound present, S2 normal heart sound present, no gallops, no murmurs and no rubs GI Palpation (GI): Soft to palpation Back/Spine/Pelvis Other: unremarkable Skin General skin exam: no rashes or lesions noted Neuro General: patient oriented x3 Extrem General: Yes normal to inspection Psych Mental Status: mental status grossly normal Objective Labs and Meds 01/17/23 07:48 01/17/23 07:48 Lab results: Laboratory Results - last 24 hr 01/17/23 01/17/23 01/17/23 10:52 14:38 16:33 aPTT Heparin Protocol 51.7 L D POC Glucose 369 H* 261 H 01/17/23 01/17/23 01/18/23 20:03 20:51 03:49 aPTT Heparin Protocol 85.8 H D 53.7 D POC Glucose 257 H 01/18/23 07:53 aPTT Heparin Protocol POC Glucose 253 H Progress Note: A&P Assessment and plan (1) Acute on chronic clinical systolic heart failure: Status: Acute (2) ICD (implantable cardioverter-defibrillator) in place: Status: Acute (3) Coronary artery disease: Status: Acute (4) NSTEMI (non-ST elevated myocardial infarction): Status: Acute (5) JADEN (acute kidney injury): Status: Acute Plan Echocardiogram from March of this year shows LVEF of 35-40% with LAD wall motion abnormality. Grade 3 diastolic dysfunction. In the repeat echocardiogram for as today, LVEF 25-30% but down comparison of images they are more or less the same. Myocardial perfusion imaging study from April of this year shows LAD territory infarct with milly-infarct ischemia in the inferolateral wall. Currently treated for acute CHF but there is a concern for over-diuresis. His kidney function is also quite abnormal. Slight troponin leak. Suspect more of a demand related type 2 event rather than type 1 event. Considering the high creatinine, there is significantly increased risk of contrast induced nephropathy with catheterization. He is currently chest pain-free. Overall, suggests rather conservative care with IV heparin for 48 hours. Continue dual antiplatelet therapy. Beta-blockers, nitrates. Nephrology consult reviewed. Discussed with Dr. Alejandre. Time Spent With Patient Time: Total time managing care of this patient today ____ minutes. Progress Note: Quality Stroke Does the patient have a stroke diagnosis?: No Procedures Date of Service Date of Service: 01/18/23
[2023-01-18 10:29] LABS: Hematocrit 44.5 % (42.0-52.0); Hemoglobin 14.5 g/dl (14.0-18.0)
[2023-01-18 10:41] LABS: PTT Heparin Drip 52.4 SEC (53-77.9)
[2023-01-18 10:49] LABS: Anion Gap 17 (12-20); Blood Urea Nitrogen 74 mg/dL (9-16); Carbon Dioxide 23 mmol/L (22-29); Chloride 98 mmol/L (96-108); Creatinine Clr Calc Pharmacy 15.4; Estimated Glomerular Filt Rate 17; Glucose Random 304 mg/dL (60-115); Sodium 134 mmol/L (135-145)
[2023-01-18] MEDS: Heparin Sodium,Porcine 5,000 UNIT/ML VIAL 3300 UNIT IVPUSH (11:30)
[2023-01-18] MEDS: Acetaminophen 325 MG TABLET 650 MG PO (11:30)
[2023-01-18 11:55] LABS: Glucose, Whole Blood 299 mg/dL (60-115)
--- NOTE | 2023-01-18 13:34 | HO.PM.IMPN ---
Subjective Subjective Date of Service: 01/18/23 Interval History: chest pain ,boderline bp Review of Systems chest pain improving denies any sob or abd pain Physical Exam Vital Signs: Vital Signs: Last Vital Signs Temp 97.0 F 01/18/23 11:34 Pulse 62 01/18/23 11:34 Resp 20 01/18/23 11:34 BP 90/51 L 01/18/23 11:34 Pulse Ox 98 01/18/23 11:34 O2 Del Method Room Air 01/18/23 11:34 O2 Flow Rate 1 01/14/23 03:59 BMI result Body Mass Index 27.4 Appearance: Alert.? Oriented X3.? cvs: rrr, [id number] . res: faisal enrty fair ,no rales or wheezing abd: no rebound or guarding ,nt, bs present. ext pulses present , no cyanosis , neuro: axo3 , nonfocal. Objective Data Active Medications Acetaminophen (Acetaminophen 325 Mg Tablet) 650 mg PO BID PRN PRN Reason: Pain Last Admin: 01/18/23 11:30 Dose: 650 mg Documented By: DAHLIA Aspirin (Aspirin Enteric Coated 81 Mg Tablet.) 81 mg PO DAILY [facility] Last Admin: 01/18/23 08:25 Dose: 81 mg Documented By: DAHLIA Atorvastatin Calcium (Atorvastatin Calcium 80 Mg Tablet) 80 mg PO BEDTIME [facility] [place] Last Admin: 01/17/23 20:46 Dose: 80 mg Documented By: MAHESH Cyclobenzaprine HCl (Cyclobenzaprine Hcl 5 Mg Tablet) 5 mg PO TID PRN PRN Reason: Pain, Mild (Pain Scale 1-3) Last Admin: 01/16/23 15:55 Dose: 5 mg Documented By: DAHLIA Dextrose (Dextrose 50 % 25 Gm/50 Ml Syringe) 25 gm IVPUSH Q15M PRN; Protocol PRN Reason: per Hypoglycemia Standing Ord. Fluticasone Propionate (Fluticasone Propionate Nasal 16 Gm Pearblossom) 1 spray NOSTRIL-B BID [facility] [place] Last Admin: 01/18/23 08:29 Dose: 1 spray Documented By: DAHLIA Glucose (Glucose Gel 15 Gm Gel..Gram.) 15 gm PO Q15M PRN; Protocol PRN Reason: per Hypoglycemia Standing Ord. Heparin Sodium (Porcine) (Heparin Sodium,Porcine 5,000 Unit/Ml Vial) 3,300 unit 40 unit/kg (3300 unit) IVPUSH PROTOCOL BOLUS PRN; Protocol PRN Reason: 40 unit/kg - Heparin Protocol Last Admin: 01/18/23 11:30 Dose: 3,300 unit Documented By: DAHLIA Heparin Sodium (Porcine) (Heparin Sodium,Porcine 5,000 Unit/Ml Vial) 6,500 unit 80 unit/kg (6500 unit) IVPUSH PROTOCOL BOLUS PRN; Protocol PRN Reason: 80 unit/kg - Heparin Protocol Heparin Sodium/Sodium Chloride (Heparin Sodium,Porcine/1/2ns) 25,000 unit in 250 mls @ 0 mls/hr IVCONT .Q0M [facility]; Protocol Last Titration: 01/18/23 11:07 Dose: 12 units/kg/hr, 9.82 mls/hr Documented By: DAHLIA Co-signed By: MARTHA Insulin Human Lispro (Insulin Lispro 100 Unit/Ml 3 Ml Vial) 0 unit SUBCUT QIDACHS [facility] [place]; Protocol Last Admin: 01/18/23 11:40 Dose: 8 unit Documented By: DAHLIA Lidocaine (Lidocaine 4 % Patch Adh..Patch) 1 patch TRANSDERMA DAILY [facility] [place]; Protocol Last Admin: 01/18/23 08:27 Dose: 1 patch Documented By: DAHLIA Loratadine (Loratadine 10 Mg Tablet) 10 mg PO DAILY [facility] [place] Last Admin: 01/18/23 08:26 Dose: 10 mg Documented By: DAHLIA Metoprolol Succinate (Metoprolol Succinate Er 50 Mg Tab.Er.24h) 50 mg PO DAILY [facility] [place]; Protocol Last Admin: 01/16/23 09:28 Dose: 50 mg Documented By: DAHLIA Metoprolol Tartrate (Metoprolol Tartrate 12.5 Mg Halftab) 12.5 mg PO BID [facility] [place]; Protocol Last Admin: 01/18/23 08:26 Dose: 12.5 mg Documented By: DAHLIA Nitroglycerin (Nitroglycerin 2 % Oint 1 Gm Packet) 0.5 inch TRANSDERMA RQ6H WHILE AWAKE [facility] [place] Last Admin: 01/18/23 08:26 Dose: 0.5 inch Documented By: DAHLIA Ondansetron HCl (Ondansetron Hcl 4 Mg/2 Ml Vial) 4 mg IVPUSH Q8H PRN PRN Reason: Nausea Last Admin: 01/17/23 20:36 Dose: 4 mg Documented By: MAHESH Oxycodone HCl (Oxycodone Hcl Immed Release 5 Mg Tablet) 5 mg PO Q6H PRN PRN Reason: Pain, Severe (Pain Scale 7-10) Last Admin: 01/17/23 20:46 Dose: 5 mg Documented By: MAHESH Sodium Chloride (0.9 % Sodium Chloride Flush 3 Ml Syringe) 3 ml IVFLUSH QSHIFT [facility] [place] Last Admin: 01/18/23 08:35 Dose: Not Given Documented By: DAHLIA Non-Admin Reason: IV Running Tamsulosin HCl (Tamsulosin Hcl 0.4 Mg Capsule) 0.4 mg PO DAILY [facility] [place] Last Admin: 01/18/23 08:25 Dose: 0.4 mg Documented By: DAHLIA Ticagrelor (Ticagrelor 90 Mg Tablet) 90 mg PO BID [facility] [place] Last Admin: 01/18/23 08:26 Dose: 90 mg Documented By: DAHLIA Labs 01/18/23 09:59 01/18/23 09:59 Labs: Laboratory Results - last 24 hr 01/17/23 01/17/23 01/17/23 14:38 16:33 20:03 aPTT Heparin Protocol 51.7 L D Anion Gap Estim Creat Clear Calc Estimated GFR POC Glucose 261 H 257 H Random Glucose Calcium 01/17/23 01/18/23 01/18/23 20:51 03:49 07:53 aPTT Heparin Protocol 85.8 H D 53.7 D Anion Gap Estim Creat Clear Calc Estimated GFR POC Glucose 253 H Random Glucose Calcium 01/18/23 01/18/23 09:59 11:33 aPTT Heparin Protocol 52.4 L Anion Gap 17 Estim Creat Clear Calc 15.4 Estimated GFR 17 POC Glucose 299 H Random Glucose 304 H Calcium 9.0 D Assessment and Plan (1) NSTEMI (non-ST elevated myocardial infarction): Status: Acute (2) JADEN (acute kidney injury): Status: Acute Plan acute CHF exacerbation -etiology unclear-likely systolic CHF. elevated BNP, as well as acute complaints of dyspnea, orthopnea and PND cxr seems fine has sob with exersion strict I&O around 7 liter neg,daily weight Has low EF and ICd. D Plan: stop Lasix drip -patient around 7 liter neg ,moniter off diuretics today, hold Entresto ,hold torcemide -due to boderline bp/cr going up, low dose metropolol. boderline bp: possible sec to htn meds and diuresis hold bp meds/off lasix last 2 days diabetes: fs with low-dose sliding scale insulin -avoid coverage below fs 200mg/dl hold lantus,diabetic diet Nstemi/ history of CAD has intermittent chest pain ekg-seems similar trops elevated to 109 -next ordered repeat ekg- seems similar this afternoon. shoulder xray fine -but has hx of cervical instrumentation-added neck ct. continue Brilinta, aspirin statin, nitro patch,added ns 250 mlx 2 due to boderline bp ( hold bp meds/diuretics). added flexil ,prednisone 40 mg x1 dose-in case arthitis pain. ckd3:cr somewhatup from baseline due to overdiuresis cr baseline around 2, now slowly trending up to 3.5 hold lasix moniter renal function. renal eval added . left shoulder Athritis: neck ct noted-no neck pain, shoulder pain also improving Urine pain medication overweight: advised to loose weight. DVT prophylaxis:? Lovenox inpatient? need : jaden on ckd in chf setting -renal function worseing -needed renal function and electrolyte monitoring, BP monitoring borderline BP and medication adjustment, moniter now nstemi-need iv heparin and pt/ptt protocol, which can not be done elsewhere. Quality Stroke Does the patient have a stroke diagnosis?: No VTE Prior VTE?: No VTE Risk Level:: Medical - moderate - high VTE Device Contraindication: N/A - Device Ordered VTE Drug Contraindication: N/A - Med Ordered
[2023-01-18] MEDS: Insulin Glargine,Hum.rec.anlog 100 UNIT/ML 10 ML VIAL 10 UNIT SUBCUT (14:42)
[2023-01-18] MEDS: Heparin Sodium,Porcine 5,000 UNIT/ML VIAL 5000 UNIT SUBCUT (14:42)
[2023-01-18 16:17] LABS: Glucose, Whole Blood 233 mg/dL (60-115)
[2023-01-18] MEDS: 0.9 % Sodium Chloride Flush 3 ML SYRINGE IVFLUSH ×2 (16:28→21:19)
[2023-01-18 18:08] LABS: PTT Heparin Drip 42.2 SEC (53-77.9)
--- NOTE | 2023-01-18 18:51 | P.PNNP_ITS ---
Subjective Subjective Date of Service: 01/18/23 Principal diagnosis: CHF, ACS Interval history: Events noted; All recent data reviewed; D/W hospitalist Physical Exam 2 Vital Signs: Vital Signs: Last Vital Signs Temp 97.2 F 01/18/23 15:33 Pulse 62 01/18/23 15:33 Resp 18 01/18/23 15:33 BP 102/50 L 01/18/23 15:33 Pulse Ox 100 01/18/23 15:33 O2 Del Method Room Air 01/18/23 15:33 O2 Flow Rate 1 01/14/23 03:59 BMI result Body Mass Index 27.4 Const: General: no acute distress Orientation/consciousness: patient oriented x3 Eyes: EOM: EOMs intact bilaterally Neck: Neck: Yes supple Resp: Auscultation: diminished lung sounds Cardio: Rate: regular rate GI: Palpation (GI): Soft to palpation Neuro: General: patient oriented x3 and moves all extremities Objective Data Labs 01/18/23 09:59 01/18/23 09:59 Labs: Laboratory Results - last 24 hr 01/17/23 01/17/23 01/18/23 20:03 20:51 03:49 Hgb Hct aPTT Heparin Protocol 85.8 H D 53.7 D Sodium Potassium Chloride Carbon Dioxide Anion Gap BUN Creatinine Estim Creat Clear Calc Estimated GFR POC Glucose 257 H Random Glucose Calcium 01/18/23 01/18/23 01/18/23 07:53 09:59 11:33 Hgb 14.5 Hct 44.5 aPTT Heparin Protocol 52.4 L Sodium 134 L Potassium 4.0 Chloride 98 Carbon Dioxide 23 Anion Gap 17 BUN 74 H Creatinine 3.51 H Estim Creat Clear Calc 15.4 Estimated GFR 17 POC Glucose 253 H 299 H Random Glucose 304 H Calcium 9.0 D 01/18/23 01/18/23 16:06 17:47 Hgb Hct aPTT Heparin Protocol 42.2 L Sodium Potassium Chloride Carbon Dioxide Anion Gap BUN Creatinine Estim Creat Clear Calc Estimated GFR POC Glucose 233 H Random Glucose Calcium Procedures Date of Service Date of Service: 01/18/23 Assessment & Plan Assessment and plan (1) JADEN (acute kidney injury): Status: Acute Plan JADEN likely due to tubular injury Has CKD 4 at baseline Entresto on hold;On Heparin At risk for contrast nephropathy Cardiology following; Ordered Immunofixation No indication for renal replacement C/W current supportive management Labs AM; Shall closely F/U Progress Note: Quality Stroke Does the patient have a stroke diagnosis?: No
[2023-01-18 20:17] LABS: Glucose, Whole Blood 173 mg/dL (60-115)
[2023-01-18] MEDS: Atorvastatin Calcium 80 MG TABLET PO (21:18)
[2023-01-19] MEDS: Heparin Sodium,Porcine 5,000 UNIT/ML VIAL 5000 UNIT SUBCUT ×2 (01:21→13:41)
[2023-01-19 03:28] VITALS: BP 108/64; PULSE 68; RESP 18; TEMP 37.1; O2SAT 95
[2023-01-19 04:05] LABS: Creatinine Urine 137.53 mg/dL; Protein/Creatinine Ratio, Ur 0.08 (<0.2); Total Protein Urine Random 11 mg/dL (<12)
[2023-01-19 07:37] VITALS: BP 121/62; PULSE 69; RESP 20; TEMP 36.4; O2SAT 97
[2023-01-19 07:56] LABS: Glucose, Whole Blood 136 mg/dL (60-115)
[2023-01-19 08:25] LABS: Anion Gap 15 (12-20); Blood Urea Nitrogen 74 mg/dL (9-16); Carbon Dioxide 23 mmol/L (22-29); Chloride 102 mmol/L (96-108); Creatinine Clr Calc Pharmacy 18.2; Estimated Glomerular Filt Rate 20; Glucose Random 146 mg/dL (60-115); Potassium 4.3 mmol/L (3.3-5.1); Sodium 136 mmol/L (135-145)
[2023-01-19 08:31] LABS: Parathyroid Hormone Intact 439.1 pg/mL (8.7-77.1)
[2023-01-19 08:46] LABS: Vitamin D 25-OH Total 24.9 ng/mL (>30)
[2023-01-19] MEDS: Insulin Glargine,Hum.rec.anlog 100 UNIT/ML 10 ML VIAL 10 UNIT SUBCUT (08:53)
[2023-01-19] MEDS: Tamsulosin HCL 0.4 MG CAPSULE PO (08:54)
[2023-01-19] MEDS: Aspirin Enteric Coated 81 MG TABLET.DR PO (08:54)
[2023-01-19] MEDS: Loratadine 10 MG TABLET PO (08:54)
[2023-01-19] MEDS: Metoprolol Tartrate 12.5 MG HALFTAB PO ×2 (08:54→21:22)
[2023-01-19] MEDS: oxyCODONE HCl Immed Release 5 MG TABLET PO ×3 (08:54→21:48)
[2023-01-19] MEDS: Cyclobenzaprine HCl 5 MG TABLET PO ×2 (08:55→15:07)
[2023-01-19] MEDS: Acetaminophen 325 MG TABLET 650 MG PO (08:55)
[2023-01-19] MEDS: Ticagrelor 90 MG TABLET PO ×2 (08:56→21:24)
[2023-01-19] MEDS: Lidocaine 4 % Patch ADH..PATCH 1 PATCH TRANSDERMA (08:56)
[2023-01-19] MEDS: 0.9 % Sodium Chloride Flush 3 ML SYRINGE IVFLUSH ×2 (08:58→13:41)
[2023-01-19] MEDS: Fluticasone Propionate Nasal 16 GM SPRAY 1 SPRAY NOSTRIL-B ×2 (08:59→21:48)
[2023-01-19 09:01] VITALS: BMI 27.9
[2023-01-19 11:18] VITALS: BP 108/62; PULSE 65; RESP 20; TEMP 36.3; O2SAT 96
[2023-01-19 11:39] LABS: Glucose, Whole Blood 218 mg/dL (60-115)
[2023-01-19] MEDS: Insulin Lispro 100 UNIT/ML 3 ML VIAL SUBCUT ×2 (12:09→21:23)
--- NOTE | 2023-01-19 12:35 | HO.PM.IMPN ---
Subjective Subjective Date of Service: 01/19/23 Interval History: neck pain Physical Exam Vital Signs: Vital Signs: Last Vital Signs Temp 97.4 F 01/19/23 11:18 Pulse 65 01/19/23 11:18 Resp 20 01/19/23 11:18 BP 108/62 01/19/23 11:18 Pulse Ox 96 01/19/23 11:18 O2 Del Method Room Air 01/19/23 11:18 O2 Flow Rate 1 01/14/23 03:59 BMI result Body Mass Index 27.9 Const: General: no acute distress Orientation/consciousness: patient oriented x3 Eyes: EOM: EOMs intact bilaterally Neck: Neck: Yes supple Resp: Auscultation: diminished lung sounds Cardio: Rate: regular rate GI: Palpation (GI): Soft to palpation Neuro: General: patient oriented x3 and moves all extremities Objective Data Active Medications Acetaminophen (Acetaminophen 325 Mg Tablet) 650 mg PO BID PRN PRN Reason: Pain Last Admin: 01/19/23 08:55 Dose: 650 mg Documented By: TOMMY Aspirin (Aspirin Enteric Coated 81 Mg Tablet.) 81 mg PO DAILY [facility] Last Admin: 01/19/23 08:54 Dose: 81 mg Documented By: TOMMY Atorvastatin Calcium (Atorvastatin Calcium 80 Mg Tablet) 80 mg PO BEDTIME [facility] Last Admin: 01/18/23 21:18 Dose: 80 mg Documented By: NICOLE Cyclobenzaprine HCl (Cyclobenzaprine Hcl 5 Mg Tablet) 5 mg PO TID PRN PRN Reason: Pain, Mild (Pain Scale 1-3) Last Admin: 01/19/23 08:55 Dose: 5 mg Documented By: TOMMY Dextrose (Dextrose 50 % 25 Gm/50 Ml Syringe) 25 gm IVPUSH Q15M PRN; Protocol PRN Reason: per Hypoglycemia Standing Ord. Fluticasone Propionate (Fluticasone Propionate Nasal 16 Gm Gabbs) 1 spray NOSTRIL-B BID [facility] Last Admin: 01/19/23 08:59 Dose: 1 spray Documented By: TOMMY Glucose (Glucose Gel 15 Gm Gel..Gram.) 15 gm PO Q15M PRN; Protocol PRN Reason: per Hypoglycemia Standing Ord. Heparin Sodium (Porcine) (Heparin Sodium,Porcine 5,000 Unit/Ml Vial) 5,000 unit SUBCUT Q12H [facility] Last Admin: 01/19/23 01:21 Dose: 5,000 unit Documented By: KATELIN Insulin Glargine (Insulin Glargine,Hum.Rec.Anlog 100 Unit/Ml 10 Ml Vial) 10 unit SUBCUT DAILY [facility] Last Admin: 01/19/23 08:53 Dose: 10 unit Documented By: TOMMY Insulin Human Lispro (Insulin Lispro 100 Unit/Ml 3 Ml Vial) 0 unit SUBCUT QIDACHS [facility]; Protocol Last Admin: 01/19/23 12:09 Dose: 4 unit Documented By: TOMMY Lidocaine (Lidocaine 4 % Patch Adh..Patch) 1 patch TRANSDERMA DAILY [facility]; Protocol Last Admin: 01/19/23 08:56 Dose: 1 patch Documented By: TOMMY Loratadine (Loratadine 10 Mg Tablet) 10 mg PO DAILY [facility] Last Admin: 01/19/23 08:54 Dose: 10 mg Documented By: TOMMY Metoprolol Tartrate (Metoprolol Tartrate 12.5 Mg Halftab) 12.5 mg PO BID [facility]; Protocol Last Admin: 01/19/23 08:54 Dose: 12.5 mg Documented By: TOMMY Ondansetron HCl (Ondansetron Hcl 4 Mg/2 Ml Vial) 4 mg IVPUSH Q8H PRN PRN Reason: Nausea Last Admin: 01/17/23 20:36 Dose: 4 mg Documented By: MAHESH Oxycodone HCl (Oxycodone Hcl Immed Release 5 Mg Tablet) 5 mg PO Q6H PRN PRN Reason: Pain, Severe (Pain Scale 7-10) Last Admin: 01/19/23 08:54 Dose: 5 mg Documented By: TOMMY Sodium Chloride (0.9 % Sodium Chloride Flush 3 Ml Syringe) 3 ml IVFLUSH QSHIFT [facility] Last Admin: 01/19/23 08:58 Dose: 3 ml Documented By: TOMMY Tamsulosin HCl (Tamsulosin Hcl 0.4 Mg Capsule) 0.4 mg PO DAILY [facility] Last Admin: 01/19/23 08:54 Dose: 0.4 mg Documented By: TOMMY Ticagrelor (Ticagrelor 90 Mg Tablet) 90 mg PO BID [facility] Last Admin: 01/19/23 08:56 Dose: 90 mg Documented By: TOMMY Labs 01/18/23 09:59 01/19/23 07:28 Labs: Laboratory Results - last 24 hr 01/18/23 01/18/23 01/18/23 16:06 17:47 20:13 Hold Purple Top aPTT Heparin Protocol 42.2 L Anion Gap Estim Creat Clear Calc Estimated GFR POC Glucose 233 H 173 H Random Glucose Calcium 25-OH Vitamin D Total PTH Intact U Random Total Protein Urine Creatinine Protein/Creatinin Ratio 01/19/23 01/19/23 01/19/23 07:28 07:40 11:15 Hold Purple Top SEE NOTE aPTT Heparin Protocol Anion Gap 15 Estim Creat Clear Calc 18.2 Estimated GFR 20 POC Glucose 136 H 218 H Random Glucose 146 H Calcium 9.0 25-OH Vitamin D Total 24.9 L PTH Intact 439.1 H U Random Total Protein Urine Creatinine Protein/Creatinin Ratio 01/19/23 Unknown Hold Purple Top aPTT Heparin Protocol Anion Gap Estim Creat Clear Calc Estimated GFR POC Glucose Random Glucose Calcium 25-OH Vitamin D Total PTH Intact U Random Total Protein 11 Urine Creatinine 137.53 Protein/Creatinin Ratio 0.08 Assessment and Plan (1) NSTEMI (non-ST elevated myocardial infarction): Status: Acute (2) JADEN (acute kidney injury): Status: Acute Plan 82M PMH CAD, CKD III, chronic systolic chf, hld, bph, DM, presented with sob and shoulder pain acute on chronic systolic chf -7L, now appears dry, lasix held boderline bp: possible sec to htn meds and diuresis holding antihypertensives and diuretics diabetes: fs with low-dose sliding scale insulin -avoid coverage below fs 200mg/dl hold lantus,diabetic diet Nstemi/ history of CAD has intermittent chest pain continue Brilinta, aspirin statin, s/p 48hr iv heparin jaden on ckd3:cr somewhatup from baseline due to overdiuresis holding bp meds and diuretics moniter renal function. left shoulder Athritis: neck ct noted-no neck pain, shoulder pain also improving pain medication DVT prophylaxis:? hep sq reason for continued hospitalization:monitoring renal function, better pain cotnrol needed Quality Stroke Does the patient have a stroke diagnosis?: No VTE Prior VTE?: No VTE Risk Level:: Medical - moderate - high VTE Device Contraindication: N/A - Device Ordered VTE Drug Contraindication: N/A - Med Ordered
--- NOTE | 2023-01-19 12:54 | MHC.CM.PN ---
Patient is not yet medically cleared for dc r/t renal function and pain management. Home/resume services is the goal and CM will continue to follow.
--- NOTE | 2023-01-19 13:41 | P.PNNP_ITS ---
Subjective Subjective Date of Service: 01/19/23 Principal diagnosis: CHF, ACS Interval history: Seen and examined this AM. Has neck pain. All recent lab data reviewed Physical Exam 2 Vital Signs: Vital Signs: Last Vital Signs Temp 97.4 F 01/19/23 11:18 Pulse 65 01/19/23 11:18 Resp 20 01/19/23 11:18 BP 108/62 01/19/23 11:18 Pulse Ox 96 01/19/23 11:18 O2 Del Method Room Air 01/19/23 11:18 O2 Flow Rate 1 01/14/23 03:59 BMI result Body Mass Index 27.9 Const: General: comfortable and no acute distress O rientation/consciousness: patient oriented x3 HEENT: Head: Yes normocephalic Mouth: Normal oral and palatal mucosa present Eyes: EOM: EOMs intact bilaterally Neck: Neck: Yes supple Resp: Auscultation: clear to auscultation bilaterally Cardio: Jugular venous distension: no JVD Rate: regular rate GI: Palpation (GI): Soft to palpation Auscultation: normal bowel sounds : General: Yes no CVA tenderness Back/Spine/Pelvis: Back: no CVA tenderness Skin: General skin exam: no rashes or lesions noted Neuro: General: patient oriented x3 and moves all extremities Extrem: General: Yes no pedal edema Objective Data Labs 01/18/23 09:59 01/19/23 07:28 Labs: Laboratory Results - last 24 hr 01/18/23 01/18/23 01/18/23 16:06 17:47 20:13 Hold Purple Top aPTT Heparin Protocol 42.2 L Sodium Potassium Chloride Carbon Dioxide Anion Gap BUN Creatinine Estim Creat Clear Calc Estimated GFR POC Glucose 233 H 173 H Random Glucose Calcium 25-OH Vitamin D Total PTH Intact U Random Total Protein Urine Creatinine Protein/Creatinin Ratio 01/19/23 01/19/23 01/19/23 07:28 07:40 11:15 Hold Purple Top SEE NOTE aPTT Heparin Protocol Sodium 136 Potassium 4.3 Chloride 102 Carbon Dioxide 23 Anion Gap 15 BUN 74 H Creatinine 2.96 H Estim Creat Clear Calc 18.2 Estimated GFR 20 POC Glucose 136 H 218 H Random Glucose 146 H Calcium 9.0 25-OH Vitamin D Total 24.9 L PTH Intact 439.1 H U Random Total Protein Urine Creatinine Protein/Creatinin Ratio 01/19/23 Unknown Hold Purple Top aPTT Heparin Protocol Sodium Potassium Chloride Carbon Dioxide Anion Gap BUN Creatinine Estim Creat Clear Calc Estimated GFR POC Glucose Random Glucose Calcium 25-OH Vitamin D Total PTH Intact U Random Total Protein 11 Urine Creatinine 137.53 Protein/Creatinin Ratio 0.08 Procedures Date of Service Date of Service: 01/19/23 Assessment & Plan Assessment and plan (1) JADEN (acute kidney injury): Status: Acute Plan JADEN likely due to tubular injury Has CKD 4 at baseline Entresto on hold;Had been on Heparin At risk for contrast nephropathy Cardiology following;Renal fn better No indication for renal replacement C/W current supportive management Labs AM; Shall closely F/U Progress Note: Quality Stroke Does the patient have a stroke diagnosis?: No
[2023-01-19 15:41] VITALS: BP 92/50; PULSE 69; RESP 17; TEMP 35.8; O2SAT 99
[2023-01-19 16:31] LABS: Glucose, Whole Blood 132 mg/dL (60-115)
[2023-01-19 19:05] VITALS: BP 90/50; PULSE 69; RESP 17; TEMP 35.9; O2SAT 99
[2023-01-19 20:32] LABS: Glucose, Whole Blood 186 mg/dL (60-115)
[2023-01-19] MEDS: Atorvastatin Calcium 80 MG TABLET PO (21:23)
[2023-01-20] VITALS: PULSE 67; RESP 18; TEMP 36.1; O2SAT 97
[2023-01-20 00:49] VITALS: BP 100/58
[2023-01-20] MEDS: Heparin Sodium,Porcine 5,000 UNIT/ML VIAL 5000 UNIT SUBCUT (00:54)
[2023-01-20] MEDS: 0.9 % Sodium Chloride Flush 3 ML SYRINGE IVFLUSH ×2 (00:54→08:30)
[2023-01-20 03:52] VITALS: BP 100/62; PULSE 66; RESP 18; TEMP 36.1; O2SAT 95
[2023-01-20] MEDS: oxyCODONE HCl Immed Release 5 MG TABLET PO (03:57)
[2023-01-20 06:40] LABS: Hematocrit 43.7 % (42.0-52.0); Hemoglobin 14.1 g/dl (14.0-18.0); Mean Corpuscular HGB Conc 32.3 g/dl (31.0-36.0); Mean Corpuscular Hemoglobin 28.3 pg (27.0-33.0); Mean Corpuscular Volume 87.8 fL (80.0-98.0); Mean Platelet Volume 10.1 fL (9.4-12.4); Platelet Count 183 X10*3/uL (160-400); Red Blood Count 4.98 X10*6/uL (4.60-5.80); Red Cell Distribution Width 14.6 % (11.0-16.0); White Blood Count 7.5 X10*3/uL (4.8-10.8)
[2023-01-20 07:02] LABS: Anion Gap 15 (12-20); Blood Urea Nitrogen 75 mg/dL (9-16); Calcium 9.2 mg/dL (8.4-10.2); Carbon Dioxide 25 mmol/L (22-29); Chloride 103 mmol/L (96-108); Creatinine Clr Calc Pharmacy 24.2; Estimated Glomerular Filt Rate 26; Glucose Fasting 147 mg/dL (60-99); Potassium 4.8 mmol/L (3.3-5.1); Sodium 138 mmol/L (135-145)
[2023-01-20 07:55] VITALS: BP 105/64; PULSE 81; RESP 18; TEMP 36.4; O2SAT 98
[2023-01-20 08:01] LABS: Glucose, Whole Blood 169 mg/dL (60-115)
[2023-01-20] MEDS: Insulin Lispro 100 UNIT/ML 3 ML VIAL SUBCUT ×2 (08:30→11:57)
[2023-01-20] MEDS: Insulin Glargine,Hum.rec.anlog 100 UNIT/ML 10 ML VIAL 10 UNIT SUBCUT (08:30)
[2023-01-20] MEDS: Aspirin Enteric Coated 81 MG TABLET.DR PO (08:31)
[2023-01-20] MEDS: Tamsulosin HCL 0.4 MG CAPSULE PO (08:31)
[2023-01-20] MEDS: Ticagrelor 90 MG TABLET PO (08:31)
[2023-01-20] MEDS: Lidocaine 4 % Patch ADH..PATCH 1 PATCH TRANSDERMA (08:31)
[2023-01-20] MEDS: Loratadine 10 MG TABLET PO (08:31)
[2023-01-20] MEDS: Fluticasone Propionate Nasal 16 GM SPRAY 1 SPRAY NOSTRIL-B (08:32)
[2023-01-20] MEDS: Metoprolol Tartrate 12.5 MG HALFTAB PO (08:32)
[2023-01-20] MEDS: Acetaminophen 325 MG TABLET 650 MG PO (08:36)
--- NOTE | 2023-01-20 09:52 | PM.DS ---
DS: Providers Provider Date of Service: 01/20/23 Date of admission: 01/13/23 17:33 Primary care physician: Amara Zimmerman MD Consults: 01/13/23 19:04 Consult to Cardiology Routine Consulting Provider: [facility] [place] [facility] Reason for consultation: chf execerbation Has provider been notified: No 01/17/23 09:42 Consult to Nephrology Routine Consulting Provider: [facility] [place] [facility] Reason for consultation: Jaden on ckd Has provider been notified: No DS: Diagnosis Discharge Diagnosis (1) JADEN (acute kidney injury): Status: Acute DS: Summary Hospital Course Hospital Course: from initial hpi: 81 yo M with hx of CAD, CKD, diabetes, CHF, hyperlipidemia, BPH, presents the hospital with ongoing progressive shortness of breath from few weeks months-he went to his cardiology appointment and was sent for admission because of CHF exacerbation: As per the patient patient is having difficulty breathing with walking up to the bathroom, hasOrthopnea and PND. Patient says she is compliant with his medications, noting significant salt or fried food. He knows he gained weight but he does not know how much. From chart review it seems like at least gained 4-5 kg weight. He complain of complaining of shortness of breath, progressive for few weeks, lower extremity edema. Reports compliance with his torsemide. Denies any fever no chills, no cough, no palpitations, no urinary symptoms and numbness tingling or weakness. Denies any new complaint of chest pain or abdominal pain or fever or chills or nausea or vomiting Denies any weakness or numbness. Lab imaging EKG reviewed: EKG seems similar to before, troponin x1 seems similar to before also. Mild hyperkalemia, C creatinine is around 1.87 XR/XR chest 2V IMPRESSION: 1. New pacer electrode with its tip in the right ventricle. 2. Borderline cardiomegaly. hospital course: Patient was admitted for acute on chronic systolic CHF. Was given IV Lasix and diuresed about 7 L. course was then complicated by borderline low blood pressures and acute kidney injury on CKD 3, likely from over-diuresis. His Entresto and diuretics were held and creatinine and blood pressure improved. On discharge will hold Entresto and torsemide, can restart torsemide maintenance in several days. For diabetes was continue insulin. Patient also noted to have history of coronary disease and NSTEMI. Was seen by Cardiology recommended conservative management with dual antiplatelet, statin and 48 hours of IV heparin. Patient is now feeling better will be discharged home. Time Attestation Discharge coordination time: Greater than 30 minutes Quality: Safe Use of Opioids Does Pt have an Active Cancer Diagnosis on the Problem List?: No Quality: Stroke Does the patient have a stroke diagnosis?: No Physical Exam Vital Signs: Vital Signs: Last Vital Signs Temp 97.5 F 01/20/23 07:55 Pulse 81 01/20/23 07:55 Resp 18 01/20/23 07:55 BP 105/64 01/20/23 07:55 Pulse Ox 98 01/20/23 07:55 O2 Del Method Room Air 01/20/23 07:55 O2 Flow Rate 1 01/14/23 03:59 BMI result Body Mass Index 27.9 Const: General: comfortable and no acute distress Orientation/consciousness: patient oriented x3 HEENT: Head: Yes normocephalic Mouth: Normal oral and palatal mucosa present Eyes: EOM: EOMs intact bilaterally Neck: Neck: Yes supple Resp: Auscultation: clear to auscultation bilaterally Cardio: Jugular venous distension: no JVD Rate: regular rate GI: Palpation (GI): Soft to palpation Auscultation: normal bowel sounds : General: Yes no CVA tenderness Back/Spine/Pelvis: Back: no CVA tenderness Skin: General skin exam: no rashes or lesions noted Neuro: General: patient oriented x3 and moves all extremities Extrem: General: Yes no pedal edema DS: Data Data Completed and Pending Labs on day of discharge: Laboratory Results - last 24 hr 01/19/23 01/19/23 01/19/23 11:15 16:26 20:19 WBC RBC Hgb Hct MCV MCH MCHC RDW Plt Count MPV Absolute Nucleated RBC Nucleated RBC % (auto) Sodium Potassium Chloride Carbon Dioxide Anion Gap BUN Creatinine Estim Creat Clear Calc Estimated GFR POC Glucose 218 H 132 H 186 H Fasting Glucose Calcium 01/20/23 01/20/23 06:10 07:54 WBC 7.5 RBC 4.98 Hgb 14.1 Hct 43.7 MCV 87.8 MCH 28.3 MCHC 32.3 RDW 14.6 Plt Count 183 MPV 10.1 Absolute Nucleated RBC 0.000 Nucleated RBC % (auto) 0.0 Sodium 138 Potassium 4.8 Chloride 103 Carbon Dioxide 25 Anion Gap 15 BUN 75 H Creatinine 2.43 H Estim Creat Clear Calc 24.2 Estimated GFR 26 POC Glucose 169 H Fasting Glucose 147 H Calcium 9.2 Discharge Plan Discharge Anticipated Discharge Date/Time: 01/20/23 09:49 Patient Disposition: Home, Self-Care Discharge Diagnosis: chf, nstemi, jaden Referrals: Amara Zimmerman MD [Primary Care Provider] - 1 Week Discharge Medications: Continued aspirin 81 mg Tablet,Delayed Release (Dr/Ec) 81 mg PO DAILY acetaminophen 650 mg tablet extended release 650 mg PO BID PRN (Reason: Pain) tamsulosin 0.4 mg capsule 1 cap PO DAILY fluticasone propionate 50 mcg/actuation spray,suspension 1 spray intranasal BID loratadine 10 mg Tablet 10 mg PO DAILY atorvastatin 80 mg tablet 80 mg PO BEDTIME gabapentin 100 mg capsule 100 mg PO TID omeprazole 20 mg capsule,delayed release(DR/EC) 20 mg PO DAILY insulin aspart U-100 [Novolog FlexPen U-100 Insulin] 100 unit/mL (3 mL) insulin pen 0 sliding scale dose subcut TID insulin glargine [Lantus Solostar U-100 Insulin] 100 unit/mL (3 mL) insulin pen 20 unit subcut BEDTIME glucose [Dex4 Glucose] 4 gram tablet,chewable 4 g PO ONCE PRN (Reason: LOW GLUCOSE) Rx Instructions: until symptoms of low blood sugar are controlled metoprolol succinate [Toprol XL] 50 mg tablet extended release 24 hr 50 mg PO DAILY Qty: 30 5RF Brilinta 60 mg tablet 60 mg PO BID Held torsemide 10 mg tablet 10 mg PO DAILY Hold Instructions: Resume on 01/24/23. Discontinued Entresto 49-51 mg tablet 1 tab PO BID Qty: 60 5RF Discharge Orders: Discharge Order (Routine); Ordered 01/20/23 Ordered By: Alexander Hilliard Diet: Advance to usual diet Activity on Discharge: As tolerated Stand Alone Forms: Patient Portal Discharge page Care Plan Goals: recovery Health Concerns: chf, jaden Plan of Treatment: hodl entresto, hold torsemide until 01/25, follow up with nephro and cardio Assessment: see above
--- NOTE | 2023-01-20 10:34 | MHC.CM.PN ---
IMM 01/20/23 Pt has been medically cleared for DC. He will be picked up by a family member, and will resume his home care services.
[2023-01-20 11:10] LABS: Glucose, Whole Blood 182 mg/dL (60-115)
[2023-01-24 12:37] LABS: IgA 297 mg/dL (70-320); IgG 1265 mg/dL (600-1540); IgM 67 mg/dL (50-300)
== END 2023-01-20 13:18 | disposition home or self-care (01) | DRG 280 ==
LOC: HO.ED 16:04 → HO.EDOVER 17:54 → HO.IMC 19:21
PROVIDERS: Internal Medicine; Internal Medicine Nephrology; Registered Nurse Emergency; Admitting Provider Internal Medicine; Emergency Provider Emergency Medicine; PCP Internal Medicine; Visit Provider Internal Medicine
DX: I13.0 Hypertensive heart and chronic kidney disease with heart failure and stage 1 through stage 4 chronic kidney disease, or unspecified chronic kidney disease (principal); I50.23 Acute on chronic systolic (congestive) heart failure; I21.A1 Myocardial infarction type 2; N17.0 Acute kidney failure with tubular necrosis; E66.3 Overweight; E87.5 Hyperkalemia; Z68.27 Body mass index [BMI] 27.0-27.9, adult; M19.012 Primary osteoarthritis, left shoulder; N18.32 Chronic kidney disease, stage 3b; E11.22 Type 2 diabetes mellitus with diabetic chronic kidney disease; Z87.891 Personal history of nicotine dependence; Z95.810 Presence of automatic (implantable) cardiac defibrillator; Z79.4 Long term (current) use of insulin; Z79.51 Long term (current) use of inhaled steroids; Z79.82 Long term (current) use of aspirin; Z79.899 Other long term (current) drug therapy
CPT/HCPCS: 36415; 70490; 71046; 73030; 80048; 80053; 81003; 82306; 82570; 82784; 82947; 83880; 83970; 84156; 84484; 85014; 85018; 85025; 85027; 85610; 85730; 86334; 93005; 93306; 99285; J1644; J1650; J1940; J2270; J2405; Q9957

== ENCOUNTER 2023-01-13 17:33 | Outpatient (BNV) | payer OTHER, SELFPAY | END 2023-01-17 07:00 | PROVIDERS: Admitting Provider Internal Medicine; Emergency Provider Emergency Medicine; PCP Internal Medicine; Visit Provider Internal Medicine | DX: I50.23 Acute on chronic systolic (congestive) heart failure (principal) | CPT/HCPCS: 93306 ==

== ENCOUNTER 2023-01-13 17:33 | Outpatient (BNV) | payer OTHER, SELFPAY | END 2023-01-15 11:28 | PROVIDERS: Admitting Provider Internal Medicine; Emergency Provider Emergency Medicine; PCP Internal Medicine; Visit Provider Internal Medicine Cardiovascular Disease | DX: I49.3 Ventricular premature depolarization (principal); R94.31 Abnormal electrocardiogram [ECG] [EKG] | CPT/HCPCS: 93010 ==

== ENCOUNTER 2023-01-13 17:33 | Outpatient (BNV) | payer OTHER, SELFPAY | END 2023-01-16 | PROVIDERS: Admitting Provider Internal Medicine; Emergency Provider Emergency Medicine; PCP Internal Medicine; Visit Provider Internal Medicine | DX: I49.3 Ventricular premature depolarization (principal); R94.31 Abnormal electrocardiogram [ECG] [EKG] | CPT/HCPCS: 93010 ==

== ENCOUNTER → 2023-01-13 17:33 | Outpatient (BNV) | payer OTHER, SELFPAY | PROVIDERS: Admitting Provider Internal Medicine; Emergency Provider Emergency Medicine; PCP Internal Medicine; Visit Provider Internal Medicine Cardiovascular Disease | DX: I50.23 Acute on chronic systolic (congestive) heart failure (principal); Z95.810 Presence of automatic (implantable) cardiac defibrillator; I25.10 Atherosclerotic heart disease of native coronary artery without angina pectoris; I21.4 Non-ST elevation (NSTEMI) myocardial infarction; N17.9 Acute kidney failure, unspecified | CPT/HCPCS: 99222; 99233 ==

== ENCOUNTER → 2023-01-13 17:33 | Outpatient (BNV) | payer OTHER, SELFPAY | PROVIDERS: Admitting Provider Internal Medicine; Emergency Provider Emergency Medicine; PCP Internal Medicine; Visit Provider Internal Medicine Nephrology | DX: N17.9 Acute kidney failure, unspecified (principal); I50.23 Acute on chronic systolic (congestive) heart failure; N18.32 Chronic kidney disease, stage 3b | CPT/HCPCS: 99222; 99232 ==

== ENCOUNTER → 2023-01-13 17:33 | Outpatient (BNV) | payer OTHER, SELFPAY | PROVIDERS: Admitting Provider Internal Medicine; Emergency Provider Emergency Medicine; PCP Internal Medicine; Visit Provider Internal Medicine | DX: N17.9 Acute kidney failure, unspecified (principal); N18.30 Chronic kidney disease, stage 3 unspecified | CPT/HCPCS: 99222; 99231; 99232; 99233; 99239 ==

== ENCOUNTER 2023-03-02 14:18 | Outpatient (AMB) | payer OTHER, SELFPAY ==
--- NOTE | 2023-03-02 14:34 | HO.NEPHOV_ITS ---
HPI HPI Comments History of Present Illness Details 81 yo M with hx of CAD, CKD, diabetes, C HF, hyperlipidemia, BPH among multiple other medical issues who recently was in the hospital with ongoing progressive shortness of breath was found to have CHF exacerbation. He still has edema, orthopnea and intermittent paroxysmal nocturnal dyspnea. He claims to be compliant with a diet, medications and fluid intake.He denies any fever no chills, no cough, no palpitations, no urinary symptoms and numbness tingling or weakness. His baseline serum creatinine is around 1.87 which has gone higher during the presentation. During the hospitalization, he was given IV Lasix and diuresed about 7 L. Course was then complicated by borderline low blood pressures and acute kidney injury on CKD 3. His Entresto was held. He is on torsemide were continues to have hypervolemia. Patient also noted to have history of coronary disease and NSTEMI. Was seen by Cardiology recommended conservative management with dual antiplatelet, statins for now. He is seen in follow-up in the office today [facility] Medical History Diabetes History of CAD (coronary artery disease) CHF (congestive heart failure) Acute exacerbation of CHF (congestive heart failure) CKD (chronic kidney disease) Surgical History History of heart artery stent Social History Household Members: Family Housing: Apartment Do you presently have visiting nurse or other home services: Yes Alcohol intake: former Patient Tobacco Use Status: Former Tobacco user service: No Current occupational status: retired Vital Signs 03/02/23 14:37 Height 5 ft 8 in Weight 186 lb BMI 28.3 BP 86/50 L Blood Pressure Location Rt brachial Position Sitting Pulse 66 Pulse Source Pulse Oximeter Pulse Oximetry (%) 96 Oxygen Delivery Method Room Air Physical Exam Vital Signs: Last Vital Signs Pulse 66 03/02/23 14:37 BP 86/50 L 03/02/23 14:37 Pulse Ox 96 03/02/23 14:37 Oxygen Delivery Method Room Air 03/02/23 14:37 BMI result Body Mass Index 28.3 Const General: comfortable and no acute distress Orientation/consciousness: patient oriented x3 HEENT Head: Yes normocephalic Mouth: Normal oral and palatal mucosa present Eyes EOM: EOMs intact bilaterally Neck Neck: Yes supple Resp Auscultation: diminished lung sounds Cardio Jugular venous distension: no JVD Rate: regular rate GI Palpation (GI): Soft to palpation Auscultation: normal bowel sounds General: Yes no CVA tenderness Back/Spine/Pelvis Back: no CVA tenderness Skin General skin exam: no rashes or lesions noted Neuro General: patient oriented x3 and moves all extremities Extrem General: Yes edema Assessment & Plan Assessment & Plan (1) CKD (chronic kidney disease) stage 4, GFR 15-29 ml/min: Code(s): N18.4 - Chronic kidney disease, stage 4 (severe) (2) Acute on chronic clinical systolic heart failure: Code(s): I50.23 - Acute on chronic systolic (congestive) heart failure (3) Heart failure with reduced ejection fraction: Code(s): I50.20 - Unspecified systolic (congestive) heart failure (4) Hypertension: Code(s): I10 - Essential (primary) hypertension Qualifiers: Hypertension type: primary hypertension Qualified Code(s): I10 - Essential (primary) hypertension Plan JADEN likely due to tubular injury from heart failure exacerbation Has CKD 4 at baseline; Entresto has been on hold Increased torsemide to 40 mg daily for 3 days followed by 20 mg daily I did not restart Entresto. He is a candidate for Jardiance or Farxiga He likely will need more ischemic workup for which he is going to follow-up with cardiology I ordered follow-up blood work. Needs to have good diet control including low sodium Answered all questions. Follow-up given Orders: Orders Vitamin D 25-OH Total Today N18.4 - Chronic kidney disease, stage 4 (severe) Complete Blood Count Auto Diff Today N18.4 - Chronic kidney disease, stage 4 (severe) Blood Urea Nitrogen Today N18.4 - Chronic kidney disease, stage 4 (severe) Electrolytes Today N18.4 - Chronic kidney disease, stage 4 (severe) Creatinine Today N18.4 - Chronic kidney disease, stage 4 (severe) Parathyroid Hormone Intact Today N18.4 - Chronic kidney disease, stage 4 (severe) Protein Creatinine Ratio, Ur Today N18.4 - Chronic kidney disease, stage 4 (severe) Immunofixation Pnl, Serum Today N18.4 - Chronic kidney disease, stage 4 (severe) Medications: Changed From torsemide 10 mg PO DAILY 90 tabs 3RF I50.20 - Unspecified systolic (congestive) heart failure To torsemide 20 mg (2 x 10 mg) PO DAILY 30 days 60 tabs 3RF I50.20 - Unspecified systolic (congestive) heart failure Coding Level of Care Code Est Pt Level 4 (42303) Diagnoses CKD (chronic kidney disease) stage 4, GFR 15-29 ml/min N18.4 Acute on chronic clinical systolic heart failure I50.23 Heart failure with reduced ejection fraction I50.20 Primary hypertension I10 Hypertension type: primary hypertension Results Reviewed Nephrology Results: Hgb 14.1 g/dl (14.0-18.0) 01/20/23 WBC 7.5 X10*3/uL (4.8-10.8) 01/20/23 Plt Count 183 X10*3/uL (160-400) 01/20/23 Sodium 138 mmol/L (135-145) 01/20/23 Potassium 4.8 mmol/L (3.3-5.1) 01/20/23 Chloride 103 mmol/L (96-108) 01/20/23 Carbon Dioxide 25 mmol/L (22-29) 01/20/23 BUN 75 mg/dL (9-16) H 01/20/23 Creatinine 2.43 mg/dL (0.5-1.4) H 01/20/23 Calcium 9.2 mg/dL (8.4-10.2) 01/20/23 PTH Intact 439.1 pg/mL (8.7-77.1) H 01/19/23 Urine Protein Negative mg/dL (Neg-Trace) 01/13/23 Urine Creatinine 137.53 mg/dL 01/19/23 Protein/Creatinin Ratio 0.08 (<0.2) 01/19/23
[2023-03-02 14:37] VITALS: BP 86/50; PULSE 66; O2SAT 96; BMI 28.3
== END 2023-03-02 15:08 | disposition home or self-care (01) ==
PROVIDERS: PCP Internal Medicine; Visit Provider Internal Medicine Nephrology
DX: I12.9 Hypertensive chronic kidney disease with stage 1 through stage 4 chronic kidney disease, or unspecified chronic kidney disease (principal); N18.4 Chronic kidney disease, stage 4 (severe); I50.23 Acute on chronic systolic (congestive) heart failure; I50.20 Unspecified systolic (congestive) heart failure
CPT/HCPCS: 99214

== ENCOUNTER → 2023-03-02 14:18 | Outpatient (BNVA) | payer OTHER, SELFPAY | PROVIDERS: PCP Internal Medicine; Visit Provider Internal Medicine Nephrology | DX: I13.0 Hypertensive heart and chronic kidney disease with heart failure and stage 1 through stage 4 chronic kidney disease, or unspecified chronic kidney disease (principal); N18.4 Chronic kidney disease, stage 4 (severe); I50.23 Acute on chronic systolic (congestive) heart failure | CPT/HCPCS: 99212 ==

== ENCOUNTER 2023-03-11 08:26 | Outpatient (REF) | payer OTHER, SELFPAY ==
[2023-03-11 08:49] LABS: MANUAL DIFF FLAG NO
[2023-03-11 09:19] LABS: Basophils Percent Auto 0.2 % (0-2); Eosinophils Absolute Auto 0.2 X10*3/uL (0.0-0.4); Eosinophils Percent Auto 1.4 % (0-4); Hematocrit 43.8 % (42.0-52.0); Hemoglobin 14.1 g/dl (14.0-18.0); Imm Gran Abs Auto 0.03 X10*3/uL (0.00-0.03); Imm Gran Pct Auto 0.3 % (0.0-0.4); Lymphocytes Percent Auto 25.9 % (20-40); Mean Corpuscular HGB Conc 32.2 g/dl (31.0-36.0); Mean Corpuscular Hemoglobin 28.8 pg (27.0-33.0); Mean Corpuscular Volume 89.6 fL (80.0-98.0); Monocytes Absolute Auto 0.5 X10*3/uL (0.1-1.2); Monocytes Percent Auto 4.4 % (2-11); Neutrophils Absolute Auto 7.7 x10*3/uL (2.0-8.3); Neutrophils Percent Auto 67.8 % (45-73); Platelet Count 166 X10*3/uL (160-400); Red Blood Count 4.89 X10*6/uL (4.60-5.80); Red Cell Distribution Width 13.6 % (11.0-16.0); White Blood Count 11.4 X10*3/uL (4.8-10.8)
[2023-03-11 10:14] LABS: Creatinine Urine 44.68 mg/dL; Total Protein Urine Random < 7 mg/dL (<12)
[2023-03-11 10:15] LABS: Parathyroid Hormone Intact 270.3 pg/mL (8.7-77.1)
[2023-03-11 10:34] LABS: Anion Gap 16 (12-20); Blood Urea Nitrogen 54 mg/dL (9-16); Carbon Dioxide 24 mmol/L (22-29); Chloride 106 mmol/L (96-108); Estimated Glomerular Filt Rate 23; Potassium 4.8 mmol/L (3.3-5.1); Sodium 141 mmol/L (135-145)
[2023-03-11 10:38] LABS: Vitamin D 25-OH Total 23.2 ng/mL (>30)
[2023-03-15 12:27] LABS: IgA 307 mg/dL (70-320); IgG 1408 mg/dL (600-1540); IgM 63 mg/dL (50-300)
== END 2023-03-11 08:27 | disposition home or self-care (01) ==
LOC: HO.LAB 08:26
PROVIDERS: PCP Internal Medicine; Visit Provider Internal Medicine Nephrology
DX: N18.4 Chronic kidney disease, stage 4 (severe) (principal)
CPT/HCPCS: 36415; 80051; 82306; 82565; 82570; 82784; 83970; 84156; 84520; 85025; 86334

== ENCOUNTER 2023-03-16 14:19 | Outpatient (AMB) | payer OTHER, SELFPAY ==
--- NOTE | 2023-03-16 14:27 | HO.NEPHOV_ITS ---
HPI HPI Comments History of Present Illness Details 81 yo M with hx of CAD, CKD, diabetes, C HF, hyperlipidemia, BPH among multiple other medical issues who recently was in the hospital with ongoing progressive shortness of breath was found to have CHF exacerbation. He still has edema but better though he has orthopnea and intermittent paroxysmal nocturnal dyspnea. He claims to be compliant with a diet, medications and fluid intake.He denies any fever no chills, no cough, no palpitations, no urinary symptoms and numbness tingling or weakness. His baseline serum creatinine is around 1.87 which has gone higher since recent hospital presentation. During the hospitalization, he was given IV Lasix and diuresed about 7 L. Course was then complicated by borderline low blood pressures and acute kidney injury on CKD 3. His Entresto was held. He is on torsemide were continues to have hypervolemia. Patient also noted to have history of coronary disease and NSTEMI. Was seen by Cardiology recommended conservative management with dual antiplatelet, statins f or now. He is seen in follow-up in the office today [facility] Medical History Diabetes History of CAD (coronary artery disease) CHF (congestive heart failure) Acute exacerbation of CHF (congestive heart failure) CKD (chronic kidney disease) Surgical History History of heart artery stent Social History Household Members: Family Housing: Apartment Do you presently have visiting nurse or other home services: Yes Alcohol intake: former Patient Tobacco Use Status: Former Tobacco user service: No Current occupational status: retired Vital Signs 03/16/23 14:28 Height 5 ft 8 in Weight 185 lb BMI 28.1 BP 100/60 Blood Pressure Location Rt brachial Position Sitting Physical Exam Vital Signs: Last Vital Signs BP 100/60 03/16/23 14:28 BMI result Body Mass Index 28.1 Const General: comfortable and no acute distress Orientation/consciousness: patient oriented x3 HEENT Head: Yes normocephalic Mouth: Normal oral and palatal mucosa present Eyes EOM: EOMs intact bilaterally Neck Neck: Yes supple Resp Auscultation: clear to auscultation bilaterally Cardio Jugular venous distension: no JVD Rate: regular rate GI Palpation (GI): Soft to palpation Auscultation: normal bowel sounds General: Yes no CVA tenderness Back/Spine/Pelvis Back: no CVA tenderness Skin General skin exam: no rashes or lesions noted Neuro General: patient oriented x3 and moves all extremities Assessment & Plan Assessment & Plan (1) CKD (chronic kidney disease) stage 4, GFR 15-29 ml/min: Code(s): N18.4 - Chronic kidney disease, stage 4 (severe) (2) Acute on chronic clinical systolic heart failure: Code(s): I50.23 - Acute on chronic systolic (congestive) heart failure (3) Hypertension: Code(s): I10 - Essential (primary) hypertension Qualifiers: Hypertension type: primary hypertension Qualified Code(s): I10 - Essential (primary) hypertension (4) Secondary hyperparathyroidism (of renal origin): Code(s): N25.81 - Secondary hyperparathyroidism of renal origin Plan Recently had JADEN likely due to tubular injury from heart failure exacerbation Has CKD 4 at baseline; Entresto has been on hold C/W torsemide 40 mg alternating with 20 mg every other day I did not restart Entresto. Started Jardiance 10 mg daily Patient aware that if his blood sugar drops, needs to cut back on insulin He likely will need more ischemic workup for which he is going to follow-up with cardiology I ordered follow-up blood work. Needs to have good diet control including low sodium Answered all questions. Follow-up given Orders: Orders Electrolytes Today I10 - Essential (primary) hypertension, N18.4 - Chronic kidney disease, stage 4 (severe) Blood Urea Nitrogen Today I10 - Essential (primary) hypertension, N18.4 - Chronic kidney disease, stage 4 (severe) Creatinine Today I10 - Essential (primary) hypertension, N18.4 - Chronic kidney disease, stage 4 (severe) Vitamin D 25-OH Total Today I10 - Essential (primary) hypertension, N18.4 - Chronic kidney disease, stage 4 (severe), N25.81 - Secondary hyperparathyroidism of renal origin Phosphorus Today I10 - Essential (primary) hypertension, N18.4 - Chronic kidney disease, stage 4 (severe), N25.81 - Secondary hyperparathyroidism of renal origin Medications: New empagliflozin (Jardiance) 10 mg PO QAM 30 tabs 3RF Changed From torsemide 20 mg (2 x 10 mg) PO DAILY 30 days 60 tabs 3RF I50.20 - Unspecified systolic (congestive) heart failure To torsemide 40 mg (2 x 20 mg) PO DAILY 30 days 60 tabs 3RF I50.20 - Unspecified systolic (congestive) heart failure Coding Level of Care Code Est Pt Level 4 (71852) Diagnoses CKD (chronic kidney disease) stage 4, GFR 15-29 ml/min N18.4 Acute on chronic clinical systolic heart failure I50.23 Primary hypertension I10 Hypertension type: primary hypertension Secondary hyperparathyroidism (of renal origin) N25.81 Results Reviewed Nephrology Results: Hgb 14.1 g/dl (14.0-18.0) 03/11/23 WBC 11.4 X10*3/uL (4.8-10.8) H 03/11/23 Plt Count 166 X10*3/uL (160-400) 03/11/23 Sodium 141 mmol/L (135-145) 03/11/23 Potassium 4.8 mmol/L (3.3-5.1) 03/11/23 Chloride 106 mmol/L (96-108) 03/11/23 Carbon Dioxide 24 mmol/L (22-29) 03/11/23 BUN 54 mg/dL (9-16) H 03/11/23 Creatinine 2.70 mg/dL (0.5-1.4) H 03/11/23 Calcium 9.2 mg/dL (8.4-10.2) 01/20/23 PTH Intact 270.3 pg/mL (8.7-77.1) H 03/11/23 Urine Protein Negative mg/dL (Neg-Trace) 01/13/23 Urine Creatinine 44.68 mg/dL 03/11/23 Protein/Creatinin Ratio TNP 03/11/23
[2023-03-16 14:28] VITALS: BP 100/60; BMI 28.1
== END 2023-03-16 15:01 | disposition home or self-care (01) ==
PROVIDERS: PCP Internal Medicine; Visit Provider Internal Medicine Nephrology
DX: I12.9 Hypertensive chronic kidney disease with stage 1 through stage 4 chronic kidney disease, or unspecified chronic kidney disease (principal); N18.4 Chronic kidney disease, stage 4 (severe); I50.23 Acute on chronic systolic (congestive) heart failure; N25.81 Secondary hyperparathyroidism of renal origin
CPT/HCPCS: 99214

== ENCOUNTER → 2023-03-16 14:19 | Outpatient (BNVA) | payer OTHER, SELFPAY | PROVIDERS: PCP Internal Medicine; Visit Provider Internal Medicine Nephrology | DX: I13.0 Hypertensive heart and chronic kidney disease with heart failure and stage 1 through stage 4 chronic kidney disease, or unspecified chronic kidney disease (principal); N18.4 Chronic kidney disease, stage 4 (severe); I50.23 Acute on chronic systolic (congestive) heart failure; N25.81 Secondary hyperparathyroidism of renal origin | CPT/HCPCS: 99212 ==

== ENCOUNTER 2023-03-17 14:25 | Outpatient (AMB) | payer OTHER, SELFPAY ==
--- NOTE | 2023-03-17 14:33 | MHC.OFFVIS ---
Intake Vital Signs 03/17/23 14:34 Height 5 ft 8 in Weight 186 lb 8.177 oz BMI 28.4 BP 100/64 Blood Pressure Location Lt brachial Position Sitting Pulse 58 Pulse Source Pulse Oximeter Intake Visit Reasons: discuss cardiomems Wax Specialist Required: No Allergies No Known Allergies [No Known Allergies*] Allergy (Verified 03/17/23 14:37) Medication List - Last Reconciled 03/17/23 by Nina Lugo NP-C acetaminophen ER 650 mg PO BID PRN aspirin 81 mg PO DAILY atorvastatin 80 mg PO BEDTIME empagliflozin (Jardiance) 10 mg PO QAM fluticasone propionate 50 mcg/actuation 1 spray intranasal BID gabapentin 100 mg PO TID glucose (Dex4 Glucose) 4 grams PO ONCE PRN insulin aspart U-100 (Novolog FlexPen U-100 Insulin aspart) 0 sliding scale doses subcut TID insulin glargine (Lantus Solostar U-100 Insulin) 20 units subcut BEDTIME loratadine 10 mg PO DAILY metoprolol succinate ER (Toprol XL) 50 mg PO DAILY omeprazole 20 mg PO DAILY tamsulosin 1 cap PO DAILY ticagrelor (Brilinta) 60 mg PO BID torsemide 40 mg (2 x 20 mg) PO DAILY 30 days HPI discuss cardiomems HPI Details Jorge is an 82-year-old female with past medical history of hypertension, hyperlipidemia, CAD, heart failure with reduced EF, ICD in place, CKD, recent hospital admission for decompensated heart failure. He was diuresed and discharged with torsemide on hold. Due to acute on chronic kidney disease. He was seen by Nephrology and torsemide increased to 20 mg daily. Then changed to 40 mg alternating with 20 mg daily. His Entresto has been on hold and he was started on Jardiance. Today he reports he has shortness of breath with activity which is not new. He also describes PND and orthopnea. He has no significant leg edema at present. He denies shortness of breath at rest. No chest discomfort at rest or with activity. No palpitations, presyncope, syncope, falls. Admits to being mostly sedentary. He tells me he spends a lot of time in bed on his phone. Is taking his meds as directed. [facility] Medical History Diabetes History of CAD (coronary artery disease) CHF (congestive heart failure) Acute exacerbation of CHF (congestive heart failure) CKD (chronic kidney disease) Surgical History History of heart artery stent Social History Household Members: Family Housing: Apartment Do you presently have visiting nurse or other home services: Yes Alcohol intake: former Patient Tobacco Use Status: Former Tobacco user service: No Current occupational status: retired Review of Systems Const All systems reviewed & are unremarkable except as noted in HPI and below ENT Denies dizziness Card Denies chest pain, Denies chest pain at rest, Denies chest pain with activity, Denies rapid heart rate, Denies pedal edema, Denies edema, Denies leg edema, Denies lightheadedness, Denies palpitations, Reports dyspnea, Reports dyspnea on exertion and Reports orthopnea Resp Denies cough, Reports dyspnea and Reports dyspnea on exertion GI Denies hematochezia and Denies change in stool character Musc Denies abnormal gait, Denies limited range of motion, Denies muscle cramps, Denies muscle weakness, Denies numbness, Denies radiating pain into limb, Denies stiffness and Denies tingling Neuro Denies abnormal gait, Denies dizziness, Denies numbness and Denies tingling Endo Denies palpitations Physical Exam Vital Signs: Last Vital Signs Pulse 58 03/17/23 14:34 BP 100/64 03/17/23 14:34 BMI result Body Mass Index 28.4 Const General: cooperative, comfortable and no acute distress Orientation/consciousness: patient oriented x3 Neck Neck: Yes normal visual inspection and Yes no JVD Resp Effort & Inspection: normal respiratory effort Auscultation: clear to auscultation bilaterally, no rales, no rhonchi and no wheezes Cardio Jugular venous distension: no JVD Rate: regular rate Rhythm: regular rhythm Heart sounds: S1 normal heart sound present, S2 normal heart sound present, no murmurs and no rubs Neuro General: patient oriented x3 Extrem Other: nonpitting edema of lower legs Psych Appearance: grossly normal Mental Status: mental status grossly normal Speech and movement: Normal speech and movement present Assessment & Plan Assessment & Plan (1) Acute on chronic clinical systolic heart failure: Code(s): I50.23 - Acute on chronic systolic (congestive) heart failure Plan: Recent [facility] admission with increasing shortness of breath. Treated for acute on chronic systolic heart failure. He was diuresed 7 L. Entresto and torsemide were held on discharge. Torsemide has since been restarted by Nephrology. Labs done 03/11/2023 which shows creatinine 2.7 which is high for him. Will continue hold Entresto at this time. Jardiance was added by Nephrology. On exam his lungs are clear and no pitting edema in his lower extremities. He does describe PND, orthopnea and shortness breath with exertion. NYHA class 2-3. CardioMEMS device previously discussed with him. I spent time again going over CardioMEMS device, procedure, risks. I gave him pamphlets regarding this in [place] and [place]ian. He states he will be able to send readings as needed for CardioMEMS use. He is willing to proceed with this if it can help to manage his heart failure and help to prevent hospital readmission. Will check preprocedure labs including BMP, CBC, PT INR. Will arrange for CardioMEMS device placement. Cardiology follow-up 2 weeks post procedure. (2) NSTEMI (non-ST elevated myocardial infarction): Code(s): I21.4 - Non-ST elevation (NSTEMI) myocardial infarction Plan: Troponin elevated to 109 last hospital admission 01/16/2023, in setting of decompensated heart failure. [place] to be demand related. Last echocardiogram done 01/17/2023 shows EF 25-30%, LAD territory wall motion abnormality, no valve abnormalities, no significant change from echo 03/29/2022 except for EF further reduced. A nuclear stress test done 04/26/2022 had shown LAD territory infarct with milly-infarct ischemia in the inferior lateral wall, EF 41% with stress and 26% with rest. He has no reports of exertional chest discomfort. At present will continue with med management for CAD. Continue aspirin, high-dose atorvastatin with ideal LDL goal less than 70, metoprolol. He also remains on low-dose Brilinta which I will continue at this time. Labs done 05/20/2022 showed LDL 91. Will add lipids to upcoming lab draw (3) CKD (chronic kidney disease) stage 4, GFR 15-29 ml/min: Code(s): N18.4 - Chronic kidney disease, stage 4 (severe) Plan: As above, following with Nephrology (4) Hypertension: Code(s): I10 - Essential (primary) hypertension Qualifiers: Hypertension type: primary hypertension Qualified Code(s): I10 - Essential (primary) hypertension Plan: Blood pressure on low side, asymptomatic. Continue current meds (5) ICD (implantable cardioverter-defibrillator) in place: Code(s): Z95.810 - Presence of automatic (implantable) cardiac defibrillator Plan: Single-chamber Medtronic ICD in place. Functioning normally on last office interrogation 01/13/2023. He has remote monitoring in use. Office interrogation due June 2023 (6) Hospital discharge follow-up: Code(s): Z09 - Encounter for follow-up examination after completed treatment for conditions other than malignant neoplasm Plan: For Congestive heart failure as above Plan Time spent on chart review, documentation, interview and assessment Orders: Orders Cardiomem 03/17/23 I50.20 - Unspecified systolic (congestive) heart failure, I50.23 - Acute on chronic systolic (congestive) heart failure Prothrombin Time INR 03/17/23 I50.20 - Unspecified systolic (congestive) heart failure Basic Metabolic Panel 03/17/23 I50.20 - Unspecified systolic (congestive) heart failure Complete Blood Count Auto Diff 03/17/23 I50.20 - Unspecified systolic (congestive) heart failure Coding Level of Care Code Est Pt Level 4 (31886) Diagnoses Acute on chronic clinical systolic heart failure I50.23 NSTEMI (non-ST elevated myocardial infarction) I21.4 CKD (chronic kidney disease) stage 4, GFR 15-29 ml/min N18.4 Primary hypertension I10 Hypertension type: primary hypertension ICD (implantable cardioverter-defibrillator) in place Z95.810 Hospital discharge follow-up Z09 Time Spent (min) 30
[2023-03-17 14:34] VITALS: BP 100/64; PULSE 58; BMI 28.4
== END 2023-03-17 15:10 | disposition home or self-care (01) ==
PROVIDERS: PCP Internal Medicine; Visit Provider Nurse Practitioner Family
DX: I50.23 Acute on chronic systolic (congestive) heart failure (principal); I21.4 Non-ST elevation (NSTEMI) myocardial infarction; I12.9 Hypertensive chronic kidney disease with stage 1 through stage 4 chronic kidney disease, or unspecified chronic kidney disease; N18.4 Chronic kidney disease, stage 4 (severe); Z95.810 Presence of automatic (implantable) cardiac defibrillator; Z09 Encounter for follow-up examination after completed treatment for conditions other than malignant neoplasm
CPT/HCPCS: 99214

== ENCOUNTER → 2023-03-17 14:25 | Outpatient (BNVA) | payer OTHER, SELFPAY | PROVIDERS: PCP Internal Medicine; Visit Provider Nurse Practitioner Family | DX: I13.0 Hypertensive heart and chronic kidney disease with heart failure and stage 1 through stage 4 chronic kidney disease, or unspecified chronic kidney disease (principal); I50.23 Acute on chronic systolic (congestive) heart failure; N18.4 Chronic kidney disease, stage 4 (severe); I25.2 Old myocardial infarction; Z79.82 Long term (current) use of aspirin; Z79.899 Other long term (current) drug therapy; Z95.810 Presence of automatic (implantable) cardiac defibrillator | CPT/HCPCS: 99212 ==

== ENCOUNTER 2023-04-11 11:43 | Outpatient (REF) | payer OTHER, SELFPAY ==
[2023-04-11 11:55] LABS: MANUAL DIFF FLAG NO
[2023-04-11 12:34] LABS: Basophils Percent Auto 0.2 % (0-2); Eosinophils Absolute Auto 0.2 X10*3/uL (0.0-0.4); Eosinophils Percent Auto 1.8 % (0-4); Hematocrit 46.1 % (42.0-52.0); Hemoglobin 14.2 g/dl (14.0-18.0); Imm Gran Abs Auto 0.03 X10*3/uL (0.00-0.03); Imm Gran Pct Auto 0.3 % (0.0-0.4); Lymphocytes Percent Auto 33.2 % (20-40); Mean Corpuscular HGB Conc 30.8 g/dl (31.0-36.0); Mean Corpuscular Volume 90.7 fL (80.0-98.0); Mean Platelet Volume 10.6 fL (9.4-12.4); Monocytes Absolute Auto 0.6 X10*3/uL (0.1-1.2); Monocytes Percent Auto 6.2 % (2-11); Neutrophils Absolute Auto 5.2 x10*3/uL (2.0-8.3); Neutrophils Percent Auto 58.3 % (45-73); Platelet Count 162 X10*3/uL (160-400); Red Blood Count 5.08 X10*6/uL (4.60-5.80); Red Cell Distribution Width 14.2 % (11.0-16.0); White Blood Count 8.9 X10*3/uL (4.8-10.8)
[2023-04-11 12:45] LABS: INTERNATIONAL NORM RATIO 0.9 (0.9-1.1); Prothrombin Time 11.1 SEC (11.1-13.3)
[2023-04-11 13:27] LABS: Anion Gap 16 (12-20); Blood Urea Nitrogen 73 mg/dL (9-16); Calcium 9.5 mg/dL (8.4-10.2); Carbon Dioxide 24 mmol/L (22-29); Chloride 97 mmol/L (96-108); Estimated Glomerular Filt Rate 19; Glucose Random 115 mg/dL (60-115); Phosphorus 4.6 mg/dL (2.7-4.5); Potassium 4.3 mmol/L (3.3-5.1); Sodium 133 mmol/L (135-145)
[2023-04-11 13:36] LABS: Vitamin D 25-OH Total 25.8 ng/mL (>30)
== END 2023-04-11 11:44 | disposition home or self-care (01) ==
LOC: HO.LAB 11:43
PROVIDERS: Nurse Practitioner Family; PCP Internal Medicine; Visit Provider Internal Medicine Nephrology
DX: I13.0 Hypertensive heart and chronic kidney disease with heart failure and stage 1 through stage 4 chronic kidney disease, or unspecified chronic kidney disease (principal); N18.4 Chronic kidney disease, stage 4 (severe); I50.20 Unspecified systolic (congestive) heart failure; N25.81 Secondary hyperparathyroidism of renal origin
CPT/HCPCS: 36415; 80048; 82306; 84100; 85025; 85610

== ENCOUNTER 2023-04-13 13:21 | Outpatient (AMB) | payer OTHER, SELFPAY ==
--- NOTE | 2023-04-13 13:37 | HO.NEPHOV ---
HPI HPI Comments History of Present Illness Details 81 yo M with hx of CAD, CKD, diabetes, CHF, hyperlipidemia, BPH among multiple other medical issues who recently was in the hospital with ongoing progressive shortness of breath was found to have CHF exacerbation. His orthopnea and intermittent paroxysmal nocturnal dyspnea are better with adjustment of diuretics. He claims to be compliant with a diet, medications and fluid intake.He denies any fever no chills, no cough, no palpitations, no urinary symptoms and numbness tingling or weakness. His baseline serum creatinine is around 1.87 which has gone higher since recent hospital presentation. Course was then complicated by borderline low blood pressures and acute kidney injury on CKD 3. His Entresto was held. Patient also noted to have history of coronary disease and NSTEMI. Was seen by Cardiology who recommended CardioMEMS. He is seen in follow-up in the office today [facility] Medical History Diabetes History of CAD (coronary artery disease) CHF (congestive heart failure) Acute exacerbation of CHF (congestive heart failure) CKD (chronic kidney disease) Surgical History History of heart artery stent Social History Household Members: Family Housing: Apartment Do you presently have visiting nurse or other home services: Yes Alcohol intake: former Patient Tobacco Use Status: Former Tobacco user service: No Current occupational status: retired Vital Signs 04/13/23 13:38 Height 5 ft 8 in Weight 185 lb 2 oz BMI 28.1 BP 90/50 L Blood Pressure Location Rt brachial Position Sitting Pulse 76 Pulse Source Pulse Oximeter Pulse Oximetry (%) 99 Oxygen Delivery Method Room Air Physical Exam Vital Signs: Last Vital Signs Pulse 76 04/13/23 13:38 BP 90/50 L 04/13/23 13:38 Pulse Ox 99 04/13/23 13:38 Oxygen Delivery Method Room Air 04/13/23 13:38 BMI result Body Mass Index 28.1 Const General: comfortable and no acute distress Orientation/consciousness: patient oriented x3 HEENT Head: Yes normocephalic Mouth: Normal oral and palatal mucosa present Eyes EOM: EOMs intact bilaterally Neck Neck: Yes supple Resp Auscultation: clear to auscultation bilaterally Cardio Jugular venous distension: no JVD Rate: regular rate GI Palpation (GI): Soft to palpation Auscultation: normal bowel sounds General: Yes no CVA tenderness Back/Spine/Pelvis Back: no CVA tenderness Skin General skin exam: no rashes or lesions noted Neuro General: patient oriented x3 and moves all extremities Extrem General: Yes no pedal edema Assessment & Plan Assessment & Plan (1) Secondary hyperparathyroidism (of renal origin): Code(s): N25.81 - Secondary hyperparathyroidism of renal origin (2) Hypertension: Code(s): I10 - Essential (primary) hypertension Qualifiers: Hypertension type: primary hypertension Qualified Code(s): I10 - Essential (primary) hypertension (3) CKD (chronic kidney disease) stage 4, GFR 15-29 ml/min: Code(s): N18.4 - Chronic kidney disease, stage 4 (severe) Plan Recently had JADEN likely due to tubular injury from heart failure exacerbation Has CKD 4 at baseline; Entresto has been on hold C/W torsemide 40 mg alternating with 20 mg every other day I did not restart Entresto. C/W Jardiance 10 mg daily( I started @ last visit) Going to have cadioMEMS. He likely will need more ischemic workup for which he is going to follow-up with cardiology I ordered follow-up blood work. Needs to have good diet control including low sodium Answered all questions. Follow-up given Orders: Orders Complete Blood Count Auto Diff 1 Month I10 - Essential (primary) hypertension, N18.4 - Chronic kidney disease, stage 4 (severe), N25.81 - Secondary hyperparathyroidism of renal origin IRON PROFILE 1 Month I10 - Essential (primary) hypertension, N18.4 - Chronic kidney disease, stage 4 (severe), N25.81 - Secondary hyperparathyroidism of renal origin Vitamin D 25-OH Total 1 Month I10 - Essential (primary) hypertension, N18.4 - Chronic kidney disease, stage 4 (severe), N25.81 - Secondary hyperparathyroidism of renal origin Ferritin 1 Month I10 - Essential (primary) hypertension, N18.4 - Chronic kidney disease, stage 4 (severe), N25.81 - Secondary hyperparathyroidism of renal origin Creatinine 1 Month I10 - Essential (primary) hypertension, N18.4 - Chronic kidney disease, stage 4 (severe), N25.81 - Secondary hyperparathyroidism of renal origin Blood Urea Nitrogen 1 Month I10 - Essential (primary) hypertension, N18.4 - Chronic kidney disease, stage 4 (severe), N25.81 - Secondary hyperparathyroidism of renal origin Electrolytes 1 Month I10 - Essential (primary) hypertension, N18.4 - Chronic kidney disease, stage 4 (severe), N25.81 - Secondary hyperparathyroidism of renal origin Calcium 1 Month I10 - Essential (primary) hypertension, N18.4 - Chronic kidney disease, stage 4 (severe), N25.81 - Secondary hyperparathyroidism of renal origin Coding Level of Care Code Est Pt Level 3 (51932) Diagnoses Secondary hyperparathyroidism (of renal origin) N25.81 Primary hypertension I10 Hypertension type: primary hypertension CKD (chronic kidney disease) stage 4, GFR 15-29 ml/min N18.4 Results Reviewed Nephrology Results: Hgb 14.2 g/dl (14.0-18.0) 04/11/23 WBC 8.9 X10*3/uL (4.8-10.8) 04/11/23 Plt Count 162 X10*3/uL (160-400) 04/11/23 Sodium 133 mmol/L (135-145) L 04/11/23 Potassium 4.3 mmol/L (3.3-5.1) 04/11/23 Chloride 97 mmol/L (96-108) 04/11/23 Carbon Dioxide 24 mmol/L (22-29) 04/11/23 BUN 73 mg/dL (9-16) H 04/11/23 Creatinine 3.11 mg/dL (0.5-1.4) H 04/11/23 Calcium 9.5 mg/dL (8.4-10.2) 04/11/23 Phosphorus 4.6 mg/dL (2.7-4.5) H 04/11/23 PTH Intact 270.3 pg/mL (8.7-77.1) H 03/11/23 Urine Creatinine 44.68 mg/dL 03/11/23 Protein/Creatinin Ratio TNP 03/11/23
[2023-04-13 13:38] VITALS: BP 90/50; PULSE 76; O2SAT 99; BMI 28.1
== END 2023-04-13 14:20 | disposition home or self-care (01) ==
PROVIDERS: PCP Internal Medicine; Visit Provider Internal Medicine Nephrology
DX: N25.81 Secondary hyperparathyroidism of renal origin (principal); I12.9 Hypertensive chronic kidney disease with stage 1 through stage 4 chronic kidney disease, or unspecified chronic kidney disease; N18.4 Chronic kidney disease, stage 4 (severe)
CPT/HCPCS: 99213

== ENCOUNTER → 2023-04-13 13:21 | Outpatient (BNVA) | payer OTHER, SELFPAY | PROVIDERS: PCP Internal Medicine; Visit Provider Internal Medicine Nephrology | DX: N25.81 Secondary hyperparathyroidism of renal origin (principal); I12.9 Hypertensive chronic kidney disease with stage 1 through stage 4 chronic kidney disease, or unspecified chronic kidney disease; N18.4 Chronic kidney disease, stage 4 (severe) | CPT/HCPCS: 99212 ==

== ENCOUNTER 2023-04-21 10:48 | Day surgery (SDC) | payer OTHER, SELFPAY ==
--- NOTE | 2023-04-20 11:55 | P.CONAN_ITS ---
Documented by User: Morena De Jesus NP 04/20/23 12:05 HPI - Anesthesia Eval Consult details Narrative: 82yo M for CARDIOMEMS [facility] admit 01/2023 with decompensated HF, JADEN. Follows [facility] cardiology for hypertension, hyperlipidemia, CAD, heart failure with reduced EF, ICD in place. Last office visit 03/2023. Follows [facility] Renal. Baseline creat 1.87. Last office visit 03/2023. Recently had JADEN likely due to tubular injury from heart failure exacerbation Has CKD 4 at baseline; Entresto has been on hold C/W torsemide 40 mg alternating with 20 mg every other day I did not restart Entresto. C/W Jardiance 10 mg daily( I started @ last visit) Going to have cadioMEMS. Anesthesia Pre-Procedure Meds Is the patient on any of the following meds?: Any other SGL-1 drugs or drugs that delay gastric emptying (Jardiance) PMFSH Active Problems Active Problems: All Active Problems (Updated 04/18/23 @ 15:24 by Carol Min RN) Hospital discharge follow-up (Acute) Secondary hyperparathyroidism (of renal origin) (Acute) Hypertension (Acute) CKD (chronic kidney disease) stage 4, GFR 15-29 ml/min (Acute) Physical exam (Acute) CKD (chronic kidney disease) stage 3, GFR 30-59 ml/min (Acute) JADEN (acute kidney injury) (Acute) NSTEMI (non-ST elevated myocardial infarction) (Acute) Acute coronary syndrome (Acute) Acute on chronic clinical systolic heart failure (Acute) ICD (implantable cardioverter-defibrillator) in place (Acute) Heart failure with reduced ejection fraction (Acute) Overweight (Acute) Coronary artery disease (Acute) Chest pain (Acute) Past Medical History Medical History (Updated 04/18/23 @ 15:24 by Carol Min RN) 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) Diabetes History of CAD (coronary artery disease) CHF (congestive heart failure) Acute exacerbation of CHF (congestive heart failure) CKD (chronic kidney disease) Family History Family history of problems with anesthesia: No Surgical History Surgical History History of heart artery stent History of Problems with Anesthesia: No Social History Social History Household Members: Family Housing: Apartment Do you presently have visiting nurse or other home services: Yes Alcohol intake: former Patient Tobacco Use Status: Former Tobacco user Quit Date: 1987 Use of substances other than those prescribed or required for medical reasons: No Are you DNR?: No Advance Directives: No Advance Directives Information Provided: Yes service: No Current occupational status: retired Meds Allergies Allergy/AdvReac Type Severity Reaction Status Date / Time No Known Allergies Allergy Verified 04/13/23 13:41 [No Known Allergies*] Home Medications Medication Instructions Recorded Confirmed Last Taken Type acetaminophen 650 mg 650 mg PO BID PRN Pain 03/26/22 04/21/23 04/14/23 History tablet,extended release aspirin 81 mg tablet,delayed 81 mg PO DAILY 03/26/22 04/21/23 04/18/23 History release fluticasone propionate 50 1 spray intranasal BID 03/26/22 04/21/23 11/30/22 History mcg/actuation nasal spray,suspension loratadine 10 mg tablet 10 mg PO DAILY 03/26/22 04/21/23 11/30/22 07:30 History tamsulosin 0.4 mg capsule 1 cap PO DAILY 03/26/22 04/21/23 11/30/22 07:30 His tory atorvastatin 80 mg tablet 80 mg PO BEDTIME 04/09/22 04/21/23 11/30/22 07:30 History gabapentin 100 mg capsule 100 mg PO TID 04/09/22 04/21/23 11/30/22 07:30 History glucose 4 gram chewable tablet 4 g PO ONCE PRN LOW GLUCOSE 04/09/22 04/21/23 Unknown History (Dex4 Glucose) omeprazole 20 mg capsule,delayed 20 mg PO DAILY 07/13/22 04/21/23 11/30/22 07:30 History release insulin aspart U-100 100 unit/mL 0 sliding scale dose subcut TID 01/13/23 04/21/23 Unknown History (3 mL) subcutaneous pen (Novolog FlexPen U-100 Insulin aspart) insulin glargine 100 unit/mL (3 20 unit subcut BEDTIME 01/13/23 04/21/23 Unknown History mL) subcutaneous pen (Lantus Solostar U-100 Insulin) ticagrelor 60 mg tablet (Brilinta) 60 mg PO BID 01/13/23 04/21/23 04/18/23 History Exam Pertinent Lab Results Pertinent Lab Results: Laboratory Tests 04/11/23 11:53 WBC 8.9 Hgb 14.2 Hct 46.1 Plt Count 162 PT 11.1 INR 0.9 Sodium 133 L Potassium 4.3 Chloride 97 Carbon Dioxide 24 BUN 73 H Creatinine 3.11 H Estimated GFR 19 Narrative Narrative: ECHO 01/2023 Conclusions: - The left ventricular systolic function is severely decreased. The visually estimated ejection fraction is between 25-30%. - LAD territory wall motion abnormality. - No obvious valvular pathology seen on this study. EKG 01/2023 Vent. Rate : 075 BPM Atrial Rate : 075 BPM P-R Int : 194 ms QRS Dur : 074 ms QT Int : 400 ms P-R-T Axes : 030 -22 097 degrees QTc Int : 446 ms Normal sinus rhythm Septal infarct , age undetermined Abnormal ECG When compared with ECG of 16-JAN-2023 08:51, Premature ventricular complexes not seen Cardiac Device Check 12/2022 Details: Single-chamber Medtronic ICD in place. Programmed in VVI at 40 beats per minute. Pacing and shock lead impedance is stable. Battery life is excellent. No arrhythmias detected. Ventricular sensing is adequate Assessment and Plan Assessment Anesthesia Assessment: Chart Reviewed Final Anesthetic Review Family History of Problems with Anesthesia: No History of Problems with Anesthesia: No Documented by User: Sj Mancera MD 04/21/23 12:06 HPI - Anesthesia Eval Anesthesia Pre-Procedure Meds If Yes to any meds - educate patient: Pt education - increased risk of aspiration and Pt education - possibility of cancelled proc at provider's discretion PMFSH Past Medical History Medical History (Updated 04/18/23 @ 15:24 by Carol Min RN) 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) Diabetes History of CAD (coronary artery disease) CHF (congestive heart failure) Acute exacerbation of CHF (congestive heart failure) CKD (chronic kidney disease) Surgical History Surgical History History of heart artery stent Social History Social History Household Members: Family Housing: Apartment Do you presently have visiting nurse or other home services: Yes Alcohol intake: former Patient Tobacco Use Status: Former Tobacco user Quit Date: 1987 Use of substances other than those prescribed or required for medical reasons: No Are you DNR?: No Advance Directives: No Advance Directives Information Provided: Yes service: No Current occupational status: retired [employer] Allergies Allergy/AdvReac Type Severity Reaction Status Date / Time No Known Allergies Allergy Verified 04/13/23 13:41 [No Known Allergies*] Home Medications Medication Instructions Recorded Confirmed Last Taken Type acetaminophen 650 mg 650 mg PO BID PRN Pain 03/26/22 04/21/23 04/14/23 History tablet,extended release aspirin 81 mg tablet,delayed 81 mg PO DAILY 03/26/22 04/21/23 04/18/23 History release fluticasone propionate 50 1 spray intranasal BID 03/26/22 04/21/23 11/30/22 History mcg/actuation nasal spray,suspension loratadine 10 mg tablet 10 mg PO DAILY 03/26/22 04/21/23 11/30/22 07:30 History tamsulosin 0.4 mg capsule 1 cap PO DAILY 03/26/22 04/21/23 11/30/22 07:30 History atorvastatin 80 mg tablet 80 mg PO BEDTIME 04/09/22 04/21/23 11/30/22 07:30 History gabapentin 100 mg capsule 100 mg PO TID 04/09/22 04/21/23 11/30/22 07:30 History glucose 4 gram chewable tablet 4 g PO ONCE PRN LOW GLUCOSE 04/09/22 04/21/23 Unknown History (Dex4 Glucose) omeprazole 20 mg capsule,delayed 20 mg PO DAILY 07/13/22 04/21/23 11/30/22 07:30 History release insulin aspart U-100 100 unit/mL 0 sliding scale dose subcut TID 01/13/23 04/21/23 Unknown History (3 mL) subcutaneous pen (Novolog FlexPen U-100 Insulin aspart) insulin glargine 100 unit/mL (3 20 unit subcut BEDTIME 01/13/23 04/21/23 Unknown History mL) subcutaneous pen (Lantus Solostar U-100 Insulin) ticagrelor 60 mg tablet (Brilinta) 60 mg PO BID 01/13/23 04/21/23 04/18/23 History Exam Airway Mallampati Class: III TM Dist: >3cm Neck ROM: Full Loose/Missing/Broken Teeth: Yes Heart: bradycardia ICD +s1s2 Lungs: cta b/l Assessment and Plan Assessment Anesthesia Assessment: Anesthesia Plan Discussed Final Anesthetic Review NPO: Yes ASA Class: IV Final Preanesthetic Review: No Changes in Pt Med Stat, Meds/Allgs Chart Reviewed, Consent Obtained/Reviewed and Anes Risks/Benef Reviewed Patient Risk: High Procedure Risk: Intermediate Assessment/Block/Sedation in SS: Assess/Block/Sedation-SS Anesthetic Plan Anesthetic Plan: MAC: Disposition: Standard PACU
[2023-04-21] VITALS (21 sets, daily range): BP systolic 97–114; BP diastolic 50–69; PULSE 48–58; RESP 13–18; TEMP 36.1–36.2; O2SAT 93–100; BMI 26.8
[2023-04-21 11:24] LABS: Glucose, Whole Blood 168 mg/dL (60-115)
[2023-04-21] MEDS: 0.9 % Sodium Chloride 1,000 ML 50 ML IVCONT (11:47)
--- NOTE | 2023-04-21 14:43 | P.OP_ITS ---
Operative Note Operative Note Date of Service: 04/21/23 Narrative: Procedure:? CardioMEMS implantation. Surgeon:? Edgar Mccarthy MD Anesthesia: MAC Indication: CHF Patient was seen and examined before the procedure and informed consent was signed. In the room, time-out was performed for proper patient identification.? After sedation with the help of anesthesia, the patient was draped in a usual fashion.? We gave lidocaine subcutaneously in the right femoral area and using micropuncture technique and ultrasound guidance we placed a 4 Brazilian sheath into the right common femoral vein.? We advanced 0.035 J tipped wire and advanced a 7 Brazilian dilator.? After dilation we preclosed using a Perclose ProGlide.? The wire was advanced through the ProGlide and 11 Brazilian sheath was placed in the common femoral vein. We advanced a 7 Brazilian [place] catheter and measured pressures in right atrium, right ventricle and left pulmonary artery.? We wedged the catheter and recorded the pulmonary capillary wedge pressure. Right heart catheterization findings:? RA 9 mm Hg, PA 31/10, PCWP 10 mm Hg. After this we performed a pulmonary angiogram and selected the appropriate branch to wire into.? Using an 0.018 wire we wired into branch of pulmonary artery on the left side and walk the [place] catheter. After walking the [place] catheter we noticed that the sheath has also moved with the [place] catheter and was almost out of the femoral vein. We tried to advance it over the [place] catheter but it would not advanced. At this stage we placed the dilator back into sheath to advance it and still the sheath would not go forward and while advancing the patient started having severe pain in the groin and had some bleeding at the site. We held pressure and advanced micro puncture sheath over the 018 wire and exchanged for a 0.35 wire. Over this wire we were able to advance the sheath back into common femoral vein. At this stage we performed angio which showed potential dissection in the iliac vein. There was no extravasation of blood or concern for bleeding. The patient's pain was also stable at this stage. We carefully advanced the [place] catheter again to the left PA and advanced .018 wire into branch of left PA. Over this we advanced the CardioMEMS device and deployed it at the appropriate site using angiographic and radiographic markers. After this we calibrated the CardioMEMS. The [place] catheter was removed. We removed the sheath and achieved hemostasis with Perclose and manual compression. No local hematoma was noted. The patient will resume the Eliquis tomorrow morning.
[2023-04-21 17:26] LABS: Glucose, Whole Blood 154 mg/dL (60-115)
== END 2023-04-21 19:37 | disposition home or self-care (01) ==
PROVIDERS: PCP Internal Medicine; Visit Provider Internal Medicine Cardiovascular Disease
DX: I13.0 Hypertensive heart and chronic kidney disease with heart failure and stage 1 through stage 4 chronic kidney disease, or unspecified chronic kidney disease (principal); I50.23 Acute on chronic systolic (congestive) heart failure; N18.4 Chronic kidney disease, stage 4 (severe); E11.22 Type 2 diabetes mellitus with diabetic chronic kidney disease; I21.4 Non-ST elevation (NSTEMI) myocardial infarction; Z85.810 Personal history of malignant neoplasm of tongue; E78.5 Hyperlipidemia, unspecified; I25.10 Atherosclerotic heart disease of native coronary artery without angina pectoris; Z95.5 Presence of coronary angioplasty implant and graft; Z79.02 Long term (current) use of antithrombotics/antiplatelets; Z79.82 Long term (current) use of aspirin; Z79.4 Long term (current) use of insulin; Z79.899 Other long term (current) drug therapy; Z79.01 Long term (current) use of anticoagulants; Z79.51 Long term (current) use of inhaled steroids; Z87.891 Personal history of nicotine dependence
CPT/HCPCS: 33289; 76937; 82947; C1769; C1887; C1894; C2624; J0131; J1644; J2250; J2405; J3010; Q9967

== ENCOUNTER → 2023-04-21 10:48 | Outpatient (BNV) | payer OTHER, SELFPAY | PROVIDERS: PCP Internal Medicine; Visit Provider Internal Medicine Cardiovascular Disease | DX: I50.20 Unspecified systolic (congestive) heart failure (principal) | CPT/HCPCS: 33289 ==

== ENCOUNTER → 2023-04-28 23:59 | Outpatient (BNV) | payer OTHER, SELFPAY ==
--- NOTE | 2023-04-28 18:32 | MHC.OFFVIS ---
Intake Intake Visit Reasons: Remote ICD Check- Medtronic Allergies No Known Allergies [No Known Allergies*] Allergy (Verified 04/13/23 13:41) [facility] Medical History (Updated 04/18/23 @ 15:24 by Carol Min RN) 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) Diabetes History of CAD (coronary artery disease) CHF (congestive heart failure) Acute exacerbation of CHF (congestive heart failure) CKD (chronic kidney disease) Surgical History History of heart artery stent Social History Household Members: Family Housing: Apartment Do you presently have visiting nurse or other home services: Yes Alcohol intake: former Patient Tobacco Use Status: Former Tobacco user Quit Date: 1987 service: No Current occupational status: retired Office Procedures Cardiac Device Check Cardiac Device Check Details: Remote ICD report generated 04/28/2023. ICD function is adequate. [id number] Cardiac Interrogation, implant defibrillator w/interim Procedure code (CPT) selection complete Assessment & Plan Assessment & Plan (1) ICD (implantable cardioverter-defibrillator) in place: Code(s): Z95.810 - Presence of automatic (implantable) cardiac defibrillator Plan: See above Coding Level of Care Code Procedure Only Diagnoses ICD (implantable cardioverter-defibrillator) in place Z95.810 CPT Codes Cardiac Device Check - Cardiac Device 13: [id number] Cardiac Interrogation, implant defibrillator w/interim ([id number])
== END ==
PROVIDERS: PCP Internal Medicine; Visit Provider Internal Medicine Cardiovascular Disease
DX: I50.23 Acute on chronic systolic (congestive) heart failure (principal); Z95.810 Presence of automatic (implantable) cardiac defibrillator
CPT/HCPCS: 93295

== ENCOUNTER → 2023-04-28 23:59 | Outpatient (BNV) | payer OTHER, SELFPAY ==
--- NOTE | 2023-04-28 18:31 | MHC.OFFVIS ---
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 Heart failure parameters are stable [id number] Cardiac Device Interrogation, cardio physiologic monitor Procedure code (CPT) selection complete Assessment & Plan Assessment & Plan (1) ICD (implantable cardioverter-defibrillator) in place: Code(s): Z95.810 - Presence of automatic (implantable) cardiac defibrillator Plan: See above Coding Level of Care Code Procedure Only Diagnoses ICD (implantable cardioverter-defibrillator) in place Z95.810 CPT Codes Cardiac Device Check - Cardiac Device 15: [id number] Cardiac Device Interrogation, cardio physiologic monitor ([id number])
== END ==
PROVIDERS: PCP Internal Medicine; Visit Provider Internal Medicine Cardiovascular Disease
DX: I50.23 Acute on chronic systolic (congestive) heart failure (principal); Z95.810 Presence of automatic (implantable) cardiac defibrillator
CPT/HCPCS: 93297

== ENCOUNTER 2023-05-06 09:09 | Outpatient (REF) | payer OTHER, SELFPAY ==
[2023-05-06 10:41] LABS: Basophils Percent Auto 0.4 % (0-2); Eosinophils Absolute Auto 0.2 X10*3/uL (0.0-0.4); Eosinophils Percent Auto 2.3 % (0-4); Hematocrit 45.8 % (42.0-52.0); Hemoglobin 14.7 g/dl (14.0-18.0); Imm Gran Abs Auto 0.01 X10*3/uL (0.00-0.03); Imm Gran Pct Auto 0.1 % (0.0-0.4); Lymphocytes Absolute Auto 3.3 X10*3/uL (1.2-4.9); MANUAL DIFF FLAG NO; Mean Corpuscular HGB Conc 32.1 g/dl (31.0-36.0); Mean Corpuscular Hemoglobin 28.1 pg (27.0-33.0); Mean Corpuscular Volume 87.6 fL (80.0-98.0); Mean Platelet Volume 10.6 fL (9.4-12.4); Monocytes Absolute Auto 0.5 X10*3/uL (0.1-1.2); Monocytes Percent Auto 6.8 % (2-11); Neutrophils Absolute Auto 3.9 x10*3/uL (2.0-8.3); Neutrophils Percent Auto 48.4 % (45-73); Platelet Count 171 X10*3/uL (160-400); Red Blood Count 5.23 X10*6/uL (4.60-5.80); Red Cell Distribution Width 14.5 % (11.0-16.0)
[2023-05-06 10:51] LABS: Estimated Average Glucose 183 mg/dL
[2023-05-06 11:25] LABS: Anion Gap 16 (12-20); Blood Urea Nitrogen 64 mg/dL (9-16); Calcium 9.7 mg/dL (8.4-10.2); Carbon Dioxide 29 mmol/L (22-29); Chloride 98 mmol/L (96-108); Estimated Glomerular Filt Rate 22; Iron 70 mcg/dL (45-160); Percent Iron Saturation 24 % (15-50); Potassium 3.9 mmol/L (3.3-5.1); Sodium 139 mmol/L (135-145); Total Iron Binding Capacity 291 mcg/dL (228-428); Unsaturated Iron Binding 221 ug/dL
[2023-05-06 11:31] LABS: Ferritin 77 ng/mL (20-250); Vitamin D 25-OH Total 26.6 ng/mL (>30)
[2023-05-06 11:38] LABS: Alanine Aminotransferase 16 U/L (0-40); Albumin Level 4.2 g/dL (3.5-5.0); Alkaline Phosphatase 85 U/L (39-117); Anion Gap 16 (12-20); Aspartate Amino Transferase 15 U/L (5-37); Bilirubin Total 0.4 mg/dL (0.0-1.0); Blood Urea Nitrogen 65 mg/dL (9-16); Calcium 9.7 mg/dL (8.4-10.2); Carbon Dioxide 29 mmol/L (22-29); Chloride 98 mmol/L (96-108); Cholesterol 123 mg/dL (<200); Estimated Glomerular Filt Rate 21; Glucose Random 162 mg/dL (60-115); HDL Cholesterol 44 mg/dL (>40); LDL Cholesterol Calculated 61 mg/dL (<100); Sodium 139 mmol/L (135-145); Total Protein 7.7 g/dL (6.5-8.0); Triglycerides 90 mg/dL (<150)
[2023-05-06 12:41] LABS: Creatinine Urine 30.94 mg/dL; Microalbum/Creatinine Ratio Ur 32.3 ug/mg cr (<30)
== END 2023-05-06 09:10 | disposition home or self-care (01) ==
LOC: HO.LAB 09:09
PROVIDERS: Absent Provider Internal Medicine; PCP Internal Medicine; Visit Provider Internal Medicine Nephrology
DX: N25.81 Secondary hyperparathyroidism of renal origin (principal); E11.65 Type 2 diabetes mellitus with hyperglycemia; I10 Essential (primary) hypertension; N18.4 Chronic kidney disease, stage 4 (severe); E78.00 Pure hypercholesterolemia, unspecified; I25.5 Ischemic cardiomyopathy
CPT/HCPCS: 36415; 80051; 80053; 80061; 82043; 82306; 82310; 82565; 82570; 82728; 83036; 83540; 84520; 85025

== ENCOUNTER 2023-05-11 13:37 | Outpatient (AMB) | payer OTHER, SELFPAY ==
--- NOTE | 2023-05-11 13:55 | HO.NEPHOV_ITS ---
HPI HPI Comments History of Present Illness Details 81 yo M with hx of CAD, CKD, diabetes, C HF, hyperlipidemia, BPH among multiple other medical issues who recently was in the hospital with ongoing progressive shortness of breath was found to have CHF exacerbation. His orthopnea and intermittent paroxysmal nocturnal dyspnea are remarkabley better with adjustment of diuretics. He claims to be compliant with a diet, medications and fluid intake.He denies any fever no chills, no cough, no palpitations, no urinary symptoms and numbness tingling or weakness. His baseline serum creatinine is around 1.87 which has gone higher since recent hospital presentation. His Entresto was held. He feels better. His renal functions are better. 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) Diabetes History of CAD (coronary artery disease) CHF (congestive heart failure) Acute exacerbation of CHF (congestive heart failure) CKD (chronic kidney disease) Surgical History History of heart artery stent Social History Household Members: Family Housing: Apartment Do you presently have visiting nurse or other home services: Yes Alcohol intake: former Patient Tobacco Use Status: Former Tobacco user Quit Date: 1987 service: No Current occupational status: retired Vital Signs 05/11/23 13:57 Height 5 ft 8 in Weight 184 lb 4 oz BMI 28.0 BP 100/60 Blood Pressure Location Rt brachial Position Sitting Pulse 57 Pulse Source Pulse Oximeter Pulse Oximetry (%) 98 Oxygen Delivery Method Room Air Physical Exam Vital Signs: Last Vital Signs Pulse 57 05/11/23 13:57 BP 100/60 05/11/23 13:57 Pulse Ox 98 05/11/23 13:57 Oxygen Delivery Method Room Air 05/11/23 13:57 BMI result Body Mass Index 28.0 Const General: comfortable and no acute distress Orientation/consciousness: patient oriented x3 HEENT Head: Yes normocephalic Mouth: Normal oral and palatal mucosa present Eyes EOM: EOMs intact bilaterally Neck Neck: Yes supple Resp Auscultation: clear to auscultation bilaterally Cardio Jugular venous distension: no JVD Rate: regular rate GI Palpation (GI): Soft to palpation Auscultation: normal bowel sounds General: Yes no CVA tenderness Back/Spine/Pelvis Back: no CVA tenderness Skin General skin exam: no rashes or lesions noted Neuro General: patient oriented x3 and moves all extremities Extrem General: Yes no pedal edema Assessment & Plan Assessment & Plan (1) Secondary hyperparathyroidism (of renal origin): Code(s): N25.81 - Secondary hyperparathyroidism of renal origin (2) CKD (chronic kidney disease) stage 4, GFR 15-29 ml/min: Code(s): N18.4 - Chronic kidney disease, stage 4 (severe) (3) Hypertension: Code(s): I10 - Essential (primary) hypertension Qualifiers: Hypertension type: primary hypertension Qualified Code(s): I10 - Essential (primary) hypertension Plan Recently had JADEN likely due to tubular injury from heart failure exacerbation Has CKD 4 at baseline; Entresto has been on hold C/W torsemide 40 mg alternating with 20 mg every other day I did not restart Entresto yet. C/W Jardiance 10 mg daily He likely will need more ischemic workup for which he is going to follow-up with cardiology I ordered follow-up blood work. Needs to have good diet control including low sodium Answered all questions. Follow-up given Orders: Orders Creatinine Today I10 - Essential (primary) hypertension, N18.4 - Chronic kidney disease, stage 4 (severe), N25.81 - Secondary hyperparathyroidism of renal origin Blood Urea Nitrogen Today I10 - Essential (primary) hypertension, N18.4 - Chronic kidney disease, stage 4 (severe), N25.81 - Secondary hyperparathyroidism of renal origin Electrolytes Today I10 - Essential (primary) hypertension, N18.4 - Chronic kidney disease, stage 4 (severe), N25.81 - Secondary hyperparathyroidism of renal origin Medications: Refilled empagliflozin (Jardiance) 10 mg PO QAM 30 tabs 3RF torsemide 40 mg (2 x 20 mg) PO DAILY 60 tabs 3RF 30 days I50.20 - Unspecified systolic (congestive) heart failure Coding Level of Care Code Est Pt Level 4 (84244) Diagnoses Secondary hyperparathyroidism (of renal origin) N25.81 CKD (chronic kidney disease) stage 4, GFR 15-29 ml/min N18.4 Primary hypertension I10 Hypertension type: primary hypertension Results Reviewed Nephrology Results: Hgb 14.7 g/dl (14.0-18.0) 05/06/23 WBC 8.0 X10*3/uL (4.8-10.8) 05/06/23 Plt Count 171 X10*3/uL (160-400) 05/06/23 Sodium 139 mmol/L (135-145) 05/06/23 Potassium 4.0 mmol/L (3.3-5.1) 05/06/23 Chloride 98 mmol/L (96-108) 05/06/23 Carbon Dioxide 29 mmol/L (22-29) 05/06/23 BUN 65 mg/dL (9-16) H 05/06/23 Creatinine 2.84 mg/dL (0.5-1.4) H 05/06/23 Calcium 9.7 mg/dL (8.4-10.2) 05/06/23 Phosphorus 4.6 mg/dL (2.7-4.5) H 04/11/23 Urine Creatinine 30.94 mg/dL 05/06/23
[2023-05-11 13:57] VITALS: BP 100/60; PULSE 57; O2SAT 98; BMI 28.0
== END 2023-05-11 14:24 | disposition home or self-care (01) ==
PROVIDERS: PCP Internal Medicine; Visit Provider Internal Medicine Nephrology
DX: I12.9 Hypertensive chronic kidney disease with stage 1 through stage 4 chronic kidney disease, or unspecified chronic kidney disease (principal); N18.4 Chronic kidney disease, stage 4 (severe); N25.81 Secondary hyperparathyroidism of renal origin
CPT/HCPCS: 99214

== ENCOUNTER → 2023-05-11 13:37 | Outpatient (BNVA) | payer OTHER, SELFPAY | PROVIDERS: PCP Internal Medicine; Visit Provider Internal Medicine Nephrology | DX: I25.10 Atherosclerotic heart disease of native coronary artery without angina pectoris (principal); E11.22 Type 2 diabetes mellitus with diabetic chronic kidney disease; I13.0 Hypertensive heart and chronic kidney disease with heart failure and stage 1 through stage 4 chronic kidney disease, or unspecified chronic kidney disease; I50.9 Heart failure, unspecified; N18.4 Chronic kidney disease, stage 4 (severe); N25.81 Secondary hyperparathyroidism of renal origin | CPT/HCPCS: 99212 ==

== ENCOUNTER 2023-05-23 12:38 | Outpatient (AMB) | payer OTHER, SELFPAY ==
[2023-05-23 12:48] VITALS: BP 122/62; PULSE 54; BMI 28.5
--- NOTE | 2023-05-23 12:48 | MHC.OFFVIS ---
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 Allergies No Known Allergies [No Known Allergies*] Allergy (Verified 05/23/23 12:50) Medication List - Last Reconciled 05/23/23 by ASHLEY Lopez acetaminophen ER 650 mg PO BID PRN aspirin 81 mg PO DAILY atorvastatin 80 mg PO BEDTIME empagliflozin (Jardiance) 10 mg PO QAM fluticasone propionate 50 mcg/actuation 1 spray intranasal BID gabapentin 100 mg PO TID glucose (Dex4 Glucose) 4 grams PO ONCE PRN insulin aspart U-100 (Novolog FlexPen U-100 Insulin aspart) 0 sliding scale doses subcut TID insulin glargine (Lantus Solostar U-100 Insulin) 20 units subcut BEDTIME loratadine 10 mg PO DAILY metoprolol succinate ER (Toprol XL) 50 mg PO DAILY omeprazole 20 mg PO DAILY tamsulosin 1 cap PO DAILY ticagrelor (Brilinta) 60 mg PO BID torsemide 40 mg (2 x 20 mg) PO DAILY 30 days HPI Follow up post cardiomems HPI Details Jorge is an 82-year-old female with past medical history of hypertension, hyperlipidemia, CAD, heart failure with reduced EF, ICD in place, CKD, [facility] [place] for decompensated heart failure 01/2023. He was diuresed and discharged with torsemide on hold, due to acute on chronic kidney disease. He was seen by Nephrology and torsemide increased to 20 mg daily. Then changed to 40 mg alternating with 20 mg daily. His Entresto has been on hold and he was started on Jardiance. A CardioMEMS device was placed to monitor his PA pressures as part of heart failure monitoring. He now presents for follow-up. Today he reports that he has been feeling good overall. His breathing is comfortable at rest. He will have some mild shortness of breath with activities. He says his breathing is improved from prior reports. No PND, orthopnea. His prior leg edema is resolved. No chest discomfort at rest or with activity. No palpitations, presyncope, syncope, falls. Admits to being mostly sedentary. He has been more active recently. Is taking his meds as directed. 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) Diabetes History of CAD (coronary artery disease) CHF (congestive heart failure) Acute exacerbation of CHF (congestive heart failure) CKD (chronic kidney disease) Surgical History History of heart artery stent Social History Household Members: Family Housing: Apartment Do you presently have visiting nurse or other home services: Yes Alcohol intake: former Patient Tobacco Use Status: Former Tobacco user Quit Date: 1987 service: No Current occupational status: retired Review of Systems Const All systems reviewed & are unremarkable except as noted in HPI and below ENT Reports dizziness (hx of vertigo) Card Denies chest pain, Denies chest pain at rest, Denies chest pain with activity, Denies rapid heart rate, Denies pedal edema, Denies edema, Denies leg edema, Denies lightheadedness, Denies palpitations, Denies dyspnea, Denies dyspnea on exertion and Denies orthopnea Resp Denies cough, Denies dyspnea and Denies dyspnea on exertion GI Denies hematochezia and Denies change in stool character Musc Denies abnormal gait, Denies limited range of motion, Denies muscle cramps, Denies muscle weakness, Denies numbness, Denies radiating pain into limb, Denies stiffness and Denies tingling Neuro Denies abnormal gait, Reports dizziness (hx of vertigo), Denies numbness and Denies tingling Endo Denies palpitations Physical Exam Vital Signs: Last Vital Signs Pulse 54 05/23/23 12:48 BP 122/62 05/23/23 12:48 BMI result Body Mass Index 28.5 Const General: cooperative, healthy appearing, comfortable and no acute distress Orientation/consciousness: patient oriented x3 Neck Neck: Yes normal visual inspection and Yes no JVD Resp Effort & Inspection: normal respiratory effort Auscultation: clear to auscultation bilaterally, no crackles, no rales, no rhonchi and no wheezes Cardio Jugular venous distension: no JVD Rate: regular rate Rhythm: regular rhythm Heart sounds: S1 normal heart sound present, S2 normal heart sound present, no murmurs and no rubs Neuro General: patient oriented x3 Extrem General: Yes normal to inspection, No no pedal edema and No calf tenderness Psych Appearance: grossly normal Mental Status: mental status grossly normal Speech and movement: Normal speech and movement present Assessment & Plan Assessment & Plan (1) Acute on chronic clinical systolic heart failure: Code(s): I50.23 - Acute on chronic systolic (congestive) heart failure Plan: [facility] [place] 01[place]23 with increasing shortness of breath. Treated for acute on chronic systolic heart failure. He was diuresed 7 L. Entresto and torsemide were held on discharge. His creatinine was as high as 3.51. Torsemide has since been restarted by Nephrology. Labs done 03/11/2023 which showed creatinine 2.7 and Entresto was still held. Jardiance was added by Nephrology. On follow-up visit he had NYHA class 2-3 symptoms. CardioMEMS device discussed and he was agreeable to proceed. He underwent CardioMEMS placement and now has pulmonary artery pressures monitored. His readings have been elevated however on clinical exam today he does not appear fluid overloaded. Currently NYHA class 2. Labs done on 05/06/2023 showed creatinine 2.84. Will need to work with Nephrology when making adjustments to his diuretics. Will continue to follow his PA readings closely. No med changes made today. Continue to hold Entresto. Currently on metoprolol XL for neurohormonal modulation. Continue Jardiance, torsemide. Signs and symptoms of heart failure reviewed with him in detail. Avoid fluid overload, follow low salt diet. Home weight monitoring recommended. Emergency care if ever needed for symptoms. Cardiology office visit in 2 months, sooner if needed. Still calibrating goals PA pressures for his CardioMEMS readings. (2) NSTEMI (non-ST elevated myocardial infarction): Code(s): I21.4 - Non-ST elevation (NSTEMI) myocardial infarction Plan: Troponin elevated to 109 last hospital admission 01/16/2023, in setting of decompensated heart failure. Vida to be demand related. Last echocardiogram done 01/17/2023 shows EF 25-30%, LAD territory wall motion abnormality, no valve abnormalities, no significant change from echo 03/29/2022 except for EF further reduced. A nuclear stress test done 04/26/2022 had shown LAD territory infarct with milly-infarct ischemia in the inferior lateral wall, EF 41% with stress and 26% with rest. He has no reports of exertional chest discomfort. At present will continue with med management for CAD. Continue aspirin, high-dose atorvastatin with ideal LDL goal less than 70, metoprolol. He also remains on low-dose Brilinta which I will continue at this time. Labs done 05/06/2023 showed LDL 61. (3) CKD (chronic kidney disease) stage 4, GFR 15-29 ml/min: Code(s): N18.4 - Chronic kidney disease, stage 4 (severe) Plan: As above, following with Nephrology (4) Hypertension: Code(s): I10 - Essential (primary) hypertension Qualifiers: Hypertension type: primary hypertension Qualified Code(s): I10 - Essential (primary) hypertension Plan: Normal range, no med changes made (5) ICD (implantable cardioverter-defibrillator) in place: Code(s): Z95.810 - Presence of automatic (implantable) cardiac defibrillator Plan: Single-chamber Medtronic ICD in place. Functioning normally on last office interrogation 01/13/2023. He has remote monitoring in use. Office interrogation due next visit Plan Time spent on chart review, documentation, interview and assessment Coding Level of Care Code Est Pt Level 4 (98259) Diagnoses Acute on chronic clinical systolic heart failure I50.23 NSTEMI (non-ST elevated myocardial infarction) I21.4 CKD (chronic kidney disease) stage 4, GFR 15-29 ml/min N18.4 Primary hypertension I10 Hypertension type: primary hypertension ICD (implantable cardioverter-defibrillator) in place Z95.810 Time Spent (min) 28
== END 2023-05-23 13:22 | disposition home or self-care (01) ==
PROVIDERS: PCP Internal Medicine; Visit Provider Nurse Practitioner Family
DX: I50.23 Acute on chronic systolic (congestive) heart failure (principal); I21.4 Non-ST elevation (NSTEMI) myocardial infarction; I12.9 Hypertensive chronic kidney disease with stage 1 through stage 4 chronic kidney disease, or unspecified chronic kidney disease; N18.4 Chronic kidney disease, stage 4 (severe); Z95.810 Presence of automatic (implantable) cardiac defibrillator
CPT/HCPCS: 99214

== ENCOUNTER → 2023-05-23 12:38 | Outpatient (BNVA) | payer OTHER, SELFPAY | PROVIDERS: PCP Internal Medicine; Visit Provider Nurse Practitioner Family | DX: I25.10 Atherosclerotic heart disease of native coronary artery without angina pectoris (principal); I13.0 Hypertensive heart and chronic kidney disease with heart failure and stage 1 through stage 4 chronic kidney disease, or unspecified chronic kidney disease; I50.23 Acute on chronic systolic (congestive) heart failure; I21.4 Non-ST elevation (NSTEMI) myocardial infarction; N18.4 Chronic kidney disease, stage 4 (severe); Z95.810 Presence of automatic (implantable) cardiac defibrillator; Z95.5 Presence of coronary angioplasty implant and graft | CPT/HCPCS: 99212 ==

== ENCOUNTER → 2023-05-29 23:59 | Outpatient (BNV) | payer OTHER, SELFPAY ==
--- NOTE | 2023-06-02 14:44 | MHC.OFFVIS ---
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) Diabetes History of CAD (coronary artery disease) CHF (congestive heart failure) Acute exacerbation of CHF (congestive heart failure) CKD (chronic kidney disease) Surgical History History of heart artery stent Social History Household Members: Family Housing: Apartment Do you presently have visiting nurse or other home services: Yes Alcohol intake: former Patient Tobacco Use Status: Former Tobacco user Quit Date: 1987 Smoked in Last 30 Days: No Use of substances other than those prescribed or required for medical reasons: No Advance Directives: Yes Advance Directives on File: Yes Advance Directives Date on File: 01/21/23 service: No Current occupational status: retired Office Procedures Cardiac Device Check Cardiac Device Check Details: Remote heart failure report generated 05/29/2023. Heart failure parameters are stable [id number] Cardiac Device Interrogation, cardio physiologic monitor Procedure code (CPT) selection complete Assessment & Plan Assessment & Plan (1) ICD (implantable cardioverter-defibrillator) in place: Code(s): Z95.810 - Presence of automatic (implantable) cardiac defibrillator Category: Medical Plan: See above
== END ==
PROVIDERS: PCP Internal Medicine; Visit Provider Internal Medicine Cardiovascular Disease
DX: Z45.02 Encounter for adjustment and management of automatic implantable cardiac defibrillator (principal)
CPT/HCPCS: 93297

== ENCOUNTER 2023-06-01 21:41 | Emergency (ER) | payer OTHER, SELFPAY ==
--- NOTE | 2023-06-01 | ECG_ITS ---
Test Reason : CHEST PAIN Blood Pressure : / mmHG Vent. Rate : 061 BPM Atrial Rate : 061 BPM P-R Int : 202 ms QRS Dur : 082 ms QT Int : 446 ms P-R-T Axes : 040 -24 076 degrees QTc Int : 448 ms Normal sinus rhythm Low voltage QRS Cannot rule out Anterior infarct (cited on or before 16-JAN-2023) Abnormal ECG When compared with ECG of 16-JAN-2023 13:42, No significant change was found Referred By: Generic ED Physician Electronically Signed By:IFRAH GONZALES
--- NOTE | ~2023-06-01 | XR_ITS ---
EXAMINATION: XR CHEST CLINICAL INFORMATION: Cough. Chest pain. COMPARISON: Chest radiograph dated 01/13/2023. TECHNIQUE: Frontal view of the chest was obtained. FINDINGS: There is a single lead cardiac device. Lead overlies the expected region of the right ventricle. It is unchanged in position. Cardiac size is within normal limits. There are low lung volumes. There is no consolidation within either lung. There is no pleural effusion or pneumothorax. There is partially visualized cervical spine hardware. XR/XR chest 1V IMPRESSION: Stable appearance of the heart and lungs. No active disease.
[2023-06-01 21:46] VITALS: BP 129/70; BP 157/78; PULSE 61; PULSE 70; RESP 14; TEMP 36.9; O2SAT 98; O2SAT 99; BMI 28.9
[2023-06-01 21:55] LABS: Glucose, Whole Blood 151 mg/dL (60-115)
[2023-06-01 22:04] LABS: MANUAL DIFF FLAG NO
[2023-06-01 22:06] LABS: Basophils Percent Auto 0.3 % (0-2); Eosinophils Absolute Auto 0.2 X10*3/uL (0.0-0.4); Eosinophils Percent Auto 1.9 % (0-4); Hematocrit 45.7 % (42.0-52.0); Hemoglobin 14.9 g/dl (14.0-18.0); Imm Gran Abs Auto 0.02 X10*3/uL (0.00-0.03); Imm Gran Pct Auto 0.2 % (0.0-0.4); Lymphocytes Absolute Auto 3.4 X10*3/uL (1.2-4.9); Mean Corpuscular HGB Conc 32.6 g/dl (31.0-36.0); Mean Corpuscular Volume 85.9 fL (80.0-98.0); Monocytes Absolute Auto 0.5 X10*3/uL (0.1-1.2); Monocytes Percent Auto 5.7 % (2-11); Neutrophils Absolute Auto 4.8 x10*3/uL (2.0-8.3); Neutrophils Percent Auto 53.9 % (45-73); Platelet Count 156 X10*3/uL (160-400); Red Blood Count 5.32 X10*6/uL (4.60-5.80); Red Cell Distribution Width 14.5 % (11.0-16.0); White Blood Count 8.8 X10*3/uL (4.8-10.8)
[2023-06-01 22:11] LABS: INTERNATIONAL NORM RATIO 0.9 (0.9-1.1); Prothrombin Time 10.9 SEC (11.1-13.3)
[2023-06-01 22:18] LABS: Alanine Aminotransferase 18 U/L (0-40); Albumin Level 4.1 g/dL (3.5-5.0); Alkaline Phosphatase 94 U/L (39-117); Anion Gap 13 (12-20); Aspartate Amino Transferase 21 U/L (5-37); Bilirubin Total 0.4 mg/dL (0.0-1.0); Blood Urea Nitrogen 51 mg/dL (9-16); Calcium 9.6 mg/dL (8.4-10.2); Carbon Dioxide 33 mmol/L (22-29); Chloride 94 mmol/L (96-108); Creatinine Clr Calc Pharmacy 22.3; Estimated Glomerular Filt Rate 23; Glucose Random 182 mg/dL (60-115); Potassium 4.3 mmol/L (3.3-5.1); Sodium 136 mmol/L (135-145); Total Protein 7.8 g/dL (6.5-8.0)
[2023-06-01 22:24] LABS: B Type Natriuretic Peptide 335 pg/mL (<100)
--- NOTE | 2023-06-01 22:35 | ED.CHESTPAIN ---
HPI - Chest Pain General Chief Complaint: Chest Pain Stated Complaint: Chest pain, cough Time Seen by Provider: 06/01/23 22:26 Source: patient and EMS Mode of arrival: EMS Limitations: no limitations History of Present Illness HPI narrative: 82-year-old male came in for evaluation of chest pain about 3 hours before coming to the hospital. Pain is left chest area radiates down to the left shoulder and up to his neck, pain is on and off, no clear aggravating factor, no clear relieving factors, pain is similar to the pain when patient had MO. Patient also been having a coughing with yellow sputum production. Patient was given aspirin by EMS. Related Data Home Medications ?Medication ?Instructions ?Recorded ?Confirmed acetaminophen 650 mg 650 mg PO BID PRN Pain 03/26/22 05/23/23 tablet,extended release aspirin 81 mg tablet,delayed 81 mg PO DAILY 03/26/22 05/23/23 release fluticasone propionate 50 1 spray intranasal BID 03/26/22 05/23/23 mcg/actuation nasal spray,suspension loratadine 10 mg tablet 10 mg PO DAILY 03/26/22 05/23/23 tamsulosin 0.4 mg capsule 1 cap PO DAILY 03/26/22 05/23/23 atorvastatin 80 mg tablet 80 mg PO BEDTIME 04/09/22 05/23/23 gabapentin 100 mg capsule 100 mg PO TID 04/09/22 05/23/23 glucose 4 gram chewable tablet 4 g PO ONCE PRN LOW GLUCOSE 04/09/22 05/23/23 (Dex4 Glucose) omeprazole 20 mg capsule,delayed 20 mg PO DAILY 07/13/22 05/23/23 release insulin aspart U-100 100 unit/mL 0 sliding scale dose subcut TID 01/13/23 05/23/23 (3 mL) subcutaneous pen (Novolog FlexPen U-100 Insulin aspart) insulin glargine 100 unit/mL (3 20 unit subcut BEDTIME 01/13/23 05/23/23 mL) subcutaneous pen (Lantus Solostar U-100 Insulin) ticagrelor 60 mg tablet (Brilinta) 60 mg PO BID 01/13/23 05/23/23 Previous Rx's ?Medication ?Instructions ?Recorded metoprolol succinate 50 mg 50 mg PO DAILY #30 tabs 04/29/22 tablet,extended release 24 hr (Toprol XL) empagliflozin 10 mg tablet 10 mg PO QAM #30 tabs 05/11/23 (Jardiance) torsemide 20 mg tablet 40 mg (2 x 20 mg) PO DAILY 30 days 05/11/23 #60 tabs Allergies Allergy/AdvReac Type Severity Reaction Status Date / Time No Known Allergies Allergy Verified 06/01/23 21:58 [No Known Allergies*] Review of Systems Review of Systems: All other systems are reviewed and are negative Constitutional: Reports as per HPI and Reports no additional constitutional complaints Eyes: Reports as per HPI and Reports no additional eye complaints Reports system reviewed and no additional complaints, except as documented Cardiovascular: Reports as per HPI and Reports no additional cardiovascular complaints Respiratory: Reports as per HPI and Reports no additional respiratory complaints Gastrointestinal: Reports as per HPI and Reports no additional gastrointestinal complaints Genitourinary: Reports no additional female genitourinary complaints Musculoskeletal: Reports no additional musculoskeletal complaints Skin/Breast: Reports system reviewed and no additional complaints, except as docu Psychiatric: Reports no additional psychiatric complaints Endocrine: Reports no additional endocrine complaints Hematologic/Lymphatic: Reports no additional hematologic/lymphatic complaints Allergic/Immunologic: Reports no additional allergic/immunologic complaints Reports system reviewed and no additional complaints, except as documented and Reports Abnormal speech present [facility] Past Medical History Medical History 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) Diabetes History of CAD (coronary artery disease) CHF (congestive heart failure) Acute exacerbation of CHF (congestive heart failure) CKD (chronic kidney disease) Surgical History History of heart artery stent Social History Social History Household Members: Family Housing: Apartment Do you presently have visiting nurse or other home services: Yes Alcohol intake: former Patient Tobacco Use Status: Former Tobacco user Quit Date: 1987 Smoked in Last 30 Days: No Use of substances other than those prescribed or required for medical reasons: No Advance Directives: Yes Advance Directives on File: Yes Advance Directives Date on File: 01/21/23 service: No Current occupational status: retired Physical Exam Vital Signs: Vital Signs: Last Vital Signs Temp 97.5 F 06/01/23 23:00 Pulse 54 06/01/23 23:00 Resp 12 06/01/23 23:00 BP 108/60 06/01/23 23:00 Pulse Ox 96 06/01/23 23:00 O2 Del Method Room Air 06/01/23 23:00 BMI result Body Mass Index 28.9 Vital signs have been reviewed and appear to be correct. Blood pressure elevated. Heart rate normal. Respiratory rate normal. Temperature normal. Oxygen saturation normal. Appearance: Alert. Oriented X3. No acute distress. Head: Normal external exam. Normocephalic. Atraumatic. No Baugh signs noted. No raccoon eyes noted Eyes: PERRLA. EOMI. Conjunctiva and sclera normal. Eyelids normal. ENT: TM's Normal. Pharynx normal. Uvula midline. Moist mucous membranes. No trismus noted. No drooling noted. No muffled voice noted. Neck: Normal inspection. Neck supple. FROM. No adenopathy. Thyroid Normal. No meningeal signs. No neck mass noted. CVS: Normal heart rate and rhythm. Heart sound normal. No murmurs noted. Pulses normal throughout. Respiratory: No respiratory distress. Painless inspiration. Breath sounds normal. No wheezes/rales/rhonchi noted. Left chest wall point of reproducible tenderness, no step-off, no deformity. No accessory muscle usage noted or decreased air movement noted. Abdomen: Soft and nontender. Bowel sounds normal in all 4 quadrants. No distention noted. No organomegaly noted. No visible injury noted. Back: No CVA tenderness. Full range of motion noted. Skin: Skin warm and dry. Normal skin color. Normal skin turgor. No rashes/lesions/lacerations noted. Extremities: No lower extremity edema. Extremities exhibit normal range of motion. Extremities nontender. Neuro: Oriented X 3. Cranial nerve exam: II-XII are grossly intact No motor deficit. No sensory deficit. Reflexes normal. Course Reevaluation(s) Reevaluation #1: Chest pain similar to his pain when he had MO, EKG is unchanged, elevated troponin case discussed with Dr. Torres who recommended transfer for CCU, heparin drip, statin, aspirin, and nitro p.r.n. chest pain. Time: 00:58 Reevaluation #2: Case discussed with [facility] hotline for transfer no available bed at the current time. Case discussed with [facility] outlined transfer was accepted to [facility] accepting physician is Dr. Segal. Time: 00:59 Medical Decision Making Differential Diagnosis Differential Diagnoses: The differential diagnosis associated with the presentation includes (NSTEMI, pneumonia, pneumothorax, upper respiratory viral infection, electrolyte abnormality, severe anemia.) Admission/Observation Consideration of admission/observation: Escalation of care including admission/observation considered Consult Healthcare Provider Management of the patient was discussed with: [employer] (Dr. Torres) Lab Data [facility] Lab Attestation statement: I reviewed the patient's lab results. 06/01/23 21:59 06/01/23 21:59 Labs: Lab Results 06/01/23 06/01/23 Range/Units 21:51 21:59 WBC 8.8 (4.8-10.8) X10*3/uL RBC 5.32 (4.60-5.80) X10*6/uL Hgb 14.9 (14.0-18.0) g/dl Hct 45.7 (42.0-52.0) % MCV 85.9 (80.0-98.0) fL MCH 28.0 (27.0-33.0) pg MCHC 32.6 (31.0-36.0) g/dl RDW 14.5 (11.0-16.0) % Plt Count 156 L (160-400) X10*3/uL MPV 10.0 (9.4-12.4) fL Immature Gran % (Auto) 0.2 (0.0-0.4) % Neut % (Auto) 53.9 (45-73) % Lymph % (Auto) 38.0 (20-40) % [place] % (Auto) 5.7 (2-11) % Eos % (Auto) 1.9 (0-4) % Baso % (Auto) 0.3 (0-2) % Lymph # (Auto) 3.4 (1.2-4.9) X10*3/uL [place] # (Auto) 0.5 (0.1-1.2) X10*3/uL Eos # (Auto) 0.2 (0.0-0.4) X10*3/uL Baso # (Auto) 0.0 (0.0-0.2) X10*3/uL Abs Immat Gran (auto) 0.02 (0.00-0.03) X10*3/uL Absolute Neuts (auto) 4.8 (2.0-8.3) x10*3/uL Absolute Nucleated RBC 0.000 (0.0-0.012) X10*3/uL Nucleated RBC % (auto) 0.0 (0.0-0.2) /100WBC PT 10.9 L (11.1-13.3) SEC INR 0.9 (0.9-1.1) Sodium 136 (135-145) mmol/L Potassium 4.3 (3.3-5.1) mmol/L Chloride 94 L (96-108) mmol/L Carbon Dioxide 33 H (22-29) mmol/L Anion Gap 13 (12-20) BUN 51 H (9-16) mg/dL Creatinine 2.67 H (0.5-1.4) mg/dL Estim Creat Clear Calc 22.3 Estimated GFR 23 POC Glucose 151 H (60-115) mg/dL Random Glucose 182 H (60-115) mg/dL Calcium 9.6 (8.4-10.2) mg/dL Total Bilirubin 0.4 (0.0-1.0) mg/dL AST 21 (5-37) U/L ALT 18 (0-40) U/L Alkaline Phosphatase 94 (39-117) U/L Troponin I High Sens 82.5 H (<3.5-35.0) ng/L B-Natriuretic Peptide 335 H (<100) pg/mL Total Protein 7.8 (6.5-8.0) g/dL Albumin 4.1 (3.5-5.0) g/dL Influenza Type A (PCR) NEGATIVE (Negative) Influenza Type B (PCR) NEGATIVE (Negative) RSV RNA Qual (PCR) NEGATIVE (Negative) SARS-CoV-2 RNA (RT-PCR) NEGATIVE (Negative) Independent Interpretation I performed an independent interpretation of an: EKG (Normal sinus rhythm at 61 beats per minutes, minimal prolongation of VA interval otherwise unremarkable intervals, diffuse nonspecific T-wave flattening in the inferior and lateral lead.) and Plain X-Ray (Stable appearance of the heart and lungs. No active disease. ) Radiology Impression Discussion of test interpretation with radiology: I have reviewed the radiologist's reading. External Record Review External record reviewed: Inpatient record Chronic Conditions Patient?s care impacted by: Diabetes and Hypertension Critical Care Time Critical Care Time Critical Care Time: Yes Total Critical Care Time: 60 Attestation: The patient was critically ill with a high probability of imminent or life-threatening deterioration. I spent greater than 30 minutes of discontinuous time evaluating the patient, delivering critical care at the bedside, discussing evaluating data with consultants. Critical care time does not include time spent performing separately billable procedures or teaching. Time spent performing critical care was 60 minutes. Discharge Plan Discharge Clinical Impression: Chest pain, Non-ST elevation MO (NSTEMI) Patient Disposition: [facility] Transfer Details: to [facility] Prescriptions: No Action aspirin 81 mg Tablet,Delayed Release (Dr/Ec) 81 mg PO DAILY acetaminophen 650 mg tablet extended release 650 mg PO BID PRN (Reason: Pain) tamsulosin 0.4 mg capsule 1 cap PO DAILY fluticasone propionate 50 mcg/actuation spray,suspension 1 spray intranasal BID loratadine 10 mg Tablet 10 mg PO DAILY atorvastatin 80 mg tablet 80 mg PO BEDTIME gabapentin 100 mg capsule 100 mg PO TID omeprazole 20 mg capsule,delayed release(DR/EC) 20 mg PO DAILY insulin aspart U-100 [Novolog FlexPen U-100 Insulin] 100 unit/mL (3 mL) insulin pen 0 sliding scale dose subcut TID insulin glargine [Lantus Solostar U-100 Insulin] 100 unit/mL (3 mL) insulin pen 20 unit subcut BEDTIME glucose [Dex4 Glucose] 4 gram tablet,chewable 4 g PO ONCE PRN (Reason: LOW GLUCOSE) Rx Instructions: until symptoms of low blood sugar are controlled metoprolol succinate [Toprol XL] 50 mg tablet extended release 24 hr 50 mg PO DAILY Qty: 30 5RF Brilinta 60 mg tablet 60 mg PO BID Jardiance 10 mg tablet 10 mg PO QAM Qty: 30 3RF torsemide 20 mg tablet 40 mg PO DAILY 30 Days Qty: 60 3RF Hold Instructions: Resume on 01/24/23. Print Language: Taiwanese
[2023-06-01 22:42] LABS: Influenza A PCR NEGATIVE (Negative); Influenza B PCR NEGATIVE (Negative); Resp Syncy Virus RNA Qual PCR NEGATIVE (Negative); SARS COV2 PCR INHOUSE NEGATIVE (Negative)
[2023-06-01 23:00] VITALS: BP 108/60; PULSE 54; RESP 12; TEMP 36.4; O2SAT 96
[2023-06-01 23:37] LABS: Troponin-I High Sensitivity 82.5 ng/L (<3.5-35.0)
--- NOTE | 2023-06-02 00:50 | MHC.EDTECH ---
Facesheet faxed to @[phone]
[2023-06-02] MEDS: Heparin Sodium,Porcine 5,000 UNIT/ML VIAL 4000 UNIT IVPUSH (01:05)
[2023-06-02 01:07] VITALS: BMI 28.3
[2023-06-02] MEDS: Heparin Sodium,Porcine/1/2NS 25,000 UNIT/250 ML IV.SOLN 10 UNIT IVCONT (01:08)
[2023-06-02] MEDS: Nitroglycerin 2 % Oint 1 GM Packet 0.5 INCH TRANSDERMA (01:16)
[2023-06-02] MEDS: Atorvastatin Calcium 80 MG TABLET PO (01:20)
[2023-06-02 01:22] VITALS: BP 113/67; PULSE 57; RESP 18; TEMP 36.8; O2SAT 98
[2023-06-02 01:33] VITALS: BP 113/67; PULSE 57; RESP 18; TEMP 36.8; O2SAT 98
== END 2023-06-02 01:34 | disposition short-term general hospital (02) ==
PROVIDERS: Emergency Provider Emergency Medicine; PCP Internal Medicine
DX: R07.89 Other chest pain (principal); I21.4 Non-ST elevation (NSTEMI) myocardial infarction; M25.512 Pain in left shoulder; M54.2 Cervicalgia; Z03.818 Encounter for observation for suspected exposure to other biological agents ruled out; Z79.899 Other long term (current) drug therapy; Z79.4 Long term (current) use of insulin; Z87.891 Personal history of nicotine dependence
CPT/HCPCS: 0241U; 71045; 80053; 82947; 83880; 84484; 85025; 85610; 85730; 93005; 96374; 99285; J1644

== ENCOUNTER → 2023-06-01 21:45 | Outpatient (BNV) | payer OTHER, SELFPAY | PROVIDERS: Emergency Provider Emergency Medicine; PCP Internal Medicine; Visit Provider Internal Medicine | DX: R94.31 Abnormal electrocardiogram [ECG] [EKG] (principal) | CPT/HCPCS: 93010 ==

== ENCOUNTER → 2023-06-06 23:59 | Outpatient (BNV) | payer OTHER, SELFPAY ==
--- NOTE | 2023-06-17 16:45 | MHC.OFFVIS ---
Intake Visit Reasons: Remote Cardiomems- [facility] Allergies No Known Allergies [No Known Allergies*] Allergy (Verified 06/01/23 21:58) [facility] Medical History 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) Diabetes History of CAD (coronary artery disease) CHF (congestive heart failure) Acute exacerbation of CHF (congestive heart failure) CKD (chronic kidney disease) Surgical History History of heart artery stent Social History Household Members: Family Housing: Apartment Do you presently have visiting nurse or other home services: Yes Alcohol intake: former Patient Tobacco Use Status: Former Tobacco user Quit Date: 1987 Advance Directives Date on File: 01/21/23 service: No Current occupational status: retired Office Procedures Cardiac Device Check Cardiac Device Check Details: Monitoring period dates: 04/26/23 - 05/28/23 Optimal PA pressure range:PAD goal 22mmhg Procedure code: 06993 BACKGROUND: Jorge is implanted with the CardioMEMS PA Sensor.? I use this technology to monitor PA pressures on a weekly basis to ensure patients are within their optimal range to prevent decompensation.? SUMMARY:? I utilized the remote monitoring platform ([employer]) to set optimal targets for pulmonary artery pressure thresholds as part of acute and chronic management of patient?s heart failure. During the period indicated above, I monitored the patient?s pulmonary artery pressures weekly via trend analysis and notification reports which provide alerts when patient?s PA pressures were outside of range to prompt immediate action in medication changes and communications.? The weekly reports are archived in the [employer] system which serve as a parallel record to document weekly PA pressures, medication changes, and clinical notes. I have reviewed readings on 04/26, 05/03, 05/09, 05/15, 05/22, 05/26. His PAD has ranged between 18-30mmhg. Feeling good. 64665 - Remote monitoring of wireless pulmonary artery pressure sensor Procedure code (CPT) selection complete Assessment & Plan Assessment & Plan (1) Presence of CardioMEMS HF system: Code(s): Z95.818 - Presence of other cardiac implants and grafts Category: Medical Plan: monthly report Coding Level of Care Code Procedure Only Diagnoses Presence of CardioMEMS HF system Z95.818 CPT Codes Cardiac Device Check - Cardiac Device 17: 09370 - Remote monitoring of wireless pulmonary artery pressure sensor ([id number])
== END ==
PROVIDERS: PCP Internal Medicine; Visit Provider Nurse Practitioner Family
DX: I50.9 Heart failure, unspecified (principal); Z95.818 Presence of other cardiac implants and grafts
CPT/HCPCS: 93264

== ENCOUNTER 2023-06-24 13:32 | Outpatient (AMB) | payer OTHER, SELFPAY ==
[2023-06-24 13:34] VITALS: BP 110/64; PULSE 63; O2SAT 98; BMI 27.4
--- NOTE | 2023-06-24 13:34 | HO.NEPHOV_ITS ---
Vital Signs 06/24/23 13:34 Height 5 ft 8 in Weight 180 lb BMI 27.4 BP 110/64 Blood Pressure Location Rt brachial Position Sitting Pulse 63 Pulse Source Pulse Oximeter Pulse Oximetry (%) 98 Oxygen Delivery Method Room Air Intake Visit Reasons: 6 Weeks/ Confirmed w/granddaughter Third Miller Required: No Accompanied by: Self / Same As Patient Allergies No Known Allergies [No Known Allergies*] Allergy (Verified 06/24/23 13:35) HPI Comments Details: 81 yo M with hx of CAD, CKD, diabetes, CHF, hyperlipidemia, BPH among multiple other medical issues who recently was in the hospital with CP and SOB . He was transferred to [facility]. He claims to be compliant with a diet, medications and fluid intake.He denies any fever no chills, no cough, no palpitations, no urinary symptoms and numbness tingling or weakness. His Entresto has been on hold. He feels better. 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) Diabetes History of CAD (coronary artery disease) CHF (congestive heart failure) Acute exacerbation of CHF (congestive heart failure) CKD (chronic kidney disease) Surgical History History of heart artery stent Social History Household Members: Family Housing: Apartment Do you presently have visiting nurse or other home services: Yes Alcohol intake: former Patient Tobacco Use Status: Former Tobacco user Quit Date: 1987 Advance Directives Date on File: 01/21/23 service: No Current occupational status: retired Physical Exam Vital Signs: Last Vital Signs Pulse 63 06/24/23 13:34 BP 110/64 06/24/23 13:34 Pulse Ox 98 06/24/23 13:34 Oxygen Delivery Method Room Air 06/24/23 13:34 BMI result Body Mass Index 27.4 Const General: comfortable and no acute distress Orientation/consciousness: patient oriented x3 HEENT Head: Yes normocephalic Mouth: Normal oral and palatal mucosa present Eyes EOM: EOMs intact bilaterally Neck Neck: Yes supple Resp Auscultation: clear to auscultation bilaterally Cardio Jugular venous distension: no JVD Rate: regular rate GI Palpation (GI): Soft to palpation Auscultation: normal bowel sounds General: Yes no CVA tenderness Back/Spine/Pelvis Back: no CVA tenderness Skin General skin exam: no rashes or lesions noted Neuro General: patient oriented x3 and moves all extremities Extrem General: Yes no pedal edema Results Reviewed Nephrology Results: Hgb 14.9 g/dl (14.0-18.0) 06/01/23 WBC 8.8 X10*3/uL (4.8-10.8) 06/01/23 Plt Count 156 X10*3/uL (160-400) L 06/01/23 Sodium 136 mmol/L (135-145) 06/01/23 Potassium 4.3 mmol/L (3.3-5.1) 06/01/23 Chloride 94 mmol/L (96-108) L 06/01/23 Carbon Dioxide 33 mmol/L (22-29) H 06/01/23 BUN 51 mg/dL (9-16) H 06/01/23 Creatinine 2.67 mg/dL (0.5-1.4) H 06/01/23 Calcium 9.6 mg/dL (8.4-10.2) 06/01/23 Urine Creatinine 30.94 mg/dL 05/06/23 Assessment & Plan Assessment & Plan (1) Secondary hyperparathyroidism (of renal origin): Code(s): N25.81 - Secondary hyperparathyroidism of renal origin Category: Medical (2) CKD (chronic kidney disease) stage 4, GFR 15-29 ml/min: Code(s): N18.4 - Chronic kidney disease, stage 4 (severe) Category: Medical (3) Hypertension: Code(s): I10 - Essential (primary) hypertension Category: Medical Qualifiers: Hypertension type: primary hypertension Qualified Code(s): I10 - Essential (primary) hypertension Plan Has CKD 4 at baseline; Entresto has been on hold C/W torsemide 40 mg daily I did not restart Entresto yet. C/W Jardiance 10 mg daily I ordered follow-up blood work. Needs to have good diet control including low sodium Answered all questions. Follow-up given Orders: Orders Creatinine Today I10 - Essential (primary) hypertension, N18.4 - Chronic kidney disease, stage 4 (severe), N25.81 - Secondary hyperparathyroidism of renal origin Blood Urea Nitrogen Today I10 - Essential (primary) hypertension, N18.4 - Chronic kidney disease, stage 4 (severe), N25.81 - Secondary hyperparathyroidism of renal origin Electrolytes Today I10 - Essential (primary) hypertension, N18.4 - Chronic kidney disease, stage 4 (severe), N25.81 - Secondary hyperparathyroidism of renal origin Coding Level of Care Code Est Pt Level 4 (10496) Diagnoses Secondary hyperparathyroidism (of renal origin) N25.81 CKD (chronic kidney disease) stage 4, GFR 15-29 ml/min N18.4 Primary hypertension I10 Hypertension type: primary hypertension
== END 2023-06-24 13:58 | disposition home or self-care (01) ==
PROVIDERS: PCP Internal Medicine; Visit Provider Internal Medicine Nephrology
DX: I12.9 Hypertensive chronic kidney disease with stage 1 through stage 4 chronic kidney disease, or unspecified chronic kidney disease (principal); N18.4 Chronic kidney disease, stage 4 (severe); N25.81 Secondary hyperparathyroidism of renal origin
CPT/HCPCS: 99214

== ENCOUNTER → 2023-06-24 13:32 | Outpatient (BNVA) | payer OTHER, SELFPAY | PROVIDERS: PCP Internal Medicine; Visit Provider Internal Medicine Nephrology | DX: I12.9 Hypertensive chronic kidney disease with stage 1 through stage 4 chronic kidney disease, or unspecified chronic kidney disease (principal); N18.4 Chronic kidney disease, stage 4 (severe); N25.81 Secondary hyperparathyroidism of renal origin | CPT/HCPCS: 99212 ==

== ENCOUNTER → 2023-06-29 23:59 | Outpatient (BNV) | payer OTHER, SELFPAY ==
--- NOTE | 2023-06-30 17:36 | A.OFFVIS_ITS ---
Intake Visit Reasons: Remote ICD check- [employer] Allergies No Known Allergies [No Known Allergies*] Allergy (Verified 06/24/23 13:35) [facility] Medical History 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) Diabetes History of CAD (coronary artery disease) CHF (congestive heart failure) Acute exacerbation of CHF (congestive heart failure) CKD (chronic kidney disease) Surgical History History of heart artery stent Social History Household Members: Family Housing: Apartment Do you presently have visiting nurse or other home services: Yes Alcohol intake: former Patient Tobacco Use Status: Former Tobacco user Quit Date: 1987 Advance Directives Date on File: 01/21/23 service: No Current occupational status: retired Office Procedures Cardiac Device Check Cardiac Device Check Details: Remote ICD report generated 06/29/2023. ICD function is adequate. [id number] Cardiac Interrogation, implant defibrillator w/interim Procedure code (CPT) selection complete Assessment & Plan Assessment & Plan (1) ICD (implantable cardioverter-defibrillator) in place: Code(s): Z95.810 - Presence of automatic (implantable) cardiac defibrillator Category: Medical Plan: See above Coding Level of Care Code Procedure Only Diagnoses ICD (implantable cardioverter-defibrillator) in place Z95.810 CPT Codes Cardiac Device Check - Cardiac Device 13: [id number] Cardiac Interrogation, implant defibrillator w/interim ([id number])
== END ==
PROVIDERS: PCP Internal Medicine; Visit Provider Internal Medicine Cardiovascular Disease
DX: Z45.02 Encounter for adjustment and management of automatic implantable cardiac defibrillator (principal)
CPT/HCPCS: 93295

== ENCOUNTER → 2023-06-29 23:59 | Outpatient (BNV) | payer OTHER, SELFPAY ==
--- NOTE | 2023-06-30 17:37 | MHC.OFFVIS ---
Intake Visit Reasons: Remote HF monitoring- [employer] Allergies No Known Allergies [No Known Allergies*] Allergy (Verified 06/24/23 13:35) [facility] Medical History 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) Diabetes History of CAD (coronary artery disease) CHF (congestive heart failure) Acute exacerbation of CHF (congestive heart failure) CKD (chronic kidney disease) Surgical History History of heart artery stent Social History Household Members: Family Housing: Apartment Do you presently have visiting nurse or other home services: Yes Alcohol intake: former Patient Tobacco Use Status: Former Tobacco user Quit Date: 1987 Advance Directives Date on File: 01/21/23 service: No Current occupational status: retired Office Procedures Cardiac Device Check Cardiac Device Check Details: Remote heart failure report generated 06/29/2023. Heart failure parameters are stable [id number] Cardiac Device Interrogation, cardio physiologic monitor Procedure code (CPT) selection complete Assessment & Plan Assessment & Plan (1) Heart failure with reduced ejection fraction: Code(s): I50.20 - Unspecified systolic (congestive) heart failure Category: Medical Plan: See above Coding Level of Care Code Procedure Only Diagnoses Heart failure with reduced ejection fraction I50.20 CPT Codes Cardiac Device Check - Cardiac Device 15: [id number] Cardiac Device Interrogation, cardio physiologic monitor ([id number])
== END ==
PROVIDERS: PCP Internal Medicine; Visit Provider Internal Medicine Cardiovascular Disease
DX: I50.20 Unspecified systolic (congestive) heart failure (principal); Z95.810 Presence of automatic (implantable) cardiac defibrillator
CPT/HCPCS: 93297

== ENCOUNTER → 2023-06-29 23:59 | Outpatient (BNV) | payer OTHER, SELFPAY ==
--- NOTE | 2023-07-08 11:47 | A.OFFVIS_ITS ---
Intake Visit Reasons: [facility] Allergies No Known Allergies [No Known Allergies*] Allergy (Verified 07/01/23 13:00) [facility] Medical History 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) Diabetes History of CAD (coronary artery disease) CHF (congestive heart failure) Acute exacerbation of CHF (congestive heart failure) CKD (chronic kidney disease) Surgical History History of heart artery stent Social History Household Members: Family Housing: Apartment Do you presently have visiting nurse or other home services: Yes Alcohol intake: former Patient Tobacco Use Status: Former Tobacco user Quit Date: 1987 Advance Directives Date on File: 01/21/23 service: No Current occupational status: retired Office Procedures Cardiac Device Check Cardiac Device Check Details: Monitoring period dates: 05/29/23 -06/28/23 Optimal PA pressure range:PAD goal 22mmhg Procedure code: 09476 BACKGROUND: Jorge is implanted with the CardioMEMS PA Sensor.? I use this technology to monitor PA pressures on a weekly basis to ensure patients are within their optimal range to prevent decompensation.? SUMMARY:? I utilized the remote monitoring platform ([employer]) to set optimal targets for pulmonary artery pressure thresholds as part of acute and chronic management of patient?s heart failure. During the period indicated above, I monitored the patient?s pulmonary artery pressures weekly via trend analysis and notification reports which provide alerts when patient?s PA pressures were outside of range to prompt immediate action in medication changes and communications.? The weekly reports are archived in the [employer] system which serve as a parallel record to document weekly PA pressures, medication changes, and clinical notes. I have reviewed readings on 05/31, 06/07, 06/14, 06/20, 06/27. Her PAD has ranged between 21-28mmhg. Stable overall. 46230 - Remote monitoring of wireless pulmonary artery pressure sensor Procedure code (CPT) selection complete Assessment & Plan Assessment & Plan (1) Presence of CardioMEMS HF system: Code(s): Z95.818 - Presence of other cardiac implants and grafts Category: Medical Plan: monthly report Coding Level of Care Code Procedure Only Diagnoses Presence of CardioMEMS HF system Z95.818 CPT Codes Cardiac Device Check - Cardiac Device 17: 57511 - Remote monitoring of wireless pulmonary artery pressure sensor ([id number])
== END ==
PROVIDERS: PCP Internal Medicine; Visit Provider Nurse Practitioner Family
DX: Z45.09 Encounter for adjustment and management of other cardiac device (principal)
CPT/HCPCS: 93264

== ENCOUNTER 2023-07-01 12:37 | Outpatient (AMB) | payer OTHER, SELFPAY ==
[2023-07-01 12:54] VITALS: BP 114/62; PULSE 67; BMI 27.1
--- NOTE | 2023-07-01 12:54 | A.OFFVIS_ITS ---
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 Name: [email or web address] mujica [id number] Allergies No Known Allergies [No Known Allergies*] Allergy (Verified 07/01/23 13:00) Medication List - Last Reconciled 07/01/23 by ASHLEY Lopez acetaminophen ER 650 mg PO BID PRN apixaban (Eliquis) 5 mg PO BID atorvastatin 80 mg PO BEDTIME empagliflozin (Jardiance) 10 mg PO QAM fluticasone propionate 50 mcg/actuation 1 spray intranasal BID gabapentin 100 mg PO TID glucose (Dex4 Glucose) 4 grams PO ONCE PRN insulin aspart U-100 (Novolog FlexPen U-100 Insulin aspart) 0 sliding scale doses subcut TID insulin degludec (Tresiba FlexTouch U-100 insulin) units subcut loratadine 10 mg PO DAILY loteprednol etabonate 0.5% drps ophthalmic (eye) metoprolol succinate ER (Toprol XL) 50 mg PO DAILY omeprazole 20 mg PO DAILY tamsulosin 1 cap PO DAILY torsemide 20 mg PO DAILY 30 days HPI HPI [facility] [place]: Details: Jorge is an 82-year-old female with past medical history of hypertension, hyperlipidemia, CAD, heart failure with reduced EF, ICD in place, CKD, Cardio MEMS device, who presented to [facility] last month with chest discomfort. He ruled in for NSTEMI then was transferred to [facility] as there were no beds at [facility]. He had fluid overload and cardiac catheterization was not performed. They did do a nuclear stress test which did show large infarct, no ischemia. He was managed medically. He was admitted to [facility] last week with dizziness. A device interrogation did show a 10 minute PAF occurring on 06/15/2023. His Brilinta was stopped and he was started on Eliquis. Today he reports that he has been doing well since his [facility] discharge on 06/29. He is no longer feeling lightheaded. No chest discomfort since his [facility] discharge. No concerning shortness of breath, PND, orthopnea or edema. No presyncope, syncope, falls. He is taking his meds as directed. No bleeding issues reported. Is compliant with his CardioMEMS monitoring. 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 [facility] Medical History 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) Diabetes History of CAD (coronary artery disease) CHF (congestive heart failure) Acute exacerbation of CHF (congestive heart failure) CKD (chronic kidney disease) Surgical History History of heart artery stent Social History Household Members: Family Housing: Apartment Do you presently have visiting nurse or other home services: Yes Alcohol intake: former Patient Tobacco Use Status: Former Tobacco user Quit Date: 1987 Advance Directives Date on File: 01/21/23 service: No Current occupational status: retired Review of Systems Const All systems reviewed & are unremarkable except as noted in HPI and below ENT Denies dizziness Card Details: pinching feeling in chest, heart palpitations Reports chest pain, Denies chest pain at rest, Denies chest pain with activity, Reports rapid heart rate, Denies pedal edema, Denies edema, Denies leg edema, Denies lightheadedness, Denies palpitations, Denies dyspnea, Denies dyspnea on exertion and Denies orthopnea Resp Denies cough, Denies dyspnea and Denies dyspnea on exertion GI Denies hematochezia and Denies change in stool character Musc Denies abnormal gait, Denies limited range of motion, Denies muscle cramps, Denies muscle weakness, Denies numbness, Denies radiating pain into limb, Denies stiffness and Denies tingling Neuro Denies abnormal gait, Denies dizziness, Denies numbness and Denies tingling Endo Denies palpitations Physical Exam Vital Signs: Last Vital Signs Pulse 67 07/01/23 12:54 BP 114/62 07/01/23 12:54 BMI result Body Mass Index 27.1 Const General: cooperative, healthy appearing, comfortable and no acute distress Orientation/consciousness: patient oriented x3 Neck Neck: Yes normal visual inspection and Yes no JVD Resp Effort & Inspection: normal respiratory effort Auscultation: clear to auscultation bilaterally, no crackles, no rales, no rhonchi and no wheezes Cardio Jugular venous distension: no JVD Rate: regular rate Rhythm: regular rhythm Heart sounds: S1 normal heart sound present, S2 normal heart sound present, no murmurs and no rubs Neuro General: patient oriented x3 Extrem General: Yes normal to inspection, No no pedal edema and No calf tenderness Psych Appearance: grossly normal Mental Status: mental status grossly normal Speech and movement: Normal speech and movement present Assessment & Plan Assessment & Plan (1) Acute on chronic clinical systolic heart failure: Code(s): I50.23 - Acute on chronic systolic (congestive) heart failure Category: Medical Plan: History of heart failure with reduced EF. He has CardioMEUseful at Night device now in place to help with remote monitoring. His PA readings have been stable recently with CAD ranging 21-25 mmHg. PA D goal is 22 mmHg. He is currently on torsemide 20 mg daily. He has known chronic kidney disease. His last [facility] [place]/2023 showing creatinine 2.67. He does not appear fluid overloaded on examination today. Will have him continue on current torsemide. Continue Jardiance. He has been off Entresto due to CKD/JADEN. He is on metoprolol XL to help with neurohormonal modulation. An echocardiogram was recently done at [facility] showing EF 30-35%, akinesis of the anterior septal and anterior segments extending from the base to apex there is a filling defect at the apex suggesting thrombus. Last [facility] [place] on [place]17/2023 showed EF 25-30% with LAD wall motion abnormality. This finding of possible thrombus is new. It seems that he has also had a recent finding of PAF on pacemaker interrogation. His med list now includes Eliquis. Will obtain a repeat echocardiogram prior to his next visit to evaluate EF and for thrombus. Signs and symptoms of heart failure reviewed with him in detail. Avoid fluid overload, follow low salt diet. Home weight monitoring recommended. Emergency care if ever needed for symptoms. Cardiology office visit in 3 months, sooner if needed. (2) NSTEMI (non-ST elevated myocardial infarction): Code(s): I21.4 - Non-ST elevation (NSTEMI) myocardial infarction Category: Medical Plan: Recently presented [place] [facility] [place]. He ruled in for NSTEMI. He was transferred to [facility]. Their notes indicate that cardiac catheterization was canceled due to hypervolemia from IV fluid. They then did a nuclear stress test showing a large scar in the LAD territory, no active ischemia. He was continued on med management. At this time he has no anginal sounding symptoms. His prior chest discomfort has resolved. Will continue on metoprolol XL, high-dose atorvastatin. He has no longer on aspirin as he is on Eliquis. (3) CKD (chronic kidney disease) stage 4, GFR 15-29 ml/min: Code(s): N18.4 - Chronic kidney disease, stage 4 (severe) Category: Medical Plan: As above, following with Nephrology (4) Hypertension: Code(s): I10 - Essential (primary) hypertension Category: Medical Qualifiers: Hypertension type: primary hypertension Qualified Code(s): I10 - Essential (primary) hypertension Plan: Normal range, no med changes made (5) ICD (implantable cardioverter-defibrillator) in place: Code(s): Z95.810 - Presence of automatic (implantable) cardiac defibrillator Category: Medical Plan: Single-chamber Medtronic ICD in place. Functioning normally on last office interrogation 01/13/2023. He has remote monitoring in use. Office interrogation due next visit (6) Hospital discharge follow-up: Code(s): Z09 - Encounter for follow-up examination after completed treatment for conditions other than malignant neoplasm Category: Medical Plan: As above (7) Paroxysmal A-fib: Code(s): I48.0 - Paroxysmal atrial fibrillation Category: Medical Plan: Interrogation of his ICD on 06/30/2023 states episode of PAF occurring on 06/15/2023, 10 minutes in duration. It seems he was then started on Eliquis. His prior Brilinta and aspirin are off his list. He is on metoprolol. Will con tinue to follow PAF with his remote pacemaker monitoring. Diagnosis of PAF reviewed with him. (8) Apical mural thrombus: Code(s): I51.3 - Intracardiac thrombosis, not elsewhere classified Category: Medical Plan: Noted on echo from [facility]. Rechecking echo prior to next visit. Plan Time spent on chart review, documentation, interview and assessment Orders: Orders CA echo transthoracic complete 08/15/23 I51.3 - Intracardiac thrombosis, not elsewhere classified Medications: Changed From torsemide 40 mg (2 x 20 mg) PO DAILY 30 days 60 tabs 3RF I50.20 - Unspecified systolic (congestive) heart failure To torsemide 20 mg PO DAILY 30 days 30 tabs 5RF I50.20 - Unspecified systolic (congestive) heart failure Coding Level of Care Code Est Pt Level 4 (56970) Diagnoses Acute on chronic clinical systolic heart failure I50.23 NSTEMI (non-ST elevated myocardial infarction) I21.4 CKD (chronic kidney disease) stage 4, GFR 15-29 ml/min N18.4 Primary hypertension I10 Hypertension type: primary hypertension ICD (implantable cardioverter-defibrillator) in place Z95.810 Hospital discharge follow-up Z09 Paroxysmal A-fib I48.0 Apical mural thrombus I51.3 Time Spent (min) 30
== END 2023-07-01 13:33 | disposition home or self-care (01) ==
PROVIDERS: PCP Internal Medicine; Visit Provider Nurse Practitioner Family
DX: I50.23 Acute on chronic systolic (congestive) heart failure (principal); I21.4 Non-ST elevation (NSTEMI) myocardial infarction; I12.9 Hypertensive chronic kidney disease with stage 1 through stage 4 chronic kidney disease, or unspecified chronic kidney disease; N18.4 Chronic kidney disease, stage 4 (severe); Z95.810 Presence of automatic (implantable) cardiac defibrillator; Z09 Encounter for follow-up examination after completed treatment for conditions other than malignant neoplasm; I48.0 Paroxysmal atrial fibrillation; I51.3 Intracardiac thrombosis, not elsewhere classified
CPT/HCPCS: 99214

== ENCOUNTER → 2023-07-01 12:37 | Outpatient (BNVA) | payer OTHER, SELFPAY | PROVIDERS: PCP Internal Medicine; Visit Provider Nurse Practitioner Family | DX: Z09 Encounter for follow-up examination after completed treatment for conditions other than malignant neoplasm (principal); I21.4 Non-ST elevation (NSTEMI) myocardial infarction; I13.0 Hypertensive heart and chronic kidney disease with heart failure and stage 1 through stage 4 chronic kidney disease, or unspecified chronic kidney disease; N18.4 Chronic kidney disease, stage 4 (severe); I50.23 Acute on chronic systolic (congestive) heart failure; I48.0 Paroxysmal atrial fibrillation; I51.3 Intracardiac thrombosis, not elsewhere classified; Z95.810 Presence of automatic (implantable) cardiac defibrillator | CPT/HCPCS: 99212 ==

== ENCOUNTER → 2023-07-29 23:59 | Outpatient (BNV) | payer OTHER, SELFPAY ==
--- NOTE | 2023-08-08 13:24 | A.OFFVIS_ITS ---
Intake Visit Reasons: Remote HF monitoring- Medtr[employer] Allergies No Known Allergies [No Known Allergies*] Allergy (Verified 07/01/23 13:00) [facility] Medical History 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) Diabetes History of CAD (coronary artery disease) CHF (congestive heart failure) Acute exacerbation of CHF (congestive heart failure) CKD (chronic kidney disease) Surgical History History of heart artery stent Social History Household Members: Family Housing: Apartment Do you presently have visiting nurse or other home services: Yes Alcohol intake: former Patient Tobacco Use Status: Former Tobacco user Advance Directives Date on File: 01/21/23 service: No Current occupational status: retired Office Procedures Cardiac Device Check Cardiac Device Check Details: Remote ICD report generated 07/29/2023. ICD function is adequate [id number] Cardiac Interrogation, implant defibrillator w/interim Procedure code (CPT) selection complete Assessment & Plan Assessment & Plan (1) ICD (implantable cardioverter-defibrillator) in place: Code(s): Z95.810 - Presence of automatic (implantable) cardiac defibrillator Category: Medical Plan: See above Coding Level of Care Code Procedure Only Diagnoses ICD (implantable cardioverter-defibrillator) in place Z95.810 CPT Codes Cardiac Device Check - Cardiac Device 13: [id number] Cardiac Interrogation, implant defibrillator w/interim ([id number])
== END ==
PROVIDERS: PCP Internal Medicine; Visit Provider Internal Medicine Cardiovascular Disease
DX: Z45.02 Encounter for adjustment and management of automatic implantable cardiac defibrillator (principal)
CPT/HCPCS: 93295; 93297

== ENCOUNTER → 2023-08-08 23:59 | Outpatient (BNV) | payer OTHER, SELFPAY ==
--- NOTE | 2023-08-16 09:33 | A.OFFVIS_ITS ---
Intake Visit Reasons: [facility] Allergies No Known Allergies [No Known Allergies*] Allergy (Verified 07/01/23 13:00) [facility] Medical History 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) Diabetes History of CAD (coronary artery disease) CHF (congestive heart failure) Acute exacerbation of CHF (congestive heart failure) CKD (chronic kidney disease) Surgical History History of heart artery stent Social History Household Members: Family Housing: Apartment Do you presently have visiting nurse or other home services: Yes Alcohol intake: former Patient Tobacco Use Status: Former Tobacco user Advance Directives Date on File: 01/21/23 service: No Current occupational status: retired Office Procedures Cardiac Device Check Cardiac Device Check Details: Monitoring period dates: 06/29/23 - 08/08/23 Optimal PA pressure range: PAD goal 22 mmhg Procedure code: 47405 BACKGROUND: Jorge is implanted with the CardioMEMS PA Sensor.? I use this technology to monitor PA pressures on a weekly basis to ensure patients are within their optimal range to prevent decompensation.? SUMMARY:? I utilized the remote monitoring platform ([employer]) to set optimal targets for pulmonary artery pressure thresholds as part of acute and chronic management of patient?s heart failure. During the period indicated above, I monitored the patient?s pulmonary artery pressures weekly via trend analysis and notification reports which provide alerts when patient?s PA pressures were outside of range to prompt immediate action in medication changes and communica tions.? The weekly reports are archived in the [employer] system which serve as a parallel record to document weekly PA pressures, medication changes, and clinical notes. I have reviewed readings on 06/30, 07/05, 07/10, 07/17, 07/24. 07/31, 08/07. PAD has ranged between 22-30mmhg and diuretics adjusted as needed. 08265 - Remote monitoring of wireless pulmonary artery pressure sensor Procedure code (CPT) selection complete Assessment & Plan Assessment & Plan (1) Presence of CardioMEMS HF system: Code(s): Z95.818 - Presence of other cardiac implants and grafts Category: Medical Plan: monthly report Coding Level of Care Code Procedure Only Diagnoses Presence of CardioMEMS HF system Z95.818 CPT Codes Cardiac Device Check - Cardiac Device 17: 73904 - Remote monitoring of wireless pulmonary artery pressure sensor ([id number])
== END ==
PROVIDERS: PCP Internal Medicine; Visit Provider Nurse Practitioner Family
DX: Z45.09 Encounter for adjustment and management of other cardiac device (principal)
CPT/HCPCS: 93264

== ENCOUNTER → 2023-08-29 23:59 | Outpatient (BNV) | payer OTHER, SELFPAY ==
--- NOTE | 2023-09-06 13:03 | MHC.OFFVIS ---
Intake Visit Reasons: Remote HF monitoring- Medtronic Allergies No Known Allergies [No Known Allergies*] Allergy (Verified 07/01/23 13:00) [facility] Medical History 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) Diabetes History of CAD (coronary artery disease) CHF (congestive heart failure) Acute exacerbation of CHF (congestive heart failure) CKD (chronic kidney disease) Surgical History History of heart artery stent Social History Household Members: Family Housing: Apartment Do you presently have visiting nurse or other home services: Yes Alcohol intake: former Patient Tobacco Use Status: Former Tobacco user Advance Directives Date on File: 01/21/23 service: No Current occupational status: retired Office Procedures Cardiac Device Check Cardiac Device Check Details: Remote heart failure report generated 08/29/2023. Heart failure parameters are stable [id number] Cardiac Device Interrogation, cardio physiologic monitor Procedure code (CPT) selection complete Assessment & Plan Assessment & Plan (1) ICD (implantable cardioverter-defibrillator) in place: Code(s): Z95.810 - Presence of automatic (implantable) cardiac defibrillator Category: Medical Plan: See above Coding Level of Care Code Procedure Only Diagnoses ICD (implantable cardioverter-defibrillator) in place Z95.810 CPT Codes Cardiac Device Check - Cardiac Device 15: [id number] Cardiac Device Interrogation, cardio physiologic monitor ([id number])
== END ==
PROVIDERS: PCP Internal Medicine; Visit Provider Internal Medicine Cardiovascular Disease
DX: Z45.02 Encounter for adjustment and management of automatic implantable cardiac defibrillator (principal)
CPT/HCPCS: 93297

== ENCOUNTER → 2023-09-08 23:59 | Outpatient (BNV) | payer OTHER, SELFPAY ==
--- NOTE | 2023-09-09 17:27 | A.OFFVIS_ITS ---
Intake Visit Reasons: [facility] Allergies No Known Allergies [No Known Allergies*] Allergy (Verified 07/01/23 13:00) [facility] Medical History 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) Diabetes History of CAD (coronary artery disease) CHF (congestive heart failure) Acute exacerbation of CHF (congestive heart failure) CKD (chronic kidney disease) Surgical History History of heart artery stent Social History Household Members: Family Housing: Apartment Do you presently have visiting nurse or other home services: Yes Alcohol intake: former Patient Tobacco Use Status: Former Tobacco user Advance Directives Date on File: 01/21/23 service: No Current occupational status: retired Office Procedures Cardiac Device Check Cardiac Device Check Details: Monitoring period dates: 08/09/23 - 09/08/23 Optimal PA pressure range: PAD goal 22 mmhg Procedure code: 32599 BACKGROUND: Jorge is implanted with the CardioMEMS PA Sensor.? I use this technology to monitor PA pressures on a weekly basis to ensure patients are within their optimal range to prevent decompensation.? SUMMARY:? I utilized the remote monitoring platform ([employer]) to set optimal targets for pulmonary artery pressure thresholds as part of acute and chronic management of patient?s heart failure. During the period indicated above, I monitored the patient?s pulmonary artery pressures weekly via trend analysis and notification reports which provide alerts when patient?s PA pressures were outside of range to prompt immediate action in medication changes and communicat ions.? The weekly reports are archived in the [employer] system which serve as a parallel record to document weekly PA pressures, medication changes, and clinical notes. I have reviewed readings on 08/09, 08/14, 08/18, 08/23, 08/28, 09/01, 09/07.. PAD has ranged between 21-28mmhg and diuretics adjusted as needed. 77763 - Remote monitoring of wireless pulmonary artery pressure sensor Procedure code (CPT) selection complete Assessment & Plan Assessment & Plan (1) Presence of CardioMEMS HF system: Code(s): Z95.818 - Presence of other cardiac implants and grafts Category: Medical Plan: monthly report Coding Level of Care Code Procedure Only Diagnoses Presence of CardioMEMS HF system Z95.818 CPT Codes Cardiac Device Check - Cardiac Device 17: 93897 - Remote monitoring of wireless pulmonary artery pressure sensor ([id number])
== END ==
PROVIDERS: PCP Internal Medicine; Visit Provider Nurse Practitioner Family
DX: I50.9 Heart failure, unspecified (principal); Z95.818 Presence of other cardiac implants and grafts
CPT/HCPCS: 93264

== ENCOUNTER 2023-09-15 12:32 | Outpatient (REF) | payer OTHER, SELFPAY ==
[2023-09-15 15:23] LABS: B Type Natriuretic Peptide 785 pg/mL (<100)
[2023-09-15 15:38] LABS: Anion Gap 12 (12-20); Blood Urea Nitrogen 38 mg/dL (9-16); Calcium 9.4 mg/dL (8.4-10.2); Carbon Dioxide 25 mmol/L (22-29); Chloride 106 mmol/L (96-108); Estimated Glomerular Filt Rate 34; Glucose Random 250 mg/dL (60-115); Potassium 5.2 mmol/L (3.3-5.1); Sodium 138 mmol/L (135-145)
== END 2023-09-15 12:33 | disposition home or self-care (01) ==
LOC: HO.LAB 12:32
PROVIDERS: PCP Internal Medicine; Visit Provider Nurse Practitioner Family
DX: I13.0 Hypertensive heart and chronic kidney disease with heart failure and stage 1 through stage 4 chronic kidney disease, or unspecified chronic kidney disease (principal); N18.4 Chronic kidney disease, stage 4 (severe); I50.23 Acute on chronic systolic (congestive) heart failure; I48.0 Paroxysmal atrial fibrillation
CPT/HCPCS: 36415; 80048; 83880; 99212

== ENCOUNTER 2023-09-15 12:32 | Outpatient (AMB) | payer OTHER, SELFPAY ==
[2023-09-15 12:51] VITALS: BP 114/62; PULSE 61; BMI 27.8
--- NOTE | 2023-09-15 12:51 | MHC.OFFVIS ---
Vital Signs 09/15/23 12:51 Height 5 ft 8 in Weight 182 lb 8.684 oz BMI 27.8 BP 114/62 Blood Pressure Location Lt brachial Position Sitting Pulse 61 Pulse Source Pulse Oximeter Intake Visit Reasons: 2m follow up/ED follow up Online Ad[employer]st Required: No Allergies No Known Allergies [No Known Allergies*] Allergy (Verified 09/15/23 12:53) Medication List - Last Reconciled 09/15/23 by ASHLEY Lopez acetaminophen ER 650 mg PO BID PRN apixaban (Eliquis) 2.5 mg PO BID atorvastatin 80 mg PO BEDTIME empagliflozin (Jardiance) 10 mg PO QAM fluticasone propionate 50 mcg/actuation 1 spray intranasal BID gabapentin 100 mg PO TID glucose (Dex4 Glucose) 4 grams PO ONCE PRN insulin aspart U-100 (Novolog FlexPen U-100 Insulin aspart) 0 sliding scale doses subcut TID insulin degludec (Tresiba FlexTouch U-100 insulin) units subcut loratadine 10 mg PO DAILY loteprednol etabonate 0.5% drps ophthalmic (eye) metoprolol succinate ER (Toprol XL) 50 mg PO DAILY omeprazole 20 mg PO DAILY tamsulosin 1 cap PO DAILY torsemide 20 mg PO DAILY 30 days HPI HPI 2m follow up/ED follow up: Details: Jorge is an 82-year-old female with past medical history of hypertension, hyperlipidemia, CAD, heart failure with reduced EF, ICD in place, CKD, CardioMEMS device, who was admitted to [facility] 3 weeks ago with increased shortness of breath and edema. He was treated for mild Congestive heart failure. He was diuresed and sent home with torsemide 20 mg daily. His prior dose had been 10 mg daily. Today he reports that he has been doing well since his [facility] discharge. He did have to go back on 09/08/2023 due to left wrist pain and was given medication for gout. He is now wearing a brace on his left wrist. His breathing has been comfortable. No PND, orthopnea. He does have sock markings noted. His weight is up 4 lb from when I last saw him in June. No chest discomfort at rest or with activity. No palpitations, presyncope, syncope, falls. He is taking his meds as directed. No bleeding issues reported. Is compliant with his CardioMEMS monitoring. [facility] Medical History 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) Diabetes History of CAD (coronary artery disease) CHF (congestive heart failure) Acute exacerbation of CHF (congestive heart failure) CKD (chronic kidney disease) Surgical History History of heart artery stent Social History Household Members: Family Housing: Apartment Do you presently have visiting nurse or other home services: Yes Alcohol intake: former Patient Tobacco Use Status: Former Tobacco user Advance Directives Date on File: 01/21/23 service: No Current occupational status: retired Review of Systems Const All systems reviewed & are unremarkable except as noted in HPI and below ENT Denies dizziness Card Denies chest pain, Denies chest pain at rest, Denies chest pain with activity, Denies rapid heart rate, Denies pedal edema, Denies edema, Reports leg edema, Denies lightheadedness, Denies palpitations, Denies dyspnea, Denies dyspnea on exertion and Denies orthopnea Resp Denies cough, Denies dyspnea and Denies dyspnea on exertion GI Denies hematochezia and Denies change in stool character Musc Denies abnormal gait, Denies limited range of motion, Denies muscle cramps, Denies muscle weakness, Denies numbness, Denies radiating pain into limb, Denies stiffness and Denies tingling Neuro Denies abnormal gait, Denies dizziness, Denies numbness and Denies tingling Endo Denies palpitations Physical Exam Vital Signs: Last Vital Signs Pulse 61 09/15/23 12:51 BP 114/62 09/15/23 12:51 BMI result Body Mass Index 27.8 Const Other: Weigh up 4 lb since last visit in June General: cooperative, healthy appearing, comfortable and no acute distress Orientation/consciousness: patient oriented x3 Neck Neck: Yes normal visual inspection Resp Effort & Inspection: normal respiratory effort Auscultation: clear to auscultation bilaterally, no crackles, no rales, no rhonchi and no wheezes Cardio Jugular venous distension: no JVD Rate: regular rate Rhythm: regular rhythm Heart sounds: S1 normal heart sound present, S2 normal heart sound present, no murmurs and no rubs Neuro General: patient oriented x3 Extrem Other: sock markings present, mild pitting edema. Psych Appearance: grossly normal Mental Status: mental status grossly normal Speech and movement: Normal speech and movement present Assessment & Plan Assessment & Plan (1) Acute on chronic clinical systolic heart failure: Code(s): I50.23 - Acute on chronic systolic (congestive) heart failure Category: Medical Plan: History of heart failure with reduced EF. He has [employer] device in place to help with remote monitoring. He was recently admitted to [facility] with increased shortness of breath and edema. He was diuresed with IV furosemide and sent home with a higher dose of torsemide. He does have known chronic kidney disease and has not had repeat labs since his hospital discharge. He is concerned about sock markings today. His weight is up 4 lb since he was last seen by me in June. PAD readings have been monitored and he is recently running mildly elevated. PAD today 29 mmHg. PAD goal is 22 mmHg. mHg. He is currently on torsemide 20 mg daily. He has known chronic kidney disease. Will sent him for labs today, BMP and BNP. He has a upcoming visit with Dr. Owens for Nephrology. Once labs reviewed will make a determination if diuretic can be further increased.- lab not available prior to completion of this note. Signs and symptoms of heart failure reviewed with him. Continue with med management including torsemide, Jardiance, metoprolol XL. He has been off Entresto due to CKD/JADEN. An echocardiogram was recently done at [facility] showing EF 30-35%, akinesis of the anterior septal and anterior segments extending from the base to apex there is a filling defect at the apex suggesting thrombus. Last [facility] [place] done on 01/17/2023 showed EF 25-30% with LAD wall motion abnormality. This finding of possible thrombus is new. He also has had a newer finding of PAF on pacemaker interrogation. He is on Eliquis for anticoagulation. An echocardiogram had been previously ordered but not completed yet by patient. Will check with [facility] to see if he had an echocardiogram there recently. Signs and symptoms of heart failure reviewed with him in detail. Instructed on fluid restriction, less than 48 oz daily, low salt diet. Home weight monitoring recommended. Emergency care if ever needed for symptoms. Cardiology office visit in 3 months, sooner if needed. (2) NSTEMI (non-ST elevated myocardial infarction): Code(s): I21.4 - Non-ST elevation (NSTEMI) myocardial infarction Category: Medical Plan: Recently presented to [facility] [place] 2023 with chest discomfort. He ruled in for NSTEMI. He was transferred to [facility]. Their notes indicate that cardiac catheterization was canceled due to hypervolemia from IV fluid. They then did a nuclear stress test showing a large scar in the LAD territory, no active ischemia. He was continued on med management. At this time he has no anginal sounding symptoms. His prior chest discomfort has resolved. Will continue on metoprolol XL, high-dose atorvastatin. He has no longer on aspirin as he is on Eliquis. (3) CKD (chronic kidney disease) stage 4, GFR 15-29 ml/min: Code(s): N18.4 - Chronic kidney disease, stage 4 (severe) Category: Medical Plan: As above, following with Nephrology, Dr. Owens (4) Hypertension: Code(s): I10 - Essential (primary) hypertension Category: Medical Qualifiers: Hypertension type: primary hypertension Qualified Code(s): I10 - Essential (primary) hypertension Plan: Normal at present time. No med changes made. (5) ICD (implantable cardioverter-defibrillator) in place: Code(s): Z95.810 - Presence of automatic (implantable) cardiac defibrillator Category: Medical Plan: Single-chamber Medtronic ICD in place. Functioning normally on last office interrogation 01/13/2023. He has remote monitoring in use. Office interrogation due next visit (6) Paroxysmal A-fib: Code(s): I48.0 - Paroxysmal atrial fibrillation Category: Medical Plan: Interrogation of his ICD on 06/30/2023 states episode of PAF occurring on 06/15/2023, 10 minutes in duration. He was then started on Eliquis. He is on metoprolol. No reports of heart palpitations. Pulse is regular on examination today. No bleeding issues reported. Will continue to follow PAF with his remote pacemaker monitoring. (7) Apical mural thrombus: Code(s): I51.3 - Intracardiac thrombosis, not elsewhere classified Category: Medical Plan: Noted on echo from [facility]. Repeat echo not completed by him. Checking with [facility] to see whether they did 1 during admission. (8) Hospital discharge follow-up: Code(s): Z09 - Encounter for follow-up examination after completed treatment for conditions other than malignant neoplasm Category: Medical Plan: As above Plan Time spent on chart review, documentation, interview and assessment Orders: Orders Basic Metabolic Panel Today I50.23 - Acute on chronic systolic (congestive) heart failure B Type Natriuretic Peptide Today I50.23 - Acute on chronic systolic (congestive) heart failure Coding Level of Care Code Est Pt Level 4 (98264) Diagnoses Acute on chronic clinical systolic heart failure I50.23 NSTEMI (non-ST elevated myocardial infarction) I21.4 CKD (chronic kidney disease) stage 4, GFR 15-29 ml/min N18.4 Primary hypertension I10 Hypertension type: primary hypertension ICD (implantable cardioverter-defibrillator) in place Z95.810 Paroxysmal A-fib I48.0 Apical mural thrombus I51.3 Hospital discharge follow-up Z09 Time Spent (min) 30
== END 2023-09-15 13:14 | disposition home or self-care (01) ==
PROVIDERS: PCP Internal Medicine; Visit Provider Nurse Practitioner Family
DX: I13.0 Hypertensive heart and chronic kidney disease with heart failure and stage 1 through stage 4 chronic kidney disease, or unspecified chronic kidney disease (principal); I50.23 Acute on chronic systolic (congestive) heart failure; N18.4 Chronic kidney disease, stage 4 (severe); I21.4 Non-ST elevation (NSTEMI) myocardial infarction; Z95.810 Presence of automatic (implantable) cardiac defibrillator; I48.0 Paroxysmal atrial fibrillation; I51.3 Intracardiac thrombosis, not elsewhere classified; Z09 Encounter for follow-up examination after completed treatment for conditions other than malignant neoplasm
CPT/HCPCS: 99214

== ENCOUNTER 2023-09-19 08:27 | Outpatient (REF) | payer OTHER, SELFPAY ==
[2023-09-19 08:48] LABS: MANUAL DIFF FLAG NO
[2023-09-19 09:10] LABS: Basophils Percent Auto 0.3 % (0-2); Eosinophils Absolute Auto 0.3 X10*3/uL (0.0-0.4); Eosinophils Percent Auto 1.9 % (0-4); Hematocrit 48.1 % (42.0-52.0); Hemoglobin 15.3 g/dl (14.0-18.0); Imm Gran Pct Auto 0.6 % (0.0-0.4); Lymphocytes Absolute Auto 3.4 X10*3/uL (1.2-4.9); Lymphocytes Percent Auto 22.2 % (20-40); Mean Corpuscular HGB Conc 31.8 g/dl (31.0-36.0); Mean Corpuscular Volume 84.8 fL (80.0-98.0); Mean Platelet Volume 9.7 fL (9.4-12.4); Monocytes Absolute Auto 0.7 X10*3/uL (0.1-1.2); Monocytes Percent Auto 4.5 % (2-11); Neutrophils Absolute Auto 10.9 x10*3/uL (2.0-8.3); Neutrophils Percent Auto 70.5 % (45-73); Platelet Count 236 X10*3/uL (160-400); Red Blood Count 5.67 X10*6/uL (4.60-5.80); White Blood Count 15.5 X10*3/uL (4.8-10.8)
[2023-09-19 09:46] LABS: Anion Gap 15 (12-20); Blood Urea Nitrogen 35 mg/dL (9-16); Carbon Dioxide 24 mmol/L (22-29); Chloride 105 mmol/L (96-108); Estimated Glomerular Filt Rate 28; Potassium 3.9 mmol/L (3.3-5.1); Sodium 140 mmol/L (135-145)
[2023-09-19 10:36] LABS: Alanine Aminotransferase 42 U/L (0-40); Albumin Level 3.8 g/dL (3.5-5.0); Alkaline Phosphatase 109 U/L (39-117); Anion Gap 15 (12-20); Aspartate Amino Transferase 28 U/L (5-37); Bilirubin Total 0.7 mg/dL (0.0-1.0); Blood Urea Nitrogen 35 mg/dL (9-16); Calcium 9.6 mg/dL (8.4-10.2); Carbon Dioxide 25 mmol/L (22-29); Chloride 104 mmol/L (96-108); Estimated Glomerular Filt Rate 27; Glucose Random 134 mg/dL (60-115); Potassium 4.1 mmol/L (3.3-5.1); Sodium 140 mmol/L (135-145); Total Protein 7.6 g/dL (6.5-8.0); Uric Acid 8.2 mg/dL (3.4-7.0)
[2023-09-19 10:51] LABS: Estimated Average Glucose 203 mg/dL; Hemoglobin A1c % 8.7 % (<6.0)
== END 2023-09-19 08:28 | disposition home or self-care (01) ==
LOC: HO.LAB 08:27
PROVIDERS: Absent Provider Internal Medicine; PCP Internal Medicine; Visit Provider Internal Medicine Nephrology
DX: I12.9 Hypertensive chronic kidney disease with stage 1 through stage 4 chronic kidney disease, or unspecified chronic kidney disease (principal); N18.4 Chronic kidney disease, stage 4 (severe); N25.81 Secondary hyperparathyroidism of renal origin
CPT/HCPCS: 36415; 80051; 80053; 82565; 83036; 84520; 84550; 85025

== ENCOUNTER 2023-09-19 10:45 | Emergency (ER) | payer OTHER, SELFPAY ==
[2023-09-19] VITALS (7 sets, daily range): BP systolic 102–116; BP diastolic 46–75; PULSE 69–78; RESP 15–18; TEMP 36.4–36.8; O2SAT 95–98; BMI 26.7
--- NOTE | 2023-09-19 | ECG_ITS ---
Test Reason : CHEST PAIN Blood Pressure : / mmHG Vent. Rate : 077 BPM Atrial Rate : 077 BPM P-R Int : 184 ms QRS Dur : 076 ms QT Int : 396 ms P-R-T Axes : 036 -23 099 degrees QTc Int : 448 ms Sinus rhythm with occasional Premature ventricular complexes Nonspecific T wave abnormality Abnormal ECG When compared with ECG of 01-JUN-2023 21:45, Premature ventricular complexes are now Present Referred By: Generic ED Physician Electronically Signed By:JOSEPH KILGORE MD
--- NOTE | ~2023-09-19 | CT_ITS ---
EXAMINATION: CT ABDOMEN AND PELVIS WITHOUT CONTRAST CLINICAL INFORMATION: Left lower quadrant pain with elevated white count COMPARISON: CT abdomen pelvis 05/02/2022 TECHNIQUE: Multidetector volumetric imaging was performed from the superior aspect of the liver through the pubic symphysis. Sagittal and coronal reformatted images were obtained on the technologist's workstation. This CT examination was performed using dose optimization techniques as appropriate, variously including the following: *Automated exposure control *Adjustment of mA and/or kV according to patient size (this includes techniques or standardized protocols for targeted exams where dose is matched to indication/reason for exam; i.e. extremities or head) *Use of iterative reconstruction technique DLP: 478 mGy-cm FINDINGS: LUNG BASES: Scarring is present at the lung bases with some traction bronchiectasis present. Single lead of a pacer/defibrillator is noted in the right ventricle. LIVER, GALLBLADDER, AND BILIARY TREE: The liver is normal in size, shape, and attenuation. No focal hepatic lesion or biliary ductal dilatation is present. The gallbladder is unremarkable with no evidence of radiopaque gallstones, gallbladder wall thickening, or obvious pericholecystic inflammatory changes. PANCREAS: Fatty replacement of the pancreas again seen. SPLEEN: Unremarkable. ADRENAL GLANDS: Unremarkable. KIDNEYS AND URETERS: The kidneys are normal in size, shape, and attenuation. No hydronephrosis, hydroureter, or calculi seen. Multiple bilateral benign Bosniak class I renal cysts are noted which require no additional imaging or follow-up. No solid renal masses are seen. BLADDER: Unremarkable. GASTROINTESTINAL TRACT: The small and large bowel are unremarkable aside from colonic diverticula without evidence of diverticulitis. The appendix is unremarkable. ABDOMINAL WALL: No significant hernia is appreciated. LYMPH NODES: No retroperitoneal lymphadenopathy. VASCULAR: Calcific atherosclerotic changes are present in the aorta and iliofemoral vessels. There is no evidence of an abdominal aortic aneurysm. PELVIC VISCERA: Unremarkable. OSSEOUS STRUCTURES: Degenerative changes are present throughout the spine. CT/CT abdomen pelvis wo IV con IMPRESSION: 1. A cause for the patient's left lower quadrant pain and elevated white count has not been found. 2. Incidental note made of fatty replacement of the pancreas, colonic diverticulosis without diverticulitis and degenerative changes in the spine. Fleischner guidelines were followed.
--- NOTE | ~2023-09-19 | XR_ITS ---
EXAMINATION: PORTABLE CHEST 1 VIEW CLINICAL INFORMATION: weakness. COMPARISON: 06/01/2023. TECHNIQUE: Portable frontal view of the chest was obtained. FINDINGS: The lungs are hypoexpanded. No focal infiltrate, effusion, edema, or pneumothorax. Cardiac and mediastinal silhouettes are within normal limits for the degree of hyperinflation. Left pectoral AICD generator seen with lead tip overlying the expected right ventricle cervical spine hardware partially visualized.. No acute bony abnormality seen. XR/XR chest 1V IMPRESSION: Hypoexpanded but no evidence of acute disease.
--- NOTE | 2023-09-19 11:56 | ED_ITS ---
HPI - General Adult General Chief complaint: General Medical Stated complaint: ab pain, lethergy, dizzy Time Seen by Provider: 09/19/23 11:12 Source: patient Mode of arrival: ambulatory Limitations: no limitations History of Present Illness ED Provider: JAKI BOYKIN narrative: 82 yo male with PMH of afib on eliquis, CKD, HTN, CHF EF 25-30%, ACS, ICD, CAD who reports chronic headaches and dizziness for a long time as well as abdominal pain that is not new. He notes today though he felt dizzy when getting his blood drawn which is unusual and his stools have been black x 1 week. He does not take NSAIDs only tylenol. He states he came today hours after the lab draw as he just doesn't feel great and wanted to get checked out. No fevers, chills, CP/SOB. MD complaint: dizziness, headaches, fatigue, black stools Onset (ago): day(s) (2) Location: head and abdomen Radiation: non-radiation Severity: mild Relieving factors: rest Exacerbating factors: movement Associated symptoms: loss of appetite and weakness Treatments prior to arrival: none Related Data Home Medications ?Medication ?Instructions ?Recorded ?Confirmed acetaminophen 650 mg 650 mg PO BID PRN Pain 03/26/22 09/15/23 tablet,extended release fluticasone propionate 50 1 spray intranasal BID 03/26/22 09/15/23 mcg/actuation nasal spray,suspension loratadine 10 mg tablet 10 mg PO DAILY 03/26/22 09/15/23 tamsulosin 0.4 mg capsule 1 cap PO DAILY 03/26/22 09/15/23 atorvastatin 80 mg tablet 80 mg PO BEDTIME 04/09/22 09/15/23 gabapentin 100 mg capsule 100 mg PO TID 04/09/22 09/15/23 glucose 4 gram chewable tablet 4 g PO ONCE PRN LOW GLUCOSE 04/09/22 09/15/23 (Dex4 Glucose) omeprazole 20 mg capsule,delayed 20 mg PO DAILY 07/13/22 09/15/23 release insulin aspart U-100 100 unit/mL 0 sliding scale dose subcut TID 01/13/23 09/15/23 (3 mL) subcutaneous pen (Novolog FlexPen U-100 Insulin aspart) insulin degludec 100 unit/mL (3 unit subcut 06/24/23 09/15/23 mL) subcutaneous pen (Tresiba FlexTouch U-100 insulin) loteprednol etabonate 0.5 % eye drp ophthalmic (eye) 06/24/23 09/15/23 drops,suspension Previous Rx's ?Medication ?Instructions ?Recorded metoprolol succinate 50 mg 50 mg PO DAILY #30 tabs 04/29/22 tablet,extended release 24 hr (Toprol XL) empagliflozin 10 mg tablet 10 mg PO QAM #30 tabs 05/11/23 (Jardiance) apixaban 2.5 mg tablet (Eliquis) 2.5 mg PO BID #60 tabs 07/12/23 torsemide 20 mg tablet 20 mg PO DAILY 30 days #50 tabs 09/16/23 Allergies Allergy/AdvReac Type Severity Reaction Status Date / Time No Known Allergies Allergy Verified 09/19/23 11:03 [No Known Allergies*] Review of Systems 2 Review of Systems: Constitutional : No Fever, No Chills, No Fatigue ENT/Mouth : No sore throat, No Rhinorrhea Eyes: No Eye Pain, No Swelling, No Redness Cardiovascular : No Chest Pain, No SOB, No Dyspnea on Exertion Respiratory : No Cough, No Sputum Gastrointestinal : No Nausea, No Vomiting, No Diarrhea, pos abdominal Pain, pos melena Genitourinary : No Dysuria, No Urinary Frequency, No Hematuria, Musculoskeletal : No joint pain, No Myalgias, No Joint Swelling Skin : No Skin Lesions, No rash Neuro : No Weakness, No Numbness, pos Dizziness, positive Headache Psych : No Anxiety/Panic, No Depression All other systems reviewed and are negative [facility] Past Medical History Medical History 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) Diabetes History of CAD (coronary artery disease) CHF (congestive heart failure) Acute exacerbation of CHF (congestive heart failure) CKD (chronic kidney disease) Surgical History History of heart artery stent Social History Social History Household Members: Family Housing: Apartment Do you presently have visiting nurse or other home services: Yes Alcohol intake: former Patient Tobacco Use Status: Former Tobacco user Smoked in Last 30 Days: No Use of substances other than those prescribed or required for medical reasons: No Advance Directives: Yes Advance Directives on File: Yes Advance Directives Date on File: 01/21/23 service: No Current occupational status: retired Physical Exam ED Vital Signs: Vital Signs - 24 hr 09/19/23 11:01 09/19/23 12:40 09/19/23 12:41 Temperature 97.9 F Pulse Rate 74 73 76 Respiratory Rate 15 Blood Pressure 107/46 L 104/58 L 102/56 L Pulse Oximetry 96 Oxygen Delivery Method Room Air 09/19/23 12:41 09/19/23 14:28 Temperature 97.6 F Pulse Rate 69 70 Respiratory Rate 16 Blood Pressure 103/61 105/59 L Pulse Oximetry 95 Oxygen Delivery Method Room Air BMI result Body Mass Index 26.7 Appearance: Alert. Oriented X3. No acute distress. talking on phone in no distress Eyes: Pupils equal, round and reactive to light. ENT: Pharynx dry MM. Neck: Normal inspection. Neck supple. CVS: Normal heart rate and rhythm. Pulses normal. Respiratory: No respiratory distress. Breath sounds normal. Abdomen: Soft and mild ttp in LLQ Skin: Skin warm and dry. Normal skin color. Normal skin turgor. Extremities: No lower extremity edema. No calf ttp Neuro: Oriented X 3. No motor deficit. No sensory deficit. Course Course Course Narrative: negative orthostatic VS Medications Administered Generic Name Dose Route Start Last Admin Trade Name Freq PRN Reason Stop Dose Admin Sodium Chloride 1,000 mls @ 80 mls/hr 09/19/23 11:30 09/19/23 12:21 Ns IVCONT 80 mls/hr .[id number] [facility] Administration Medical Decision Making Medical Decision Making MDM Narrative: 82 yo male with PMH of afib on eliquis, CKD, HTN, CHF EF 25-30%, ACS, ICD, CAD here with c/o dizziness, poor pO intake feels dehydrated reports chronic mild headache not changed from baseline and chronic abdominal pain I asked him several times if this was new and he states no so ICH seems unlikely. He does note for his chronic abdominal pain the only thing that is new is black stool will send off CBC and occult stool, repeat labs, hydrate gently with fluids and recheck Cr. Differential Diagnosis Differential Diagnoses: The differential diagnosis associated with the presentation includes JADEN, dehydration, PUD, gastritis, Admission/Observation Consideration of admission/observation: Escalation of care including admission/observation considered unexplained wbc count no UTI, has no pain or need for IV pain medications, CXR ordered for rule out pneumonia, no source of WBC on CT scan not toxic, afebrile, Cr at baseline Lab Data MDM Lab Attestation statement: I reviewed the patient's lab results. 09/19/23 12:19 09/19/23 12:19 Labs: Lab Results 09/19/23 09/19/23 09/19/23 Range/Units 12:19 12:38 13:44 WBC 18.4 H (4.8-10.8) X10*3/uL RBC 5.17 (4.60-5.80) X10*6/uL Hgb 14.1 (14.0-18.0) g/dl Hct 43.7 (42.0-52.0) % MCV 84.5 (80.0-98.0) fL MCH 27.3 (27.0-33.0) pg MCHC 32.3 (31.0-36.0) g/dl RDW 15.0 (11.0-16.0) % Plt Count 207 (160-400) X10*3/uL MPV 9.7 (9.4-12.4) fL Absolute Nucleated RBC 0.000 (0.0-0.012) X10*3/uL Nucleated RBC % (auto) 0.0 (0.0-0.2) /100WBC Sodium 139 (135-145) mmol/L Potassium 4.4 (3.3-5.1) mmol/L Chloride 102 (96-108) mmol/L Carbon Dioxide 29 (22-29) mmol/L Anion Gap 12 (12-20) BUN 36 H (9-16) mg/dL Creatinine 2.34 H (0.5-1.4) mg/dL Estim Creat Clear Calc 23.1 Estimated GFR 27 Random Glucose 248 H (60-115) mg/dL Calcium 9.2 (8.4-10.2) mg/dL Magnesium 2.0 (1.6-2.6) mg/dL Lipase 9 (8-78) U/L Urine Color Yellow Urine Appearance Clear Urine pH 6.0 (5.0-9.0) Ur Specific [place] 1.025 (1.005-1.025) Urine Protein Trace (Neg-Trace) mg/dL Urine Glucose (UA) >=1000 H (Negative) mg/dL Urine Ketones Trace (Negative) mg/dL Urine Blood Negative (Negative) Urine Nitrite Negative (Negative) Ur Leukocyte Esterase Negative (Negative) Urine RBC 0-2 (0-2) /HPF Urine WBC 0-5 (0-5) /HPF Ur Squamous Epith Cells 0-2 (0-2) /HPF Urine Bacteria None Seen (None Seen) Hyaline Casts 0-2 (0-2) /LPF Stool Occult Blood NEGATIVE (NEGATIVE) Independent Interpretation I performed an independent interpretation of an: EKG and CT Scan (no acute cause) Interpretation: Rate: 77 Rhythm: NSR [place]: left Normal P waves. Normal KYLE. Normal QRS complex. ST T wave : flat t waves lateral leads no CLYDE qTC: 448 prior studies: no acute ischemia The study has been interpreted contemporaneously by me. . Radiology Impression Discussion of test interpretation with radiology: I have reviewed the radiologist's reading. External Record Review External record reviewed: Inpatient record Discharge Plan Discharge Clinical Impression: Elevated WBC count, Weakness Patient Disposition: Still a Patient Instructions: Weakness (ED), Leukocytosis (ED) Prescriptions: No Action Eliquis 2.5 mg tablet 2.5 mg PO BID Qty: 60 5RF Rx Instructions: Renal dose. torsemide 20 mg tablet 20 mg PO DAILY 30 Days Qty: 50 5RF Hold Instructions: Resume on 01/24/23. Rx Instructions: Take 1 tablet daily, additional tablet daily as directed for weight gain, swelling. acetaminophen 650 mg tablet extended release 650 mg PO BID PRN (Reason: Pain) tamsulosin 0.4 mg capsule 1 cap PO DAILY fluticasone propionate 50 mcg/actuation spray,suspension 1 spray intranasal BID loratadine 10 mg Tablet 10 mg PO DAILY atorvastatin 80 mg tablet 80 mg PO BEDTIME gabapentin 100 mg capsule 100 mg PO TID omeprazole 20 mg capsule,delayed release(DR/EC) 20 mg PO DAILY insulin aspart U-100 [Novolog FlexPen U-100 Insulin] 100 unit/mL (3 mL) insulin pen 0 sliding scale dose subcut TID glucose [Dex4 Glucose] 4 gram tablet,chewable 4 g PO ONCE PRN (Reason: LOW GLUCOSE) Rx Instructions: until symptoms of low blood sugar are controlled metoprolol succinate [Toprol XL] 50 mg tablet extended release 24 hr 50 mg PO DAILY Qty: 30 5RF loteprednol etabonate 0.5 % drops,suspension ophthalmic (eye) insulin degludec [Tresiba FlexTouch U-100] 100 unit/mL (3 mL) insulin pen subcut Jardiance 10 mg tablet 10 mg PO QAM Qty: 30 3RF Print Language: Maldivian
[2023-09-19] MEDS: 0.9 % Sodium Chloride 1,000 ML 80 ML IVCONT (12:21)
--- NOTE | 2023-09-19 12:33 | PC.NURSE ---
Pt presents to ED via EMS from home, reports ABD pain, dizziness and weakness since this morning. Had his labs drawn here at [facility], RECORD PRESS OPERATOR called due to near syncope, pt refused care and went home. Reports he went for walk, felt worse and called for EMS. Reports no PO intake since last night at 8pm. ABD pain around periumbilical region, 8/10, nausea. Alert and oriented, breathing even and unlabored, skin pale. Pt does have pacemaker on left side of chest.
[2023-09-19 12:34] LABS: Hematocrit 43.7 % (42.0-52.0); Hemoglobin 14.1 g/dl (14.0-18.0); Mean Corpuscular HGB Conc 32.3 g/dl (31.0-36.0); Mean Corpuscular Hemoglobin 27.3 pg (27.0-33.0); Mean Corpuscular Volume 84.5 fL (80.0-98.0); Mean Platelet Volume 9.7 fL (9.4-12.4); Platelet Count 207 X10*3/uL (160-400); Red Blood Count 5.17 X10*6/uL (4.60-5.80); White Blood Count 18.4 X10*3/uL (4.8-10.8)
[2023-09-19 12:45] LABS: Appearance Urine Clear; Color Urine Yellow; Glucose Urine UA >=1000 mg/dL (Negative); Leukocyte Esterase Urine Negative (Negative); Nitrite Urine Negative (Negative); Specific Gravity - Urine 1.025 (1.005-1.025); UMIC TRIGGER UACC YES; Urine Blood Negative (Negative); Urine Ketones Trace mg/dL (Negative); Urine Protein Trace mg/dL (Neg-Trace)
[2023-09-19 12:52] LABS: Bacteria Urine None Seen (None Seen); Hyaline Casts Urine 0-2 /LPF (0-2); RBC Urine 0-2 /HPF (0-2); Squamous Epithelial Cell Urine 0-2 /HPF (0-2); WBC Urine 0-5 /HPF (0-5)
[2023-09-19 12:52] LABS: Anion Gap 12 (12-20); Blood Urea Nitrogen 36 mg/dL (9-16); Calcium 9.2 mg/dL (8.4-10.2); Carbon Dioxide 29 mmol/L (22-29); Chloride 102 mmol/L (96-108); Creatinine Clr Calc Pharmacy 23.1; Estimated Glomerular Filt Rate 27; Glucose Random 248 mg/dL (60-115); Lipase 9 U/L (8-78); Potassium 4.4 mmol/L (3.3-5.1); Sodium 139 mmol/L (135-145)
[2023-09-19 13:47] LABS: OBS Int Ctl Valid YES; OBS1 NEGATIVE (NEGATIVE)
== END 2023-09-19 20:08 | disposition still patient (30) ==
PROVIDERS: Emergency Medicine; Emergency Provider Emergency Medicine Emergency Medical Services; PCP Internal Medicine
DX: R07.89 Other chest pain (principal); D72.829 Elevated white blood cell count, unspecified; R10.2 Pelvic and perineal pain; R53.1 Weakness; R42 Dizziness and giddiness; I25.10 Atherosclerotic heart disease of native coronary artery without angina pectoris; R51.9 Headache, unspecified; I10 Essential (primary) hypertension; Z79.899 Other long term (current) drug therapy; Z87.891 Personal history of nicotine dependence
CPT/HCPCS: 36415; 71045; 74176; 80048; 81001; 82272; 83690; 83735; 85027; 93005; 99284; 99285

== ENCOUNTER → 2023-09-19 11:28 | Outpatient (BNV) | payer OTHER, SELFPAY | PROVIDERS: Emergency Provider Emergency Medicine; PCP Internal Medicine; Visit Provider Internal Medicine Cardiovascular Disease | DX: R94.31 Abnormal electrocardiogram [ECG] [EKG] (principal) | CPT/HCPCS: 93010 ==

== ENCOUNTER 2023-09-23 11:25 | Outpatient (AMB) | payer OTHER, SELFPAY ==
--- NOTE | 2023-09-23 11:29 | HO.NEPHOV_ITS ---
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 He claims to be compliant with a diet, medications and fluid intake. He recently had a hospitalization for CHF exacerbation. He denies any fever no chills, no cough, no palpitations, no urinary symptoms and numbness tingling or weakness. He does not have any chest pain, paroxysmal nocturnal dyspnea, orthopnea or worsening pedal edema. His weights have been stable. His urine output is good. He feels better. [facility] Medical History 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) Diabetes History of CAD (coronary artery disease) CHF (congestive heart failure) Acute exacerbation of CHF (congestive heart failure) CKD (chronic kidney disease) Surgical History History of heart artery stent Social History Household Members: Family Housing: Apartment Do you presently have visiting nurse or other home services: Yes Alcohol intake: former Patient Tobacco Use Status: Former Tobacco user Advance Directives Date on File: 01/21/23 service: No Current occupational status: retired Review of Systems Const All systems reviewed & are unremarkable except as noted in HPI and below Physical Exam Const General: comfortable and no acute distress Orientation/consciousness: patient oriented x3 HEENT Head: Yes normocephalic Mouth: Normal oral and palatal mucosa present Eyes EOM: EOMs intact bilaterally Neck Neck: Yes supple Resp Auscultation: clear to auscultation bilaterally Cardio Jugular venous distension: no JVD Rate: regular rate GI Palpation (GI): Soft to palpation Auscultation: normal bowel sounds General: Yes no CVA tenderness Back/Spine/Pelvis Back: no CVA tenderness Skin General skin exam: no rashes or lesions noted Neuro General: patient oriented x3 and moves all extremities Extrem General: Yes no pedal edema Results Reviewed Nephrology Results: Hgb 14.1 g/dl (14.0-18.0) 09/19/23 WBC 18.4 X10*3/uL (4.8-10.8) H 09/19/23 Plt Count 207 X10*3/uL (160-400) 09/19/23 Sodium 139 mmol/L (135-145) 09/19/23 Potassium 4.4 mmol/L (3.3-5.1) 09/19/23 Chloride 102 mmol/L (96-108) 09/19/23 Carbon Dioxide 29 mmol/L (22-29) 09/19/23 BUN 36 mg/dL (9-16) H 09/19/23 Creatinine 2.34 mg/dL (0.5-1.4) H 09/19/23 Calcium 9.2 mg/dL (8.4-10.2) 09/19/23 Urine Protein Trace mg/dL (Neg-Trace) 09/19/23 Assessment & Plan Assessment & Plan (1) Secondary hyperparathyroidism (of renal origin): Code(s): N25.81 - Secondary hyperparathyroidism of renal origin Category: Medical (2) Hypertension: Code(s): I10 - Essential (primary) hypertension Category: Medical Qualifiers: Hypertension type: primary hypertension Qualified Code(s): I10 - Essential (primary) hypertension (3) CKD (chronic kidney disease) stage 4, GFR 15-29 ml/min: Code(s): N18.4 - Chronic kidney disease, stage 4 (severe) Category: Medical Plan Has CKD 4 at baseline Renal function stable Entresto has been on hold C/W torsemide 40 mg daily I did not restart Entresto yet C/W Jardiance 10 mg daily I ordered follow-up blood work No changes in medication today Needs to have good diet control including low sodium Answered all questions. Follow-up given Orders: Orders Creatinine Today I10 - Essential (primary) hypertension, N18.4 - Chronic kidney disease, stage 4 (severe), N25.81 - Secondary hyperparathyroidism of renal origin Parathyroid Hormone Intact Today I10 - Essential (primary) hypertension, N18.4 - Chronic kidney disease, stage 4 (severe), N25.81 - Secondary hyperparathyroidism of renal origin Blood Urea Nitrogen Today I10 - Essential (primary) hypertension, N18.4 - Chronic kidney disease, stage 4 (severe), N25.81 - Secondary hyperparathyroidism of renal origin Electrolytes Today I10 - Essential (primary) hypertension, N18.4 - Chronic kidney disease, stage 4 (severe), N25.81 - Secondary hyperparathyroidism of renal origin Calcium Today I10 - Essential (primary) hypertension, N18.4 - Chronic kidney disease, stage 4 (severe), N25.81 - Secondary hyperparathyroidism of renal origin Vitamin D 25-OH Total Today I10 - Essential (primary) hypertension, N18.4 - Chronic kidney disease, stage 4 (severe), N25.81 - Secondary hyperparathyroidism of renal origin Phosphorus Today I10 - Essential (primary) hypertension, N18.4 - Chronic kidney disease, stage 4 (severe), N25.81 - Secondary hyperparathyroidism of renal origin Coding Level of Care Code Est Pt Level 4 (47936) Diagnoses Secondary hyperparathyroidism (of renal origin) N25.81 Primary hypertension I10 Hypertension type: primary hypertension CKD (chronic kidney disease) stage 4, GFR 15-29 ml/min N18.4
[2023-09-23 11:38] VITALS: BP 94/60; PULSE 62; O2SAT 98; BMI 26.8
== END 2023-09-23 12:02 | disposition home or self-care (01) ==
PROVIDERS: PCP Internal Medicine; Visit Provider Internal Medicine Nephrology
DX: N25.81 Secondary hyperparathyroidism of renal origin (principal); I12.9 Hypertensive chronic kidney disease with stage 1 through stage 4 chronic kidney disease, or unspecified chronic kidney disease; N18.4 Chronic kidney disease, stage 4 (severe)
CPT/HCPCS: 99214

== ENCOUNTER → 2023-09-23 11:25 | Outpatient (BNVA) | payer OTHER, SELFPAY | PROVIDERS: PCP Internal Medicine; Visit Provider Internal Medicine Nephrology | DX: I13.0 Hypertensive heart and chronic kidney disease with heart failure and stage 1 through stage 4 chronic kidney disease, or unspecified chronic kidney disease (principal); E11.22 Type 2 diabetes mellitus with diabetic chronic kidney disease; N18.4 Chronic kidney disease, stage 4 (severe); I50.9 Heart failure, unspecified; N25.81 Secondary hyperparathyroidism of renal origin; I25.10 Atherosclerotic heart disease of native coronary artery without angina pectoris | CPT/HCPCS: 99212 ==

== ENCOUNTER → 2023-09-28 23:59 | Outpatient (BNV) | payer OTHER, SELFPAY ==
--- NOTE | 2023-10-05 08:40 | A.OFFVIS_ITS ---
Intake Visit Reasons: Remote HF monitoring- Medtronic Allergies No Known Allergies [No Known Allergies*] Allergy (Verified 09/23/23 11:40) [facility] Medical History 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) Diabetes History of CAD (coronary artery disease) CHF (congestive heart failure) Acute exacerbation of CHF (congestive heart failure) CKD (chronic kidney disease) Surgical History History of heart artery stent Social History Household Members: Family Housing: Apartment Do you presently have visiting nurse or other home services: Yes Alcohol intake: former Patient Tobacco Use Status: Former Tobacco user Advance Directives Date on File: 01/21/23 service: No Current occupational status: retired Office Procedures Cardiac Device Check Cardiac Device Check Details: Remote heart failure report generated 09/28/2023. Heart failure parameters are within normal limits [id number] Cardiac Device Interrogation, cardio physiologic monitor Procedure code (CPT) selection complete Assessment & Plan Assessment & Plan (1) ICD (implantable cardioverter-defibrillator) in place: Code(s): Z95.810 - Presence of automatic (implantable) cardiac defibrillator Category: Medical Plan: See above Coding Level of Care Code Procedure Only Diagnoses ICD (implantable cardioverter-defibrillator) in place Z95.810 CPT Codes Cardiac Device Check - Cardiac Device 15: [id number] Cardiac Device Interrogation, cardio physiologic monitor ([id number])
== END ==
PROVIDERS: PCP Internal Medicine; Visit Provider Internal Medicine Cardiovascular Disease
DX: Z45.02 Encounter for adjustment and management of automatic implantable cardiac defibrillator (principal)
CPT/HCPCS: 93297

== ENCOUNTER → 2023-10-10 23:59 | Outpatient (BNV) | payer OTHER, SELFPAY ==
--- NOTE | 2023-10-21 17:13 | A.OFFVIS_ITS ---
Intake Visit Reasons: Remote Cardiomems- [facility] Allergies No Known Allergies [No Known Allergies*] Allergy (Verified 09/23/23 11:40) [facility] Medical History 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) Diabetes History of CAD (coronary artery disease) CHF (congestive heart failure) Acute exacerbation of CHF (congestive heart failure) CKD (chronic kidney disease) Surgical History History of heart artery stent Social History Household Members: Family Housing: Apartment Do you presently have visiting nurse or other home services: Yes Alcohol intake: former Patient Tobacco Use Status: Former Tobacco user Advance Directives Date on File: 01/21/23 service: No Current occupational status: retired Office Procedures Cardiac Device Check Cardiac Device Check Details: Monitoring period dates:09/09/23- 10/11/23 Optimal PA pressure range: PAD 22mmhg Procedure code: 65061 BACKGROUND: Jorge is implanted with the CardioMEMS PA Sensor.? I use this technology to monitor PA pressures on a weekly basis to ensure patients are within their optimal range to prevent decompensation.? SUMMARY:? I utilized the remote monitoring platform ([employer]) to set optimal targets for pulmonary artery pressure thresholds as part of acute and chronic management of patient?s heart failure. During the period indicated above, I monitored the patient?s pulmonary artery pressures weekly via trend analysis and notification reports which provide alerts when patient?s PA pressures were outside of range to prompt immediate action in medication changes and communications.? The weekly reports are archived in the [employer] system which serve as a parallel record to document weekly PA pressures, medication changes, and clinical notes. I have reviewed readings on 09/09, 09/18, 09/25. 10/02, 10/09. His PAD has ranged between 16-32mmhg. His diuretics have been adjusted as needed. 44017 - Remote monitoring of wireless pulmonary artery pressure sensor Procedure code (CPT) selection complete Assessment & Plan Assessment & Plan (1) Presence of CardioMEMS HF system: Code(s): Z95.818 - Presence of other cardiac implants and grafts Category: Medical Plan: monthly report Coding Level of Care Code Procedure Only Diagnoses Presence of CardioMEMS HF system Z95.818 CPT Codes Cardiac Device Check - Cardiac Device 17: 11905 - Remote monitoring of wireless pulmonary artery pressure sensor ([id number])
== END ==
PROVIDERS: PCP Internal Medicine; Visit Provider Nurse Practitioner Family
DX: Z45.09 Encounter for adjustment and management of other cardiac device (principal)
CPT/HCPCS: 93264

== ENCOUNTER → 2023-10-29 23:59 | Outpatient (BNV) | payer OTHER, SELFPAY ==
--- NOTE | 2023-11-04 14:45 | MHC.OFFVIS ---
Intake Visit Reasons: Remote ICD check- Medtronic Allergies No Known Allergies [No Known Allergies*] Allergy (Verified 09/23/23 11:40) [facility] Medical History 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) Diabetes History of CAD (coronary artery disease) CHF (congestive heart failure) Acute exacerbation of CHF (congestive heart failure) CKD (chronic kidney disease) Surgical History History of heart artery stent Social History Household Members: Family Housing: Apartment Do you presently have visiting nurse or other home services: Yes Alcohol intake: former Patient Tobacco Use Status: Former Tobacco user Advance Directives Date on File: 01/21/23 service: No Current occupational status: retired Office Procedures Cardiac Device Check Cardiac Device Check Details: Remote ICD report generated 10/29/2023. ICD function is adequate [id number] Cardiac Interrogation, implant defibrillator w/interim Procedure code (CPT) selection complete Assessment & Plan Assessment & Plan (1) ICD (implantable cardioverter-defibrillator) in place: Code(s): Z95.810 - Presence of automatic (implantable) cardiac defibrillator Category: Medical Plan: See above Coding Level of Care Code Procedure Only Diagnoses ICD (implantable cardioverter-defibrillator) in place Z95.810 CPT Codes Cardiac Device Check - Cardiac Device 13: [id number] Cardiac Interrogation, implant defibrillator w/interim ([id number])
== END ==
PROVIDERS: PCP Internal Medicine; Visit Provider Internal Medicine Cardiovascular Disease
DX: Z45.02 Encounter for adjustment and management of automatic implantable cardiac defibrillator (principal)
CPT/HCPCS: 93295

== ENCOUNTER → 2023-11-10 23:59 | Outpatient (BNV) | payer OTHER, SELFPAY ==
--- NOTE | 2023-11-10 17:22 | A.OFFVIS_ITS ---
Intake Visit Reasons: Remote Cardiomems- [facility] Allergies No Known Allergies [No Known Allergies*] Allergy (Verified 09/23/23 11:40) [facility] Medical History 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) Diabetes History of CAD (coronary artery disease) CHF (congestive heart failure) Acute exacerbation of CHF (congestive heart failure) CKD (chronic kidney disease) Surgical History History of heart artery stent Social History Household Members: Family Housing: Apartment Do you presently have visiting nurse or other home services: Yes Alcohol intake: former Patient Tobacco Use Status: Former Tobacco user Advance Directives Date on File: 01/21/23 service: No Current occupational status: retired Office Procedures Cardiac Device Check Cardiac Device Check Details: Monitoring period dates: 10/11/23- 11/10/23 Optimal PA pressure range: PAD 22mmhg Procedure code: 98773 BACKGROUND: Jorge is implanted with the CardioMEMS PA Sensor.? I use this technology to monitor PA pressures on a weekly basis to ensure patients are within their optimal range to prevent decompensation.? SUMMARY:? I utilized the remote monitoring platform ([employer]) to set optimal targets for pulmonary artery pressure thresholds as part of acute and chronic management of patient?s heart failure. During the period indicated above, I monitored the patient?s pulmonary artery pressures weekly via trend analysis and notification reports which provide alerts when patient?s PA pressures were outside of range to prompt immediate action in medication changes and communications.? The weekly reports are archived in the [employer] system which serve as a parallel record to document weekly PA pressures, medication changes, and clinical notes. I have reviewed readings on 10/10, 10/17, 10/24, 10/31, 11/07.His PAD readings have ranged between 13- 25mmgh. His Torsemide dose has been reduced. 13774 - Remote monitoring of wireless pulmonary artery pressure sensor Procedure code (CPT) selection complete Assessment & Plan Assessment & Plan (1) Presence of CardioMEMS HF system: Code(s): Z95.818 - Presence of other cardiac implants and grafts Category: Medical Plan: monthly report Coding Level of Care Code Procedure Only Diagnoses Presence of CardioMEMS HF system Z95.818 CPT Codes Cardiac Device Check - Cardiac Device 17: 17899 - Remote monitoring of wireless pulmonary artery pressure sensor ([id number])
== END ==
PROVIDERS: PCP Internal Medicine; Visit Provider Nurse Practitioner Family
DX: Z45.09 Encounter for adjustment and management of other cardiac device (principal)
CPT/HCPCS: 93264

== ENCOUNTER 2023-11-15 11:23 | Outpatient (REF) | payer OTHER, SELFPAY ==
[2023-11-15 12:30] LABS: Estimated Average Glucose 209 mg/dL; Hemoglobin A1C 248.1736 umol/L; Hemoglobin A1c % 8.9 % (<6.0); Total Hemoglobin (HGBA1C) 3386.4221 umol/L
[2023-11-15 12:53] LABS: Parathyroid Hormone Intact 297.1 pg/mL (8.7-77.1)
[2023-11-15 12:54] LABS: Alanine Aminotransferase 13 U/L (0-40); Alkaline Phosphatase 124 U/L (39-117); Anion Gap 16 (12-20); Aspartate Amino Transferase 17 U/L (5-37); Bilirubin Total 0.6 mg/dL (0.0-1.0); Blood Urea Nitrogen 32 mg/dL (9-16); Calcium 10.2 mg/dL (8.4-10.2); Carbon Dioxide 28 mmol/L (22-29); Chloride 103 mmol/L (96-108); Estimated Glomerular Filt Rate 25; Glucose Random 173 mg/dL (60-115); Phosphorus 3.8 mg/dL (2.7-4.5); Potassium 4.3 mmol/L (3.3-5.1); Sodium 143 mmol/L (135-145)
[2023-11-15 12:57] LABS: Blood Urea Nitrogen 32 mg/dL (9-16); Calcium 10.2 mg/dL (8.4-10.2)
[2023-11-15 13:13] LABS: Vitamin D 25-OH Total 27.7 ng/mL (>30)
== END 2023-11-15 11:24 | disposition home or self-care (01) ==
LOC: HO.LAB 11:23
PROVIDERS: Absent Provider Internal Medicine; PCP Internal Medicine; Visit Provider Internal Medicine Nephrology
DX: I12.9 Hypertensive chronic kidney disease with stage 1 through stage 4 chronic kidney disease, or unspecified chronic kidney disease (principal); N25.81 Secondary hyperparathyroidism of renal origin; N18.4 Chronic kidney disease, stage 4 (severe)
CPT/HCPCS: 36415; 80053; 82306; 82310; 83036; 83970; 84100; 84520

== ENCOUNTER 2023-11-17 13:34 | Outpatient (AMB) | payer OTHER, SELFPAY ==
--- NOTE | 2023-11-17 13:35 | MHC.OFFVIS ---
Vital Signs 11/17/23 13:36 Height 5 ft 8 in Weight 165 lb 12.602 oz BMI 25.2 BP 92/54 L Blood Pressure Location Lt brachial Position Sitting Pulse 54 Pulse Source Pulse Oximeter Intake Visit Reasons: 2m follow up Otr Owner Operator Required: No Allergies No Known Allergies [No Known Allergies*] Allergy (Verified 11/17/23 13:43) Medication List - Last Reconciled 11/17/23 by ASHLEY Lopez acetaminophen ER 650 mg PO BID PRN apixaban (Eliquis) 2.5 mg PO BID atorvastatin 80 mg PO BEDTIME empagliflozin (Jardiance) 10 mg PO QAM fluticasone propionate 50 mcg/actuation 1 spray intranasal BID gabapentin 100 mg PO TID glucose (Dex4 Glucose) 4 grams PO ONCE PRN insulin aspart U-100 (Novolog FlexPen U-100 Insulin aspart) 0 sliding scale doses subcut TID insulin degludec (Tresiba FlexTouch U-100 insulin) units subcut loratadine 10 mg PO DAILY loteprednol etabonate 0.5% drps ophthalmic (eye) metoprolol succinate ER (Toprol XL) 50 mg PO DAILY omeprazole 20 mg PO DAILY tamsulosin 1 cap PO DAILY torsemide 20 mg PO DAILY 30 days HPI HPI 2m follow up: Details: Jorge is an 82-year-old female with past medical history of hypertension, hyperlipidemia, CAD, heart failure with reduced EF, ICD in place, CKD, CardioMEMS device, who who presents for follow-up. Today he reports that he had been doing well but yesterday he was not feeling good. He was nauseous and lightheaded. He did not eat or drink much during the day. Today he had breakfast and 1 cup of coffee. He did take all his medicines as directed. He denies having shortness of breath, PND, orthopnea. He has some trace swelling in his ankle and describes that he has chronic, bilateral gout symptoms. No chest discomfort at rest or with activity. No heart palpitations, presyncope, syncope, falls. He ambulates with a cane. Taking meds as directed. We had reduced his torsemide dose down to 10 mg daily due to low CardioMEMS readings. [facility] Medical History 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) Diabetes History of CAD (coronary artery disease) CHF (congestive heart failure) Acute exacerbation of CHF (congestive heart failure) CKD (chronic kidney disease) Surgical History History of heart artery stent Social History Household Members: Family Housing: Apartment Do you presently have visiting nurse or other home services: Yes Alcohol intake: former Patient Tobacco Use Status: Former Tobacco user Advance Directives Date on File: 01/21/23 service: No Current occupational status: retired Review of Systems Const All systems reviewed & are unremarkable except as noted in HPI and below ENT Reports dizziness Card Denies chest pain, Denies chest pain at rest, Denies chest pain with activity, Denies rapid heart rate, Denies pedal edema, Denies edema, Denies leg edema, Denies lightheadedness, Denies palpitations, Denies dyspnea, Denies dyspnea on exertion and Denies orthopnea Resp Denies cough, Denies dyspnea and Denies dyspnea on exertion GI Denies hematochezia and Denies change in stool character Musc Denies abnormal gait, Denies limited range of motion, Denies muscle cramps, Denies muscle weakness, Denies numbness, Denies radiating pain into limb, Denies stiffness and Denies tingling Neuro Denies abnormal gait, Reports dizziness, Denies numbness and Denies tingling Endo Denies palpitations Physical Exam Vital Signs: Last Vital Signs Pulse 54 11/17/23 13:36 BP 92/54 L 11/17/23 13:36 BMI result Body Mass Index 25.2 Const General: cooperative, healthy appearing, comfortable and no acute distress Orientation/consciousness: patient oriented x3 Neck Neck: Yes normal visual inspection Resp Effort & Inspection: normal respiratory effort Auscultation: clear to auscultation bilaterally, no rales, no rhonchi and no wheezes Cardio Rate: regular rate Rhythm: regular rhythm Heart sounds: S1 normal heart sound present, S2 normal heart sound present, no murmurs and no rubs Neuro General: patient oriented x3 Extrem General: Yes normal to inspection, No no pedal edema and No calf tenderness Psych Appearance: grossly normal Mental Status: mental status grossly normal Speech and movement: Normal speech and movement present Office Procedures Cardiac Device Check Cardiac Device Check Details: Medtronic single lead ICD interrogation today shows battery 13.4 years, RV threshold 0.75 volts at 0.4 milliseconds, VVI, low rate 40, no VT or VF, PAF noted, V sensed 99.3%, V paced 0.7% OptiVol below threshold [id number] Cardiac Device Check, single lead implantable defibrillator Procedure code (CPT) selection complete Assessment & Plan Assessment & Plan (1) Acute on chronic clinical systolic heart failure: Code(s): I50.23 - Acute on chronic systolic (congestive) heart failure Category: Medical Plan: History of heart failure with reduced EF. He has CardioMEMS device in place to help with remote monitoring. An echocardiogram was recently done at [facility] showing EF 30-35%, akinesis of the anterior septal and anterior segments extending from the base to apex there is a filling defect at the apex suggesting thrombus. [place] [facility] [place] showed EF 25-30% with LAD wall motion abnormality. This finding of possible thrombus is new. He also has had a newer finding of PAF on pacemaker interrogation. He is on Eliquis for anticoagulation and reports compliance. An echocardiogram had been previously ordered but not completed yet by patient. Since his last visit, 09/15/23, his PAD readings had been running low and his torsemide dose was reduced from 20 mg daily down to 10 mg daily. He confirms that he has been taking that dose. It seems his weight is down 17 lb since his last visit with me in September. He does report some lightheadedness today and blood pressure is noted to be low. He is mildly orthostatic on exam: Blood pressure sitting 92/44, standing 86/50. He reports feeling ill yesterday and did not eat or drink much. Only had 1 cup of coffee so far today. Instructed to increase his fluid intake today, at least 32 oz, then be sure to have up to 48 oz daily. His pacemaker interrogation shows his OptiVol is below the threshold. CardioMEMS PID reading today is 18 mmHg, PAD goal 22 mmHg. Increasing fluid should help to get his blood pressure and readings to better level. Will continue torsemide at 10 mg daily. He does have known chronic kidney disease and follows with Dr. Owens for Nephrology. I will continue to watch his CardioMEMS readings closely. If his readings start to rise he will need an increase in his torsemide dose. Discuss this with him and he states understanding. Home weight monitoring and low-salt diet reviewed. Emergency care if ever needed for symptoms. Cardiology office visit in 3 months, sooner if needed. (2) NSTEMI (non-ST elevated myocardial infarction): Code(s): I21.4 - Non-ST elevation (NSTEMI) myocardial infarction Category: Medical Plan: Recently [place] [facility] [place] with chest discomfort. He ruled in for NSTEMI. He was transferred to [facility]. Their notes indicate that cardiac catheterization was canceled due to hypervolemia from IV fluid. They then did a nuclear stress test showing a large scar in the LAD territory, no active ischemia. He was continued on med management. At this time he has no anginal sounding symptoms. His prior chest discomfort has resolved. Will continue on metoprolol XL, high-dose atorvastatin. He has no longer on aspirin as he is on Eliquis. (3) CKD (chronic kidney disease) stage 4, GFR 15-29 ml/min: Code(s): N18.4 - Chronic kidney disease, stage 4 (severe) Category: Medical Plan: As above, following with Nephrology, Dr. Owens (4) Hypertension: Code(s): I10 - Essential (primary) hypertension Category: Medical Qualifiers: Hypertension type: primary hypertension Qualified Code(s): I10 - Essential (primary) hypertension Plan: Running low today, as above. (5) ICD (implantable cardioverter-defibrillator) in place: Code(s): Z95.810 - Presence of automatic (implantable) cardiac defibrillator Category: Medical Plan: Single-chamber Medtronic ICD in place. Functioning normally on interrogation today. He has remote monitoring in use. Office interrogation due in 6 months. (6) Paroxysmal A-fib: Code(s): I48.0 - Paroxysmal atrial fibrillation Category: Medical Plan: Occasional Episodes of paroxysmal atrial fibrillation noted on remote monitoring., new finding since June 2023. He is on Eliquis for anticoagulation. No bleeding issues reported. He is on metoprolol for heart rate control. He denies any heart palpitations or racing. (7) Apical mural thrombus: Code(s): I51.3 - Intracardiac thrombosis, not elsewhere classified Category: Medical Plan: Noted on echo from [facility]. Repeat echo not completed by him. Will have him obtain echo. Plan Time spent on chart review, documentation, interview and assessment Coding Level of Care Code Est Pt Level 5 (13955) Diagnoses Acute on chronic clinical systolic heart failure I50.23 NSTEMI (non-ST elevated myocardial infarction) I21.4 CKD (chronic kidney disease) stage 4, GFR 15-29 ml/min N18.4 Primary hypertension I10 Hypertension type: primary hypertension ICD (implantable cardioverter-defibrillator) in place Z95.810 Paroxysmal A-fib I48.0 Apical mural thrombus I51.3 CPT Codes Cardiac Device Check - Cardiac Device 4: [id number] Cardiac Device Check, single lead implantable defibrillator ([id number]) Time Spent (min) 40 Comment Complex case
[2023-11-17 13:36] VITALS: BP 92/54; PULSE 54; BMI 25.2
== END 2023-11-17 14:13 | disposition home or self-care (01) ==
PROVIDERS: PCP Internal Medicine; Visit Provider Nurse Practitioner Family
DX: I21.4 Non-ST elevation (NSTEMI) myocardial infarction (principal); I13.0 Hypertensive heart and chronic kidney disease with heart failure and stage 1 through stage 4 chronic kidney disease, or unspecified chronic kidney disease; I50.23 Acute on chronic systolic (congestive) heart failure; N18.4 Chronic kidney disease, stage 4 (severe); I48.0 Paroxysmal atrial fibrillation; Z95.810 Presence of automatic (implantable) cardiac defibrillator; I51.3 Intracardiac thrombosis, not elsewhere classified
CPT/HCPCS: 93282; 99215

== ENCOUNTER → 2023-11-17 13:34 | Outpatient (BNVA) | payer OTHER, SELFPAY | PROVIDERS: PCP Internal Medicine; Visit Provider Nurse Practitioner Family | DX: I25.10 Atherosclerotic heart disease of native coronary artery without angina pectoris (principal); I21.4 Non-ST elevation (NSTEMI) myocardial infarction; I13.0 Hypertensive heart and chronic kidney disease with heart failure and stage 1 through stage 4 chronic kidney disease, or unspecified chronic kidney disease; I48.0 Paroxysmal atrial fibrillation; I50.23 Acute on chronic systolic (congestive) heart failure; I51.3 Intracardiac thrombosis, not elsewhere classified; N18.4 Chronic kidney disease, stage 4 (severe); E78.5 Hyperlipidemia, unspecified; Z95.810 Presence of automatic (implantable) cardiac defibrillator | CPT/HCPCS: 99212 ==

== ENCOUNTER → 2023-11-29 23:59 | Outpatient (BNV) | payer OTHER, SELFPAY ==
--- NOTE | 2023-12-19 17:26 | A.OFFVIS_ITS ---
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) Diabetes History of CAD (coronary artery disease) CHF (congestive heart failure) Acute exacerbation of CHF (congestive heart failure) CKD (chronic kidney disease) Surgical History History of heart artery stent Social History Household Members: Family Housing: Apartment Do you presently have visiting nurse or other home services: Yes Alcohol intake: former Patient Tobacco Use Status: Former Tobacco user Advance Directives Date on File: 01/21/23 service: No Current occupational status: retired Office Procedures Cardiac Device Check Cardiac Device Check Details: Remote heart failure report generated November 29 2023. Heart failure parameters are stable [id number] Cardiac Device Interrogation, cardio physiologic monitor Procedure code (CPT) selection complete Assessment & Plan Assessment & Plan (1) ICD (implantable cardioverter-defibrillator) in place: Code(s): Z95.810 - Presence of automatic (implantable) cardiac defibrillator Category: Medical Plan: See above Coding Level of Care Code Procedure Only Diagnoses ICD (implantable cardioverter-defibrillator) in place Z95.810 CPT Codes Cardiac Device Check - Cardiac Device 15: [id number] Cardiac Device Interrogation, cardio physiologic monitor ([id number])
== END ==
PROVIDERS: PCP Internal Medicine; Visit Provider Internal Medicine Cardiovascular Disease
DX: Z45.02 Encounter for adjustment and management of automatic implantable cardiac defibrillator (principal)
CPT/HCPCS: 93297

== ENCOUNTER 2023-12-06 18:58 | Emergency (ER) | payer OTHER, SELFPAY ==
--- NOTE | 2023-12-06 | ECG_ITS ---
Test Reason : HYPERGLYCEMIA Blood Pressure : / mmHG Vent. Rate : 063 BPM Atrial Rate : 063 BPM P-R Int : 182 ms QRS Dur : 078 ms QT Int : 430 ms P-R-T Axes : 050 -14 115 degrees QTc Int : 440 ms Sinus rhythm with occasional Premature ventricular complexes Nonspecific T wave abnormality Abnormal ECG When compared with ECG of 06-DEC-2023 21:16, Premature ventricular complexes are now Present Premature atrial complexes are no longer Present QT has lengthened Referred By: Dakota Villarreal Electronically Signed By:Edgar Mccarthy
--- NOTE | ~2023-12-06 | XR_ITS ---
EXAMINATION: XR CHEST 2 VIEWS CLINICAL INFORMATION: Cough and shortness of breath; question pneumonia. COMPARISON: Prior chest radiographs, most recently 09/19/2023. TECHNIQUE: Frontal and lateral views of the chest were obtained. FINDINGS: The heart, great vessels, pulmonary vasculature and mediastinum are normal. There is mild elevation of the right hemidiaphragm. The lungs show no focal infiltrate, effusion or pneumothorax. There is no acute osseous abnormality. There is marked lumbar endplate arthropathy. There is cervicothoracic orthopedic hardware. A left subclavian AICD is noted, without lead fracture identified. XR/XR chest 2V IMPRESSION: No active cardiopulmonary disease. There is mild elevation of the right hemidiaphragm. Electronically signed by: Markos Winters MD 12/06/2023 10:00 PM EDT
[2023-12-06 19:14] VITALS: BP 117/64; BP 126/66; PULSE 72; PULSE 74; RESP 18; TEMP 36.8; O2SAT 98; BMI 24.5
[2023-12-06 19:20] VITALS: BP 112/60; PULSE 72; RESP 14; TEMP 36.4; O2SAT 97
[2023-12-06 19:22] LABS: Glucose, Whole Blood 511 mg/dL (60-115)
[2023-12-06 19:28] LABS: MANUAL DIFF FLAG NO
[2023-12-06 19:29] LABS: Basophils Percent Auto 0.1 % (0-2); Hematocrit 40.4 % (42.0-52.0); Hemoglobin 13.2 g/dl (14.0-18.0); Imm Gran Abs Auto 0.07 X10*3/uL (0.00-0.03); Imm Gran Pct Auto 0.7 % (0.0-0.4); Lymphocytes Absolute Auto 1.4 X10*3/uL (1.2-4.9); Lymphocytes Percent Auto 14.4 % (20-40); Mean Corpuscular HGB Conc 32.7 g/dl (31.0-36.0); Mean Corpuscular Hemoglobin 26.8 pg (27.0-33.0); Mean Corpuscular Volume 82.1 fL (80.0-98.0); Mean Platelet Volume 10.4 fL (9.4-12.4); Monocytes Absolute Auto 0.3 X10*3/uL (0.1-1.2); Monocytes Percent Auto 2.5 % (2-11); Neutrophils Absolute Auto 8.2 x10*3/uL (2.0-8.3); Neutrophils Percent Auto 82.3 % (45-73); Platelet Count 239 X10*3/uL (160-400); Red Blood Count 4.92 X10*6/uL (4.60-5.80); Red Cell Distribution Width 16.7 % (11.0-16.0); White Blood Count 9.9 X10*3/uL (4.8-10.8)
[2023-12-06 19:52] LABS: Alanine Aminotransferase 22 U/L (0-40); Albumin Level 3.7 g/dL (3.5-5.0); Alkaline Phosphatase 92 U/L (39-117); Anion Gap 15 (12-20); Aspartate Amino Transferase 35 U/L (5-37); Bilirubin Total 0.4 mg/dL (0.0-1.0); Blood Urea Nitrogen 64 mg/dL (9-16); Calcium 9.8 mg/dL (8.4-10.2); Carbon Dioxide 27 mmol/L (22-29); Chloride 97 mmol/L (96-108); Creatinine Clr Calc Pharmacy 20.3; Estimated Glomerular Filt Rate 23; Glucose Random 553 mg/dL (60-115); Potassium 5.1 mmol/L (3.3-5.1); Sodium 134 mmol/L (135-145); Total Protein 7.8 g/dL (6.5-8.0)
--- NOTE | 2023-12-06 19:53 | ED_ITS ---
HPI - Recheck/Abnormal Lab/Rx General Chief Complaint: Recheck/Abnormal Lab/Rx Stated Complaint: hyperglycemic *517, weak, chest/neck pain Time Seen by Provider: 12/06/23 19:53 Source: patient Mode of arrival: EMS Limitations: no limitations History of Present Illness ED Provider: Dr. Dakota Villarreal HPI narrative: 83-year-old male with a history of diabetes mellitus, congestive heart failure, chronic kidney disease, ICD, who presents emergency department for evaluation of an elevated glucose of greater than 500. The patient states that his glucose usually runs in the 300 range. He states that yesterday his glucose was 400 today was greater than 500. He states he does give himself insulin on a sliding scale. He states he gave himself 14 and 12 units of insulin and also took Trulicity 10 units. Patient states over the last 3-4 days he has had increased thirst and has had urinary frequency but no dysuria. He denied fever but he did have chills. He complained of sore throat, productive cough, shortness of breath, dyspnea on exertion, nausea and diarrhea. He was also had myalgias and arthralgias. According to the patient's granddaughter, Enedina covarrubias can be reached at . Patient was had a flare-up of his gout in his ankles and left arm and was started on a tapering course of prednisone 40 mg for 5 and is starting his taper tomorrow at 30 mg for 3 days, 20 mg for 3 days and 10 mg for 3 days. Related Data Home Medications ?Medication ?Instructions ?Recorded ?Confirmed acetaminophen 650 mg 650 mg PO BID PRN Pain 03/26/22 11/17/23 tablet,extended release fluticasone propionate 50 1 spray intranasal BID 03/26/22 11/17/23 mcg/actuation nasal spray,suspension loratadine 10 mg tablet 10 mg PO DAILY 03/26/22 11/17/23 tamsulosin 0.4 mg capsule 1 cap PO DAILY 03/26/22 11/17/23 atorvastatin 80 mg tablet 80 mg PO BEDTIME 04/09/22 11/17/23 gabapentin 100 mg capsule 100 mg PO TID 04/09/22 11/17/23 glucose 4 gram chewable tablet 4 g PO ONCE PRN LOW GLUCOSE 04/09/22 11/17/23 (Dex4 Glucose) omeprazole 20 mg capsule,delayed 20 mg PO DAILY 07/13/22 11/17/23 release insulin aspart U-100 100 unit/mL 0 sliding scale dose subcut TID 01/13/23 11/17/23 (3 mL) subcutaneous pen (Novolog FlexPen U-100 Insulin aspart) insulin degludec 100 unit/mL (3 unit subcut 06/24/23 11/17/23 mL) subcutaneous pen (Tresiba FlexTouch U-100 insulin) loteprednol etabonate 0.5 % eye drp ophthalmic (eye) 06/24/23 11/17/23 drops,suspension Previous Rx's ?Medication ?Instructions ?Recorded metoprolol succinate 50 mg 50 mg PO DAILY #30 tabs 04/29/22 tablet,extended release 24 hr (Toprol XL) empagliflozin 10 mg tablet 10 mg PO QAM #30 tabs 05/11/23 (Jardiance) apixaban 2.5 mg tablet (Eliquis) 2.5 mg PO BID #60 tabs 07/12/23 torsemide 20 mg tablet 20 mg PO DAILY 30 days #50 tabs 09/16/23 Allergies Allergy/AdvReac Type Severity Reaction Status Date / Time No Known Allergies Allergy Verified 12/06/23 19:16 [No Known Allergies*] Review of Systems 2 Review of Systems: Yes all other systems are reviewed and are negative [facility] Past Medical History [facility] Narrative: Social history: He denies tobacco, alcohol and drug use Medical History 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) Diabetes History of CAD (coronary artery disease) CHF (congestive heart failure) Acute exacerbation of CHF (congestive heart failure) CKD (chronic kidney disease) Surgical History History of heart artery stent Social History Social History Household Members: Family Housing: Apartment Do you presently have visiting nurse or other home services: Yes Alcohol intake: former Patient Tobacco Use Status: Former Tobacco user Smoked in Last 30 Days: No Use of substances other than those prescribed or required for medical reasons: No Advance Directives: Yes Advance Directives on File: Yes Advance Directives Date on File: 01/21/23 Do you have a plan to hurt others: No Plan service: No Current occupational status: retired Physical Exam 2 Vital Signs: Vital Signs: Last Vital Signs Temp 97.8 F 12/06/23 21:35 Pulse 65 12/06/23 21:35 Resp 16 12/06/23 21:35 BP 110/60 12/06/23 21:35 Pulse Ox 96 12/06/23 21:35 O2 Del Method Room Air 12/06/23 21:35 BMI result Body Mass Index 24.5 Vital signs were normal Exam: General: Awake, alert in no distress Head: Normocephalic, atraumatic EENT: PERRL, Lids normal, sclera normal, conjunctiva normal, nose normal , ears normal, throat without erythema or exudates Neck: Supple, no adenopathy Lung: breath sounds symmetric, no wheezing, rales or rhonchi Chest: symmetric movement, nontender Heart: regular rate and rhythm, normal S1, S2 no murmurs or rubs Abdomen: soft, non-tender, nondistended, normal bowel sounds Back: no vertebral tenderness, no CVAT Extremities: no deformities, moves all extremities symmetrically Neuro: Awake, alert, oriented, normal speech, cranial nerves intact, moves all extremities symmetrically Psych: Pleasant, cooperative Medications Administered Discontinued Medications Generic Name Dose Route Start Last Admin Trade Name Freq PRN Reason Stop Dose Admin Sodium Chloride 1,000 mls @ 999 mls/hr 12/06/23 20:47 12/06/23 22:41 Ns IV 12/06/23 21:47 Infused .Q1H1M STA Infusion Sodium Chloride 1,000 mls @ 999 mls/hr 12/06/23 20:49 12/06/23 23:52 Ns IV 12/06/23 21:49 Infused .Q1H1M STA Infusion Insulin Human Regular 10 unit 12/06/23 20:49 12/06/23 21:09 Insulin Regular, Human 100 Unit/Ml 10 Ml Vial IVPUSH 12/06/23 20:50 10 unit ONCE ONE Administration Medical Decision Making Medical Decision Making MDM Narrative: 83-year-old male with a history of diabetes mellitus, congestive heart failure, chronic kidney disease, ICD, who presents emergency department for evaluation of an elevated glucose of greater than 500. He also complained of urinary frequency, chills, sore throat, productive cough, shortness of breath, dyspnea on exertion, nausea and diarrhea. He was also had myalgias and arthralgias. Patient is on a tapering course of prednisone for gout. Differential diagnosis: ?Includes but is not limited to myocardial infarction, myocardial ischemia, urinary tract infection, pneumonia, dehydration, volume depletion, viral syndrome Course: 21:59 My impression patient's laboratory evaluation as follows: CBC was normal. BUN and creatinine were elevated at 64 and 2.67 compared to baseline of 32 and 2.51 on 11/15/2023 glucose was elevated 533. Troponin was elevated 120.5-the patient has had similar elevations in the past. Repeat troponin is due at 10:30 hours. Urinalysis was positive for glucose. Microscopic revealed no evidence for urinary tract infection. Rapid strep was negative. COVID-19, influenza and RSV were negative Patient was [address] segment elevation or depression but does have poor R-wave progression V1 through V3 consistent with old anterior infarct. My interpretation patient's two view chest x-ray is no acute disease with no evidence for pneumonia. Patient was treated with normal saline IV x2 L, regular insulin 10 units IV. 01:32 The patient's initial troponin was elevated at 120.5 and repeat troponin was 129.8 which is not significantly changed suggesting the patient's elevated troponin is chronic. Patient's glucose did improve to 265 however he continues to have elevated BUN above his baseline. I did talk to the patient's granddaughter who was also the patient's TRACK WATCHMAN, Enedina can be reached at . The patient gets frequent gout and he had a recent flare-up of gout in both of his ankles and left arm. He was started on a tapering dose prednisone 10 mg tablets 4 tablets for 5 days and would start his tapering dose of 3 pills for 3 days, 2 pills for 3 days and 1 pill for 3 days tomorrow. Given his acute on chronic renal injury , prednisone for gout, the patient will need to be admitted for management of his hyperglycemia. Therefore I will discuss admission with the covering hospitalist, Dr. Holley. The granddaughter is also concerned that she was having difficulty caring for him at home and would like case management consult for possible penitentiary placement. 02:24 Start physician observation I did discuss the patient's presentation and laboratory values with Dr. Holley and at this time he felt that the patient did not meet admission criteria since BUN and creatinine improved therefore the patient does not meet criteria for acute kidney injury. He also felt that the patient should be started on a long- lasting insulin such as Lantus if he was not on this a rate to bridge him while he was on prednisone. It is unclear what the patient medications are at this time and he will need a medication reconciliation in the morning to determine if he needs to be on different insulin regimen. At this point, I do not think that the patient can be discharged home and the granddaughter is not certain if she can take care of him at home therefore patient will be placed in physician observation for case management evaluation to see if the patient can get home services to help with his elevated glucose and see if he needs penitentiary placement. Admission/Observation Consideration of admission/observation: Escalation of care including admission/observation considered (Yes) Consult Healthcare Provider Management of the patient was discussed with: Certified Personal Chef (Dr. Holley) Lab Data [facility] Lab Attestation statement: I reviewed the patient's lab results. 12/06/23 19:23 12/06/23 23:50 Labs: Lab Results 12/06/23 12/06/23 12/06/23 Range/Units 19:14 19:23 20:06 WBC 9.9 (4.8-10.8) X10*3/uL RBC 4.92 (4.60-5.80) X10*6/uL Hgb 13.2 L (14.0-18.0) g/dl Hct 40.4 L (42.0-52.0) % MCV 82.1 (80.0-98.0) fL MCH 26.8 L (27.0-33.0) pg MCHC 32.7 (31.0-36.0) g/dl RDW 16.7 H (11.0-16.0) % Plt Count 239 (160-400) X10*3/uL MPV 10.4 (9.4-12.4) fL Immature Gran % (Auto) 0.7 H (0.0-0.4) % Neut % (Auto) 82.3 H (45-73) % Lymph % (Auto) 14.4 L (20-40) % [place] % (Auto) 2.5 (2-11) % Eos % (Auto) 0.0 (0-4) % Baso % (Auto) 0.1 (0-2) % Lymph # (Auto) 1.4 (1.2-4.9) X10*3/uL [place] # (Auto) 0.3 (0.1-1.2) X10*3/uL Eos # (Auto) 0.0 (0.0-0.4) X10*3/uL Baso # (Auto) 0.0 (0.0-0.2) X10*3/uL Abs Immat Gran (auto) 0.07 H (0.00-0.03) X10*3/uL Absolute Neuts (auto) 8.2 (2.0-8.3) x10*3/uL Absolute Nucleated RBC 0.000 (0.0-0.012) X10*3/uL Nucleated RBC % (auto) 0.0 (0.0-0.2) /100WBC Sodium 134 L (135-145) mmol/L Potassium 5.1 (3.3-5.1) mmol/L Chloride 97 (96-108) mmol/L Carbon Dioxide 27 (22-29) mmol/L Anion Gap 15 (12-20) BUN 64 H (9-16) mg/dL Creatinine 2.62 H (0.5-1.4) mg/dL Estim Creat Clear Calc 20.3 Estimated GFR 23 POC Glucose 511 H* (60-115) mg/dL Random Glucose 553 H* (60-115) mg/dL Calcium 9.8 (8.4-10.2) mg/dL Total Bilirubin 0.4 (0.0-1.0) mg/dL AST 35 (5-37) U/L ALT 22 (0-40) U/L Alkaline Phosphatase 92 (39-117) U/L Troponin I High Sens 120.5 H* (<3.5-35.0) ng/L Total Protein 7.8 (6.5-8.0) g/dL Albumin 3.7 (3.5-5.0) g/dL Beta-Hydroxybutyrate 0.13 (0.02-0.27) mmol/L Urine Color Yellow Urine Appearance Clear Urine pH 6.0 (5.0-9.0) Ur Specific [place] 1.020 (1.005-1.025) Urine Protein Negative (Neg-Trace) mg/dL Urine Glucose (UA) >=1000 H (Negative) mg/dL Urine Ketones Negative (Negative) mg/dL Urine Blood Negative (Negative) Urine Nitrite Negative (Negative) Ur Leukocyte Esterase Negative (Negative) Urine RBC 0-2 (0-2) /HPF Urine WBC 0-5 (0-5) /HPF Ur Squamous Epith Cells 0-2 (0-2) /HPF Urine Bacteria None Seen (None Seen) Hyaline Casts 0-2 (0-2) /LPF Influenza Type A (PCR) (Negative) Influenza Type B (PCR) (Negative) RSV RNA Qual (PCR) (Negative) SARS-CoV-2 RNA (RT-PCR) (Negative) S. pyogenes GrpA TRINIDAD (Negative) 12/06/23 12/06/23 12/06/23 Range/Units 21:29 22:19 22:25 WBC (4.8-10.8) X10*3/uL RBC (4.60-5.80) X10*6/uL Hgb (14.0-18.0) g/dl Hct (42.0-52.0) % MCV (80.0-98.0) fL MCH (27.0-33.0) pg MCHC (31.0-36.0) g/dl RDW (11.0-16.0) % Plt Count (160-400) X10*3/uL MPV (9.4-12.4) fL Immature Gran % (Auto) (0.0-0.4) % Neut % (Auto) (45-73) % Lymph % (Auto) (20-40) % [place] % (Auto) (2-11) % Eos % (Auto) (0-4) % Baso % (Auto) (0-2) % Lymph # (Auto) (1.2-4.9) X10*3/uL [place] # (Auto) (0.1-1.2) X10*3/uL Eos # (Auto) (0.0-0.4) X10*3/uL Baso # (Auto) (0.0-0.2) X10*3/uL Abs Immat Gran (auto) (0.00-0.03) X10*3/uL Absolute Neuts (auto) (2.0-8.3) x10*3/uL Absolute Nucleated RBC (0.0-0.012) X10*3/uL Nucleated RBC % (auto) (0.0-0.2) /100WBC Sodium (135-145) mmol/L Potassium (3.3-5.1) mmol/L Chloride (96-108) mmol/L Carbon Dioxide (22-29) mmol/L Anion Gap (12-20) BUN (9-16) mg/dL Creatinine (0.5-1.4) mg/dL Estim Creat Clear Calc Estimated GFR POC Glucose 299 H (60-115) mg/dL Random Glucose (60-115) mg/dL Calcium (8.4-10.2) mg/dL Total Bilirubin (0.0-1.0) mg/dL AST (5-37) U/L ALT (0-40) U/L Alkaline Phosphatase (39-117) U/L Troponin I High Sens 129.8 H* (<3.5-35.0) ng/L Total Protein (6.5-8.0) g/dL Albumin (3.5-5.0) g/dL Beta-Hydroxybutyrate (0.02-0.27) mmol/L Urine Color Urine Appearance Urine pH (5.0-9.0) Ur Specific [place] (1.005-1.025) Urine Protein (Neg-Trace) mg/dL Urine Glucose (UA) (Negative) mg/dL Urine Ketones (Negative) mg/dL Urine Blood (Negative) Urine Nitrite (Negative) Ur Leukocyte Esterase (Negative) Urine RBC (0-2) /HPF Urine WBC (0-5) /HPF Ur Squamous Epith Cells (0-2) /HPF Urine Bacteria (None Seen) Hyaline Casts (0-2) /LPF Influenza Type A (PCR) NEGATIVE (Negative) Influenza Type B (PCR) NEGATIVE (Negative) RSV RNA Qual (PCR) NEGATIVE (Negative) SARS-CoV-2 RNA (RT-PCR) NEGATIVE (Negative) S. pyogenes GrpA [place] Negative (Negative) 10/22/24 Range/Units 23:50 WBC (4.8-10.8) X10*3/uL RBC (4.60-5.80) X10*6/uL Hgb (14.0-18.0) g/dl Hct (42.0-52.0) % MCV (80.0-98.0) fL MCH (27.0-33.0) pg MCHC (31.0-36.0) g/dl RDW (11.0-16.0) % Plt Count (160-400) X10*3/uL MPV (9.4-12.4) fL Immature Gran % (Auto) (0.0-0.4) % Neut % (Auto) (45-73) % Lymph % (Auto) (20-40) % [place] % (Auto) (2-11) % Eos % (Auto) (0-4) % Baso % (Auto) (0-2) % Lymph # (Auto) (1.2-4.9) X10*3/uL [place] # (Auto) (0.1-1.2) X10*3/uL Eos # (Auto) (0.0-0.4) X10*3/uL Baso # (Auto) (0.0-0.2) X10*3/uL Abs Immat Gran (auto) (0.00-0.03) X10*3/uL Absolute Neuts (auto) (2.0-8.3) x10*3/uL Absolute Nucleated RBC (0.0-0.012) X10*3/uL Nucleated RBC % (auto) (0.0-0.2) /100WBC Sodium 141 (135-145) mmol/L Potassium 3.9 D (3.3-5.1) mmol/L Chloride 105 (96-108) mmol/L Carbon Dioxide 26 (22-29) mmol/L Anion Gap 14 (12-20) BUN 59 H (9-16) mg/dL Creatinine 2.15 H (0.5-1.4) mg/dL Estim Creat Clear Calc 24.7 Estimated GFR 29 POC Glucose (60-115) mg/dL Random Glucose 265 H (60-115) mg/dL Calcium 8.5 D (8.4-10.2) mg/dL Total Bilirubin (0.0-1.0) mg/dL AST (5-37) U/L ALT (0-40) U/L Alkaline Phosphatase (39-117) U/L Troponin I High Sens (<3.5-35.0) ng/L Total Protein (6.5-8.0) g/dL Albumin (3.5-5.0) g/dL Beta-Hydroxybutyrate (0.02-0.27) mmol/L Urine Color Urine Appearance Urine pH (5.0-9.0) Ur Specific [place] (1.005-1.025) Urine Protein (Neg-Trace) mg/dL Urine Glucose (UA) (Negative) mg/dL Urine Ketones (Negative) mg/dL Urine Blood (Negative) Urine Nitrite (Negative) Ur Leukocyte Esterase (Negative) Urine RBC (0-2) /HPF Urine WBC (0-5) /HPF Ur Squamous Epith Cells (0-2) /HPF Urine Bacteria (None Seen) Hyaline Casts (0-2) /LPF Influenza Type A (PCR) (Negative) Influenza Type B (PCR) (Negative) RSV RNA Qual (PCR) (Negative) SARS-CoV-2 RNA (RT-PCR) (Negative) S. pyogenes GrpA TR[place]ID[place] (Negative) Independent Interpretation I performed an independent interpretation of an: EKG and Plain X-Ray Interpretation: My independent interpretation patient's 12 EKG done at 21:16 hours is as follows: Sinus bradycardia with a rate of 46, occasional PVC, no ST segment elevation, no ST segment depression, Q-wave in lead 3 and V1 with poor R-wave progression V1 through V3, no significant T-wave abnormalities. My interpretation patient's two view chest x-ray is as follows: No acute disease, no no infiltrates Radiology Impression Discussion of test interpretation with radiology: I have reviewed the radiologist's reading. Radiologist Impression: XR chest 2V IMPRESSION: No active cardiopulmonary disease. There is mild elevation of the right hemidiaphragm. Electronically signed by: Markos Winters MD 12/06/2023 10:00 PM Critical Care Time Critical Care Time Critical Care Time: Yes Total Critical Care Time: 45 Attestation: Critical Care: The patient was critically ill with a high probability of imminent or life threatening deterioration. I spent greater than 30 minutes of discontinuous time evaluating the patient,delivering critical care at the bedside, discussing and evaluating pertinent data with consultants. Critical care time does not include time spent performing separately billable procedures or teaching. Total time spent performing critical care was 45 minutes. Discharge Plan Discharge Clinical Impression: Acute hyperglycemia, [id number] kidney injury, Gout attack, Hyperglycemia, drug-induced Patient Disposition: Still a Patient Prescriptions: No Action Eliquis 2.5 mg tablet 2.5 mg PO BID Qty: 60 5RF Rx Instructions: Renal dose. torsemide 20 mg tablet 20 mg PO DAILY 30 Days Qty: 50 5RF Rx Instructions: Take 1 tablet daily, additional tablet daily as directed for weight gain, swelling. acetaminophen 650 mg tablet extended release 650 mg PO BID PRN (Reason: Pain) tamsulosin 0.4 mg capsule 1 cap PO DAILY fluticasone propionate 50 mcg/actuation spray,suspension 1 spray intranasal BID loratadine 10 mg Tablet 10 mg PO DAILY atorvastatin 80 mg tablet 80 mg PO BEDTIME gabapentin 100 mg capsule 100 mg PO TID omeprazole 20 mg capsule,delayed release(DR/EC) 20 mg PO DAILY insulin aspart U-100 [Novolog FlexPen U-100 Insulin] 100 unit/mL (3 mL) insulin pen 0 sliding scale dose subcut TID glucose [Dex4 Glucose] 4 gram tablet,chewable 4 g PO ONCE PRN (Reason: LOW GLUCOSE) Rx Instructions: until symptoms of low blood sugar are controlled metoprolol succinate [Toprol XL] 50 mg tablet extended release 24 hr 50 mg PO DAILY Qty: 30 5RF loteprednol etabonate 0.5 % drops,suspension ophthalmic (eye) insulin degludec [Tresiba FlexTouch U-100] 100 unit/mL (3 mL) insulin pen subcut Jardiance 10 mg tablet 10 mg PO QAM Qty: 30 3RF Print Language: Nigerien
[2023-12-06 20:12] LABS: Appearance Urine Clear; Color Urine Yellow; Glucose Urine UA >=1000 mg/dL (Negative); Leukocyte Esterase Urine Negative (Negative); Nitrite Urine Negative (Negative); UMIC TRIGGER UACC YES; Urine Blood Negative (Negative); Urine Ketones Negative (Negative); Urine Protein Negative (Neg-Trace)
[2023-12-06 20:16] LABS: Bacteria Urine None Seen (None Seen); Hyaline Casts Urine 0-2 /LPF (0-2); RBC Urine 0-2 /HPF (0-2); Squamous Epithelial Cell Urine 0-2 /HPF (0-2); WBC Urine 0-5 /HPF (0-5)
--- NOTE | 2023-12-06 20:49 | ECG_ITS ---
Test Reason : HYPERGLYCEMIA Blood Pressure : / mmHG Vent. Rate : 046 BPM Atrial Rate : 046 BPM P-R Int : 180 ms QRS Dur : 080 ms QT Int : 424 ms P-R-T Axes : 054 -26 137 degrees QTc Int : 371 ms Sinus bradycardia with Premature atrial complexes in a pattern of bigeminy Possible Anterior infarct , age undetermined Abnormal ECG When compared with ECG of 19-SEP-2023 11:28, Premature ventricular complexes are no longer Present Premature atrial complexes are now Present Vent. rate has decreased BY 31 BPM QT has shortened Referred By: Dakota Villarreal Electronically Signed By:Edgar Mccarthy
[2023-12-06] MEDS: 0.9 % Sodium Chloride 1,000 ML 999 ML IV ×2 (21:03→21:04)
[2023-12-06] MEDS: Insulin Regular, Human 100 UNIT/ML 10 ML VIAL 10 UNIT IVPUSH (21:09)
[2023-12-06 21:35] VITALS: BP 110/60; PULSE 65; RESP 16; TEMP 36.6; O2SAT 96
[2023-12-06 21:44] LABS: Beta-Hydroxybutyrate 0.13 mmol/L (0.02-0.27)
[2023-12-06 21:45] LABS: IDNOW Serial# 08D9AD1C; Strep A Nucleic Acid Negative (Negative)
[2023-12-06 21:48] LABS: Troponin-I High Sensitivity 120.5 ng/L (<3.5-35.0)
[2023-12-06 22:13] LABS: Influenza A PCR NEGATIVE (Negative); Influenza B PCR NEGATIVE (Negative); Resp Syncy Virus RNA Qual PCR NEGATIVE (Negative); SARS COV2 PCR INHOUSE NEGATIVE (Negative)
[2023-12-06 22:31] LABS: Glucose, Whole Blood 299 mg/dL (60-115)
[2023-12-06 22:55] LABS: Troponin-I High Sensitivity 129.8 ng/L (<3.5-35.0)
[2023-12-07 00:21] LABS: Anion Gap 14 (12-20); Blood Urea Nitrogen 59 mg/dL (9-16); Calcium 8.5 mg/dL (8.4-10.2); Carbon Dioxide 26 mmol/L (22-29); Chloride 105 mmol/L (96-108); Creatinine Clr Calc Pharmacy 24.7; Estimated Glomerular Filt Rate 29; Glucose Random 265 mg/dL (60-115); Potassium 3.9 mmol/L (3.3-5.1); Sodium 141 mmol/L (135-145)
[2023-12-07 03:50] LABS: Glucose, Whole Blood 185 mg/dL (60-115)
[2023-12-07] MEDS: Insulin Lispro 100 UNIT/ML 3 ML VIAL SUBCUT ×2 (03:54→09:43)
[2023-12-07 05:55] VITALS: BP 97/58; PULSE 52; RESP 12; TEMP 36.4; O2SAT 98
[2023-12-07 07:17] VITALS: BP 96/45; PULSE 52; O2SAT 98
[2023-12-07 08:25] LABS: Glucose, Whole Blood 192 mg/dL (60-115)
--- NOTE | 2023-12-07 09:10 | MHC.CM.PN ---
Addendum entered by Rhiannon Peña RN 12/07/23 13:50: Auth obtained by [facility]. S transport scheduled for 330pm. [facility] Booking ID # [id number]. RN, PA, patient and granddaughter aware. Addendum entered by Rhiannon Peña RN 12/07/23 11:15: CM spoke w/ granddaughter Lakia and updated on plan. Addendum entered by Rhiannon Peña RN 12/07/23 09:44: Patient accepted bed @ [facility] pending auth. Addendum entered by Rhiannon Peña RN 12/07/23 09:13: LM for granddaughter Lakia to update on plan, per patient request. Original Note: Rec'd CM consult from ED provider. Patient comes from home w/ granddaughter/PROFESSOR OF MARKETING/HCP Lakia. Patient/granddaughter not comfortable managing insulin, patient w/ elevated blood sugars. Ambulates w/ walker or cane. Has CPAP, unsure of supplier. Reports an RN from [facility] visits weekly for assessments. HCP on file and verified. PCP Amara Zimmerman MD DP: PT rec STR. Patient is agreeable with no facility preference. Referrals sent via [facility]. Pending bed offer and insurance auth.
[2023-12-07 10:22] VITALS: BP 105/57; PULSE 56; RESP 16; TEMP 36.4; O2SAT 98
[2023-12-07 11:54] LABS: Glucose, Whole Blood 256 mg/dL (60-115)
[2023-12-07] MEDS: Insulin Lispro 100 UNIT/ML 3 ML VIAL 6 UNIT SUBCUT (12:01)
[2023-12-07 14:40] VITALS: BP 102/63; PULSE 58; RESP 18; TEMP 36.5; O2SAT 98
--- NOTE | 2023-12-07 15:29 | PC.NURSE ---
Patient requesting Tums or something like that for my stomach . Notified/aware that EMS expected arrival pick-up time is at 15:30 (now), and that there are no PRN medication orders on file at this time.
[2023-12-07 15:50] VITALS: BP 109/60; PULSE 50; RESP 17; TEMP 36.5; O2SAT 97
--- NOTE | 2023-12-07 15:52 | PC.NURSE ---
Case management (Rhiannon Peña) reached out to [facility], and was notified that new ETA is 4:15pm.
--- NOTE | 2023-12-07 17:07 | PC.NURSE ---
EMS is again delayed. Unknown ETA at this time.
[2023-12-07 17:25] VITALS: BP 109/60; PULSE 50; RESP 17; TEMP 36.5; O2SAT 97
--- NOTE | 2023-12-07 17:28 | PC.NURSE ---
Attempted to give nurse to nurse report, however, no one answered the call. Left a voicemail to have nurse call back. EMS en route to [facility].
== END 2023-12-07 17:26 ==
PROVIDERS: Emergency Medicine Emergency Medical Services; Emergency Provider Internal Medicine; PCP Internal Medicine
DX: E11.65 Type 2 diabetes mellitus with hyperglycemia (principal); R94.31 Abnormal electrocardiogram [ECG] [EKG]; R00.1 Bradycardia, unspecified; R07.89 Other chest pain; M54.2 Cervicalgia; R26.2 Difficulty in walking, not elsewhere classified; R35.0 Frequency of micturition; R05.9 Cough, unspecified; M10.09 Idiopathic gout, multiple sites; R11.2 Nausea with vomiting, unspecified; R51.9 Headache, unspecified; Z79.899 Other long term (current) drug therapy; Z79.4 Long term (current) use of insulin; Z03.818 Encounter for observation for suspected exposure to other biological agents ruled out
CPT/HCPCS: 0241U; 36415; 71046; 80048; 80053; 81001; 82010; 82947; 84484; 85025; 87651; 93005; 96361; 96374; 97162; 99285

== ENCOUNTER → 2023-12-06 20:49 | Outpatient (BNV) | payer OTHER, SELFPAY | PROVIDERS: Emergency Provider Internal Medicine; PCP Internal Medicine; Visit Provider Internal Medicine Cardiovascular Disease | DX: R94.31 Abnormal electrocardiogram [ECG] [EKG] (principal) | CPT/HCPCS: 93010 ==

== ENCOUNTER → 2023-12-15 23:59 | Outpatient (BNV) | payer OTHER, SELFPAY ==
--- NOTE | 2023-12-16 17:16 | MHC.OFFVIS ---
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) Diabetes History of CAD (coronary artery disease) CHF (congestive heart failure) Acute exacerbation of CHF (congestive heart failure) CKD (chronic kidney disease) Surgical History History of heart artery stent Social History Household Members: Family Housing: Apartment Do you presently have visiting nurse or other home services: Yes Alcohol intake: former Patient Tobacco Use Status: Former Tobacco user Advance Directives Date on File: 01/21/23 service: No Current occupational status: retired Office Procedures Cardiac Device Check Cardiac Device Check Details: Monitoring period dates: 11/11/23- 12/15/23 Optimal PA pressure range: PAD 22mmhg Procedure code: 89967 BACKGROUND: Jorge is implanted with the CardioMEMS PA Sensor.? I use this technology to monitor PA pressures on a weekly basis to ensure patients are within their optimal range to prevent decompensation.? SUMMARY:? I utilized the remote monitoring platform ([facility]) to set optimal targets for pulmonary artery pressure thresholds as part of acute and chronic management of patient?s heart failure. During the period indicated above, I monitored the patient?s pulmonary artery pressures weekly via trend analysis and notification reports which provide alerts when patient?s PA pressures were outside of range to prompt immediate action in medication changes and communications.? The weekly reports are archived in the [facility] system which serve as a parallel record to document weekly PA pressures, medication changes, and clinical notes. I have reviewed readings on 11/13, 11/20, 11/27, 12/04, 12/08, 12/14. His PAD readings have ranged between 17- 25mmgh. He remains on the lower Torsemide dose. 99701 - Remote monitoring of wireless pulmonary artery pressure sensor Procedure code (CPT) selection complete Assessment & Plan Assessment & Plan (1) Presence of CardioMEMS HF system: Code(s): Z95.818 - Presence of other cardiac implants and grafts Category: Medical Plan: monthly report Coding Level of Care Code Procedure Only Diagnoses Presence of CardioMEMS HF system Z95.818 CPT Codes Cardiac Device Check - Cardiac Device 17: 76667 - Remote monitoring of wireless pulmonary artery pressure sensor ([id number])
== END ==
PROVIDERS: PCP Internal Medicine; Visit Provider Nurse Practitioner Family
DX: Z45.09 Encounter for adjustment and management of other cardiac device (principal)
CPT/HCPCS: 93264

== ENCOUNTER → 2024-01-06 23:59 | Outpatient (BNV) | payer OTHER, SELFPAY ==
--- NOTE | 2024-01-09 16:04 | MHC.OFFVIS ---
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) Diabetes History of CAD (coronary artery disease) CHF (congestive heart failure) Acute exacerbation of CHF (congestive heart failure) CKD (chronic kidney disease) Surgical History History of heart artery stent Social History Household Members: Family Housing: Apartment Do you presently have visiting nurse or other home services: Yes Alcohol intake: former Patient Tobacco Use Status: Former Tobacco user Advance Directives Date on File: 01/21/23 service: No Current occupational status: retired Office Procedures Cardiac Device Check Cardiac Device Check Details: Remote heart failure report generated 01/05/2024. OptiVol is increased. Will follow-up with patient clinically [id number] Cardiac Device Interrogation, cardio physiologic monitor Procedure code (CPT) selection complete Assessment & Plan Assessment & Plan (1) ICD (implantable cardioverter-defibrillator) in place: Code(s): Z95.810 - Presence of automatic (implantable) cardiac defibrillator Category: Medical Plan: See above Coding Level of Care Code Procedure Only Diagnoses ICD (implantable cardioverter-defibrillator) in place Z95.810 CPT Codes Cardiac Device Check - Cardiac Device 15: [id number] Cardiac Device Interrogation, cardio physiologic monitor ([id number])
== END ==
PROVIDERS: PCP Internal Medicine; Visit Provider Internal Medicine Cardiovascular Disease
DX: Z45.02 Encounter for adjustment and management of automatic implantable cardiac defibrillator (principal)
CPT/HCPCS: 93297

== ENCOUNTER → 2024-01-17 23:59 | Outpatient (BNV) | payer OTHER, SELFPAY ==
--- NOTE | 2024-01-27 12:02 | MHC.OFFVIS ---
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) Diabetes History of CAD (coronary artery disease) CHF (congestive heart failure) Acute exacerbation of CHF (congestive heart failure) CKD (chronic kidney disease) Surgical History History of heart artery stent Social History Household Members: Family Housing: Apartment Do you presently have visiting nurse or other home services: Yes Alcohol intake: former Patient Tobacco Use Status: Former Tobacco user Advance Directives Date on File: 01/21/23 service: No Current occupational status: retired Office Procedures Cardiac Device Check Cardiac Device Check Details: Monitoring period dates: 12/16/23 - 01/17/24 Optimal PA pressure range: PAD goal 22mmhg Procedure code: [id number] BACKGROUND: Jorge is implanted with the CardioMEMS PA Sensor.? I use this technology to monitor PA pressures on a weekly basis to ensure patients are within their optimal range to prevent decompensation.? SUMMARY:? I utilized the remote monitoring platform ([employer]) to set optimal targets for pulmonary artery pressure thresholds as part of acute and chronic management of patient?s heart failure. During the period indicated above, I monitored the patient?s pulmonary artery pressures weekly via trend analysis and notification reports which provide alerts when patient?s PA pressures were outside of range to prompt immediate action in medication changes and communications.? The weekly reports are archived in the [employer] system which serve as a parallel record to document weekly PA pressures, medication changes, and clinical notes. I have reviewed readings on 12/15, 12/22, 12/29, 01/05, 01/16. He had been hospitalized for COPD exacerbations. Readings were only sent between 01/05 and 01/11 this month. His PAD ranged 19-24mmhg. No diuretic changes were made. [id number] - Remote monitoring of wireless pulmonary artery pressure sensor Procedure code (CPT) selection complete Assessment & Plan Assessment & Plan (1) Presence of CardioMEMS HF system: Code(s): Z95.818 - Presence of other cardiac implants and grafts Category: Medical Plan: monthly report Coding Level of Care Code Procedure Only Diagnoses Presence of CardioMEMS HF system Z95.818 CPT Codes Cardiac Device Check - Cardiac Device 17: [id number] - Remote monitoring of wireless pulmonary artery pressure sensor ([id number])
== END ==
PROVIDERS: PCP Internal Medicine; Visit Provider Nurse Practitioner Family
DX: Z45.09 Encounter for adjustment and management of other cardiac device (principal)
CPT/HCPCS: 93264

== ENCOUNTER → 2024-02-23 23:59 | Outpatient (BNV) | payer OTHER, SELFPAY ==
--- NOTE | 2024-02-28 16:44 | A.OFFVIS_ITS ---
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) Diabetes History of CAD (coronary artery disease) CHF (congestive heart failure) Acute exacerbation of CHF (congestive heart failure) CKD (chronic kidney disease) Surgical History History of heart artery stent Social History Household Members: Family Housing: Apartment Do you presently have visiting nurse or other home services: Yes Alcohol intake: former Patient Tobacco Use Status: Former Tobacco user Advance Directives Date on File: 01/21/23 service: No Current occupational status: retired Office Procedures Cardiac Device Check Cardiac Device Check Details: Monitoring period dates: 01/18/24 - 02/23/24 Optimal PA pressure range: PAD goal 22mmhg Procedure code: [id number] BACKGROUND: Jorge is implanted with the CardioMEMS PA Sensor.? I use this technology to monitor PA pressures on a weekly basis to ensure patients are within their optimal range to prevent decompensation.? SUMMARY:? I utilized the remote monitoring platform ([employer]) to set optimal targets for pulmonary artery pressure thresholds as part of acute and chronic management of patient?s heart failure. During the period indicated above, I monitored the patient?s pulmonary artery pressures weekly via trend analysis and notification reports which provide alerts when patient?s PA pressures were outside of range to prompt immediate action in medication changes and communications.? The weekly reports are archived in the [employer] system which serve as a parallel record to document weekly PA pressures, medication changes, and clinical notes. I have reviewed readings on 01/31, 02/05, 02/12, 02/19. He sent no readings between 01/17 and 01/30. Readings have ranged between 19- 28mmhg. No diuretic changes were made 14173 - Remote monitoring of wireless pulmonary artery pressure sensor Procedure code (CPT) selection complete Assessment & Plan Assessment & Plan (1) Presence of CardioMEMS HF system: Code(s): Z95.818 - Presence of other cardiac implants and grafts Category: Medical Plan: monthly report Coding Level of Care Code Procedure Only Diagnoses Presence of CardioMEMS HF system Z95.818 CPT Codes Cardiac Device Check - Cardiac Device 17: 71999 - Remote monitoring of wireless pulmonary artery pressure sensor ([id number])
== END ==
PROVIDERS: PCP Internal Medicine; Visit Provider Nurse Practitioner Family
DX: Z45.09 Encounter for adjustment and management of other cardiac device (principal)
CPT/HCPCS: 93264

== ENCOUNTER → 2024-04-06 23:59 | Outpatient (BNV) | payer OTHER, SELFPAY ==
--- NOTE | 2024-04-27 17:57 | MHC.OFFVIS ---
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) Diabetes History of CAD (coronary artery disease) CHF (congestive heart failure) Acute exacerbation of CHF (congestive heart failure) CKD (chronic kidney disease) Surgical History History of heart artery stent Social History Household Members: Family Housing: Apartment Do you presently have visiting nurse or other home services: Yes Alcohol intake: former Patient Tobacco Use Status: Former Tobacco user Advance Directives Date on File: 01/21/23 service: No Current occupational status: retired Office Procedures Cardiac Device Check Cardiac Device Check Details: Monitoring period dates: 02/23/24- 04/06/24 Optimal PA pressure range: PAD goal 22mmhg Procedure code: [id number] BACKGROUND: Jorge is implanted with the CardioMEMS PA Sensor.? I use this technology to monitor PA pressures on a weekly basis to ensure patients are within their optimal range to prevent decompensation.? SUMMARY:? I utilized the remote monitoring platform ([employer]) to set optimal targets for pulmonary artery pressure thresholds as part of acute and chronic management of patient?s heart failure. During the period indicated above, I monitored the patient?s pulmonary artery pressures weekly via trend analysis and notification reports which provide alerts when patient?s PA pressures were outside of range to prompt immediate action in medication changes and communications.? The weekly reports are archived in the [employer] system which serve as a parallel record to document weekly PA pressures, medication changes, and clinical notes. I have reviewed readings on 02/23, 03/02, 03/09, 03/16, 03/23, 03/30. 04/06. Readings have ranged between 22-32mmhg. No diuretic changes were made 67210 - Remote monitoring of wireless pulmonary artery pressure sensor Procedure code (CPT) selection complete Assessment & Plan Assessment & Plan (1) Presence of CardioMEMS HF system: Code(s): Z95.818 - Presence of other cardiac implants and grafts Category: Medical Plan: monthly report Coding Level of Care Code Procedure Only Diagnoses Presence of CardioMEMS HF system Z95.818 CPT Codes Cardiac Device Check - Cardiac Device 17: 14507 - Remote monitoring of wireless pulmonary artery pressure sensor ([id number])
== END ==
PROVIDERS: PCP Internal Medicine; Visit Provider Nurse Practitioner Family
DX: Z45.09 Encounter for adjustment and management of other cardiac device (principal)
CPT/HCPCS: 93264

== ENCOUNTER → 2024-05-08 23:59 | Outpatient (BNV) | payer OTHER, SELFPAY ==
--- NOTE | 2024-05-11 16:54 | A.OFFVIS_ITS ---
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) Diabetes History of CAD (coronary artery disease) CHF (congestive heart failure) Acute exacerbation of CHF (congestive heart failure) CKD (chronic kidney disease) Surgical History History of heart artery stent Social History Household Members: Family Housing: Apartment Do you presently have visiting nurse or other home services: Yes Alcohol intake: former Patient Tobacco Use Status: Former Tobacco user Advance Directives Date on File: 01/21/23 service: No Current occupational status: retired Office Procedures Cardiac Device Check Cardiac Device Check Details: Monitoring period dates: 04/07/24 - 05/08/24 Optimal PA pressure range: PAD goal 22mmhg Procedure code: [id number] BACKGROUND: Jorge is implanted with the CardioMEMS PA Sensor.? I use this technology to monitor PA pressures on a weekly basis to ensure patients are within their optimal range to prevent decompensation.? SUMMARY:? I utilized the remote monitoring platform ([employer]) to set optimal targets for pulmonary artery pressure thresholds as part of acute and chronic management of patient?s heart failure. During the period indicated above, I monitored the patient?s pulmonary artery pressures weekly via trend analysis and notification reports which provide alerts when patient?s PA pressures were outside of range to prompt immediate action in medication changes and communications.? The weekly reports are archived in the [employer] system which serve as a parallel record to document weekly PA pressures, medication changes, and clinical notes. I have reviewed readings on 04/13, 04/20, 04/27, 05/04, 05/08. Readings have ranged between 16-25mmhg. His diuretic dose had been increased 22294 - Remote monitoring of wireless pulmonary artery pressure sensor Procedure code (CPT) selection complete Assessment & Plan Assessment & Plan (1) Presence of CardioMEMS HF system: Code(s): Z95.818 - Presence of other cardiac implants and grafts Category: Medical Plan: monthly report Coding Level of Care Code Procedure Only Diagnoses Presence of CardioMEMS HF system Z95.818 CPT Codes Cardiac Device Check - Cardiac Device 17: 31474 - Remote monitoring of wireless pulmonary artery pressure sensor ([id number])
== END ==
PROVIDERS: PCP Internal Medicine; Visit Provider Nurse Practitioner Family
DX: Z45.09 Encounter for adjustment and management of other cardiac device (principal)
CPT/HCPCS: 93264